=== PATIENT | female | born 1980 | race Hispanic/Latino ===

== ENCOUNTER 2020-02-16 05:43 | Observation (INO) | payer OTHER, SELFPAY ==
--- OUTSIDE RECORDS SUMMARY | 2020-02-16 05:45 | XMS REPORT | Continuity of Care Document ---
:1980 Author Organization [facility] t Address [address] [place] [address] Dr. Teague [address] [place] [id number] Care Team Providers Name Role Phone Unavailable Unavailable Unavailable Problems This patient has no known problems. Allergies, Adverse Reactions, Alerts This patient has no known allergies or adverse reactions. Medications This patient has no known medications. Procedures This patient has no known procedures. Results This patient has no known results.
[2020-02-16 06:11] LABS: Basophils % 1.1 % (0-1.3); Hematocrit 39.3 % (36.0-45.0); Lymphocytes % 33.4 % (15.3-44.8); MPV 10.1 fL (7.6-11.3); RBC Red Blood Cell Count 4.59 M/uL (3.86-4.86)
[2020-02-16 06:24] LABS: Protime INR 1.03
[2020-02-16 06:37] LABS: ALT/SGPT 18 U/L (12-78); AST/SGOT 15 U/L (15-37); Albumin 3.9 g/dL (3.4-5.0); Alkaline Phosphatase 98 U/L (45-117); BUN Blood Urea Nitrogen 10 mg/dL (7-18); Bicarbonate 28 mmol/L (21-32); Bilirubin Direct 0.2 mg/dL (0-0.2); Bilirubin Total 0.8 mg/dL (0.2-1.0); Glucose Level 220 mg/dL (74-106); Magnesium 1.8 mg/dL (1.8-2.4); NT PRO-BNP 19 pg/mL (<125); Protein, Total 8.3 g/dL (6.4-8.2); Sodium Level 136 mmol/L (136-145); Troponin (Emerg Dept Use Only) < 0.02 ng/mL (0.0-0.045)
[2020-02-16 07:28] LABS: Urine Blood 3+ (NEG); Urine Glucose TRACE (NEG); Urine Protein TRACE (NEG); Urine Specific Gravity 1.015 (1.005-1.030)
[2020-02-16 07:47] LABS: Barbiturates NEGATIVE (NEGATIVE); Benzodiazepines NEGATIVE (NEGATIVE); Cocaine NEGATIVE (NEGATIVE); METHAMPHETAM POSITIVE (NEGATIVE); Methadone NEGATIVE (NEGATIVE); Opiates NEGATIVE (NEGATIVE); Phencyclidine NEGATIVE (NEGATIVE); THC Cannibis NEGATIVE (NEGATIVE)
[2020-02-16 07:50] LABS: Urine Bacteria LOADED /HPF (<20); Urine Culture Reflex Order REFLEXED; Urine RBC <5 /HPF (NONE SEEN)
[2020-02-16] MEDS ORDERED: ASPIRIN 81 MG CHEWABLE TABLET ONE (07:52)
[2020-02-16] MEDS ORDERED: NA CHLORIDE 0.9% 1,000 ML ONE (07:52)
[2020-02-16] MEDS ORDERED: CEFTRIAXONE/SWI 1gm 1 GM/10 ML SYR ONE (07:52)
--- NOTE | 2020-02-16 07:59 | EDPHYS ---
Physician Documentation [facility] Name: Kaur Caruso Age: 39 yrs Sex: Female : 1980 Arrival Date: 02/16/2020 Time: 05:43 Bed 6 Private MD: ED Physician Rolando Lott HPI: 02/15 06:45 This 39 yrs old Female presents to ER via EMS with complaints of Chest Pain. cp 06:45 The patient or guardian reports chest pain that is located primarily in the anterior cp chest wall, left. Onset: yesterday. The pain does not radiate. Duration: The patient or guardian reports multiple episodes, that are intermittent. 06:45 Modifying factors: the symptoms are aggravated by emotionally stressful situations. cp Severity of pain: in the emergency department the pain has improved markedly. 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 - Social history:: Smoking status: Patient denies any tobacco usage or history of. Patient uses alcohol, occasionally. ROS: 06:50 Constitutional: Negative for body aches, chills, fever. cp 06:50 Eyes: Negative for injury, pain, redness, and discharge. cp 06:50 ENT: Negative for ear pain, sore throat, difficulty swallowing, difficulty handling secretions. 06:50 Neck: Negative for pain with movement, pain at rest, stiffness. 06:50 Cardiovascular: Positive for chest pain, Negative for edema, palpitations. 06:50 Respiratory: Negative for cough, shortness of breath, wheezing. 06:50 Abdomen/GI: Negative for abdominal pain, nausea, vomiting, and diarrhea. 06:50 Back: Negative for radiated pain. 06:50 Neuro: Negative for altered mental status, syncope, weakness. 06:50 All other systems are negative. Exam: 06:55 Constitutional: The patient appears in no acute distress, alert, awake, comfortable, cp non-diaphoretic, well developed, well nourished. 06:55 Head/Face: Normocephalic, atraumatic. cp 06:55 Eyes: Periorbital structures: appear normal, Conjunctiva: normal, no exudate, no injection, Sclera: no appreciated abnormality, Lids and lashes: appear normal, bilaterally. 06:55 ENT: External ear(s): are unremarkable, Nose: is normal, Mouth: Lips: moist, Oral mucosa: moist, Posterior pharynx: is normal, airway is patent, no erythema, no exudate. 06:55 Neck: ROM/movement: is normal, is supple, without pain, no range of motions limitations. 06:55 Chest/axilla: Inspection: normal, Palpation: is normal, no crepitus, no tenderness. 06:55 Cardiovascular: Rate: normal, Rhythm: regular, Heart sounds: murmur, not appreciated, Edema: is not appreciated, JVD: is not appreciated. 06:55 Respiratory: the patient does not display signs of respiratory distress, Respirations: normal, no use of accessory muscles, no retractions, labored breathing, is not present, Breath sounds: are clear throughout, no decreased breath sounds, no stridor, no wheezing. 06:55 Abdomen/GI: Inspection: abdomen appears normal, Palpation: abdomen is soft and non-tender, in all quadrants. 06:55 Back: pain, is absent, ROM is normal. 06:55 Skin: no rash present. 06:55 Neuro: Orientation: to person, place \T\ time. Mentation: is normal, Motor: moves all fours, strength is normal. 07:34 ECG was reviewed by the Attending Physician. cp Vital Signs: 05:45 BP 197 / 113; Pulse 112; Resp 16 S; Temp 98.2(O); Pulse Ox 100% on R/A; Weight 60.78 kg bb (R); Height 5 ft. 1 in. (154.94 cm) (R); Pain 0/10; 06:21 BP 181 / 110; Pulse 103; Resp 19; Pulse Ox 99% ; rr5 07:48 BP 149 / 102; Pulse 115; Resp 18; Pulse Ox 100% ; sv 08:45 BP 159 / 104; Pulse 99; Resp 19; Pulse Ox 100% ; sv 09:45 BP 153 / 98; Pulse 92 MON; Resp 17; Pulse Ox 100% ; sv 10:14 BP 153 / 98; Pulse 95; Resp 17; Pulse Ox 100% ; sv 11:25 BP 124 / 86; Pulse 94; Resp 16; Pulse Ox 100% ; sv 12:08 BP 125 / 88; Pulse 93; Resp 16; Pulse Ox 99% ; sv 05:45 Body Mass Index 25.32 (60.78 kg, 154.94 cm) bb 09:45 Sinus Rhythm sv MDM: 06:00 Differential diagnosis: abnormal EKG, acute myocardial infarction, cholecystitis, cp Cholelithiasis pleurisy, pneumonia, pneumothorax, pulmonary embolus. 06:44 Patient medically screened. cp 07:56 Data reviewed: vital signs, nurses notes, lab test result(s), EKG, radiologic studies, cp plain films. 07:57 Physician consultation: Brayan Moreira MD was called at 07:55, was contacted at 07:55, cp regarding admission, to the telemetry unit. patient's condition. 08:00 The patient was given aspirin in the Emergency Department. cp 08:00 Response to treatment: the patient's symptoms have markedly improved after treatment. cp 02/15 05:45 Order name: Basic Metabolic Panel; Complete Time: 06:50 bb 02/15 06:50 Interpretation: Normal except: K 3.0; GLUC 220; GFR 55. cp 02/15 05:45 Order name: CBC with Diff; Complete Time: 06:50 bb 02/15 05:45 Order name: LFT's; Complete Time: 06:50 bb 02/15 05:45 Order name: Magnesium; Complete Time: 06:50 02/15 05:45 Order name: NT PRO-BNP; Complete Time: 06:50 02/15 05:45 Order name: PT-INR; Complete Time: 06:50 bb 02/15 05:45 Order name: Troponin (emerg Dept Use Only); Complete Time: 06:50 bb 02/15 06:36 Order name: D-Dimer; Complete Time: 07:53 cp 02/15 06:51 Order name: UDS; Complete Time: 07:53 cp 02/15 07:53 Interpretation: Normal except: METHAMPHETAMINE POSITIVE. cp 02/15 07:11 Order name: Urine Microscopic Only; Complete Time: 07:53 dh3 02/15 07:53 Interpretation: Normal except: UWBC 5-10; UBACT LOADED. cp 02/15 07:12 Order name: Urine Dipstick--Ancillary (enter results); Complete Time: 07:53 eb 02/15 07:12 Order name: Urine --Ancillary (enter results); Complete Time: 07:53 eb 02/15 07:51 Order name: Urine Culture [facility] 02/15 08:20 Order name: Urinalysis [facility] 02/15 08:20 Order name: CBC with Automated Diff [facility] 02/15 08:20 Order name: CBC with Automated Diff [facility] 02/15 08:20 Order name: CKMB Creatine Kinase MB [facility] 02/15 08:20 Order name: CKMB Creatine Kinase MB [facility] 02/15 08:20 Order name: CKMB Creatine Kinase MB [facility] 02/15 08:20 Order name: CKMB Creatine Kinase MB [facility] 02/15 08:20 Order name: Comprehensive Metabolic Panel [facility] 02/15 08:20 Order name: Comprehensive Metabolic Panel [facility] 02/15 08:20 Order name: Creatine Phosphokinase [facility] 02/15 08:20 Order name: Creatine Phosphokinase [facility] 02/15 08:20 Order name: Creatine Phosphokinase [facility] 02/15 08:20 Order name: Creatine Phosphokinase [facility] 02/15 08:20 Order name: Lipid Profile [facility] 02/15 08:20 Order name: Lipid Profile [facility] 02/15 08:20 Order name: Magnesium [facility] 02/15 08:20 Order name: Magnesium [facility] 02/15 05:45 Order name: XRAY Chest (1 view); Complete Time: 11:24 02/15 11:24 Interpretation: Report review. 02/15 05:45 Order name: EKG; Complete Time: 05:45 02/15 05:45 Order name: Cardiac monitoring; Complete Time: 06:21 02/15 05:45 Order name: EKG - Nurse/Tech; Complete Time: 06:21 02/15 05:45 Order name: IV Saline Lock; Complete Time: 06:21 02/15 05:45 Order name: Labs collected and sent; Complete Time: 06:21 02/15 05:45 Order name: O2 Per Protocol; Complete Time: 06:21 02/15 05:45 Order name: O2 Sat Monitoring; Complete Time: 06:21 02/15 06:51 Order name: Urine Test (obtain specimen); Complete Time: 07:11 02/15 06:51 Order name: Urine Dipstick-Ancillary (obtain specimen); Complete Time: 07:11 cp 02/15 08:20 Order name: Consistent Carb (ADA) 1800 Fernando EDMS 02/15 08:20 Order name: Phosphorus EDMS 02/15 08:20 Order name: Phosphorus EDMS 02/15 08:20 Order name: Troponin I EDMS 02/15 08:20 Order name: Troponin I EDMS 02/15 08:20 Order name: Troponin I EDMS 02/15 08:20 Order name: Troponin I EDMS EC:34 Rate is 105 beats/min. Rhythm is regular. NC interval is normal. QRS interval is cp normal. QT interval is normal. T waves are Flattened in lead III. Interpreted by me. Reviewed by me. Administered Medications: 07:39 CANCELLED (Duplicate Order): Rocephin - (cefTRIAXone) 1 grams IVPB once over 30 mins; sv (mix in 50 mL NS) 07:50 Drug: Aspirin Chewable Tablet 324 mg Route: PO; sv 08:00 Follow up: Response: No adverse reaction sv 07:50 Drug: NS 0.9% 1000 ml Route: IV; Rate: 1 bolus; Site: left antecubital; sv 09:00 Follow up: Response: No adverse reaction; IV Status: Completed infusion; IV Intake: sv 1000ml 07:50 Drug: Rocephin 1 grams Route: IV; Rate: calculated rate; Site: left antecubital; sv 07:53 Follow up: Response: No adverse reaction; IV Status: Completed infusion; IV Intake: 10mlsv Disposition: 11:38 Co-signature as Attending Physician, Rolando Lott MD. ma2 Disposition: 02/16/20 07:59 Hospitalization ordered by Brayan Moreira for Observation. Preliminary diagnosis are Chest pain, unspecified, Urinary tract infection, site not specified, Hypertensive heart disease, Diabetes mellitus due to underlying condition with hyperglycemia. - Bed requested for Telemetry/MedSurg (observation). - Status is Observation. sv - Condition is Stable. - Problem is new. - Symptoms have improved. Signatures: Dispatcher [employer] EDMS Leodan, Mckenzie, RN RN sv Cleburne, Lyudmila, RN RN dw Neal, Bronwyn, RN RN bb Page, Oswaldo, PA PA cp Alzahri, Mohammad, MD MD ma2 Corrections: (The following items were deleted from the chart) 05:50 05:48 Home Meds: None; bb bb 07:39 07:33 Rocephin - (cefTRIAXone) 1 grams IVPB once over 30 mins; (mix in 50 mL NS) sv ordered. cp 11:19 07:59 Hospitalization Ordered by Brayan Moreira MD for Observation. Preliminary dw diagnosis is Chest pain, unspecified; Urinary tract infection, site not specified; Hypertensive heart disease; Diabetes mellitus due to underlying condition with hyperglycemia. Bed requested for Telemetry/MedSurg (observation). Status is Observation. Condition is Stable. Problem is new. Symptoms have improved. cp 12:09 11:19 02/16/2020 07:59 Hospitalization Ordered by Brayan Moreira MD for Observation. sv Preliminary diagnosis is Chest pain, unspecified; Urinary tract infection, site not specified; Hypertensive heart disease; Diabetes mellitus due to underlying condition with hyperglycemia. Bed requested for Telemetry/MedSurg (observation). Status is Observation. Condition is Stable. Problem is new. Symptoms have improved. dw
--- NOTE | 2020-02-16 07:59 | ER ---
Nurse's Notes [facility] Name: Kaur Caruso Age: 39 yrs Sex: Female : 1980 Arrival Date: 02/16/2020 Time: 05:43 Bed 6 Private MD: Diagnosis: Chest pain, unspecified;Urinary tract infection, site not specified;Hypertensive heart disease;Diabetes mellitus due to underlying condition with hyperglycemia Presentation: 02/15 05:45 Chief complaint: EMS states: they were toned out for report of pt with chest pain. Pt bb states chest pain started last night approx 1700 is not feeling any chest pain at this time pt had recent in the family and had an argument with her boyfriend pt has also not been taking her medication lately for her diabetes. Coronavirus screen: At this time, the client does not indicate any symptoms associated with coronavirus-19. Ebola Screen: No symptoms or risks identified at this time. Initial Sepsis Screen: Does the patient meet any 2 criteria? No. Patient's initial sepsis screen is negative. Does the patient have a suspected source of infection? No. Patient's initial sepsis screen is negative. Risk Assessment: Do you want to hurt yourself or someone else? Patient reports no desire to harm self or others. Onset of symptoms was February 15, 2020. 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 - Social history:: Smoking status: Patient denies any tobacco usage or history of. Patient uses alcohol, occasionally. Screenin:59 Abuse screen: Denies threats or abuse. Denies injuries from another. Nutritional rr5 screening: No deficits noted. Tuberculosis screening: No symptoms or risk factors identified. Fall Risk IV access (20 points). Total Pascal Fall Scale indicates No Risk (0-24 pts). Assessment: 05:59 General: Appears in no apparent distress. comfortable, Behavior is calm, cooperative, rr5 appropriate for age. Pain: Denies pain. Complains of pain in chest Pain does not radiate. Pain began gradually. Neuro: Level of Consciousness is awake, alert, obeys commands, Oriented to person, place, time, situation. Cardiovascular: Reports chest pain, Capillary refill < 3 seconds Patient's skin is warm and dry. Respiratory: Airway is patent Respiratory effort is even, unlabored, Respiratory pattern is regular, symmetrical. GI: No signs and/or symptoms were reported involving the gastrointestinal system. : No signs and/or symptoms were reported regarding the genitourinary system. EENT: No signs and/or symptoms were reported regarding the EENT system. Derm: Skin is intact, is healthy with good turgor, Skin temperature is warm. Musculoskeletal: Capillary refill < 3 seconds. 07:45 General: Appears in no apparent distress. comfortable, Behavior is cooperative, sv appropriate for age, drowsy. Pain: Denies pain. Neuro: Level of Consciousness is awake, alert, obeys commands, Oriented to person, place, time, situation, Moves all extremities. Full function. Cardiovascular: Denies chest pain. Respiratory: Respiratory effort is even, unlabored, Respiratory pattern is regular, symmetrical. Derm: Skin is pink, warm \T\ dry. 09:00 Reassessment: Patient appears in no apparent distress at this time. Patient and/or sv family updated on plan of care and expected duration. Pain level reassessed. Patient is alert, oriented x 3, equal unlabored respirations, skin warm/dry/pink. 10:15 Reassessment: Patient appears in no apparent distress at this time. Patient and/or hb family updated on plan of care and expected duration. Pain level reassessed. Patient is alert, oriented x 3, equal unlabored respirations, skin warm/dry/pink. Vital Signs: 05:45 BP 197 / 113; Pulse 112; Resp 16 S; Temp 98.2(O); Pulse Ox 100% on R/A; Weight 60.78 kg bb (R); Height 5 ft. 1 in. (154.94 cm) (R); Pain 0/10; 06:21 BP 181 / 110; Pulse 103; Resp 19; Pulse Ox 99% ; rr5 07:48 BP 149 / 102; Pulse 115; Resp 18; Pulse Ox 100% ; sv 08:45 BP 159 / 104; Pulse 99; Resp 19; Pulse Ox 100% ; sv 09:45 BP 153 / 98; Pulse 92 MON; Resp 17; Pulse Ox 100% ; sv 10:14 BP 153 / 98; Pulse 95; Resp 17; Pulse Ox 100% ; sv 11:25 BP 124 / 86; Pulse 94; Resp 16; Pulse Ox 100% ; sv 12:08 BP 125 / 88; Pulse 93; Resp 16; Pulse Ox 99% ; sv 05:45 Body Mass Index 25.32 (60.78 kg, 154.94 cm) bb 09:45 Sinus Rhythm sv ED Course: 05:43 Patient arrived in ED. cf2 05:47 Triage completed. bb 05:48 Arm band placed on Patient placed in an exam room, on a stretcher, on pulse oximetry. bb 05:58 No provider procedures requiring assistance completed. EKG done, by ED staff. Inserted rr5 saline lock: 20 gauge in left antecubital area, using aseptic technique. Blood collected. Patient maintains SpO2 saturation greater than 95% on room air. 06:00 Jeremy Pace RN is Primary Nurse. rr5 06:00 Patient has correct armband on for positive identification. Placed in gown. Bed in low rr5 position. Call light in reach. Side rails up X2. awake overnight monitor on. Pulse ox on. NIBP on. 06:00 Patient has correct armband on for positive identification. Placed in gown. Bed in low ea position. Call light in reach. Side rails up X2. 06:29 XRAY Chest (1 view) In Process Unspecified. EDMS 06:35 Oswaldo Marrero PA is PHCP. cp 06:36 Oswaldo Rodriguez MD is Attending Physician. cp 07:10 Rolando Lott MD is Attending Physician. cp 07:58 Brayan Moreira MD is Hospitalizing Provider. cp 08:58 Primary Nurse role handed off by Jeremy Pace RN sv 08:58 Mckenzie Alcocer RN is Primary Nurse. sv 12:08 Patient admitted, IV remains in place. intact. sv Administered Medications: 07:39 CANCELLED (Duplicate Order): Rocephin - (cefTRIAXone) 1 grams IVPB once over 30 mins; sv (mix in 50 mL NS) 07:50 Drug: Aspirin Chewable Tablet 324 mg Route: PO; sv 08:00 Follow up: Response: No adverse reaction sv 07:50 Drug: NS 0.9% 1000 ml Route: IV; Rate: 1 bolus; Site: left antecubital; sv 09:00 Follow up: Response: No adverse reaction; IV Status: Completed infusion; IV Intake: sv 1000ml 07:50 Drug: Rocephin 1 grams Route: IV; Rate: calculated rate; Site: left antecubital; sv 07:53 Follow up: Response: No adverse reaction; IV Status: Completed infusion; IV Intake: 10mlsv Intake: 07:53 IV: 10ml; Total: 10ml. sv 09:00 IV: 1000ml; Total: 1010ml. sv Outcome: 07:59 Decision to Hospitalize by Provider. cp 11:39 Admitted to Tele accompanied by tech, via wheelchair, room 202, with chart, Report sv called to Antonia SANTAMARIA 11:39 Condition: stable 11:39 Instructed on the need for admit. 12:09 Patient left the ED. sv Signatures: Dispatcher [employer] Mckenzie Renee RN HINA sv Bronwyn Neal RN RN Oswaldo Simmons, TRINY PA cp Kacey Broussard, RN RN Evelyne Boggs RN RN Jreemy Soriano, RN RN rr5 Dale Lynn cf2 Corrections: (The following items were deleted from the chart) 05:50 05:48 Home Meds: None; kavin vale 11:25 10:14 BP 153 / 98; Pulse 17bpm; Resp 95bpm; Pulse Ox 100%; hb sv
[2020-02-16] MEDS ORDERED: ACETAMINOPHEN 500 MG TAB PO PRN (08:16)
[2020-02-16] MEDS ORDERED: ONDANSETRON 4 MG/2 ML VIAL IV PRN (08:16)
[2020-02-16] MEDS ORDERED: ENOXAPARIN 40 MG/0.4 ML SQ SCH (09:00)
--- NOTE | 2020-02-16 09:45 | RAD REPORT ---
EXAM DESCRIPTION: RAD - Chest Single View - 02/16/2020 6:29 am CLINICAL HISTORY: CHEST PAIN COMPARISON: Portable chest January 2016 TECHNIQUE: AP portable chest image was obtained 02/16/2020 6:29 am . FINDINGS: No focal mass or consolidation. No mediastinal or hilar focal abnormality seen. Interstiti al pattern is mildly prominent. Patient may have trace amounts of airspace opacification. Overall fin dings are not substantially different than are actually slightly better than the prior study. Heart and vasculature are normal. No measurable pleural effusion and no pneumothorax. No acute bony abnormality seen. No acute aortic findings suspected. IMPRESSION: No acute cardiopulmonary process identifiable. No worrisome changes from prior study.
--- NOTE | 2020-02-16 10:20 | P.HP ---
Certification for Inpatient Patient admitted to: Observation With expected LOS: <2 Midnights Practitioner: I am a practitioner with admitting privileges, knowledge of patient current condition, hospital course, and medical plan of care. Services: Services provided to patient in accordance with Admission requirements found in Title 42 Section 412.3 of the Code of Federal Regulations Patient History Date of Service: 02/16/20 Reason for admission: Chest discomfort History of Present Illness: 39 yo female with no significant past medical history other than hypertension and diabetes came to ER with chest discomfort which started last night. Patient states that she used amphetamine last night and then follow up which she felt heart tracing also chest discomfort along with high blood pressure and was brought to ER. Denies any chest pain . no fever or chills No nausea vomiting or diarrhea Patient was assessed in the ER and was found to have elevated blood pressure and was admitted for observation to rule out ACS Allergies No Known Allergies Allergy (Verified 02/01/16 00:38) Home medications list reviewed: Yes Home Medications: Amox/Clavulanate [Augmentin 875-125 Tab] 1 each PO BID #10 tab 02/11/16 Metformin HCl [Glucophage*] 500 mg PO BIDWM #60 tab 02/11/16 Promethazine HCl 25 mg PO QID PRN #20 tablet 02/11/16 gemfibroziL [Lopid*] 600 mg PO BID #60 tab 02/11/16 traMADol HCL [Ultram*] 50 mg PO Q6H PRN #20 tab 02/11/16 - Past Medical/Surgical History Diabetic: Yes Past Medical History: Reviewed- Non-Contributory -: DM-NIDDM Past Surgical History: Reviewed- Non-Contributory -: L Foot SX I&D - Family History Family History: Reviewed- Non-Contributory - Social History Smoking Status: Never smoker Alcohol use: Yes CD- Drugs: No Caffeine use: Yes Review of Systems 10-point ROS is otherwise unremarkable Physical Examination - Vital Signs Temperature: 98.2 F Blood Pressure: 146/98 Pulse: 102 Respirations: 18 - Physical Exam General: Alert, In no apparent distress, Oriented x3 HEENT: Atraumatic, Normocephalic Neck: Supple, 2+ carotid pulse no bruit Respiratory: Clear to auscultation bilaterally, Normal air movement Cardiovascular: Regular rate/rhythm, Normal S1 S2 Capillary refill: <2 Seconds Gastrointestinal: Soft and benign, W/out hepatosplenomegaly Musculoskeletal: No clubbing, No swelling Integumentary: No rashes, No tenderness/swelling Neurological: Normal speech, Normal strength at 5/5 x4 extr Lymphatics: No axilla or inguinal lymphadenopathy - Studies Laboratory Data (last 24 hrs) 02/16/20 06:00: PT 12.2, INR 1.03 02/16/20 06:00: WBC 5.9, Hgb 13.5, Hct 39.3, Plt Count 174 02/16/20 06:00: Sodium 136, Potassium 3.0 L, BUN 10, Creatinine 1.09, Glucose 220 H, Magnesium 1.8, Total Bilirubin 0.8, AST 15, ALT 18, Alkaline Phosphatase 98 Assessment and Plan - Problems (Diagnosis) (1) Accelerated hypertension Current Visit: Yes Status: Acute (2) Chest pain Current Visit: Yes Status: Acute (3) Diabetes Current Visit: Yes Status: Acute (4) Hyperlipemia Current Visit: Yes Status: Acute - Plan Chest pain to rule out ACS Accelerated hypertension Diabetes Hyperlipidemia Substance abuse with amphetamine Plan Monitor under telemetry trend cardiac enzymes Antihypertensives titrated Hydralazine p.r.n. Insulin sliding scale will get an A1c and lipid panel Advised against substance abuse GI/DVT prophylaxis - Advance Directives Does patient have a Living Will: No Does patient have a Durable POA for Healthcare: No Time Spent Managing Pts Care (In Minutes): 46
[2020-02-16] MEDS ORDERED: AMLODIPINE 5 MG TAB PO SCH (12:00)
[2020-02-16] MEDS ORDERED: ASPIRIN EC 81 MG TAB PO SCH (12:00)
[2020-02-16] MEDS: INSULIN -REGULAR HUMAN 50 UNIT/0.5 ML ML SQ SCH ×3 (12:43→20:31)
[2020-02-16] MEDS: carvediloL 6.25 MG TAB PO SCH ×2 (12:43→20:30)
[2020-02-16 13:58] VITALS: O2SAT 98; BMI 25.3
[2020-02-16 14:41] LABS: CKMB Creatine Kinase MB < 1.0 ng/mL (0.3-3.6); Creatine Phosphokinase 100 U/L (26-192); Troponin I < 0.02 ng/mL (0.0-0.045)
[2020-02-16] MEDS ORDERED: POTASSIUM CL SA 10 MEQ TAB PO ONE (16:00)
[2020-02-16] MEDS ORDERED: MAGNESIUM SULFATE 1 gm IVPB 1 GM/100 ML BAG IV ONE (16:00)
[2020-02-16 17:35] VITALS: TEMP 97.8
[2020-02-16 20:31] VITALS: BP 106/64
[2020-02-16] MEDS ORDERED: ATORVASTATIN 40 MG TAB PO SCH (21:00)
== END 2020-02-16 20:35 | disposition left against medical advice (07) ==
LOC: ER 05:43 → ERHOLD 08:18 → 2ND 11:40
PROVIDERS: ADMIT Family Medicine; ATTEND Family Medicine
DX: R07.9 Chest pain, unspecified (principal); I10 Essential (primary) hypertension; E11.65 Type 2 diabetes mellitus with hyperglycemia; N39.0 Urinary tract infection, site not specified; E78.5 Hyperlipidemia, unspecified; F15.10 Other stimulant abuse, uncomplicated; Z20.828 Contact with and (suspected) exposure to other viral communicable diseases; Z79.84 Long term (current) use of oral hypoglycemic drugs; Z79.899 Other long term (current) drug therapy
CPT/HCPCS: 36415; 71045; 80048; 80076; 80307; 81003; 81015; 81025; 82550; 82553; 82947; 83735; 83880; 84484; 85025; 85379; 85610; 87077; 87086; 87088; 87186; 93005; 96361; 96374; 99285; G0378; J0696; J3475; J7030; U0002

== ENCOUNTER 2020-03-11 05:16 | Emergency (ER) | payer SELFPAY ==
--- OUTSIDE RECORDS SUMMARY | 2020-03-11 05:18 | XMS REPORT | Continuity of Care Document ---
:1980 Author Organization [facility] t Address [address] [place] [address] Dr. Te[address] [place] [id number] Care Team Providers Name Role Phone Unavailable Unavailable Unavailable Problems This patient has no known problems. Allergies, Adverse Reactions, Alerts This patient has no known allergies or adverse reactions. Medications This patient has no known medications. Procedures This patient has no known procedures. Results This patient has no known results.
[2020-03-11 05:35] LABS: Absolute Lymphocytes (CBC) 1.9 K/uL (0.7-4.9); Basophils % 1.1 % (0-1.3); Hematocrit 38.7 % (36.0-45.0); Lymphocytes % 35.9 % (15.3-44.8); MPV 10.2 fL (7.6-11.3); RBC Red Blood Cell Count 4.55 M/uL (3.86-4.86)
[2020-03-11 05:37] LABS: Protime INR 1.04
[2020-03-11] MEDS ORDERED: HYDRALAZINE HCL 20 MG/ML VIAL ONE (05:58)
[2020-03-11 05:59] LABS: ALT/SGPT 17 U/L (12-78); AST/SGOT 13 U/L (15-37); Albumin 4.3 g/dL (3.4-5.0); Alkaline Phosphatase 73 U/L (45-117); BUN Blood Urea Nitrogen 6 mg/dL (7-18); Bicarbonate 26 mmol/L (21-32); Bilirubin Direct 0.2 mg/dL (0-0.2); Bilirubin Total 0.7 mg/dL (0.2-1.0); Glucose Level 183 mg/dL (74-106); Magnesium 1.9 mg/dL (1.8-2.4); NT PRO-BNP 14 pg/mL (<125); Protein, Total 8.3 g/dL (6.4-8.2); Sodium Level 137 mmol/L (136-145); Troponin (Emerg Dept Use Only) < 0.02 ng/mL (0.0-0.045)
[2020-03-11 06:00] LABS: Potassium 2.8 mmol/L (3.5-5.1)
[2020-03-11 06:07] LABS: Barbiturates NEGATIVE (NEGATIVE); Benzodiazepines NEGATIVE (NEGATIVE); Cocaine NEGATIVE (NEGATIVE); METHAMPHETAM POSITIVE (NEGATIVE); Methadone NEGATIVE (NEGATIVE); Opiates NEGATIVE (NEGATIVE); Phencyclidine NEGATIVE (NEGATIVE); THC Cannibis NEGATIVE (NEGATIVE)
[2020-03-11 06:12] LABS: Urine Blood TRACE (NEG); Urine Glucose TRACE (NEG); Urine Protein NEGATIVE (NEG); Urine Specific Gravity 1.015 (1.005-1.030); Urine pH 7.5 (5.0-7.0)
[2020-03-11 06:43] LABS: Urine Bacteria 20-50 /HPF (<20); Urine Culture Reflex Order NOT NEEDED; Urine RBC <5 /HPF (NONE SEEN)
--- NOTE | 2020-03-11 06:54 | EDPHYS ---
Physician Documentation [facility] Name: Kaur Caruso Age: 39 yrs Sex: Female : 1980 Arrival Date: 03/11/2020 Time: 05:16 Bed 4 Private MD: ED Physician Mamadou Rosales HPI: 03/11 05:25 This 39 yrs old Female presents to ER via EMS with complaints of Hypertension. tw4 05:25 The patient has elevated blood pressure and discovered this at home. Onset: The tw4 symptoms/episode began/occurred today. Modifying factors: The symptoms are aggravated by. Associated signs and symptoms: The patient has no apparent associated signs or symptoms. The patient has not experienced similar symptoms in the past. 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 - Social history:: Smoking status: unknown Patient uses street drugs, Methamphetamine (Meth). ROS: 05:25 Constitutional: Negative for fever, chills, and weight loss, Eyes: Negative for injury, tw4 pain, redness, and discharge, Cardiovascular: Negative for chest pain, palpitations, and edema, Respiratory: Negative for shortness of breath, cough, wheezing, and pleuritic chest pain, Abdomen/GI: Negative for abdominal pain, nausea, vomiting, diarrhea, and constipation, MS/Extremity: Negative for injury and deformity, Skin: Negative for injury, rash, and discoloration. 05:25 Neuro: Positive for dizziness, Negative for altered mental status, gait disturbance, headache, hearing loss, numbness, seizure activity, speech changes. Exam: 05:25 Constitutional: This is a well developed, well nourished patient who is awake, alert, tw4 and in no acute distress. Head/Face: Normocephalic, atraumatic. Chest/axilla: Normal chest wall appearance and motion. Nontender with no deformity. No lesions are appreciated. Respiratory: Lungs have equal breath sounds bilaterally, clear to auscultation and percussion. No rales, rhonchi or wheezes noted. No increased work of breathing, no retractions or nasal flaring. Abdomen/GI: Soft, non-tender, with normal bowel sounds. No distension or tympany. No guarding or rebound. No evidence of tenderness throughout. 05:25 Cardiovascular: Rate: tachycardic, Rhythm: regular, Pulses: no pulse deficits are appreciated, Heart sounds: Vital Signs: 05:17 BP 206 / 121; Pulse 110; Resp 22 S; Temp 98.6(O); Pulse Ox 100% on R/A; Weight 60.78 kg bb (R); Height 5 ft. 2 in. (157.48 cm) (R); 06:34 BP 147 / 85; Pulse 102; Resp 14; Pulse Ox 100% on R/A; rv 07:14 BP 141 / 86; Pulse 93; Resp 15; Temp 98.5; Pulse Ox 100% on R/A; Pain 0/10; rv 05:17 Body Mass Index 24.51 (60.78 kg, 157.48 cm) bb MDM: 05:18 Patient medically screened. tw4 05:25 Data reviewed: vital signs, nurses notes. tw4 06:51 Differential diagnosis: hypertensive crisis, Malignant HTN, intracerebral hemorrhage. tw4 Data interpreted: Pulse oximetry: Interpretation: normal. Test interpretation: by ED physician or midlevel provider: ECG. Counseling: I had a detailed discussion with the patient and/or guardian regarding: the historical points, exam findings, and any diagnostic results supporting the discharge/admit diagnosis, lab results. Medication response: hydralizine. Special discussion: I discussed with the patient/guardian in detail that at this point there is no indication for admission to the hospital. It is understood, however, that if the symptoms persist or worsen the patient needs to return immediately for re-evaluation. 03/11 05:19 Order name: Basic Metabolic Panel; Complete Time: 06:50 4 03/11 06:50 Interpretation: Normal except: K 2.8; BUN 6; GLUC 183; GFR 84. tw03/11 05:19 Order name: CBC with Diff; Complete Time: 06:50 4 03/11 06:51 Interpretation: Within normal limits. tw4 03/11 05:19 Order name: LFT's; Complete Time: 06:50 4 03/11 06:50 Interpretation: Normal except: TP 8.3; GLOB 4.0; AST 13. 03/11 05:19 Order name: Magnesium; Complete Time: 06:50 03/11 06:51 Interpretation: Within normal limits: MG 1.9. 03/11 05:19 Order name: NT PRO-BNP; Complete Time: 06:50 03/11 06:51 Interpretation: Within normal limits: NT PRO-BNP 14. 03/11 05:19 Order name: PT-INR; Complete Time: 06:50 03/11 06:51 Interpretation: Within normal limits: PT 12.3. 03/11 05:19 Order name: Troponin (emerg Dept Use Only); Complete Time: 06:50 03/11 06:51 Interpretation: Within normal limits: TROPED < 0.02. 03/11 05:19 Order name: XRAY Chest (1 view) 03/11 05:19 Order name: Urine Drug Screen; Complete Time: 06:50 03/11 06:50 Interpretation: Normal except: METHAMPHETAMINE POSITIVE. 03/11 05:45 Order name: Urine Microscopic Only; Complete Time: 06:50 03/11 06:50 Interpretation: Normal except: UBACT 20-50. 03/11 05:45 Order name: Urine Culture 03/11 05:45 Order name: Urine Dipstick--Ancillary (enter results); Complete Time: 06:50 03/11 06:50 Interpretation: Normal except: UBLD TRACE; UPH 7.5. 03/11 05:19 Order name: EKG; Complete Time: 05:19 03/11 05:19 Order name: Cardiac monitoring; Complete Time: 05:21 03/11 05:19 Order name: EKG - Nurse/Tech; Complete Time: 05:34 03/11 05:19 Order name: IV Saline Lock; Complete Time: 05:34 03/11 05:19 Order name: Labs collected and sent; Complete Time: 05:34 03/11 05:19 Order name: O2 Per Protocol; Complete Time: 05:20 03/11 05:19 Order name: O2 Sat Monitoring; Complete Time: 05:20 03/11 05:19 Order name: Urine Dipstick-Ancillary (obtain specimen); Complete Time: 05:42 tw4 EC:54 Rate is 105 beats/min. Rhythm is regular. QRS Troutman is Normal. OR interval is normal. tw4 QRS interval is normal. QT interval is normal. No Q waves. T waves are Normal. No ST changes noted. Clinical impression: Sinus tachycardia. Interpreted by me. Reviewed by me. Administered Medications: 05:49 Drug: hydrALAZINE 10 mg Route: IV; Rate: calculated rate; Site: right antecubital; rv 06:35 Follow up: Response: Blood pressure is lowered; IV Status: Completed infusion rv 06:45 Drug: Potassium Effervescent Tablet 50 mEq Route: PO; rv 07:12 Follow up: Response: No adverse reaction rv Disposition: 03/11/20 06:53 Discharged to Home. Impression: Hypertensive crisis, Adverse effect of amphetamines, Hypokalemia. - Condition is Stable. - Discharge Instructions: Stimulant Use Disorder-Amphetamines, Hypertension, Hypokalemia. - Medication Reconciliation Form, Thank You Letter, Antibiotic Education, Prescription Opioid Use form. - Follow up: Private Physician; When: Upon discharge from the Emergency Department; Reason: Recheck today's complaints, Continuance of care, Re-evaluation by your physician. - Problem is new. - Symptoms have improved. Signatures: Dispatcher [employer] EDBronwyn Salguero RN RN bb Mamadou Rosales MD MD tw4 Rocco Vu RN RN rv Corrections: (The following items were deleted from the chart) 06:54 06:53 03/11/2020 06:53 Discharged to Home. Impression: Hypertensive crisis; Adverse tw4 effect of amphetamines. Condition is Stable. Forms are Medication Reconciliation Form, Thank You Letter, Antibiotic Education, Prescription Opioid Use. Follow up: Private Physician; When: Upon discharge from the Emergency Department; Reason: Recheck today's complaints, Continuance of care, Re-evaluation by your physician. Problem is new. Symptoms have improved. tw4 07:15 06:54 03/11/2020 06:53 Discharged to Home. Impression: Hypertensive crisis; Adverse rv effect of amphetamines; Hypokalemia. Condition is Stable. Discharge Instructions: Stimulant Use Disorder-Amphetamines, Hypertension, Hypokalemia. Forms are Medication Reconciliation Form, Thank You Letter, Antibiotic Education, Prescription Opioid Use. Follow up: Private Physician; When: Upon discharge from the Emergency Department; Reason: Recheck today's complaints, Continuance of care, Re-evaluation by your physician. Problem is new. Symptoms have improved. tw4
--- NOTE | 2020-03-11 06:54 | ER ---
Nurse's Notes [facility] Name: Kaur Caruso Age: 39 yrs Sex: Female : 1980 Arrival Date: 03/11/2020 Time: 05:16 Bed 4 Private MD: Diagnosis: Hypertensive crisis;Adverse effect of amphetamines;Hypokalemia Presentation: 03/11 05:17 Chief complaint: EMS states: they were toned out for report of pt with high blood bb pressure after taking meth. Coronavirus screen: At this time, the client does not indicate any symptoms associated with coronavirus-19. Ebola Screen: No symptoms or risks identified at this time. Initial Sepsis Screen: Does the patient meet any 2 criteria? No. Patient's initial sepsis screen is negative. Does the patient have a suspected source of infection? No. Patient's initial sepsis screen is negative. Risk Assessment: Do you want to hurt yourself or someone else? Patient reports no desire to harm self or others. Onset of symptoms was March 11, 2020. 05:17 Method Of Arrival: EMS: [facility] 05:17 Acuity: DESTINY 2 bb Triage Assessment: 05:19 General: Appears in no apparent distress. Behavior is cooperative. Pain: Denies pain. bb Neuro: Level of Consciousness is awake, alert, obeys commands, Oriented to person, place, time, situation. Cardiovascular: Capillary refill < 3 seconds Patient's skin is warm and dry. Respiratory: Airway is patent Respiratory effort is unlabored, Respiratory pattern is tachypnea. GI: No signs and/or symptoms were reported involving the gastrointestinal system. Derm: Skin is pink, warm \T\ dry. Musculoskeletal: Circulation, motion, and sensation intact. 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 - Social history:: Smoking status: unknown Patient uses street drugs, Methamphetamine (Meth). Screenin:43 Abuse screen: Denies threats or abuse. Denies injuries from another. Nutritional rv screening: No deficits noted. Tuberculosis screening: No symptoms or risk factors identified. Fall Risk None identified. Assessment: 07:13 Reassessment: Patient states feeling better. Patient states symptoms have improved. rv Vital Signs: 05:17 BP 206 / 121; Pulse 110; Resp 22 S; Temp 98.6(O); Pulse Ox 100% on R/A; Weight 60.78 kg bb (R); Height 5 ft. 2 in. (157.48 cm) (R); 06:34 BP 147 / 85; Pulse 102; Resp 14; Pulse Ox 100% on R/A; rv 07:14 BP 141 / 86; Pulse 93; Resp 15; Temp 98.5; Pulse Ox 100% on R/A; Pain 0/10; rv 05:17 Body Mass Index 24.51 (60.78 kg, 157.48 cm) bb ED Course: 05:16 Patient arrived in ED. cl3 05:18 Mamadou Rosales MD is Attending Physician. tw4 05:18 Triage completed. bb 05:19 Arm band placed on Patient placed in an exam room, on a stretcher, on court recording monitor, bb on pulse oximetry. 05:30 Inserted saline lock: 20 gauge in right antecubital area, using aseptic technique. rv Blood collected. 05:30 Initial lab(s) drawn, by me, sent to lab. rv 05:40 XRAY Chest (1 view) In Process Unspecified. EDMS 05:42 Rocco Vu, RN is Primary Nurse. rv 05:43 Patient has correct armband on for positive identification. campus monitor on. Pulse rv ox on. NIBP on. 06:01 Notified ED physician of a critical lab result(s). potassium of 2.8 Dr Rosales notified. bb 07:13 No provider procedures requiring assistance completed. IV discontinued, intact, rv bleeding controlled, No redness/swelling at site. Pressure dressing applied. Administered Medications: 05:49 Drug: hydrALAZINE 10 mg Route: IV; Rate: calculated rate; Site: right antecubital; rv 06:35 Follow up: Response: Blood pressure is lowered; IV Status: Completed infusion rv 06:45 Drug: Potassium Effervescent Tablet 50 mEq Route: PO; rv 07:12 Follow up: Response: No adverse reaction rv Outcome: 06:53 Discharge ordered by . tw4 07:13 Discharged to home ambulatory. rv 07:13 Condition: good 07:13 Discharge instructions given to patient, Instructed on discharge instructions, follow up and referral plans. Demonstrated understanding of instructions, follow-up care. 07:15 Patient left the ED. rv Addendum: 03/14/2020 09:01 Addendum: Culture Results: Positive urine culture. Phone call Attempt #1 # unavailable s v at this time. Signatures: Dispatcher [employer] Mckenzie Renee RN RN sv Ballard, Brenda, RN RN bb Wadley, Terrence, MD MD tw4 Rocco Vu RN RN rv Lewis, Charde cl3 Corrections: (The following items were deleted from the chart) 09:03 09:01 Addendum: Culture Results: Positive urine culture. Phone call Attempt #1 left voicemail to return our phone call
[2020-03-11] MEDS ORDERED: POTASSIUM 25 MEQ EFFERV TAB ONE (06:58)
--- NOTE | 2020-03-11 07:20 | RAD REPORT ---
EXAM DESCRIPTION: RAD - Chest Single View - 03/11/2020 5:39 am CLINICAL HISTORY: Hypertension COMPARISON: Portable February 15 TECHNIQUE: AP portable chest image was obtained 03/11/2020 5:39 am . FINDINGS: No focal mass or consolidation. Interstitial pattern is diminished in prominence from the prior study. Heart and vasculature are normal. No measurable pleural effusion and no pneumothorax. No acute bony abnormality seen. No acute aortic findings suspected. IMPRESSION: No acute cardiopulmonary process.
[2020-03-11 07:33] VITALS: O2SAT 100
[2020-03-11 07:51] VITALS: BP 141/86; TEMP 98.5
--- NOTE | 2020-03-11 12:16 | EKG ---
Test Date: 2020-03-11 Test Time: 05:26:12 Social Media Intern: MYRIAM MEASUREMENT RESULTS: Intervals: Rate: 105 NC: 148 QRSD: 82 QT: 342 QTc: 452 [place]: P: 57 NC: 148 QRS: 32 T: 55 INTERPRETIVE STATEMENTS: Sinus tachycardia Possible Left atrial enlargement Borderline ECG Compared to ECG 02/16/2020 05:58:36 Left ventricular hypertrophy no longer present Electronically Signed On 03-11-20 12:15:01 CDT by Marciano Szymanski
== END 2020-03-11 07:15 | disposition home or self-care (01) ==
LOC: ER 05:16
DX: I16.9 Hypertensive crisis, unspecified (principal); E87.6 Hypokalemia; T43.625A Adverse effect of amphetamines, initial encounter; I10 Essential (primary) hypertension
CPT/HCPCS: 36415; 71045; 80048; 80076; 80307; 81003; 81015; 83735; 83880; 84484; 85025; 85610; 87077; 87086; 87088; 87186; 93005; 96365; 99284; J0360

== ENCOUNTER 2020-10-10 10:49 | Emergency (ER) | payer SELFPAY ==
--- OUTSIDE RECORDS SUMMARY | 2020-10-10 10:51 | XMS REPORT | Continuity of Care Document ---
:1980 Author Organization [facility] t Address [address] [place] [address] Dr. Teague [address] [place] [id number] Care Team Providers Name Role Phone Unavailable Unavailable Unavailable Problems This patient has no known problems. Allergies, Adverse Reactions, Alerts This patient has no known allergies or adverse reactions. Medications This patient has no known medications. Procedures This patient has no known procedures. Results This patient has no known results.
--- NOTE | 2020-10-10 11:58 | ER ---
Nurse's Notes [facility] Name: Kaur Caruso Age: 40 yrs Sex: Female : 1980 Arrival Date: 10/10/2020 Time: 11:02 Bed Waiting Private MD: Diagnosis: Presentation: 10/10 11:05 Chief complaint: EMS states: Intermittent dizziness since this morning. Reports recent ss addition of Lisinopril 20mg 3 weeks ago and skipped breakfast today. BGL 242. Coronavirus screen: At this time, the client does not indicate any symptoms associated with coronavirus-19. Ebola Screen: No symptoms or risks identified at this time. Initial Sepsis Screen: Does the patient meet any 2 criteria? No. Patient's initial sepsis screen is negative. Does the patient have a suspected source of infection? No. Patient's initial sepsis screen is negative. Risk Assessment: Do you want to hurt yourself or someone else? Patient reports no desire to harm self or others. Onset of symptoms was October 10, 2020. 11:05 Method Of Arrival: EMS: [facility] ss 11:05 Acuity: DESTINY 3 ss Historical: - Allergies: 11:09 No Known Allergies; ss - Home Meds: 11:09 Levemir 100 unit/mL subcutaneous soln [Active]; Metformin Oral [Active]; lisinopril 20 ss mg Oral tab 1 tab once daily [Active]; depo shot [Active]; - PMHx: 11:09 Diabetes - NIDDM; Hypertension; ss - Immunization history:: Adult Immunizations up to date. - Social history:: Smoking status: Patient denies any tobacco usage or history of. Screenin:55 Abuse screen: Denies threats or abuse. Denies injuries from another. Nutritional ss screening: No deficits noted. Tuberculosis screening: Never had TB. Fall Risk None identified. Assessment: 11:55 Reassessment: Pt told ER registration staff that she was feeling better, and believed ss that it was anxiety and that she is going to call her to make a followup appointment. Vital Signs: 11:05 BP 160 / 86; Pulse 92; Resp 16; Temp 97.8; Pulse Ox 98% on R/A; Pain 0/10; ss ED Course: 11:02 Patient arrived in ED. ds1 11:07 Triage completed. ss Administered Medications: No medications were administered Outcome: 11:55 Eloped from waiting room, before seeing physician 11:58 Patient left the ED. ss Signatures: Noni Hernandez ds1 Preeti Lewis, RN RN ss
[2020-10-10 12:16] VITALS: BP 160/86; TEMP 97.8; O2SAT 98
== END 2020-10-10 11:58 | disposition left against medical advice (07) ==
LOC: ER 10:49
DX: R42 Dizziness and giddiness (principal); Z53.21 Procedure and treatment not carried out due to patient leaving prior to being seen by health care provider; E11.9 Type 2 diabetes mellitus without complications; I10 Essential (primary) hypertension; Z79.4 Long term (current) use of insulin
CPT/HCPCS: 99282

== ENCOUNTER 2020-10-12 20:10 | Emergency (ER) | payer SELFPAY ==
--- OUTSIDE RECORDS SUMMARY | 2020-10-12 20:12 | XMS REPORT | Continuity of Care Document ---
:1980 Author Organization [facility] t Address [address] [place] [address] Dr. Teague [address] [place] [id number] Care Team Providers Name Role Phone Unavailable Unavailable Unavailable Problems This patient has no known problems. Allergies, Adverse Reactions, Alerts This patient has no known allergies or adverse reactions. Medications This patient has no known medications. Procedures This patient has no known procedures. Results This patient has no known results.
[2020-10-13 00:46] LABS: Urine Blood Negative (Negative); Urine Glucose Negative (Negative); Urine Protein Negative (Negative); Urine Specific Gravity >=1.030 (1.005-1.030)
[2020-10-13 00:58] LABS: Absolute Lymphocytes (CBC) 2.9 K/uL (0.7-4.9); Basophils % 0.5 % (0-1.3); Hematocrit 37.8 % (36.0-45.0); Lymphocytes % 37.2 % (15.3-44.8); MPV 10.6 fL (7.6-11.3); RBC Red Blood Cell Count 4.57 M/uL (3.86-4.86)
[2020-10-13 01:10] LABS: ALT/SGPT 24 U/L (12-78); AST/SGOT 11 U/L (15-37); Albumin 3.9 g/dL (3.4-5.0); Alkaline Phosphatase 59 U/L (45-117); BUN Blood Urea Nitrogen 16 mg/dL (7-18); Bicarbonate 23 mmol/L (21-32); Bilirubin Direct 0.2 mg/dL (0-0.2); Bilirubin Total 0.6 mg/dL (0.2-1.0); Glucose Level 141 mg/dL (74-106); Magnesium 2.1 mg/dL (1.8-2.4); NT PRO-BNP 8 pg/mL (<125); Potassium 3.9 mmol/L (3.5-5.1); Protein, Total 7.7 g/dL (6.4-8.2); Sodium Level 139 mmol/L (136-145); Troponin (Emerg Dept Use Only) < 0.02 ng/mL (0.0-0.045)
[2020-10-13 01:19] LABS: Barbiturates NEGATIVE (NEGATIVE); Benzodiazepines NEGATIVE (NEGATIVE); Cocaine NEGATIVE (NEGATIVE); METHAMPHETAM NEGATIVE (NEGATIVE); Methadone NEGATIVE (NEGATIVE); Opiates NEGATIVE (NEGATIVE); Phencyclidine NEGATIVE (NEGATIVE); THC Cannibis NEGATIVE (NEGATIVE)
[2020-10-13 02:25] LABS: Urine Specific Gravity/Preg >1.030 (1.005-1.030)
--- NOTE | 2020-10-13 04:20 | EDPHYS ---
Physician Documentation [facility] Name: Kaur Caruso Age: 40 yrs Sex: Female : 1980 Arrival Date: 10/12/2020 Time: 20:11 Bed 5 Private MD: ED Physician Mike Gray HPI: 10/13 00:57 This 40 yrs old Female presents to ER via Ambulatory with complaints of Chest mh7 Pain. 00:57 The patient or guardian reports chest pain that is located primarily in the anterior 7 chest wall, bilaterally. Onset: 2 day(s) ago. The pain does not radiate. 00:58 Associated signs and symptoms: Pertinent positives: lightheadedness, Pertinent mh7 negatives: abdominal pain, cough, diaphoresis, headache, lower extremity pain, lower extremity swelling, nausea, near syncope, palpitations, recent travel, shortness of breath, syncope, vomiting. The chest pain is described as sharp. Duration: The patient or guardian reports multiple episodes, that are intermittent, that wax and wane. Modifying factors: The symptoms are alleviated by nothing. the symptoms are aggravated by nothing. 00:59 Severity of pain: At its worst the pain was moderate yesterday, in the emergency [facility] department the pain has improved moderately. 04:15 States intermittent bilateral sharp chest pain increased with touching chest. Took 7 Aspirin at home. Denies SOB, cough, fever, vomiting.. 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 - Social history:: Smoking status: unknown. ROS: 10/13 00:59 Constitutional: Negative for fever, chills, and weight loss, Eyes: Negative for injury, mh7 pain, redness, and discharge, ENT: Negative for injury, pain, and discharge, Neck: Negative for injury, pain, and swelling, Respiratory: Negative for shortness of breath, cough, wheezing, and pleuritic chest pain, Abdomen/GI: Negative for abdominal pain, nausea, vomiting, diarrhea, and constipation, Back: Negative for injury and pain, : Negative for injury, bleeding, discharge, and swelling, MS/Extremity: Negative for injury and deformity, Skin: Negative for injury, rash, and discoloration, Neuro: Negative for headache, weakness, numbness, tingling, and seizure, Psych: Negative for depression, anxiety, suicide ideation, homicidal ideation, and hallucinations, Allergy/Immunology: Negative for hives, rash, and allergies, Endocrine: Negative for neck swelling, polydipsia, polyuria, polyphagia, and marked weight changes, Hematologic/Lymphatic: Negative for swollen nodes, abnormal bleeding, and unusual bruising. Exam: 00:59 Constitutional: This is a well developed, well nourished patient who is awake, alert, mh7 and in no acute distress. Head/Face: Normocephalic, atraumatic. Eyes: Pupils equal round and reactive to light, extra-ocular motions intact. Lids and lashes normal. Conjunctiva and sclera are non-icteric and not injected. Cornea within normal limits. Periorbital areas with no swelling, redness, or edema. Neck: Trachea midline, no thyromegaly or masses palpated, and no cervical lymphadenopathy. Supple, full range of motion without nuchal rigidity, or vertebral point tenderness. No Meningismus. Chest/axilla: Normal chest wall appearance and motion. Nontender with no deformity. No lesions are appreciated. Cardiovascular: Regular rate and rhythm with a normal S1 and S2. No gallops, murmurs, or rubs. Normal PMI, no JVD. No pulse deficits. Respiratory: Lungs have equal breath sounds bilaterally, clear to auscultation and percussion. No rales, rhonchi or wheezes noted. No increased work of breathing, no retractions or nasal flaring. Abdomen/GI: Soft, non-tender, with normal bowel sounds. No distension or tympany. No guarding or rebound. No evidence of tenderness throughout. Back: No spinal tenderness. No costovertebral tenderness. Full range of motion. Skin: Warm, dry with normal turgor. Normal color with no rashes, no lesions, and no evidence of cellulitis. MS/ Extremity: Pulses equal, no cyanosis. Neurovascular intact. Full, normal range of motion. Neuro: Awake and alert, GCS 15, oriented to person, place, time, and situation. Cranial nerves II-XII grossly intact. Motor strength 5/5 in all extremities. Sensory grossly intact. Cerebellar exam normal. Normal gait. Psych: Awake, alert, with orientation to person, place and time. Behavior, mood, and affect are within normal limits. Vital Signs: 10/12 21:18 BP 173 / 97; Pulse 87; Resp 16 S; Temp 98.2(TE); Pulse Ox 99% on R/A; Weight 61.23 kg bb (R); Height 5 ft. 2 in. (157.48 cm) (R); Pain 6/10; 10/13 02:14 BP 105 / 80; Pulse 71; Resp 18; Pulse Ox 100% on R/A; mg2 03:36 BP 116 / 89; Pulse 91; Resp 16; Pulse Ox 98% on R/A; wh 04:26 BP 121 / 76; Pulse 89; Resp 17; Temp 98.1; Pulse Ox 100% on R/A; Pain 0/10; mg2 10/12 21:18 Body Mass Index 24.69 (61.23 kg, 157.48 cm) bb MDM: 04:17 Differential diagnosis: acute myocardial infarction, acute pericarditis, anxiety, mh7 coronary artery disease chest wall pain, congestive heart failure costochondritis, myocarditis, pericarditis, pneumonia, pneumothorax, pulmonary embolus. HEART Score: History: Slightly Suspicious (0), ECG: Normal (0), Age: < or = 45 years (0), Risk Factors: > or = 3 Risk factors for atherosclerotic disease (2), [Hypercholesterolemia] [Hypertension] [DM] Troponin: < or = 1 x Normal Limit (0), Total Score = 2. Data reviewed: vital signs, nurses notes, old medical records, lab test result(s), cardiac enzymes, CBC, electrolytes, urinalysis, urine drug screen, EKG, radiologic studies, plain films. Data interpreted: Pulse oximetry: on room air is 98 %. Interpretation: normal. Counseling: I had a detailed discussion with the patient and/or guardian regarding: the historical points, exam findings, and any diagnostic results supporting the discharge/admit diagnosis, lab results, radiology results, the need for outpatient follow up, to return to the emergency department if symptoms worsen or persist or if there are any questions or concerns that arise at home. Response to treatment: the patient's symptoms have resolved after treatment, the patient's blood pressure is in an acceptable range, mental status has returned to baseline, the patient no longer shows bradycardia, the patient is not short of breath, the patient is not tachycardic, the patient's pain is gone, the patient's temperature has normalized. 04:20 Patient medically screened. [facility] 04:49 Refusal of service: The patient/guardian displays adequate decision making capability [facility] and despite a detailed discussion of alternatives, benefits, risks, and consequences refuses: Admission to the hospital for further work-up and treatment. 10/13 00:31 Order name: Basic Metabolic Panel; Complete Time: 01:39 [facility] 10/13 00:31 Order name: CBC with Diff; Complete Time: 01:39 [facility] 10/13 00:31 Order name: LFT's; Complete Time: 01:39 [facility] 10/13 00:31 Order name: Magnesium; Complete Time: 01:39 [facility] 10/13 00:31 Order name: NT PRO-BNP; Complete Time: 01:39 [facility] 10/13 00:31 Order name: PT-INR; Complete Time: 03:51 [facility] 10/13 00:31 Order name: Troponin (emerg Dept Use Only); Complete Time: 01:39 [facility] 10/13 00:45 Order name: Urine Dipstick-Ancillary; Complete Time: 01:39 EDMS 10/13 00:47 Order name: UDS; Complete Time: 01:39 [facility] 10/13 00:58 Order name: Urine --Ancillary (enter results); Complete Time: 03:02 tt3 10/13 03:02 Order name: D-Dimer [facility] 10/13 03:26 Order name: Troponin (emerg Dept Use Only) [facility] 10/13 03:27 Order name: D-Dimer; Complete Time: 03:51 EDMS 10/13 00:31 Order name: XRAY Chest (1 view) [facility] 10/13 00:31 Order name: EKG; Complete Time: 00:31 mg2 10/13 00:31 Order name: Cardiac monitoring; Complete Time: 00:38 mg2 10/13 00:31 Order name: EKG - Nurse/Tech; Complete Time: 00:38 [facility] 10/13 00:31 Order name: IV Saline Lock; Complete Time: 00:38 mg2 10/13 00:31 Order name: Labs collected and sent; Complete Time: 00:38 mg2 10/13 00:31 Order name: O2 Per Protocol; Complete Time: 00:38 mg2 10/13 00:31 Order name: O2 Sat Monitoring; Complete Time: 00:38 mg2 10/13 00:47 Order name: Urine Test (obtain specimen); Complete Time: 00:48 7 10/13 03:27 Order name: Troponin (Emerg Dept Use Only); Complete Time: 04:10 EDMS Administered Medications: No medications were administered Disposition: 10/13/20 04:20 Discharged to Home. Impression: Chest pain, unspecified. - Condition is Stable. - Discharge Instructions: Nonspecific Chest Pain, [id number]. - Medication Reconciliation Form, Thank You Letter, Antibiotic Education, Prescription Opioid Use form. - Follow up: Private Physician; When: 1 - 2 days; Reason: Worsening of condition, Recheck today's complaints, Continuance of care, Re-evaluation by your physician. - Problem is new. - Symptoms have improved. Signatures: Dispatcher [employer] EDMD Bronwyn Neal RN RN bb Jed Donovan RN RN mg2 Mike Gray MD MD mh7 Corrections: (The following items were deleted from the chart) 03: 03:03 D-Dimer ordered. [facility] EDMD 04:27 04:20 10/13/2020 04:20 Discharged to Home. Impression: Chest pain, unspecified. mg2 Condition is Stable. Forms are Medication Reconciliation Form, Thank You Letter, Antibiotic Education, Prescription Opioid Use. Follow up: Private Physician; When: 1 - 2 days; Reason: Worsening of condition, Recheck today's complaints, Continuance of care, Re-evaluation by your physician. Problem is new. Symptoms have improved. mh7
--- NOTE | 2020-10-13 04:20 | ER ---
Nurse's Notes [facility] Name: Kaur Caruso Age: 40 yrs Sex: Female : 1980 Arrival Date: 10/12/2020 Time: 20:11 Bed 5 Private MD: Diagnosis: Chest pain, unspecified Presentation: 10/12 21:18 Chief complaint: Patient states: she started having chest pain and felt faint on Tuesday bb then today she felt "light-headed" today and is worried and wants to get checked out. Coronavirus screen: At this time, the client does not indicate any symptoms associated with coronavirus-19. Ebola Screen: No symptoms or risks identified at this time. Initial Sepsis Screen: Does the patient meet any 2 criteria? No. Patient's initial sepsis screen is negative. Does the patient have a suspected source of infection? No. Patient's initial sepsis screen is negative. Risk Assessment: Do you want to hurt yourself or someone else? Patient reports no desire to harm self or others. Onset of symptoms was October 11, 2020. 21:18 Method Of Arrival: Ambulatory bb 21:18 Acuity: DESTINY 3 bb Triage Assessment: 21:21 General: Appears in no apparent distress. Behavior is calm, cooperative. Pain: bb Complains of pain in chest Pain currently is 6 out of 10 on a pain scale. Neuro: Level of Consciousness is awake, alert, obeys commands, Oriented to person, place, time, situation. Cardiovascular: Heart tones present Capillary refill < 3 seconds Patient's skin is warm and dry. Respiratory: Respiratory effort is even, unlabored, Respiratory pattern is regular. Derm: Skin is pink, warm \\T\\ dry. Musculoskeletal: Circulation, motion, and sensation intact. 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 - Social history:: Smoking status: unknown. Screenin/26 00:39 Abuse screen: Denies threats or abuse. Denies injuries from another. Nutritional mg2 screening: No deficits noted. Tuberculosis screening: No symptoms or risk factors identified. Fall Risk IV access (20 points). Assessment: 00:38 General: Appears in no apparent distress. comfortable, Behavior is calm, cooperative. mg2 Pain: Complains of pain in chest Pain does not radiate. Pain currently is 3 out of 10 on a pain scale. Quality of pain is described as aching, Pain began gradually, Is intermittent. Neuro: Level of Consciousness is awake, alert, obeys commands, Oriented to person, place, time, situation. Cardiovascular: Capillary refill < 3 seconds Patient's skin is warm and dry. Respiratory: Airway is patent Respiratory effort is even, unlabored, Respiratory pattern is regular, symmetrical. GI: No signs and/or symptoms were reported involving the gastrointestinal system. : No signs and/or symptoms were reported regarding the genitourinary system. EENT: No signs and/or symptoms were reported regarding the EENT system. Derm: Skin is intact, is healthy with good turgor, Skin is pink, warm \\T\\ dry. normal. Musculoskeletal: Circulation, motion, and sensation intact. Capillary refill < 3 seconds. 02:15 Reassessment: Patient appears in no apparent distress at this time. Patient and/or mg2 family updated on plan of care and expected duration. Pain level reassessed. Patient is alert, oriented x 3, equal unlabored respirations, skin warm/dry/pink. 03:36 Reassessment: Patient appears in no apparent distress at this time. Patient and/or wh family updated on plan of care and expected duration. Pain level reassessed. Patient is alert, oriented x 3, equal unlabored respirations, skin warm/dry/pink. Vital Signs: 10/12 21:18 BP 173 / 97; Pulse 87; Resp 16 S; Temp 98.2(TE); Pulse Ox 99% on R/A; Weight 61.23 kg bb (R); Height 5 ft. 2 in. (157.48 cm) (R); Pain 11/27; 10/13 02:14 BP 105 / 80; Pulse 71; Resp 18; Pulse Ox 100% on R/A; mg2 03:36 BP 116 / 89; Pulse 91; Resp 16; Pulse Ox 98% on R/A; wh 04:26 BP 121 / 76; Pulse 89; Resp 17; Temp 98.1; Pulse Ox 100% on R/A; Pain 0/10; mg2 10/12 21:18 Body Mass Index 24.69 (61.23 kg, 157.48 cm) ED Course: 10/12 20:11 Patient arrived in ED. 3 21:20 Triage completed. 21:21 Arm band placed on Patient placed in waiting room, Patient notified of wait time. 10/13 00:22 Mike Gray MD is Attending Physician. [facility] 00:30 Jed Donovan, HINA is Primary Nurse. [facility] 00:39 No provider procedures requiring assistance completed. Inserted saline lock: 20 gauge mg2 in right antecubital area, using aseptic technique. Blood collected. Patient maintains SpO2 saturation greater than 95% on room air. 00:40 Patient has correct armband on for positive identification. potline monitor on. Pulse mg2 ox on. NIBP on. 01:12 XRAY Chest (1 view) In Process Unspecified. EDMS 04:26 IV discontinued, intact, bleeding controlled, No redness/swelling at site. Pressure mg2 dressing applied. Administered Medications: No medications were administered Outcome: 04:20 Discharge ordered by . [facility] 04:26 Discharged to home ambulatory. [facility] 04:26 Condition: good 04:26 Discharge instructions given to patient, Instructed on discharge instructions, follow up and referral plans. Demonstrated understanding of instructions, follow-up care. 04:27 Patient left the ED. mg2 Signatures: Dispatcher [employer] EDWV Bronwyn Neal RN RN Abraham Araiza RN RN Jed Donovan RN RN [facility] Casie Amaya [facility] Mike Gray MD MD [facility]
[2020-10-13 04:39] VITALS: BP 121/76; TEMP 98.1; O2SAT 100
--- NOTE | 2020-10-13 08:41 | RAD REPORT ---
EXAM DESCRIPTION: RAD - Chest Single View - 10/13/2020 1:12 am CLINICAL HISTORY: CHEST PAIN Chest pain. COMPARISON: Chest Single View dated 03/11/2020; Chest Single View dated 02/16/2020; Chest Single View dated 02/02/2016 FINDINGS: Portable technique limits examination quality. Interstitial lung markings are mildly prominent. No focal infiltrate is seen. The heart is upper limi t normal in size. No displaced fractures.
--- NOTE | 2020-10-13 10:47 | EKG ---
Test Date: 2020-10-12 Test Time: 21:28:36 Etl Tester: BRITTANY MEASUREMENT RESULTS: Intervals: Rate: 76 NJ: 144 QRSD: 82 QT: 360 QTc: 405 [place]: P: 71 NJ: 144 QRS: 68 T: 66 INTERPRETIVE STATEMENTS: Normal sinus rhythm Normal ECG Compared to ECG 03/11/2020 05:26:12 Sinus tachycardia no longer present Electronically Signed On 10-13-20 10:46:34 CDT by Marciano Szymanski
== END 2020-10-13 04:27 | disposition home or self-care (01) ==
LOC: ER 20:10
DX: R07.9 Chest pain, unspecified (principal); I10 Essential (primary) hypertension; E11.9 Type 2 diabetes mellitus without complications; E78.00 Pure hypercholesterolemia, unspecified; Z79.4 Long term (current) use of insulin
CPT/HCPCS: 36415; 71045; 80048; 80076; 80307; 81003; 81025; 83735; 83880; 84484; 85025; 85379; 85610; 93005; 99285

== ENCOUNTER 2020-10-14 22:36 | Emergency (ER) | payer SELFPAY ==
--- OUTSIDE RECORDS SUMMARY | 2020-10-14 22:38 | XMS REPORT | Continuity of Care Document ---
:1980 Author Organization [facility] t Address [address] [place] [address] Dr. Teague [address] [place] [id number] Care Team Providers Name Role Phone Unavailable Unavailable Unavailable Problems This patient has no known problems. Allergies, Adverse Reactions, Alerts This patient has no known allergies or adverse reactions. Medications This patient has no known medications. Procedures This patient has no known procedures. Results This patient has no known results.
[2020-10-14] MEDS ORDERED: DIAZEPAM 2 MG TABLET ONE (23:16)
[2020-10-14 23:34] LABS: Absolute Lymphocytes (CBC) 2.8 K/uL (0.7-4.9); Basophils % 0.6 % (0-1.3); Hematocrit 39.7 % (36.0-45.0); Lymphocytes % 37.3 % (15.3-44.8); MPV 11.5 fL (7.6-11.3); RBC Red Blood Cell Count 4.73 M/uL (3.86-4.86)
[2020-10-15 00:01] LABS: ALT/SGPT 26 U/L (12-78); AST/SGOT 13 U/L (15-37); Albumin 4.2 g/dL (3.4-5.0); Alkaline Phosphatase 60 U/L (45-117); BUN Blood Urea Nitrogen 17 mg/dL (7-18); Bicarbonate 20 mmol/L (21-32); Bilirubin Direct 0.1 mg/dL (0-0.2); Bilirubin Total 0.5 mg/dL (0.2-1.0); Glucose Level 153 mg/dL (74-106); Lipase 183 U/L (73-393); Magnesium 2.1 mg/dL (1.8-2.4); Potassium 3.7 mmol/L (3.5-5.1); Protein, Total 7.9 g/dL (6.4-8.2); Sodium Level 140 mmol/L (136-145); Troponin (Emerg Dept Use Only) < 0.02 ng/mL (0.0-0.045)
--- NOTE | 2020-10-15 00:42 | EDPHYS ---
Physician Documentation [facility] Name: Kaur Caruso Age: 40 yrs Sex: Female : 1980 Arrival Date: 10/14/2020 Time: 22:42 Bed 18 Private MD: ED Physician Joe Dickinson HPI: 10/15 00:36 This 40 yrs old Female presents to ER via EMS with complaints of Dizziness, rn chest pain. 00:36 The patient presents with feeling faint, generalized weakness, lightheadedness. Onset: rn The symptoms/episode began/occurred 4 day(s) ago. Modifying factors: The symptoms are alleviated by nothing, the symptoms are aggravated by nothing. Associated signs and symptoms: Pertinent positives: chest pain, Pertinent negatives: abdominal pain, blurred vision, diaphoresis, shortness of breath, syncope, vomiting. Severity of symptoms: At their worst the symptoms were moderate in the emergency department the symptoms have improved. The patient has experienced similar episodes in the past. The patient has not recently seen a physician. Reports over last few days having several episodes of intermittent palpitations, chest pain, feeling lightheaded, lasts for about 5 min, then goes away with time. No known cardiac problems. No recent drug use. No fever/cough/sob. No abd pain/vomiting. . DRAG DOWN: 10/14 23:41 LMP N/A - control method rr5 Historical: - Allergies: 22:55 No Known Allergies; rr5 - Home Meds: 22:55 atorvastatin Oral [Active]; Levemir 100 unit/mL subcutaneous soln [Active]; lisinopril rr5 20 mg Oral tab 1 tab once daily [Active]; - PMHx: 22:55 Diabetes - NIDDM; High Cholesterol; Hypertension; rr5 - PSHx: 22:55 foot surgery; rr5 - Immunization history:: Adult Immunizations up to date. - Social history:: Smoking status: unknown Patient uses street drugs, Methamphetamine (Meth) last intake a month ago. - Family history:: not pertinent. - Hospitalizations: : No recent hospitalization is reported. ROS: 10/15 00:36 Constitutional: Negative for fever, chills, and weight loss, Eyes: Negative for injury, rn pain, redness, and discharge, ENT: Negative for injury, pain, and discharge, Neck: Negative for injury, pain, and swelling, Cardiovascular: Negative for edema Respiratory: Negative for cough, wheezing, and pleuritic chest pain, Abdomen/GI: Negative for abdominal pain, nausea, vomiting, diarrhea, and constipation, Back: Negative for injury and pain, MS/Extremity: Negative for injury and deformity, Skin: Negative for injury, rash, and discoloration, Neuro: Negative for headache, weakness, numbness, tingling, and seizure. Exam: 00:35 ECG was reviewed by the Attending Physician. rn 00:36 Constitutional: This is a well developed, well nourished patient who is awake, alert, rn tearful and crying Head/Face: Normocephalic, atraumatic. Eyes: Pupils equal round and reactive to light, extra-ocular motions intact. Lids and lashes normal. Conjunctiva and sclera are non-icteric and not injected. Cornea within normal limits. Periorbital areas with no swelling, redness, or edema. ENT: Dry MM Cardiovascular: Tachycardic, regular Respiratory: Crying, equal clear breath sounds Abdomen/GI: soft, non-tender Skin: Warm, dry with normal turgor. Normal color with no rashes, no lesions, and no evidence of cellulitis. MS/ Extremity: Pulses equal, no cyanosis. Neurovascular intact. Full, normal range of motion. Equal circumference. Neuro: Awake and alert, GCS 15, oriented to person, place, time, and situation. Cranial nerves II-XII grossly intact. Motor strength 5/5 in all extremities. Sensory grossly intact. Vital Signs: 10/14 22:40 BP 214 / 130; Pulse 106; Resp 20; Temp 98.8; Pulse Ox 99% ; Weight 61.23 kg; Height 5 rr5 ft. 2 in. (157.48 cm); Pain 6/10; 23:41 BP 146 / 84; Pulse 85; Resp 16; Pulse Ox 100% ; rr5 10/15 00:27 BP 117 / 79; Pulse 86; Resp 16; Pulse Ox 98% ; rr5 00:54 BP 118 / 69; Pulse 80; Resp 17; Pulse Ox 99% ; rr5 10/14 22:40 Body Mass Index 24.69 (61.23 kg, 157.48 cm) rr5 MDM: 10/14 22:42 Patient medically screened. rn 10/15 00:36 Differential diagnosis: cardiac arrhythmia, generalized weakness, hyperventilation, rn hypovolemia, idiopathic dizziness, near-syncope, anxiety. Data reviewed: vital signs, nurses notes, lab test result(s), EKG, radiologic studies, plain films, and as a result, I will discharge patient. Counseling: I had a detailed discussion with the patient and/or guardian regarding: the historical points, exam findings, and any diagnostic results supporting the discharge/admit diagnosis, lab results, radiology results, the need for outpatient follow up, to return to the emergency department if symptoms worsen or persist or if there are any questions or concerns that arise at home. Response to treatment: the patient's symptoms have markedly improved after treatment, the patient's condition has returned to base line, the patient is now symptom free, and as a result, I will discharge patient. Special discussion: Based on the patient's history, exam, and Dx evaluation, there is no indication for emergent intervention or inpatient Tx. It is understood by the patient/guardian that if the Sx's persist or worsen they need to return immediately for re-evaluation. I discussed with the patient/guardian in detail that at this point there is no indication for admission to the hospital. It is understood, however, that if the symptoms persist or worsen the patient needs to return immediately for re-evaluation. ED course: Trop neg, normal ecg, neg ct head, vitals normal after 2mg valium, now asymptomatic, has appt with pcp tomorrow. Return precautions given and understood. . 10/14 22:43 Order name: Basic Metabolic Panel; Complete Time: 00:10/14 22:43 Order name: CBC with Diff; Complete Time: 00:10/14 22:43 Order name: Hepatic Function; Complete Time: 00:10/14 22:43 Order name: Lipase; Complete Time: 00:10/14 22:43 Order name: Magnesium; Complete Time: 00:10/14 22:43 Order name: Troponin (emerg Dept Use Only); Complete Time: 00:10/14 22:43 Order name: CT Head Brain wo Cont rn 10/14 22:43 Order name: EKG; Complete Time: 22:44 10/14 22:43 Order name: Cardiac monitoring; Complete Time: 22:52 rn 10/14 22:43 Order name: EKG - Nurse/Tech; Complete Time: 22:52 rn 10/14 22:43 Order name: IV Saline Lock; Complete Time: 23:40 rn 10/14 22:43 Order name: XRAY Chest (1 view) rn 10/14 22:43 Order name: Labs collected and sent; Complete Time: 23:40 rn 10/14 22:43 Order name: O2 Per Protocol; Complete Time: 22:52 rn 10/14 22:43 Order name: O2 Sat Monitoring; Complete Time: 22:52 rn EC:35 Rate is 80 beats/min. Rhythm is regular. QRS Labadie is Normal. MI interval is normal. QRS rn interval is normal. QT interval is normal. No Q waves. T waves are Normal. No ST changes noted. Clinical impression: Normal ECG. Interpreted by me. Reviewed by me. Administered Medications: 10/14 23:10 Drug: Valium (diazepam) 2 mg Route: PO; rr5 10/15 00:10 Follow up: Response: No adverse reaction; Marked relief of symptoms rr5 Disposition: 10/15/20 00:42 Discharged to Home. Impression: Chest pain, unspecified, Hyperventilation, Anxiety disorder, unspecified. - Condition is Stable. - Discharge Instructions: Nonspecific Chest Pain, Hypertension, Hyperventilation, Generalized Anxiety Disorder. - Medication Reconciliation Form, Thank You Letter, Antibiotic Education, Prescription Opioid Use form. - Follow up: Private Physician; When: Tomorrow; Reason: Recheck today's complaints, Re-evaluation by your physician. - Problem is an ongoing problem. - Symptoms have improved. Signatures: Dispatcher [employer] EDMI Joe Dickinson MD MD rn Roque, Raymond, RN RN rr5 Corrections: (The following items were deleted from the chart) 00:55 00:42 10/15/2020 00:42 Discharged to Home. Impression: Chest pain, unspecified; rr5 Hyperventilation; Anxiety disorder, unspecified. Condition is Stable. Forms are Medication Reconciliation Form, Thank You Letter, Antibiotic Education, Prescription Opioid Use. Follow up: Private Physician; When: Tomorrow; Reason: Recheck today's complaints, Re-evaluation by your physician. Problem is an ongoing problem. Symptoms have improved. rn
--- NOTE | 2020-10-15 00:42 | ER ---
Nurse's Notes [facility] Name: Kaur Caruso Age: 40 yrs Sex: Female : 1980 Arrival Date: 10/14/2020 Time: 22:42 Bed 18 Private MD: Diagnosis: Chest pain, unspecified;Hyperventilation;Anxiety disorder, unspecified Presentation: 10/14 22:40 Chief complaint: EMS states: complaining of dizziness , fainting, dyspnea and left rr5 sided chest pain. she came here last Tuesday and Tuesday for the symptoms like an anxiety attack. BS 143 mg/dl. 22:40 Coronavirus screen: Client denies travel out of the [place] in the last 14 days. At this rr5 time, the client does not indicate any symptoms associated with coronavirus-19. Ebola Screen: Patient negative for fever greater than or equal to 101.5 degrees Fahrenheit, and additional compatible Ebola Virus Disease symptoms Patient denies exposure to infectious person. Patient denies travel to an Ebola-affected area in the 21 days before illness onset. Initial Sepsis Screen: Does the patient meet any 2 criteria? No. Patient's initial sepsis screen is negative. Does the patient have a suspected source of infection? No. Patient's initial sepsis screen is negative. Risk Assessment: Do you want to hurt yourself or someone else? Patient reports no desire to harm self or others. Onset of symptoms was October 14, 2020. 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 - Social history:: Smoking status: unknown Patient uses street drugs, Methamphetamine (Meth) last intake a month ago. - Family history:: not pertinent. - Hospitalizations: : No recent hospitalization is reported. Screenin:56 Abuse screen: Denies threats or abuse. Denies injuries from another. Nutritional rr5 screening: On. Tuberculosis screening: No symptoms or risk factors identified. Fall Risk IV access (20 points). Mental Status- Oriented to own ability (0 pts). Total Pascal Fall Scale indicates No Risk (0-24 pts). Assessment: 22:40 General: Appears in no apparent distress. uncomfortable, Behavior is anxious, crying. rr5 22:40 Pain: Complains of pain in chest Pain currently is 6 out of 10 on a pain scale. Quality rr5 of pain is described as aching, Pain began gradually, Is intermittent. Neuro: Level of Consciousness is awake, alert, obeys commands, Oriented to person, place, time, situation, Reports dizziness, fainting. Cardiovascular: Reports chest pain, Capillary refill < 3 seconds Patient's skin is warm and dry. Respiratory: Reports shortness of breath Airway is patent Respiratory effort is even, unlabored, Respiratory pattern is regular, symmetrical. GI: Reports nausea. : No signs and/or symptoms were reported regarding the genitourinary system. EENT: No signs and/or symptoms were reported regarding the EENT system. Derm: Skin is intact, is healthy with good turgor, Skin temperature is warm. Musculoskeletal: Capillary refill < 3 seconds. 23:50 Reassessment: Patient appears in no apparent distress at this time. Patient is alert, rr5 oriented x 3, equal unlabored respirations, skin warm/dry/pink. Patient states symptoms have improved. 10/15 00:53 Reassessment: Patient appears in no apparent distress at this time. Patient is alert, rr5 oriented x 3, equal unlabored respirations, skin warm/dry/pink. discharge instruction given and explained without complaints made Patient states feeling better. Patient states symptoms have improved. Vital Signs: 10/14 22:40 BP 214 / 130; Pulse 106; Resp 20; Temp 98.8; Pulse Ox 99% ; Weight 61.23 kg; Height 5 rr5 ft. 2 in. (157.48 cm); Pain 6/10; 23:41 BP 146 / 84; Pulse 85; Resp 16; Pulse Ox 100% ; rr5 10/15 00:27 BP 117 / 79; Pulse 86; Resp 16; Pulse Ox 98% ; rr5 00:54 BP 118 / 69; Pulse 80; Resp 17; Pulse Ox 99% ; rr5 10/14 22:40 Body Mass Index 24.69 (61.23 kg, 157.48 cm) rr5 ED Course: 10/14 22:42 Patient arrived in ED. rn 22:42 Joe Dickinson MD is Attending Physician. rn 22:45 Patient has correct armband on for positive identification. Placed in gown. Bed in low rr5 position. Call light in reach. Side rails up X2. telemetry monitor on. Pulse ox on. NIBP on. 22:50 EKG done, by ED staff, reviewed by Joe Dickinson MD. rr5 22:51 Jeremy Pace RN is Primary Nurse. rr5 22:54 Triage completed. rr5 22:55 Inserted saline lock: 20 gauge in right antecubital area, using aseptic technique. jb5 Blood collected. 22:56 Arm band placed on right wrist. rr5 23:06 CT Head Brain wo Cont In Process Unspecified. EDMS 23:40 XRAY Chest (1 view) In Process Unspecified. EDMS 04 00:54 No provider procedures requiring assistance completed. IV discontinued, intact, rr5 bleeding controlled, No redness/swelling at site. Pressure dressing applied. Administered Medications: 10/14 23:10 Drug: Valium (diazepam) 2 mg Route: PO; rr5 10/15 00:10 Follow up: Response: No adverse reaction; Marked relief of symptoms rr5 Outcome: 00:42 Discharge ordered by . rn 00:54 Discharged to home ambulatory. rr5 00:54 Condition: stable 00:54 Discharge instructions given to patient, Instructed on discharge instructions, follow up and referral plans. Demonstrated understanding of instructions, follow-up care. 00:55 Patient left the ED. rr5 Signatures: Dispatcher [employer] EDMS Joe Dickinson MD MD rn Broussard, Jennifer jb5 Jeremy Pace, RN RN rr5
[2020-10-15 01:23] VITALS: TEMP 98.8
[2020-10-15 01:27] VITALS: BP 118/69; O2SAT 99
--- NOTE | 2020-10-15 05:09 | RAD REPORT ---
EXAM DESCRIPTION: Rey Single View10/14/2020 11:40 pm CLINICAL HISTORY: Chest pain COMPARISON: October 13, 2020 FINDINGS: The lungs appear clear of acute infiltrate. The heart is normal size IMPRESSION: No acute abnormalities displayed
--- NOTE | 2020-10-15 07:35 | EKG ---
Test Date: 2020-10-14 Test Time: 22:48:37 Wirer Maintenance: RR MEASUREMENT RESULTS: Intervals: Rate: 80 [place]: 144 QRSD: 82 QT: 364 QTc: 419 [place]: P: 61 [place]: 144 QRS: 53 T: 41 INTERPRETIVE STATEMENTS: Normal sinus rhythm Normal ECG Compared to ECG 10/12/2020 21:28:36 No significant changes Electronically Signed On 10-15-20 07:34:57 CDT by Marciano Szymanski
--- NOTE | 2020-10-15 12:36 | RAD REPORT ---
EXAM DESCRIPTION: CT - Head Brain Wo Cont - 10/15/2020 6:23 am CLINICAL HISTORY: DIZZINESS COMPARISON: None available TECHNIQUE: Axial CT of the head obtained from the skull apex to the skull base without contrast. Thi s exam was performed according to our departmental dose-optimization program, which includes automate d exposure control, adjustment of the mA and/or kV according to patient size and/or use of iterative reconstruction technique. FINDINGS: No acute intracranial hemorrhage identified. No mass, mass effect, shift of the midline, a bnormal extra-axial fluid collection or CT evidence of acute ischemic change identified. The ventricu lar system is unremarkable. No acute abnormalities of the supratentorial white matter, basal gangli a, cerebellum, or brainstem. The visualized paranasal sinuses and the mastoid air cells are relatively well aerated. No skull fr acture identified. Visualized orbits and globes are unremarkable. IMPRESSION: 1. No acute intracranial abnormality identified. Electronically signed by: Mateusz Cisneros 10/14/2020 11:21 PM CDT Due to temporary technical issues with the PACS/Fluency reporting system, reports are being signed by the in house radiologist without review as a courtesy to ensure prompt reporting. The interpreting r adiologist is fully responsible for the content of the report.
== END 2020-10-15 00:55 | disposition home or self-care (01) ==
LOC: ER 22:36
DX: R06.4 Hyperventilation (principal); F41.9 Anxiety disorder, unspecified; I10 Essential (primary) hypertension; E11.9 Type 2 diabetes mellitus without complications; E78.00 Pure hypercholesterolemia, unspecified; Z79.4 Long term (current) use of insulin
CPT/HCPCS: 36415; 70450; 71045; 80048; 80076; 83690; 83735; 84484; 85025; 93005; 99285

== ENCOUNTER 2020-11-03 01:08 | Emergency (ER) | payer SELFPAY ==
--- OUTSIDE RECORDS SUMMARY | 2020-11-03 01:10 | XMS REPORT | Continuity of Care Document ---
:1980 Author Organization [facility] t Address [address] [place] [address] Dr. Teague [address] [place] [id number] Care Team Providers Name Role Phone Unavailable Unavailable Unavailable Problems This patient has no known problems. Allergies, Adverse Reactions, Alerts This patient has no known allergies or adverse reactions. Medications This patient has no known medications. Procedures This patient has no known procedures. Results This patient has no known results.
[2020-11-03 01:46] LABS: Protime INR 1.08
[2020-11-03 01:47] LABS: Absolute Lymphocytes (CBC) 3.7 K/uL (0.7-4.9); Basophils % 0.5 % (0-1.3); Hematocrit 42.4 % (36.0-45.0); Lymphocytes % 40.8 % (15.3-44.8); MPV 11.4 fL (7.6-11.3); RBC Red Blood Cell Count 5.08 M/uL (3.86-4.86)
[2020-11-03 02:02] LABS: ALT/SGPT 29 U/L (12-78); AST/SGOT 15 U/L (15-37); Albumin 4.6 g/dL (3.4-5.0); Alkaline Phosphatase 76 U/L (45-117); BUN Blood Urea Nitrogen 16 mg/dL (7-18); Bicarbonate 22 mmol/L (21-32); Bilirubin Direct 0.2 mg/dL (0-0.2); Glucose Level 152 mg/dL (74-106); Magnesium 2.1 mg/dL (1.8-2.4); NT PRO-BNP 8 pg/mL (<125); Potassium 3.3 mmol/L (3.5-5.1); Protein, Total 8.9 g/dL (6.4-8.2); Sodium Level 138 mmol/L (136-145); Troponin (Emerg Dept Use Only) < 0.02 ng/mL (0.0-0.045)
[2020-11-03] MEDS ORDERED: LORAZEPAM 1 MG TABLET ONE (02:29)
[2020-11-03] MEDS ORDERED: POTASSIUM CL SA 10 MEQ TAB PO ONE (04:35)
--- NOTE | 2020-11-03 05:08 | ER ---
Nurse's Notes [facility] Name: Kaur Caruso Age: 40 yrs Sex: Female : 1980 Arrival Date: 11/03/2020 Time: 01:11 Bed 3 Private MD: Diagnosis: Chest pain Presentation: 11/03 01:15 Chief complaint: EMS states: Called for patient having chest tightness; Per EMS, lp1 patient appeared anxious on scene, HR at 155, hypertensive; Given ASA 324 PO, Nitro 0.4mg PO without relief; Hx of anxiety, currently on new medications for relief. Coronavirus screen: Client denies travel out of the [place] in the last 14 days. At this time, the client does not indicate any symptoms associated with coronavirus-19. Ebola Screen: No symptoms or risks identified at this time. Initial Sepsis Screen: Does the patient meet any 2 criteria? No. Patient's initial sepsis screen is negative. Does the patient have a suspected source of infection? No. Patient's initial sepsis screen is negative. Risk Assessment: Do you want to hurt yourself or someone else? Patient reports no desire to harm self or others. Onset of symptoms was November 03, 2020. Care prior to arrival: Medication(s) given: IV initiated. 20 GA, in the left antecubital area, Glucose check: 137. 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 - Social history:: Smoking status: Patient denies any tobacco usage or history of. Screenin:17 Abuse screen: Denies threats or abuse. Nutritional screening: No deficits noted. ea Tuberculosis screening: No symptoms or risk factors identified. Fall Risk IV access (20 points). Assessment: 01:18 General: Appears uncomfortable, Behavior is anxious. Pain: Denies pain. Neuro: Level of ea Consciousness is awake, alert, obeys commands, Oriented to person, place, time. Cardiovascular: Patient's skin is warm and dry. Respiratory: Airway is patent Respiratory effort is even, unlabored, Respiratory pattern is regular, symmetrical. Derm: Skin is pink, warm \T\ dry. 02:51 Reassessment: Patient and/or family updated on plan of care and expected duration. Pain ea level reassessed. Patient is alert, oriented x 3, equal unlabored respirations, skin warm/dry/pink. Patient states feeling better. 04:07 Reassessment: Patient and/or family updated on plan of care and expected duration. Pain ea level reassessed. Patient is alert, oriented x 3, equal unlabored respirations, skin warm/dry/pink. Patient states feeling better. 05:17 Reassessment: Patient and/or family updated on plan of care and expected duration. Pain ea level reassessed. Patient is alert, oriented x 3, equal unlabored respirations, skin warm/dry/pink. Discharge instruction given to patient verbalized the understanding of instruction. Pt left ED ambulatory tolerating well. Vital Signs: 01:15 BP 179 / 92; Pulse 106; Resp 20; Temp 98(O); Pulse Ox 100% on R/A; Weight 61.23 kg (R); lp1 Height 5 ft. 2 in. (157.48 cm); 02:04 BP 136 / 84; Pulse 78; Resp 21; Pulse Ox 96% ; ea 02:51 BP 136 / 84; Pulse 78; Resp 16; Pulse Ox 98% ; ea 04:07 BP 118 / 84; Pulse 88; Resp 16; Pulse Ox 100% on R/A; ea 05:15 BP 124 / 88; Pulse 89; Resp 18; Temp 98; Pulse Ox 98% ; ea 01:15 Body Mass Index 24.69 (61.23 kg, 157.48 cm) lp1 ED Course: 01:11 Patient arrived in ED. mw2 01:17 Evelyne Boggs RN is Primary Nurse. ea 01:17 Triage completed. lp1 01:17 Inserted saline lock: 20 gauge in right forearm, using aseptic technique. Blood ea collected. 01:17 Arm band placed on. lp1 01:18 Patient has correct armband on for positive identification. Placed in gown. Bed in low ea position. Call light in reach. Side rails up X2. self rising flour mixer on. Pulse ox on. NIBP on. 01:36 XRAY Chest (1 view) In Process Unspecified. EDMS 01:52 Alberto Adame MD is Attending Physician. pkl 05:06 Marciano Szymanski MD is Referral Physician. pkl 05:18 No provider procedures requiring assistance completed. IV discontinued, intact, ea bleeding controlled, No redness/swelling at site. Pressure dressing applied. Administered Medications: 02:06 CANCELLED (Inappropriate at this time): Metoprolol TARTRATE 50 mg PO once ea 02:11 Drug: Ativan (LORazepam) 1 mg Route: PO; ea 04:13 Follow up: Response: No adverse reaction ea 04:18 Drug: K-Dur (potassium chloride) 20 mEq Route: PO; ea Outcome: 05:07 Discharge ordered by . pkl 05:19 Discharged to home ambulatory. ea 05:19 Condition: stable 05:19 Discharge instructions given to patient, Instructed on discharge instructions, follow up and referral plans. Demonstrated understanding of instructions, follow-up care. 05:19 Patient left the ED. ea Signatures: Dispatcher [employer] EDMS Alberto Adame MD MD pkl Olga Villanueva, RN RN lp1 Evelyne Boggs RN RN ea Kae Jorgensen mw2 Corrections: (The following items were deleted from the chart) 01:17 01:15 Chief complaint: EMS states: Called for patient having chest tightness; Per EMS, lp1 patient appeared anxious on scene, HR at 155, hypertensive; Given ASA 324 PO, Nitro 0.4mg PO without relief lp1
--- NOTE | 2020-11-03 05:08 | EDPHYS ---
Physician Documentation [facility] Name: Kaur Caruso Age: 40 yrs Sex: Female : 1980 Arrival Date: 11/03/2020 Time: 01:11 Bed 3 Private MD: ED Physician Alberto Adame HPI: 11/03 05:01 This 40 yrs old Female presents to ER via EMS with complaints of Chest pkl Tightness. 05:01 The patient or guardian reports chest pain that is located primarily in the substernal pkl area. Onset: just prior to arrival. The pain does not radiate. Associated signs and symptoms: Pertinent positives: anxiety. The chest pain is described as tightness. The patient has experienced similar episodes in the past, a few times. 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 - Social history:: Smoking status: Patient denies any tobacco usage or history of. ROS: 05:01 Eyes: Negative for injury, pain, redness, and discharge, ENT: Negative for injury, pkl pain, and discharge, Neck: Negative for injury, pain, and swelling. 05:01 Cardiovascular: Positive for chest pain. 05:01 Respiratory: Negative for cough, shortness of breath. 05:01 Abdomen/GI: Negative for abdominal pain, nausea, vomiting, and diarrhea. 05:01 Back: Negative for acute changes. 05:01 : Negative for urinary symptoms. 05:01 MS/extremity: Negative for acute changes. 05:01 Skin: Negative for rash. 05:01 Neuro: Negative for altered mental status. Exam: 05:01 Head/Face: Normocephalic, atraumatic. Eyes: Pupils equal round and reactive to light, pkl extra-ocular motions intact. Lids and lashes normal. Conjunctiva and sclera are non-icteric and not injected. Cornea within normal limits. Periorbital areas with no swelling, redness, or edema. ENT: Nares patent. No nasal discharge, no septal abnormalities noted. Tympanic membranes are normal and external auditory canals are clear. Oropharynx with no redness, swelling, or masses, exudates, or evidence of obstruction, uvula midline. Mucous membranes moist. Neck: Trachea midline, no thyromegaly or masses palpated, and no cervical lymphadenopathy. Supple, full range of motion without nuchal rigidity, or vertebral point tenderness. No Meningismus. Chest/axilla: Normal chest wall appearance and motion. Nontender with no deformity. No lesions are appreciated. Cardiovascular: Regular rate and rhythm with a normal S1 and S2. No gallops, murmurs, or rubs. Normal PMI, no JVD. No pulse deficits. Respiratory: Lungs have equal breath sounds bilaterally, clear to auscultation and percussion. No rales, rhonchi or wheezes noted. No increased work of breathing, no retractions or nasal flaring. Abdomen/GI: Soft, non-tender, with normal bowel sounds. No distension or tympany. No guarding or rebound. No evidence of tenderness throughout. Back: No spinal tenderness. No costovertebral tenderness. Full range of motion. Skin: Warm, dry with normal turgor. Normal color with no rashes, no lesions, and no evidence of cellulitis. MS/ Extremity: Pulses equal, no cyanosis. Neurovascular intact. Full, normal range of motion. Neuro: Awake and alert, GCS 15, oriented to person, place, time, and situation. Cranial nerves II-XII grossly intact. Motor strength 5/5 in all extremities. Sensory grossly intact. Cerebellar exam normal. Normal gait. Vital Signs: 01:15 BP 179 / 92; Pulse 106; Resp 20; Temp 98(O); Pulse Ox 100% on R/A; Weight 61.23 kg (R); lp1 Height 5 ft. 2 in. (157.48 cm); 02:04 BP 136 / 84; Pulse 78; Resp 21; Pulse Ox 96% ; ea 02:51 BP 136 / 84; Pulse 78; Resp 16; Pulse Ox 98% ; ea 04:07 BP 118 / 84; Pulse 88; Resp 16; Pulse Ox 100% on R/A; ea 05:15 BP 124 / 88; Pulse 89; Resp 18; Temp 98; Pulse Ox 98% ; ea 01:15 Body Mass Index 24.69 (61.23 kg, 157.48 cm) lp1 MDM: 01:53 Patient medically screened. pkl 05:01 Data reviewed: vital signs, nurses notes. ED course: Patient feeling better. Advised to pk follow up with Opener in 2 to 3 days for further evaluations. Patient understood instructions. 11/03 01:17 Order name: Basic Metabolic Panel 11/03 01:17 Order name: CBC with Diff 11/03 01:17 Order name: LFT's 11/03 01:17 Order name: Magnesium 11/03 01:17 Order name: NT PRO-BNP; Complete Time: 04:06 11/03 01:17 Order name: PT-INR; Complete Time: 04:06 11/03 01:17 Order name: Troponin (emerg Dept Use Only); Complete Time: 04:06 11/03 01:18 Order name: Basic Metabolic Panel; Complete Time: 04:06 EDMS 11/03 01:18 Order name: CBC with Automated Diff; Complete Time: 04:06 EDMS 11/03 01:18 Order name: Liver (Hepatic) Function; Complete Time: 04:06 EDMS 11/03 01:18 Order name: Magnesium; Complete Time: 04:06 EDMS 11/03 02:12 Order name: D-Dimer; Complete Time: 04:06 EDMS 11/03 04:08 Order name: Troponin (emerg Dept Use Only); Complete Time: 05:01 11/03 01:17 Order name: XRAY Chest (1 view) 11/03 01:17 Order name: EKG; Complete Time: 01:18 11/03 01:17 Order name: Cardiac monitoring; Complete Time: :18 11/03 01:17 Order name: EKG - Nurse/Tech; Complete Time: :11/03 01:17 Order name: IV Saline Lock; Complete Time: 01:18 11/03 01:17 Order name: Labs collected and sent; Complete Time: :11/03 01:17 Order name: O2 Per Protocol; Complete Time: :11/03 01:17 Order name: O2 Sat Monitoring; Complete Time: 01:18 ea 11/03 04:08 Order name: EKG; Complete Time: 04:09 ea 11/03 04:08 Order name: EKG - Nurse/Tech; Complete Time: 04:08 ea Administered Medications: 02:06 CANCELLED (Inappropriate at this time): Metoprolol TARTRATE 50 mg PO once ea 02:11 Drug: Ativan (LORazepam) 1 mg Route: PO; ea 04:13 Follow up: Response: No adverse reaction ea 04:18 Drug: K-Dur (potassium chloride) 20 mEq Route: PO; ea Disposition: 11/03/20 05:07 Discharged to Home. Impression: Chest pain. - Condition is Stable. - Medication Reconciliation Form, Thank You Letter, Antibiotic Education, Prescription Opioid Use form. - Follow up: Marciano Szymanski MD; When: 2 - 3 days; Reason: Re-evaluation by your physician. - Problem is new. - Symptoms have improved. Signatures: Dispatcher [employer] [facility] Alberto Adame MD MD pkl Olga Villanueva RN RN lp1 Evelyne Boggs RN RN ea Corrections: (The following items were deleted from the chart) 02:06 02:01 Metoprolol TARTRATE 50 mg PO once ordered. pkl 02:12 02:01 D-DIMER+COAG.LAB.BRZ ordered. [facility] EDID 05:19 05:07 11/03/2020 05:07 Discharged to Home. Impression: Chest pain. Condition is Stable. ea Forms are Medication Reconciliation Form, Thank You Letter, Antibiotic Education, Prescription Opioid Use. Follow up: Marciano Szymanski; When: 2 - 3 days; Reason: Re-evaluation by your physician. Problem is new. Symptoms have improved. pkl
[2020-11-03 05:30] VITALS: TEMP 98
[2020-11-03 05:35] VITALS: BP 124/88; O2SAT 98
--- NOTE | 2020-11-03 07:29 | RAD REPORT ---
EXAM DESCRIPTION: Rey Single View11/03/2020 1:36 am CLINICAL HISTORY: Chest pain COMPARISON: September 2020 FINDINGS: The lungs appear clear of acute infiltrate. The heart is normal size IMPRESSION: No acute abnormalities displayed
== END 2020-11-03 05:19 | disposition home or self-care (01) ==
LOC: ER 01:08
DX: R07.89 Other chest pain (principal); E11.9 Type 2 diabetes mellitus without complications; I10 Essential (primary) hypertension; F41.9 Anxiety disorder, unspecified; Z79.84 Long term (current) use of oral hypoglycemic drugs; E78.00 Pure hypercholesterolemia, unspecified
CPT/HCPCS: 36415; 71045; 80048; 80076; 83735; 83880; 84484; 85025; 85379; 85610; 93005; 99284

== ENCOUNTER 2021-02-05 04:21 | Emergency (ER) | payer SELFPAY ==
--- OUTSIDE RECORDS SUMMARY | 2021-02-05 04:23 | XMS REPORT | Continuity of Care Document ---
:1980 Author Organization [facility] t Address [address] [place] [address] Care Team Providers Name Role Phone Doctor Unassigned, Name Attending Clinician Unavailable Problems This patient has no known problems. Allergies, Adverse Reactions, Alerts This patient has no known allergies or adverse reactions. Medications This patient has no known medications. Procedures This patient has no known procedures. Encounters Start End Encounter Admission Attending Care Care Encounter Source Date/Time Date/Time Type Type Clinicians Facility Department ID 2020-11-07 2020-11-07 Orders Doctor CIARRA [id number] 00:00:00 00:00:00 Only UnassignedHORACE [id number] [place] [facility] [id number] Results This patient has no known results.
[2021-02-05 05:22] LABS: Absolute Lymphocytes (CBC) 1.4 K/uL (0.7-4.9); Basophils % 1.3 % (0-1.3); Hematocrit 37.5 % (36.0-45.0); Lymphocytes % 30.6 % (15.3-44.8); RBC Red Blood Cell Count 4.62 M/uL (3.86-4.86)
[2021-02-05 05:22] LABS: Protime INR 0.97
[2021-02-05 06:10] LABS: ALT/SGPT 22 U/L (12-78); AST/SGOT 34 U/L (15-37); Albumin 3.7 g/dL (3.4-5.0); Alkaline Phosphatase 80 U/L (45-117); BUN Blood Urea Nitrogen 11 mg/dL (7-18); Bicarbonate 21 mmol/L (21-32); Bilirubin Direct < 0.1 mg/dL (0-0.2); Bilirubin Total 0.5 mg/dL (0.2-1.0); Glucose Level 322 mg/dL (74-106); Magnesium 1.8 mg/dL (1.8-2.4); NT PRO-BNP 9 pg/mL (<125); Potassium 4.1 mmol/L (3.5-5.1); Protein, Total 7.4 g/dL (6.4-8.2); Sodium Level 136 mmol/L (136-145); Troponin (Emerg Dept Use Only) < 0.02 ng/mL (0.0-0.045)
--- NOTE | 2021-02-05 06:20 | EDPHYS ---
Physician Documentation [facility] Name: Kaur Caruso Age: 40 yrs Sex: Female : 1980 Arrival Date: 02/05/2021 Time: 04:26 Bed 17 Private MD: ED Physician Shayna Wall HPI: 02/05 04:49 This 40 yrs old Female presents to ER via EMS with complaints of Chest Pain > sp3 28 y/o. 04:49 1-year-old female with a history of hypertension, diabetes, hyperlipidemia and recent sp3 chest pain visit to the emergency department presents again today with panic attacks with chest pain brought in by EMS. Patient states that earlier today she started getting a panic attack described as anxiety feeling along with hyper ventilation. Patient is on SSRI for her symptoms by her PCP and psychiatrist. Patient denies pain to her back to her jaw or to her left upper extremity. Patient denies any shortness of breath, prolonged immobilization, oral contraception. Symptoms are much improved now that she is not hyperventilating. On ROS patient denies fever, URI symptoms, known COVID-19 contacts, shortness of breath, back pain, abdominal pain, nausea, vomiting, diarrhea, neurological symptoms, syncope, confusion, or any other symptoms as a part of our visits time.. Historical: - Allergies: 04:37 No Known Allergies; em - PMHx: 04:37 Anxiety; Diabetes - NIDDM; High Cholesterol; Hypertension; em - Immunization history:: Client reports having NOT received the Covid vaccine. - Social history:: Smoking status: Patient denies any tobacco usage or history of. ROS: 04:50 Constitutional: Negative for fever, chills, and weight loss, Eyes: Negative for injury, sp3 pain, redness, and discharge, ENT: Negative for injury, pain, and discharge, Neck: Negative for injury, pain, and swelling, Respiratory: Negative for shortness of breath, cough, wheezing, and pleuritic chest pain, Abdomen/GI: Negative for abdominal pain, nausea, vomiting, diarrhea, and constipation, Back: Negative for injury and pain, Skin: Negative for injury, rash, and discoloration, Neuro: Negative for headache, weakness, numbness, tingling, and seizure, Psych: Negative for depression, anxiety, suicide ideation, homicidal ideation, and hallucinations, Allergy/Immunology: Negative for hives, rash, and allergies, Endocrine: Negative for neck swelling, polydipsia, polyuria, polyphagia, and marked weight changes. 04:50 All other systems are negative. Exam: 04:50 Constitutional: This is a well developed, well nourished patient who is awake, alert, sp3 and in no acute distress. Head/Face: Normocephalic, atraumatic. Eyes: Pupils equal round and reactive to light, extra-ocular motions intact. Lids and lashes normal. Conjunctiva and sclera are non-icteric and not injected. Cornea within normal limits. Periorbital areas with no swelling, redness, or edema. ENT: Nares patent. No nasal discharge, no septal abnormalities noted. External auditory canals are clear. Oropharynx with no redness, swelling, or masses, exudates, or evidence of obstruction, uvula midline. Mucous membranes moist. Neck: Trachea midline, no thyromegaly or masses palpated, and no cervical lymphadenopathy. Supple, full range of motion without nuchal rigidity, or vertebral point tenderness. No Meningismus. Chest/axilla: Normal chest wall appearance and motion. Nontender with no deformity. No lesions are appreciated. Cardiovascular: Regular rate and rhythm with a normal S1 and S2. No gallops, murmurs, or rubs. Normal PMI, no JVD. No pulse deficits. Respiratory: Lungs have equal breath sounds bilaterally, clear to auscultation and percussion. No rales, rhonchi or wheezes noted. No increased work of breathing, no retractions or nasal flaring. Abdomen/GI: Soft, non-tender, with normal bowel sounds. No distension or tympany. No guarding or rebound. No evidence of tenderness throughout. Back: No spinal tenderness. No costovertebral tenderness. Full range of motion. Skin: Warm, dry with normal turgor. Normal color with no rashes, no lesions, and no evidence of cellulitis. MS/ Extremity: Pulses equal, no cyanosis. Neurovascular intact. Full, normal range of motion. Neuro: Awake and alert, GCS 15, oriented to person, place, time, and situation. Cranial nerves II-XII grossly intact. Motor strength 5/5 in all extremities. Sensory grossly intact. Cerebellar exam normal. Normal gait. 05:04 ECG was reviewed by the Attending Physician. EKG demonstrates normal sinus rhythm at 90 sp3 bpm with normal QRS, normal axis, normal intervals, and normal ST/T segments. No evidence of acute ischemia or acute coronary syndrome noted. Vital Signs: 04:26 BP 175 / 97; Pulse 97; Resp 16; Pulse Ox 99% on R/A; Weight 63.5 kg; Height 5 ft. 2 in. em (157.48 cm); 05:40 BP 139 / 90; Pulse 80; Resp 17; Pulse Ox 100% on R/A; ch4 06:30 BP 131 / 83; Pulse 88; Resp 16; Pulse Ox 99% on R/A; em 04:26 Body Mass Index 25.61 (63.50 kg, 157.48 cm) em MDM: 04:28 Patient medically screened. sp3 04:51 Data reviewed: vital signs, nurses notes. ED course: 40-year-old with chest pain with sp3 prior work-ups. Today symptoms are most likely secondary to panic attacks and hyperventilation. I am not highly suspicious for acute coronary syndrome, pulmonary medicine, aortic dissection, vascular compromise, pneumonia, sepsis, shock, or any other acute critical process. If work-up negative will discharge patient home. It has been greater than 6 hours since initial onset of symptoms.. 06:19 Data reviewed: lab test result(s), EKG, radiologic studies. ED course: Chest x-ray, sp3 EKG, all labs reviewed. Patient chest pain is virtually gone. At this time I believe between clinical and laboratory data, acute coronary syndrome has been ruled out. We will discharge patient home at this time with follow-up to her psychiatrist for possible change in medications. Patient is okay with the plan and has no further questions.. 02/05 04:28 Order name: Basic Metabolic Panel; Complete Time: 06:18 sp3 02/05 04:28 Order name: CBC with Diff; Complete Time: 06:18 sp3 02/05 04:28 Order name: LFT's; Complete Time: 06:18 sp3 02/05 04:28 Order name: Magnesium; Complete Time: 06:18 sp3 02/05 04:28 Order name: NT PRO-BNP; Complete Time: 06:18 sp3 02/05 04:28 Order name: PT-INR; Complete Time: 06:18 sp3 02/05 04:28 Order name: Troponin (emerg Dept Use Only); Complete Time: 06:18 sp3 02/05 04:28 Order name: XRAY Chest (1 view) sp3 02/05 04:28 Order name: EKG; Complete Time: 04:29 sp3 02/05 04:28 Order name: Cardiac monitoring; Complete Time: 04: sp3 02/05 04:28 Order name: EKG - Nurse/Tech; Complete Time: 04:45 sp3 02/05 04:28 Order name: IV Saline Lock; Complete Time: 04: sp3 02/05 04:28 Order name: Labs collected and sent; Complete Time: 04:45 sp3 02/05 04:28 Order name: O2 Per Protocol; Complete Time: 04: sp3 02/05 04:28 Order name: O2 Sat Monitoring; Complete Time: 04:29 sp3 Administered Medications: 04:48 Drug: NS 0.9% 1000 ml Route: IV; Rate: 1 bolus; Site: right forearm; ch4 06:55 Follow up: IV Status: Completed infusion; IV Intake: 1000ml em Disposition Summary: 02/05/21 06:20 Discharge Ordered Location: Home sp3 Condition: Stable sp3 Diagnosis - Anxiety disorder, unspecified sp3 - Chest pain, unspecified sp3 Discharge Instructions: - Discharge Summary Sheet sp3 - Panic Attack sp3 - Nonspecific Chest Pain, Adult sp3 Forms: - Medication Reconciliation Form sp3 - Thank You Letter sp3 - Antibiotic Education sp3 - Prescription Opioid Use sp3 Signatures: Dispatcher [employer] Mathew Graham, RN RN Shayna Garcia sp3 Morena Ramirez, HINA RN ch4
--- NOTE | 2021-02-05 06:20 | ER ---
Nurse's Notes [facility] Name: Kaur Caruso Age: 40 yrs Sex: Female : 1980 Arrival Date: 02/05/2021 Time: 04:26 Bed 17 Private MD: Diagnosis: Anxiety disorder, unspecified;Chest pain, unspecified Presentation: 02/05 04:26 Chief complaint: EMS states: called out for chest pain that was there all day, hx of em anxiety, was given 324 ASA and 0.4 mg nitro x 2. Coronavirus screen: Client denies travel out of the [place] in the last 14 days. Ebola Screen: Patient negative for fever greater than or equal to 101.5 degrees Fahrenheit, and additional compatible Ebola Virus Disease symptoms Patient denies exposure to infectious person. Patient denies travel to an Ebola-affected area in the 21 days before illness onset. No symptoms or risks identified at this time. Initial Sepsis Screen: Does the patient meet any 2 criteria? HR > 90 bpm. No. Patient's initial sepsis screen is negative. Does the patient have a suspected source of infection? No. Patient's initial sepsis screen is negative. Risk Assessment: Do you want to hurt yourself or someone else? Patient reports no desire to harm self or others. Onset of symptoms was February 05, 2021. 04:26 Method Of Arrival: EMS: [facility] em 04:26 Acuity: DESTINY 3 em Historical: - Allergies: 04:37 No Known Allergies; em - PMHx: 04:37 Anxiety; Diabetes - NIDDM; High Cholesterol; Hypertension; em - Immunization history:: Client reports having NOT received the Covid vaccine. - Social history:: Smoking status: Patient denies any tobacco usage or history of. Screenin:37 Abuse screen: Denies threats or abuse. Nutritional screening: No deficits noted. em Tuberculosis screening: No symptoms or risk factors identified. Fall Risk None identified. Assessment: 05:12 General: Appears Behavior is cooperative, anxious, Smells of. Pain: Complains of pain ch4 in chest Pain at worst was 8 out of 10 on a pain scale. Pain began 1 day ago. Noted to be crying, Also complains of Current management is with anxiety med rx. Neuro: No deficits noted. Cardiovascular: No deficits noted. Respiratory: No deficits noted. GI: No deficits noted. GI: Patient currently denies diarrhea, vomiting. : No deficits noted. EENT: No deficits noted. Derm: No deficits noted. Musculoskeletal: No deficits noted. 06:56 Reassessment: Patient appears in no apparent distress at this time. Patient and/or em family updated on plan of care and expected duration. Pain level reassessed. Patient is alert, oriented x 3, equal unlabored respirations, skin warm/dry/pink. Patient states feeling better. Vital Signs: 04:26 BP 175 / 97; Pulse 97; Resp 16; Pulse Ox 99% on R/A; Weight 63.5 kg; Height 5 ft. 2 in. em (157.48 cm); 05:40 BP 139 / 90; Pulse 80; Resp 17; Pulse Ox 100% on R/A; ch4 06:30 BP 131 / 83; Pulse 88; Resp 16; Pulse Ox 99% on R/A; em 04:26 Body Mass Index 25.61 (63.50 kg, 157.48 cm) em ED Course: 04:26 Patient arrived in ED. em 04:28 Shayna Wall is Attending Physician. sp3 04:37 Triage completed. em 04:37 Arm band placed on. em 04:37 Patient has correct armband on for positive identification. Adult w/ patient. Cardiac em monitor on. Pulse ox on. NIBP on. 04:37 Patient maintains SpO2 saturation greater than 95% on room air. em 04:41 Mathew Roe, RN is Primary Nurse. em 05:12 Inserted saline lock: 20 gauge in right forearm, using aseptic technique. Blood ch4 collected. 05:35 XRAY Chest (1 view) In Process Unspecified. EDMS 06:05 Basic Metabolic Panel Sent. bs2 06:05 LFT's Sent. bs2 06:05 Magnesium Sent. bs2 06:05 NT PRO-BNP Sent. bs2 06:06 Troponin (emerg Dept Use Only) Sent. bs2 06:55 No provider procedures requiring assistance completed. IV discontinued, intact, em bleeding controlled, No redness/swelling at site. Pressure dressing applied. Administered Medications: 04:48 Drug: NS 0.9% 1000 ml Route: IV; Rate: 1 bolus; Site: right forearm; ch4 06:55 Follow up: IV Status: Completed infusion; IV Intake: 1000ml em Intake: 06:55 IV: 1000ml; Total: 1000ml. em Outcome: 06:20 Discharge ordered by MD. hebert 06:55 Discharged to home ambulatory. em 06:55 Condition: stable 06:55 Discharge instructions given to patient, Instructed on discharge instructions, follow up and referral plans. Demonstrated understanding of instructions, follow-up care. 06:56 Patient left the ED. em Signatures: Dispatcher [employer] Mathew Graham RN RN em Shayna Wall sp3 Larissa Calloway, RN RN bs2 Morena Ramirez, RN RN ch4
[2021-02-05 07:07] VITALS: BP 131/83; O2SAT 99
--- NOTE | 2021-02-05 07:25 | RAD REPORT ---
EXAM DESCRIPTION: Rey Single View02/05/2021 5:35 am CLINICAL HISTORY: Chest pain COMPARISON: October 2020 FINDINGS: The lungs appear clear of acute infiltrate. The heart is normal size IMPRESSION: No acute abnormalities displayed
--- NOTE | 2021-02-05 08:30 | EKG ---
Test Date: 2021-02-05 Test Time: 04:39:10 Product Development Intern: COSMO MEASUREMENT RESULTS: Intervals: Rate: 90 UT: 150 QRSD: 86 QT: 366 QTc: 447 [place]: P: 56 UT: 150 QRS: 42 T: 49 INTERPRETIVE STATEMENTS: Normal sinus rhythm Possible Left atrial enlargement Borderline ECG Compared to ECG 11/03/2020 04:13:53 No significant changes Electronically Signed On 02-05-21 08:29:18 CDT by Marciano Szymanski
== END 2021-02-05 06:56 | disposition home or self-care (01) ==
LOC: ER 04:21
DX: F41.9 Anxiety disorder, unspecified (principal); I10 Essential (primary) hypertension; E11.9 Type 2 diabetes mellitus without complications
CPT/HCPCS: 36415; 71045; 80048; 80076; 83735; 83880; 84484; 85025; 85610; 93005; 96360; 96361; 99285

== ENCOUNTER 2021-03-14 09:47 | Emergency (ER) | payer SELFPAY ==
--- NOTE | 2021-03-14 10:30 | RAD REPORT ---
EXAM DESCRIPTION: RAD - Chest Single View - 03/14/2021 10:26 am CLINICAL HISTORY: CHEST PAIN Chest pain. COMPARISON: Chest Single View dated 02/05/2021; Chest Single View dated 11/03/2020; Chest Single View dated 10/14/2020; Chest Single View dated 10/13/2020 FINDINGS: Portable technique limits examination quality. The lungs are grossly clear. The heart is normal in size. No displaced fractures. IMPRESSION: No acute intrathoracic process suspected.
[2021-03-14 10:33] LABS: Absolute Lymphocytes (CBC) 1.5 K/uL (0.7-4.9); Basophils % 0.8 % (0-1.3); Hematocrit 36.1 % (36.0-45.0); Lymphocytes % 31.8 % (15.3-44.8); MPV 9.4 fL (7.6-11.3); RBC Red Blood Cell Count 4.52 M/uL (3.86-4.86)
[2021-03-14 10:34] LABS: Protime INR 1.03
[2021-03-14 11:15] LABS: ALT/SGPT 22 U/L (12-78); Albumin 3.7 g/dL (3.4-5.0); Alkaline Phosphatase 80 U/L (45-117); BUN Blood Urea Nitrogen 8 mg/dL (7-18); Bicarbonate 21 mmol/L (21-32); Bilirubin Direct 0.1 mg/dL (0-0.2); Bilirubin Total 0.6 mg/dL (0.2-1.0); Glucose Level 316 mg/dL (74-106); Lipase 118 U/L (73-393); NT PRO-BNP 8 pg/mL (<125); Protein, Total 7.5 g/dL (6.4-8.2); Sodium Level 138 mmol/L (136-145); Troponin (Emerg Dept Use Only) < 0.02 ng/mL (0.0-0.045)
[2021-03-14 11:16] LABS: AST/SGOT 17 U/L (15-37); Magnesium 1.8 mg/dL (1.8-2.4); Potassium 4.1 mmol/L (3.5-5.1)
--- NOTE | 2021-03-14 11:20 | EDPHYS ---
Physician Documentation [facility] Name: Kaur Caruso Age: 40 yrs Sex: Female : 1980 Arrival Date: 03/14/2021 Time: 09:51 Bed 20 Private MD: ED Physician Rolando Lott HPI: 03/14 11:17 This 40 yrs old Female presents to ER via EMS with complaints of anxiet. ma2 11:17 Onset: The symptoms/episode began/occurred gradually, 1 hour(s) ago. Associated signs ma2 and symptoms: Pertinent positives; anxiety, Pertinent negatives: chest pain, depression, hallucinations, homicidal ideation, shortness of breath, tremor. Severity of symptoms: At their worst the symptoms were mild in the emergency department the symptoms are unchanged. The patient has experienced similar episodes in the past. Patient has been drinking heavily last night, alcohol, she is here with episode of anxiety/panic attack, she had left arm numbness, she states she does not have any chest pain, never had any heart issues no risk factor for ACS. Anxiety has resolved, I offered medication for anxiety however she declined medication ER or prescription as she does have hydroxyzine prescription. She takes it daily. Blood sugar is high in the ER. However she takes insulin and will take insulin at home.. Historical: - Home Meds: 09:55 Hydroxyzine Oral [Active]; lisinopril 20 mg Oral tab 1 tab once daily [Active]; tr6 paroxetine Oral [Active]; Levemir U-100 Insulin 100 unit/mL subcutaneous soln [Active]; - PMHx: 09:55 Anxiety; Diabetes - NIDDM; High Cholesterol; Hypertension; tr6 - Immunization history:: Adult Immunizations up to date, Client reports having NOT received the Covid vaccine. - Social history:: Smoking status: Patient denies any tobacco usage or history of. Patient uses alcohol, on a daily basis. - Family history:: not pertinent. ROS: 11:17 Constitutional: Negative for fever, chills, and weight loss. ma2 11:17 All other systems are negative. Exam: 11:17 Constitutional: This is a well developed, well nourished patient who is awake, alert, ma2 and in no acute distress. Head/Face: Normocephalic, atraumatic. Eyes: Pupils equal round and reactive to light, extra-ocular motions intact. Lids and lashes normal. Conjunctiva and sclera are non-icteric and not injected. Cornea within normal limits. Periorbital areas with no swelling, redness, or edema. ENT: Nares patent. No nasal discharge, no septal abnormalities noted. Tympanic membranes are normal and external auditory canals are clear. Oropharynx with no redness, swelling, or masses, exudates, or evidence of obstruction, uvula midline. Mucous membranes moist. Neck: Trachea midline, no thyromegaly or masses palpated, and no cervical lymphadenopathy. Supple, full range of motion without nuchal rigidity, or vertebral point tenderness. No Meningismus. Chest/axilla: Normal chest wall appearance and motion. Nontender with no deformity. No lesions are appreciated. Cardiovascular: Regular rate and rhythm with a normal S1 and S2. No gallops, murmurs, or rubs. Normal PMI, no JVD. No pulse deficits. Respiratory: Lungs have equal breath sounds bilaterally, clear to auscultation and percussion. No rales, rhonchi or wheezes noted. No increased work of breathing, no retractions or nasal flaring. Abdomen/GI: Soft, non-tender, with normal bowel sounds. No distension or tympany. No guarding or rebound. No evidence of tenderness throughout. Back: No spinal tenderness. No costovertebral tenderness. Full range of motion. Skin: Warm, dry with normal turgor. Normal color with no rashes, no lesions, and no evidence of cellulitis. MS/ Extremity: Pulses equal, no cyanosis. Neurovascular intact. Full, normal range of motion. Neuro: Awake and alert, GCS 15, oriented to person, place, time, and situation. Cranial nerves II-XII grossly intact. Motor strength 5/5 in all extremities. Sensory grossly intact. Cerebellar exam normal. Normal gait. Psych: Awake, alert, with orientation to person, place and time. Behavior, mood, and affect are within normal limits. has mild anxiety Vital Signs: 09:52 BP 124 / 66; Pulse 98; Resp 18; Temp 98.6(O); Pulse Ox 100% ; Weight 63.5 kg; Height 5 tr6 ft. 3 in. (160.02 cm); 09:52 Body Mass Index 24.80 (63.50 kg, 160.02 cm) tr6 MDM: 09:58 Patient medically screened. ma2 11:17 Differential diagnosis: drug withdrawal. acute psychotic break, depression, psychosis ma2 secondary to non-compliance. Data reviewed: vital signs, nurses notes. Counseling: I had a detailed discussion with the patient and/or guardian regarding: the historical points, exam findings, and any diagnostic results supporting the discharge/admit diagnosis, the presence of at least one elevated blood pressure reading (>120/80) during this emergency department visit, the need for outpatient follow up. Response to treatment:. 03/14 09:57 Order name: Basic Metabolic Panel; Complete Time: 11:03/14 09:57 Order name: CBC with Diff; Complete Time: :03/14 09:57 Order name: LFT's; Complete Time: 11:17 03/14 09:57 Order name: Magnesium; Complete Time: 11:03/14 09:57 Order name: NT PRO-BNP; Complete Time: 11:03/14 09:57 Order name: PT-INR; Complete Time: 11:03/14 09:57 Order name: Troponin (emerg Dept Use Only); Complete Time: 11:17 03/14 09:57 Order name: XRAY Chest (1 view); Complete Time: 10:31 03/14 09:57 Order name: EKG; Complete Time: 09:58 03/14 09:57 Order name: Cardiac monitoring; Complete Time: 10:02 03/14 09:57 Order name: EKG - Nurse/Tech; Complete Time: 10:02 03/14 09:57 Order name: IV Saline Lock; Complete Time: 10:02 03/14 09:58 Order name: Lipase; Complete Time: 11:17 03/14 09:57 Order name: Labs collected and sent; Complete Time: 10:07 03/14 09:57 Order name: O2 Per Protocol; Complete Time: 10:00 03/14 09:57 Order name: O2 Sat Monitoring; Complete Time: 10:00 ma2 Administered Medications: 10:00 Drug: NS 0.9% 1000 ml Route: IV; Rate: 1 bolus; Site: left antecubital; tr6 Disposition Summary: 03/14/21 11:19 Discharge Ordered Location: Home ma2 Condition: Stable ma2 Diagnosis - Anxiety disorder, unspecified ma2 Followup: ma2 - With: Private Physician - When: Tomorrow - Reason: Continuance of care Discharge Instructions: - Discharge Summary Sheet ma2 - Generalized Anxiety Disorder, Adult ma2 Forms: - Medication Reconciliation Form ma2 - Thank You Letter ma2 - Antibiotic Education ma2 - Prescription Opioid Use ma2 - Work release form eb Signatures: Dispatcher [employer] EDMS Rolando Lott MD MD ma2 Leyda Thompson RN RN tr6
--- NOTE | 2021-03-14 11:20 | ER ---
Nurse's Notes [facility] Name: Kaur Caruso Age: 40 yrs Sex: Female : 1980 Arrival Date: 03/14/2021 Time: 09:51 Bed 20 Private MD: Diagnosis: Anxiety disorder, unspecified Presentation: 03/14 09:52 Chief complaint: EMS states: \\T\\ 0850 this morning pt woke up and felt "tingling in her tr6 left arm and left side of her chest" Pt reports that she recently ran out of her medications at home, and she has been on a sober binge, but "had two tall boys last night". Coronavirus screen: At this time, unable to obtain information related to travel outside the [place] Ebola Screen: No symptoms or risks identified at this time. Initial Sepsis Screen: Does the patient meet any 2 criteria? No. Patient's initial sepsis screen is negative. Does the patient have a suspected source of infection? No. Patient's initial sepsis screen is negative. Risk Assessment: Do you want to hurt yourself or someone else? Patient reports no desire to harm self or others. Onset of symptoms was March 14, 2021 at 08:50. 09:52 Method Of Arrival: EMS: [facility] tr6 09:52 Acuity: DESTINY 3 tr6 Triage Assessment: 09:55 General: Appears in no apparent distress. Behavior is calm, cooperative, appropriate tr6 for age. Pain: Denies pain. EENT: No deficits noted. Neuro: No deficits noted. Level of Consciousness is awake, alert, obeys commands. Cardiovascular: No deficits noted. Respiratory: No deficits noted. GI: No deficits noted. GI: Reports nausea. : No deficits noted. Derm: No deficits noted. Musculoskeletal: No deficits noted. Historical: - Home Meds: 09:55 Hydroxyzine Oral [Active]; lisinopril 20 mg Oral tab 1 tab once daily [Active]; tr6 paroxetine Oral [Active]; Levemir U-100 Insulin 100 unit/mL subcutaneous soln [Active]; - PMHx: 09:55 Anxiety; Diabetes - NIDDM; High Cholesterol; Hypertension; tr6 - Immunization history:: Adult Immunizations up to date, Client reports having NOT received the Covid vaccine. - Social history:: Smoking status: Patient denies any tobacco usage or history of. Patient uses alcohol, on a daily basis. - Family history:: not pertinent. Screenin:59 Abuse screen: Denies threats or abuse. Denies injuries from another. Nutritional tr6 screening: No deficits noted. Tuberculosis screening: No symptoms or risk factors identified. Fall Risk None identified. Vital Signs: 09:52 BP 124 / 66; Pulse 98; Resp 18; Temp 98.6(O); Pulse Ox 100% ; Weight 63.5 kg; Height 5 tr6 ft. 3 in. (160.02 cm); 09:52 Body Mass Index 24.80 (63.50 kg, 160.02 cm) tr6 ED Course: 09:51 Patient arrived in ED. tr6 09:52 Leyda Thompson RN is Primary Nurse. tr6 09:55 Triage completed. tr6 09:58 Rolando Lott MD is Attending Physician. ma2 09:59 Resting quietly. Awaiting ED provider evaluation. tr6 09:59 Patient has correct armband on for positive identification. Bed in low position. Call tr6 light in reach. Side rails up X 1. Pulse ox on. NIBP on. Door closed. Noise minimized. Visitors limited. Lights dimmed. Warm blanket given. Diet: Patient is NPO. 09:59 No provider procedures requiring assistance completed. Maintain EMS IV. Dressing tr6 intact. Good blood return noted. Site clean \\T\\ dry. Gauge \\T\\ site: 18 L AC. Patient maintains SpO2 saturation greater than 95% on room air. 10:00 Patient placed in an exam room. tr6 10:26 XRAY Chest (1 view) In Process Unspecified. EDMS 11:36 IV discontinued, intact, bleeding controlled, No redness/swelling at site. Pressure tr6 dressing applied. Administered Medications: 10:00 Drug: NS 0.9% 1000 ml Route: IV; Rate: 1 bolus; Site: left antecubital; tr6 Outcome: 11:19 Discharge ordered by . ma2 11:34 Discharged to home with family, pts mother to pick her up tr6 11:34 Condition: good 11:34 Discharge instructions given to patient, Instructed on discharge instructions, follow up and referral plans. medication usage, safety practices, Demonstrated understanding of instructions, follow-up care. 11:53 Patient left the ED. tr6 Signatures: Dispatcher [employer] EDRolando Quiroz MD MD ma2 Leyda Thompson RN RN tr6
[2021-03-14 12:05] VITALS: BP 124/66; TEMP 98.6; O2SAT 100
== END 2021-03-14 11:53 | disposition home or self-care (01) ==
LOC: ER 09:47
DX: F41.9 Anxiety disorder, unspecified (principal); E11.9 Type 2 diabetes mellitus without complications; E78.5 Hyperlipidemia, unspecified; I10 Essential (primary) hypertension
CPT/HCPCS: 36415; 71045; 80048; 80076; 83690; 83735; 83880; 84484; 85025; 85610; 99284

== ENCOUNTER 2021-04-04 08:37 | Emergency (ER) | payer SELFPAY ==
[2021-04-04 09:12] LABS: Basophils % 0.6 % (0-1.3); Hematocrit 39.3 % (36.0-45.0); Lymphocytes % 18.1 % (15.3-44.8); MPV 9.2 fL (7.6-11.3); RBC Red Blood Cell Count 4.92 M/uL (3.86-4.86)
[2021-04-04 09:14] LABS: Protime INR 1.01
[2021-04-04 09:36] LABS: ALT/SGPT 35 U/L (12-78); AST/SGOT 26 U/L (15-37); Alkaline Phosphatase 78 U/L (45-117); BUN Blood Urea Nitrogen 5 mg/dL (7-18); Bicarbonate 24 mmol/L (21-32); Bilirubin Direct 0.1 mg/dL (0-0.2); Bilirubin Total 0.6 mg/dL (0.2-1.0); Glucose Level 288 mg/dL (74-106); Lipase 95 U/L (73-393); Magnesium 1.7 mg/dL (1.8-2.4); NT PRO-BNP 97 pg/mL (<125); Potassium 3.5 mmol/L (3.5-5.1); Protein, Total 8.5 g/dL (6.4-8.2); Sodium Level 135 mmol/L (136-145); Troponin (Emerg Dept Use Only) < 0.02 ng/mL (0.0-0.045)
--- NOTE | 2021-04-04 09:43 | RAD REPORT ---
EXAM DESCRIPTION: RAD - Chest Single View - 04/04/2021 9:09 am CLINICAL HISTORY: CHEST PAIN COMPARISON: March 14 TECHNIQUE: AP portable chest image was obtained 04/04/2021 9:09 am . FINDINGS: Lungs are clear. Heart and vasculature are normal. No measurable pleural effusion and no p neumothorax. No acute bony abnormality seen. No acute aortic findings suspected. IMPRESSION: No acute cardiopulmonary process. No significant change from comparison study.
[2021-04-04] MEDS ORDERED: THIAMINE 200 MG/2 ML INJ ONE (10:32)
[2021-04-04] MEDS ORDERED: NA CHLORIDE 0.9% 1,000 ML ONE (10:32)
--- NOTE | 2021-04-04 10:52 | ER ---
Nurse's Notes [facility] Name: Kaur Caruso Age: 40 yrs Sex: Female : 1980 Arrival Date: 04/04/2021 Time: 08:38 Bed 6 Private MD: Diagnosis: Chest pain, unspecified;Alcohol abuse, uncomplicated;Type 2 diabetes mellitus with hyperglycemia;Hypomagnesemia;Adverse effect of amphetamines Presentation: 04/04 08:44 Chief complaint: Patient states: she started having chest pain in her upper left chest ap3 today around 0800. Patient reports that the pain does not radiate. Coronavirus screen: At this time, the client does not indicate any symptoms associated with coronavirus-19. son tested positive 2 days ago. Ebola Screen: No symptoms or risks identified at this time. Initial Sepsis Screen: Does the patient meet any 2 criteria? No. Patient's initial sepsis screen is negative. Risk Assessment: Do you want to hurt yourself or someone else? Patient reports no desire to harm self or others. Onset of symptoms was April 04, 2021. 08:44 Method Of Arrival: EMS: [facility] ap3 08:44 Acuity: DESTINY 3 ap3 08:50 Initial Sepsis Screen: Does the patient have a suspected source of infection? No. ap3 Patient's initial sepsis screen is negative. Triage Assessment: 08:48 General: Appears in no apparent distress. Behavior is calm, cooperative. Pain: ap3 Complains of pain in chest Pain does not radiate. Pain currently is 6 out of 10 on a pain scale. Quality of pain is described as tightness Pain began suddenly, 0800. Neuro: Level of Consciousness is awake, alert, obeys commands, Oriented to person, place, time, situation, Moves all extremities. Gait is steady, Speech is normal. Cardiovascular: Reports chest pain, Denies diaphoresis, lightheadedness, shortness of breath, Capillary refill < 3 seconds Patient's skin is warm and dry. Rhythm is sinus tachycardia. Respiratory: Airway is patent Respiratory effort is even, unlabored. OPTICAL SCIENTIST: 08:50 LMP 03/28/2021 ap3 Historical: - Home Meds: 08:48 Hydroxyzine Oral [Active]; Levemir U-100 Insulin 100 unit/mL subcutaneous soln ap3 [Active]; lisinopril 20 mg Oral tab 1 tab once daily [Active]; paroxetine Oral [Active]; - PMHx: 08:48 Anxiety; Diabetes - NIDDM; High Cholesterol; Hypertension; ap3 - Immunization history:: Adult Immunizations up to date, Client reports having NOT received the Covid vaccine. - Social history:: Smoking status: Patient denies any tobacco usage or history of. - Family history:: not pertinent. Screenin:43 Abuse screen: Denies threats or abuse. Denies injuries from another. Nutritional jl7 screening: No deficits noted. Tuberculosis screening: No symptoms or risk factors identified. Fall Risk IV access (20 points). Total Pascal Fall Scale indicates No Risk (0-24 pts). Assessment: 10:56 Reassessment: Pt will be discharged once fluids are done infusing. jl7 Vital Signs: 08:44 BP 158 / 100; Pulse 114; Resp 19; Temp 98.7(TE); Pulse Ox 99% ; Weight 62.6 kg; Height ap3 5 ft. 2 in. (157.48 cm); 10:12 BP 159 / 94; Pulse 116; Resp 18; Pulse Ox 100% on R/A; ap3 08:44 Body Mass Index 25.24 (62.60 kg, 157.48 cm) ap3 ED Course: 08:38 Patient arrived in ED. eb 08:43 Patient has correct armband on for positive identification. Placed in gown. Bed in low jl7 position. Call light in reach. Side rails up X 1. monitoring coordinator on. Pulse ox on. NIBP on. 08:43 EKG done, by ED staff, reviewed by Oswaldo Rodriguez MD. jl7 08:44 Kellen Mancia, HINA is Primary Nurse. ap3 08:45 Oswaldo Rodriguez MD is Attending Physician. kaylee 08:48 Triage completed. ap3 08:50 Arm band placed on left wrist. EKG completed in triage. Results shown to . ap3 08:50 Inserted saline lock: 20 gauge in right antecubital area, using aseptic technique. ap3 Blood collected. 09:00 COVID swab sent to lab. ap3 09:09 XRAY Chest (1 view) In Process Unspecified. EDMS 10:51 Marciano Szymanski MD is Referral Physician. kaylee 12:56 No provider procedures requiring assistance completed. IV discontinued, intact, ap3 bleeding controlled, No redness/swelling at site. Pressure dressing applied. Administered Medications: 09:01 Drug: Aspirin Chewable Tablet 324 mg Route: PO; ap3 10:25 Follow up: Response: No adverse reaction ap3 09:01 Drug: NS 0.9% 1000 ml Route: IV; Rate: 125 ml/hr; Site: right antecubital; ap3 12:27 Follow up: IV Status: Completed infusion ap3 10:24 Drug: Thiamine 100 mg Route: IV; Rate: per protocol; Site: right antecubital; ap3 10:30 Follow up: Response: No adverse reaction; IV Status: Completed infusion jl7 10:25 Drug: NS 0.9% 1000 ml Route: IV; Rate: 1 bolus; Site: right antecubital; ap3 11:50 Follow up: IV Status: Completed infusion ap3 10:52 Drug: NS 0.9% 1000 ml Route: IV; Rate: 1 bolus; Site: right antecubital; ap3 12:57 Follow up: IV Status: Completed infusion; IV Intake: 1000ml ap3 10:53 Drug: Magnesium Sulfate 1 grams Route: IVPB; Infused Over: 1 hrs; Site: right ap3 antecubital; 12:27 Follow up: IV Status: Completed infusion ap3 Intake: 12:57 IV: 1000ml; Total: 1000ml. ap3 Outcome: 10:51 Discharge ordered by . kaylee 12:56 Discharged to home ambulatory. ap3 12:56 Condition: good 12:56 Discharge instructions given to patient, Instructed on discharge instructions, follow up and referral plans. benefits of quitting smoking, Demonstrated understanding of instructions, follow-up care. 13:05 Patient left the ED. ap3 Signatures: Dispatcher [employer] EDIN Oswaldo Rodriguez MD MD cha Leal, Jahala RN RN jl7 Kellen Mancia RN RN ap3 Rosa Isela Omalley
--- NOTE | 2021-04-04 10:52 | EDPHYS ---
Physician Documentation [facility] Name: Kaur Caruso Age: 40 yrs Sex: Female : 1980 Arrival Date: 04/04/2021 Time: 08:38 Bed 6 Private MD: ED Physician Oswaldo Rodriguez HPI: 04/04 09:33 This 40 yrs old Female presents to ER via EMS with complaints of CP AFTER kaylee COCAINE AND ETOH. 09:33 The patient has shortness of breath with light activity. Onset: The symptoms/episode kaylee began/occurred this morning. Duration: The symptoms are continuous, and are steadily getting worse. The patient's shortness of breath has no apparent modifying factors. The patient or guardian reports chest pain that is located primarily in the anterior chest wall, left. Onset: this morning. The pain does not radiate. Associated signs and symptoms: Pertinent positives: non-productive cough. Severity of symptoms: At their worst the symptoms were moderate in the emergency department the symptoms are unchanged. Associated signs and symptoms: Pertinent positives: shortness of breath. The chest pain is described as sharp. 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 - Social history:: Smoking status: Patient denies any tobacco usage or history of. - Family history:: not pertinent. ROS: 09:33 Constitutional: Negative for fever, chills, and weight loss, Eyes: Negative for injury, kaylee pain, redness, and discharge, ENT: Negative for injury, pain, and discharge, Neck: Negative for injury, pain, and swelling, Respiratory: Negative for shortness of breath, cough, wheezing, and pleuritic chest pain, Abdomen/GI: Negative for abdominal pain, nausea, vomiting, diarrhea, and constipation, Back: Negative for injury and pain, : Negative for injury, bleeding, discharge, and swelling, MS/Extremity: Negative for injury and deformity, Skin: Negative for injury, rash, and discoloration, Neuro: Negative for headache, weakness, numbness, tingling, and seizure, Psych: Negative for depression, anxiety, suicide ideation, homicidal ideation, and hallucinations, Allergy/Immunology: Negative for hives, rash, and allergies, Endocrine: Negative for neck swelling, polydipsia, polyuria, polyphagia, and marked weight changes, Hematologic/Lymphatic: Negative for swollen nodes, abnormal bleeding, and unusual bruising. 09:33 Cardiovascular: Positive for chest pain, palpitations. Exam: :33 Constitutional: This is a well developed, well nourished patient who is awake, alert, kaylee and in no acute distress. Head/Face: Normocephalic, atraumatic. Eyes: Pupils equal round and reactive to light, extra-ocular motions intact. Lids and lashes normal. Conjunctiva and sclera are non-icteric and not injected. Cornea within normal limits. Periorbital areas with no swelling, redness, or edema. ENT: Nares patent. No nasal discharge, no septal abnormalities noted. Tympanic membranes are normal and external auditory canals are clear. Oropharynx with no redness, swelling, or masses, exudates, or evidence of obstruction, uvula midline. Mucous membranes moist. Neck: Trachea midline, no thyromegaly or masses palpated, and no cervical lymphadenopathy. Supple, full range of motion without nuchal rigidity, or vertebral point tenderness. No Meningismus. Chest/axilla: Normal chest wall appearance and motion. Nontender with no deformity. No lesions are appreciated. Respiratory: Lungs have equal breath sounds bilaterally, clear to auscultation and percussion. No rales, rhonchi or wheezes noted. No increased work of breathing, no retractions or nasal flaring. Abdomen/GI: Soft, non-tender, with normal bowel sounds. No distension or tympany. No guarding or rebound. No evidence of tenderness throughout. Back: No spinal tenderness. No costovertebral tenderness. Full range of motion. Skin: Warm, dry with normal turgor. Normal color with no rashes, no lesions, and no evidence of cellulitis. MS/ Extremity: Pulses equal, no cyanosis. Neurovascular intact. Full, normal range of motion. Neuro: Awake and alert, GCS 15, oriented to person, place, time, and situation. Cranial nerves II-XII grossly intact. Motor strength 5/5 in all extremities. Sensory grossly intact. Cerebellar exam normal. Normal gait. Psych: Awake, alert, with orientation to person, place and time. Behavior, mood, and affect are within normal limits. 09:33 Cardiovascular: Rate: tachycardic, Rhythm: regular, Pulses: Pulses are 4+ in bilateral radial, brachial, femoral, popliteal, posterior tibial and and dorsalis pedis arteries.. Heart sounds: normal, Edema: is not appreciated, JVD: is not appreciated. 09:33 ECG was reviewed by the Attending Physician. 10:49 Musculoskeletal/extremity: DVT Exam: No signs of deep vein thrombosis. no pain, no kaylee swelling, no tenderness, negative Homans' sign noted on exam, no appreciated bluish discoloration, no erythema, no increased warmth. Vital Signs: 08:44 BP 158 / 100; Pulse 114; Resp 19; Temp 98.7(TE); Pulse Ox 99% ; Weight 62.6 kg; Height ap3 5 ft. 2 in. (157.48 cm); 10:12 BP 159 / 94; Pulse 116; Resp 18; Pulse Ox 100% on R/A; ap3 08:44 Body Mass Index 25.24 (62.60 kg, 157.48 cm) ap3 MDM: 08:45 Patient medically screened. kaylee 09:37 Differential diagnosis: Anemia Anxiety Reaction CHF exacerbation, abnormal EKG, acute kaylee myocardial infarction, anxiety, coronary artery disease congestive heart failure gastritis, peptic ulcer disease, pleurisy, pneumonia, pneumothorax, stable angina, unstable angina, Pneumothorax reactive airway disease. Antibiotic administration: Not indicated. Antibiotic administration: Not indicated, the patient does not have an appreciated infiltrate. HEART Score: History: Slightly Suspicious (0), ECG: Non specific repolarization disturbance / LBTB / PM (1), Age: < or = 45 years (0), Risk Factors: > or = 3 Risk factors for atherosclerotic disease (2), [Hypertension] [DM] [+ Family HX] Troponin: < or = 1 x Normal Limit (0). The patient was given aspirin in the Emergency Department. The patient's Wells Deep Vein Thrombosis Score was calculated as follows: Total Score: 0. This patient was found to be at low risk for a deep vein thrombosis by using the Well's assessment criteria Total Score: 0-2 Pts- Low Risk. The patient's pulmonary embolism risk score was calculated as follows: Total Score: 0-2 points. This patient was found to be at low risk for a pulmonary embolism by using the Well's assessment criteria Total Score: 0-2 points. This patient was found to be at low risk for a pulmonary embolism by using the Well's assessment criteria. DINESH Risk Score: TOTAL SCORE = 0. Immunization status:. Data reviewed: vital signs, nurses notes, lab test result(s), EKG, radiologic studies, plain films. Data interpreted: media monitor: rate is 114 beats/min, rhythm is regular, Pulse oximetry: on room air is 99 %. Test interpretation: by ED physician or midlevel provider: ECG, plain radiologic studies. Counseling: I had a detailed discussion with the patient and/or guardian regarding: the historical points, exam findings, and any diagnostic results supporting the discharge/admit diagnosis, lab results, radiology results. 04/04 08:50 Order name: Basic Metabolic Panel; Complete Time: 10:28 kaylee 04/04 08:50 Order name: CBC with Diff; Complete Time: 10:28 kaylee 04/04 08:50 Order name: LFT's; Complete Time: 10:28 [facility] 04/04 08:50 Order name: Magnesium; Complete Time: 10:28 kaylee 04/04 08:50 Order name: NT PRO-BNP; Complete Time: 10:28 kaylee 04/04 08:50 Order name: PT-INR; Complete Time: 10:28 [facility] 04/04 08:50 Order name: Troponin (emerg Dept Use Only); Complete Time: 10:28 kaylee 04/04 08:50 Order name: Lipase; Complete Time: 10:28 kaylee 04/04 08:50 Order name: UDS; Complete Time: 12:43 [facility] 04/04 08:50 Order name: COVID-19 (Coronavirus) Document "Date of Onset" if Symptomatic [facility] 04/04 09:31 Order name: ETOH Level; Complete Time: 10:38 [facility] 04/04 09:44 Order name: SARS-COV-2 RT PCR; Complete Time: 10:50 EDMS 04/04 11:45 Order name: Urine Dipstick-Ancillary; Complete Time: 12:43 EDMS 04/04 11:45 Order name: Urine --Ancillary (enter results); Complete Time: 12:43 eb 04/04 08:50 Order name: XRAY Chest (1 view); Complete Time: 10:28 [facility] 04/04 08:50 Order name: EKG; Complete Time: 08:51 [facility] 04/04 08:50 Order name: Cardiac monitoring; Complete Time: 08:51 [facility] 04/04 08:50 Order name: EKG - Nurse/Tech; Complete Time: 08:51 [facility] 04/04 08:50 Order name: IV Saline Lock; Complete Time: 08:51 [facility] 04/04 08:50 Order name: Labs collected and sent; Complete Time: 08:51 [facility] 04/04 08:50 Order name: O2 Per Protocol; Complete Time: 08:51 [facility] 04/04 08:50 Order name: O2 Sat Monitoring; Complete Time: 08:51 [facility] 04/04 08:50 Order name: Urine Dipstick-Ancillary (obtain specimen); Complete Time: 11:50 [facility] EC:33 Rate is 117 beats/min. Rhythm is regular. QRS [place] is Normal. [place] interval is normal. [facility] QRS interval is normal. QT interval is normal. No Q waves. T waves are Normal. No ST changes noted. Clinical impression: Sinus tachycardia. Interpreted by me. Reviewed by me. Administered Medications: 09:01 Drug: Aspirin Chewable Tablet 324 mg Route: PO; ap3 10:25 Follow up: Response: No adverse reaction ap3 09:01 Drug: NS 0.9% 1000 ml Route: IV; Rate: 125 ml/hr; Site: right antecubital; ap3 12:27 Follow up: IV Status: Completed infusion ap3 10:24 Drug: Thiamine 100 mg Route: IV; Rate: per protocol; Site: right antecubital; ap3 10:30 Follow up: Response: No adverse reaction; IV Status: Completed infusion [id number] 10:25 Drug: NS 0.9% 1000 ml Route: IV; Rate: 1 bolus; Site: right antecubital; ap3 11:50 Follow up: IV Status: Completed infusion ap3 10:52 Drug: NS 0.9% 1000 ml Route: IV; Rate: 1 bolus; Site: right antecubital; ap3 12:57 Follow up: IV Status: Completed infusion; IV Intake: 1000ml ap3 10:53 Drug: Magnesium Sulfate 1 grams Route: IVPB; Infused Over: 1 hrs; Site: right ap3 antecubital; 12:27 Follow up: IV Status: Completed infusion ap3 Disposition Summary: 04/04/21 10:51 Discharge Ordered Location: Home kaylee Problem: new kaylee Symptoms: have improved kaylee Condition: Stable kaylee Diagnosis - Chest pain, unspecified kaylee - Alcohol abuse, uncomplicated kaylee - Type 2 diabetes mellitus with hyperglycemia kaylee - Hypomagnesemia kaylee - Adverse effect of amphetamines kaylee Followup: kaylee - With: Private Physician - When: 2 - 3 days - Reason: Recheck today's complaints, Continuance of care, Re-evaluation by your physician Followup: kaylee - With: Marciano Szymanski MD - When: 2 - 3 days - Reason: Recheck today's complaints, Re-evaluation by your physician Discharge Instructions: - Discharge Summary Sheet kaylee - Finding Treatment for Addiction kaylee - Nonspecific Chest Pain, Adult kaylee - Type 2 Diabetes Mellitus, Diagnosis, Adult kaylee - Hyperglycemia kaylee - Amphetamines Use Disorder kaylee - Supporting Someone With an Addiction kaylee - Nonspecific Chest Pain, Adult, [id number] kaylee - Diabetes Mellitus and Nutrition, Adult kaylee - Hyperglycemia, [id number] kaylee - Aspirin and Your Heart kaylee - Hypomagnesemia kaylee - Methamphetamines Use Disorder kaylee Forms: - Medication Reconciliation Form kaylee - Thank You Letter kaylee - Antibiotic Education kaylee - Prescription Opioid Use kaylee Signatures: Dispatcher [employer] Oswaldo Fish MD MD cha Prokisch, Amanda, RN RN ap3 Berry Parr RN [id number] Corrections: (The following items were deleted from the chart) 12:43 10:51 Cocaine abuse kaylee kaylee
[2021-04-04] MEDS ORDERED: MAGNESIUM SULFATE 1 gm IVPB 1 GM/100 ML BAG IV ONE (11:13)
[2021-04-04 11:45] LABS: Urine Blood Negative (Negative); Urine Glucose 2+ (Negative); Urine Protein Negative (Negative); Urine pH 6.5 (5.0-7.0)
[2021-04-04 12:00] LABS: Barbiturates NEGATIVE (NEGATIVE); Benzodiazepines NEGATIVE (NEGATIVE); Cocaine NEGATIVE (NEGATIVE); METHAMPHETAM POSITIVE (NEGATIVE); Methadone NEGATIVE (NEGATIVE); Opiates NEGATIVE (NEGATIVE); Phencyclidine NEGATIVE (NEGATIVE); THC Cannibis NEGATIVE (NEGATIVE)
[2021-04-04 13:11] VITALS: TEMP 98.7
[2021-04-04 13:13] VITALS: BP 159/94; O2SAT 100
--- NOTE | 2021-04-06 09:02 | EKG ---
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
== END 2021-04-04 13:05 | disposition home or self-care (01) ==
LOC: ER 08:37
DX: F10.10 Alcohol abuse, uncomplicated (principal); T43.625A Adverse effect of amphetamines, initial encounter; E83.42 Hypomagnesemia; E11.65 Type 2 diabetes mellitus with hyperglycemia; I10 Essential (primary) hypertension; Z20.822 Contact with and (suspected) exposure to COVID-19
CPT/HCPCS: 36415; 71045; 80048; 80076; 80307; 80320; 81003; 81025; 83690; 83735; 83880; 84484; 85025; 85610; 93005; 96361; 96365; 96366; 96375; 99285; J3411; J3475; J7030; U0003

== ENCOUNTER 2021-06-27 19:21 | Emergency (ER) | payer SELFPAY ==
--- OUTSIDE RECORDS SUMMARY | 2021-06-27 19:24 | XMS REPORT | Continuity of Care Document ---
:1980 Author Organization [facility] t Address [address] [place] [address] Care Team Providers Name Role Phone Doctor Unassigned, Name Attending Clinician Unavailable Payers Payer Name Policy Type Policy Number Effective Date Expiration Date S ource Advance Directives Directive Decision Effective Termination Comments Source Date Date Healthcare Agents on N/A Univ ersity FileNameRelationshipHealthcare [facility] Agent Medical RelationshipCommunication[place] [id number] - Health Care Agent (Medical Power of Area Cleaner) Problems Condition Condition Condition Status Onset Resolution Last Treating Co mments Source Name Details Category Date Date Treatment Clinician Date Type 2 Type 2 Disease Active [facility] diabetes diabetes 11-24 ity of mellitus mellitus 00:00: [place] without without 00 Medical complicati complicati Br anch on, on, without without long-term long-term current current use of use of insulin insulin History of History of Disease Active U nivers abnormal abnormal 6 ity of cervical cervical 00:00: [place] Pap smear Pap smear 00 [facility] Diabetic Diabetic Disease Active Unive rs foot foot 5-02 [place] [address] [place] [address] Allergies, Adverse Reactions, Alerts This patient has no known allergies or adverse reactions. Social History Social Habit Start Date Stop Date Quantity Comments Source Tobacco use and 2018-11-24 2018-11-24 Never used Universit y of exposure 00:00:00 00:00:00 [facility] Alcohol intake 2018-11-24 2018-11-24 Current drinker of Un iversity of 00:00:00 00:00:00 alcohol (finding) [facility] edical Orla Alcohol Comment 2018-11-24 2018-11-24 occasional Universit y of 00:00:00 00:00:00 [facility] Sex Ass[birth year] At [birth year] [facility] 00:00:00 00:00:00 [facility] Smoking Status Start Date Stop Date Source Never smoker [facility] Medications Ordered Filled Start Stop Current Ordering Indication Dosage Frequency Signature Comments Components Source Medication Medication Date Date Medication? Clinician (SIG) Name Name No known No Univers medications ity of [facility] Immunizations Ordered Filled Immunization Date Status Comments Sour e Immunization Name Name Td 2015-10-20 Completed [facility] 00:00:00 [facility] Procedures Procedure Date / Time Performed Performing Clinician Sourc e REFERRAL- 2020-11-07 05:01:00 Doctor Unassigned, No [facility]iver [facility] REQUEST/RESPONSE Name [facility] Encounters Start End Encounter Admission Attending Care Care Encounter Source Date/Time Date/Time Type Type Clinicians Facility Department ID 2020-11-07 2020-11-07 Orders Doctor CIARRA [id number] 00:00:00 00:00:00 Only Unassigned, HORACE [id number] [place] [facility] [id number] 2020-11-07 2020-11-07 Orders Doctor CIARRA [id number] Univers 00:00:00 00:00:00 Only Unassigned, HORACE [id number] ity of [place] [facility] [id number] Yousuf as [id number] [place] [address] [place] Results This patient has no known results.
[2021-06-27] MEDS ORDERED: NA CHLORIDE 0.9% 1,000 ML ONE (19:55)
[2021-06-27] MEDS ORDERED: ONDANSETRON 4 MG/2 ML VIAL ONE (19:55)
[2021-06-27] MEDS ORDERED: FAMOTIDINE 20 MG/2 ML VIAL IV ONE (19:55)
[2021-06-27 20:09] LABS: Absolute Lymphocytes (CBC) 1.6 K/uL (0.7-4.9); Hematocrit 39.6 % (36.0-45.0); Lymphocytes % 24.9 % (15.3-44.8); MPV 8.9 fL (7.6-11.3); RBC Red Blood Cell Count 4.87 M/uL (3.86-4.86)
--- NOTE | 2021-06-27 20:12 | RAD REPORT ---
EXAM DESCRIPTION: RAD - Chest Single View - 06/27/2021 8:07 pm CLINICAL HISTORY: CHEST PAIN Chest pain. COMPARISON: Chest Single View dated 04/04/2021; Chest Single View dated 03/14/2021; Chest Single View dated 02/05/2021; Chest Single View dated 11/03/2020 FINDINGS: Portable technique limits examination quality. The lungs are grossly clear. The heart is normal in size. No displaced fractures. IMPRESSION: No acute intrathoracic process suspected.
[2021-06-27 20:34] LABS: BUN Blood Urea Nitrogen 10 mg/dL (7-18); Bicarbonate 25 mmol/L (21-32); Glucose Level 204 mg/dL (74-106); Potassium 3.9 mmol/L (3.5-5.1); Sodium Level 136 mmol/L (136-145)
[2021-06-27 21:16] LABS: ALT/SGPT 20 U/L (12-78); AST/SGOT 11 U/L (15-37); Albumin 3.7 g/dL (3.4-5.0); Alkaline Phosphatase 79 U/L (45-117); Bilirubin Direct 0.2 mg/dL (0-0.2); Bilirubin Total 0.6 mg/dL (0.2-1.0); Magnesium 1.9 mg/dL (1.8-2.4); NT PRO-BNP 22 pg/mL (<125); Protein, Total 8.2 g/dL (6.4-8.2); Troponin (Emerg Dept Use Only) < 0.02 ng/mL (0.0-0.045)
--- NOTE | 2021-06-27 21:54 | EDPHYS ---
Physician Documentation [facility] Name: Kaur Caruso Age: 40 yrs Sex: Female : 1980 Arrival Date: 06/27/2021 Time: 19:26 Bed 4 Private MD: ED Physician Kevin Edgar HPI: 06/27 19:42 This 40 yrs old Female presents to ER via EMS with complaints of Chest pain, kdr anxiety. 19:42 Patient states she was drinking last evening. She had about a sixpack of [place] iced kdr teas. Today this afternoon, she received word that her uncle had . Then about 4 PM she started to have left anterior chest wall pain. She denies shortness of breath, diaphoresis or vomiting. She was slightly nauseated but attributed that to the drinking she done the night before. Her chest discomfort is minor. She gets it periodically and is primarily associated with her anxiety attacks. She did take rinks antianxiety medicine around 4 PM. However she is still not feeling right at this time and so called EMS to bring her for evaluation. Onset: The symptoms/episode began/occurred suddenly, today. Severity of symptoms: At their worst the symptoms were mild moderate just prior to arrival, in the emergency department the symptoms are unchanged. The patient has experienced similar episodes in the past, multiple times, today's symptoms are similar, to previous Patient states she has had these intermittent chest discomfort sensations and again primarily associated with her anxiety exacerbations. She has not had a cardiac work-up. The patient has not recently seen a physician. 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 Flu vaccine is not up to date. - Social history:: Smoking status: Patient/guardian denies using tobacco, the patient reports quitting approximately 18 years ago. ROS: 19:42 Constitutional: Negative for fever, chills, and weight loss, Eyes: Negative for injury, kdr pain, redness, and discharge, ENT: Negative for injury, pain, and discharge, Neck: Negative for injury, pain, and swelling, Respiratory: Negative for shortness of breath, cough, wheezing, and pleuritic chest pain, Abdomen/GI: Negative for abdominal pain, nausea, vomiting, diarrhea, and constipation, Back: Negative for injury and pain, : Negative for injury, bleeding, discharge, and swelling, MS/Extremity: Negative for injury and deformity, Skin: Negative for injury, rash, and discoloration, Neuro: Negative for headache, weakness, numbness, tingling, and seizure activity. Psych: Negative for depression, anxiety, suicide ideation, homicidal ideation, and hallucinations, Allergy/Immunology: Negative for hives, rash, and allergies, Endocrine: Negative for neck swelling, polydipsia, polyuria, polyphagia, and marked weight changes, Hematologic/Lymphatic: Negative for swollen nodes, abnormal bleeding, and unusual bruising. 19:42 Cardiovascular: Positive for chest pain, of the anterior aspect of left upper chest. Exam: 19:35 ECG was reviewed by the Attending Physician. kdr 21:59 Constitutional: This is a well developed, well nourished patient who is awake, alert, kdr and in no acute distress. Head/Face: Normocephalic, atraumatic. Eyes: Pupils equal round and reactive to light, extra-ocular motions intact. Lids and lashes normal. Conjunctiva and sclera are non-icteric and not injected. Cornea within normal limits. Periorbital areas with no swelling, redness, or edema. Neck: Trachea midline, no thyromegaly or masses palpated, and no cervical lymphadenopathy. Supple, full range of motion without nuchal rigidity, or vertebral point tenderness. No Meningismus. Chest/axilla: Normal chest wall appearance and motion. Nontender with no deformity. No lesions are appreciated. Cardiovascular: Regular rate and rhythm with a normal S1 and S2. No gallops, murmurs, or rubs. Normal PMI, no JVD. No pulse deficits. Respiratory: Lungs have equal breath sounds bilaterally, clear to auscultation and percussion. No rales, rhonchi or wheezes noted. No increased work of breathing, no retractions or nasal flaring. Abdomen/GI: Soft, non-tender, with normal bowel sounds. No distension or tympany. No guarding or rebound. No evidence of tenderness throughout. Back: No spinal tenderness. No costovertebral tenderness. Full range of motion. Skin: Warm, dry with normal turgor. Normal color with no rashes, no lesions, and no evidence of cellulitis. MS/ Extremity: Pulses equal, no cyanosis. Neurovascular intact. Full, normal range of motion. Neuro: Awake and alert, GCS 15, oriented to person, place, time, and situation. Cranial nerves II-XII grossly intact. Motor strength 5/5 in all extremities. Sensory grossly intact. Cerebellar exam normal. Normal gait. Psych: Awake, alert, with orientation to person, place and time. Behavior, mood, and affect are within normal limits. Vital Signs: 19:30 BP 130 / 90; Pulse 111; Resp 15; Temp 97.9; Pulse Ox 100% on R/A; Weight 60.2 kg (M); sm5 Height 5 ft. 2 in. (157.48 cm); 20:30 BP 125 / 82; Pulse 106; Resp 15; Pulse Ox 100% ; sm5 21:30 BP 101 / 87; Pulse 96; Resp 16; Pulse Ox 100% ; 5 19:30 Body Mass Index 24.27 (60.20 kg, 157.48 cm) [facility] MDM: 21:53 Patient medically screened. kdr 21:59 Data reviewed: vital signs, nurses notes, lab test result(s), EKG, radiologic studies. kdr Counseling: I had a detailed discussion with the patient and/or guardian regarding: the historical points, exam findings, and any diagnostic results supporting the discharge/admit diagnosis, lab results, radiology results, the need for outpatient follow up. 06/27 19:41 Order name: Basic Metabolic Panel; Complete Time: 21:47 kdr 06/27 19:41 Order name: CBC with Diff; Complete Time: 20:17 kdr 06/27 19:41 Order name: LFT's; Complete Time: 21:47 kdr 06/27 19:41 Order name: Magnesium; Complete Time: 21:47 kdr 06/27 19:41 Order name: NT PRO-BNP; Complete Time: 21:47 kdr 06/27 19:41 Order name: Troponin (emerg Dept Use Only); Complete Time: 21:47 kdr 06/27 19:36 Order name: EKG - Nurse/Tech; Complete Time: 19:36 sm5 06/27 19:41 Order name: XRAY Chest (1 view); Complete Time: 20:17 kdr 06/27 19:41 Order name: EKG; Complete Time: 19:42 kdr 06/27 19:41 Order name: Cardiac monitoring; Complete Time: 20:01 kdr 06/27 19:41 Order name: IV Saline Lock; Complete Time: 20:01 kdr 06/27 19:41 Order name: Labs collected and sent; Complete Time: 20: [facility] 06/27 19:41 Order name: O2 Per Protocol; Complete Time: 20: kdr 06/27 19:41 Order name: O2 Sat Monitoring; Complete Time: 20:01 kdr EC:35 Rate is 95 beats/min. Rhythm is regular, Sinus Rhythm with No ectopy. QRS [place] is kdr Normal. [place] interval is normal. QRS interval is normal. Clinical impression: NSR w/ Non-specific ST/T Changes. Administered Medications: 20:00 Drug: NS 0.9% 1000 ml Route: IV; Rate: 1 bolus; Site: left antecubital; 5 22:13 Follow up: IV Status: Completed infusion; IV Intake: 1000ml 5 20:00 Drug: Pepcid (famotidine) 20 mg Route: IVP; Site: left antecubital; 5 22:13 Follow up: Response: No adverse reaction [facility] 20:00 Drug: Zofran (Ondansetron) 4 mg Route: IVP; Site: left antecubital; sm5 22:14 Follow up: Response: Nausea is decreased 5 Disposition Summary: 06/27/21 21:53 Discharge Ordered Location: Home kdr Problem: new kdr Symptoms: are resolved kdr Condition: Stable kdr Diagnosis - Chest pain, unspecified kdr - Anxiety disorder, unspecified kdr - Generalized anxiety disorder kdr Followup: kdr - With: Private Physician - When: 2 - 3 days - Reason: If symptoms return, Further diagnostic work-up, Recheck today's complaints, Continuance of care, Re-evaluation by your physician Discharge Instructions: - Discharge Summary Sheet kdr - Nonspecific Chest Pain, Adult, [id number] kdr - Generalized Anxiety Disorder, Adult kdr Forms: - Medication Reconciliation Form kdr - Thank You Letter kdr Signatures: Dispatcher [employer] Kevin Leon MD MD kdr Anuradha Tate RN RN sm5
--- NOTE | 2021-06-27 21:54 | ER ---
Nurse's Notes [facility] Name: Kaur Caruso Age: 40 yrs Sex: Female : 1980 Arrival Date: 06/27/2021 Time: 19:26 Bed 4 Private MD: Diagnosis: Chest pain, unspecified;Anxiety disorder, unspecified;Generalized anxiety disorder Presentation: 06/27 19:30 Chief complaint: EMS states: pt started having chest pressure, nausea, and feeling sm5 faint around 4pm after she received some bad news. hx of anxiety. Coronavirus screen: Vaccine status: Patient reports being unvaccinated. Ebola Screen: No symptoms or risks identified at this time. Initial Sepsis Screen: Does the patient meet any 2 criteria? HR > 90 bpm. Does the patient have a suspected source of infection? No. Patient's initial sepsis screen is negative. Risk Assessment: Do you want to hurt yourself or someone else? Patient reports no desire to harm self or others. Onset of symptoms was May 27, 2021. 19:30 Method Of Arrival: EMS [facility] 19:30 Acuity: DESTINY 3 5 Triage Assessment: 19:35 General: Appears in no apparent distress. Behavior is cooperative, appropriate for age. sm5 Pain: Complains of pain in chest Pain currently is 7 out of 10 on a pain scale. Neuro: No deficits noted. Level of Consciousness is awake, alert, Oriented to person, place, time, situation. Cardiovascular: Reports chest pain, Capillary refill < 3 seconds Patient's skin is warm and dry. Rhythm is sinus tachycardia. Respiratory: No deficits noted. Airway is patent Trachea midline Respiratory effort is even, unlabored, Respiratory pattern is regular. GI: Abdomen is flat, non-distended, Reports nausea. 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 Flu vaccine is not up to date. - Social history:: Smoking status: Patient/guardian denies using tobacco, the patient reports quitting approximately 18 years ago. Screenin:35 Abuse screen: Denies threats or abuse. Denies injuries from another. Nutritional 5 screening: No deficits noted. Tuberculosis screening: No symptoms or risk factors identified. Fall Risk None identified. Total Pascal Fall Scale indicates No Risk (0-24 pts). Assessment: 19:36 Reassessment: see triage assessment. sm5 20:30 Reassessment: Patient states feeling better. sm5 21:30 Reassessment: No changes from previously documented assessment. 5 Vital Signs: 19:30 BP 130 / 90; Pulse 111; Resp 15; Temp 97.9; Pulse Ox 100% on R/A; Weight 60.2 kg (M); sm5 Height 5 ft. 2 in. (157.48 cm); 20:30 BP 125 / 82; Pulse 106; Resp 15; Pulse Ox 100% ; sm5 21:30 BP 101 / 87; Pulse 96; Resp 16; Pulse Ox 100% ; sm5 19:30 Body Mass Index 24.27 (60.20 kg, 157.48 cm) 5 ED Course: 19:26 Patient arrived in ED. cs9 19:26 Kevin Edgar MD is Attending Physician. kdr 19:30 Anuradha Tate RN is Primary Nurse. 5 19:33 Triage completed. 5 19:36 Arm band placed on right wrist. sm5 19:36 Patient has correct armband on for positive identification. Bed in low position. Call [facility] light in reach. Side rails up X 1. 20:00 Inserted saline lock: 20 gauge in left antecubital area, using aseptic technique. Blood 5 collected. 20:02 Basic Metabolic Panel Sent. sm5 20:02 CBC with Diff Sent. sm5 20:02 LFT's Sent. sm5 20:02 Magnesium Sent. sm5 20:02 NT PRO-BNP Sent. sm5 20:02 Troponin (emerg Dept Use Only) Sent. sm5 20:07 XRAY Chest (1 view) In Process Unspecified. EDMS 22:12 No provider procedures requiring assistance completed. sm5 22:13 IV discontinued, intact, bleeding controlled, No redness/swelling at site. Pressure 5 dressing applied. Administered Medications: 20:00 Drug: NS 0.9% 1000 ml Route: IV; Rate: 1 bolus; Site: left antecubital; sm5 22:13 Follow up: IV Status: Completed infusion; IV Intake: 1000ml 5 20:00 Drug: Pepcid (famotidine) 20 mg Route: IVP; Site: left antecubital; sm5 22:13 Follow up: Response: No adverse reaction 5 20:00 Drug: Zofran (Ondansetron) 4 mg Route: IVP; Site: left antecubital; sm5 22:14 Follow up: Response: Nausea is decreased sm5 Intake: 22:13 IV: 1000ml; Total: 1000ml. [facility] Outcome: 21:53 Discharge ordered by . [facility] 22:13 Discharged to home ambulatory. 5 22:13 Condition: good 22:13 Discharge instructions given to patient, Instructed on discharge instructions, follow up and referral plans. Demonstrated understanding of instructions, follow-up care. 22:14 Patient left the ED. 5 Signatures: Dispatcher [employer] EDMS Kevin Edgar MD MD [facility] Adri Lazo [facility] Anuradha Tate RN RN 5
[2021-06-27 22:43] VITALS: TEMP 97.9; O2SAT 100
[2021-06-27 22:45] VITALS: BP 101/87
== END 2021-06-27 22:14 | disposition home or self-care (01) ==
LOC: ER 19:21
DX: R07.9 Chest pain, unspecified (principal); F41.1 Generalized anxiety disorder; I10 Essential (primary) hypertension; E11.9 Type 2 diabetes mellitus without complications
CPT/HCPCS: 36415; 71045; 80048; 80076; 83735; 83880; 84484; 85025; 93005; 96361; 96374; 96375; 99284; J2405; J7030

== ENCOUNTER 2022-01-16 00:18 | Emergency (ER) | payer SELFPAY ==
[2022-01-16 01:11] LABS: Urine Blood Trace-lysed (Negative); Urine Glucose 2+ (Negative); Urine Protein 2+ (Negative); Urine Specific Gravity >=1.030 (1.005-1.030)
[2022-01-16 01:11] LABS: Absolute Lymphocytes (CBC) 2.2 K/uL (0.7-4.9); Hematocrit 38.6 % (36.0-45.0); MPV 9.8 fL (7.6-11.3); RBC Red Blood Cell Count 4.83 M/uL (3.86-4.86)
[2022-01-16 01:41] LABS: Urine Bacteria 20-50 /HPF (<20); Urine RBC <5 /HPF (None Seen)
[2022-01-16 01:53] LABS: Troponin High Sensitivity 3.2 pg/mL (<58.9)
[2022-01-16 01:54] LABS: Potassium 3.7 mmol/L (3.5-5.1)
[2022-01-16] MEDS ORDERED: ONDANSETRON 4 MG/2 ML VIAL ONE (02:18)
[2022-01-16] MEDS ORDERED: MORPHINE 4 MG/ML SYR ONE (02:18)
[2022-01-16] MEDS ORDERED: NA CHLORIDE 0.9% 1,000 ML ONE ×2 (02:19→07:13)
[2022-01-16 03:13] LABS: Arterial Blood Carboxyhemoglob 1.7 % (0-1.5); Blood Gas Oxyhemoglobin 93.1 % (94-97); Blood O2 Saturation 97.4 % (92-98.5)
[2022-01-16] MEDS ORDERED: CEFTRIAXONE 1000 MG/VIAL ONE (07:13)
--- NOTE | 2022-01-16 07:15 | EDPHYS ---
Physician Documentation [facility] Name: Kaur aCruso Age: 41 yrs Sex: Female : 1980 Arrival Date: 01/16/2022 Time: 00:22 Bed 11 Private MD: ED Physician Mike Gray HPI: 01/16 01:50 This 41 yrs old Female presents to ER via Ambulatory with complaints of Chest mh7 Pain, High Blood Pressure, Anxiety. 01:50 The patient or guardian reports chest pain that is located primarily in the anterior mh7 chest wall, left. 01:50 Onset: last night, at 21:00. The pain does not radiate. Associated signs and symptoms: [facility] Pertinent positives: Pertinent negatives: abdominal pain, cough, diaphoresis, dizziness, headache, lower extremity pain, lower extremity swelling, lightheadedness, nausea, near syncope, palpitations, recent travel, shortness of breath, syncope, vomiting. The chest pain is described as sharp. Duration: The patient or guardian reports multiple episodes, that are intermittent, that wax and wane, with no pattern, the episodes last approximately 10 second(s). Modifying factors: The symptoms are alleviated by nothing. the symptoms are aggravated by movement, palpation of area. Severity of pain: At its worst the pain was moderate last night, in the emergency department the pain has improved moderately. 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 - Social history:: Smoking status: Patient denies any tobacco usage or history of. ROS: 01:50 Constitutional: Negative for fever, chills, and weight loss, Eyes: Negative for injury, mh7 pain, redness, and discharge, ENT: Negative for injury, pain, and discharge, Neck: Negative for injury, pain, and swelling, Respiratory: Negative for shortness of breath, cough, wheezing, and pleuritic chest pain, Abdomen/GI: Negative for abdominal pain, nausea, vomiting, diarrhea, and constipation, Back: Negative for injury and pain, : Negative for injury, bleeding, discharge, and swelling, MS/Extremity: Negative for injury and deformity, Skin: Negative for injury, rash, and discoloration, Neuro: Negative for headache, weakness, numbness, tingling, and seizure. 01:50 Allergy/Immunology: Negative for hives, rash, and allergies, Endocrine: Negative for neck swelling, polydipsia, polyuria, polyphagia, and marked weight changes, Hematologic/Lymphatic: Negative for swollen nodes, abnormal bleeding, and unusual bruising. 01:50 Psych: Positive for anxiety, Negative for depression, drug dependence, auditory hallucinations, visual hallucinations, homicidal ideation, insomnia, suicide gesture, suicidal ideation. Exam: 01:50 Head/Face: Normocephalic, atraumatic. Eyes: Pupils equal round and reactive to light, mh7 extra-ocular motions intact. Lids and lashes normal. Conjunctiva and sclera are non-icteric and not injected. Cornea within normal limits. Periorbital areas with no swelling, redness, or edema. Neck: Trachea midline, no thyromegaly or masses palpated, and no cervical lymphadenopathy. Supple, full range of motion without nuchal rigidity, or vertebral point tenderness. No Meningismus. 01:50 Cardiovascular: Regular rate and rhythm with a normal S1 and S2. No gallops, murmurs, or rubs. Normal PMI, no JVD. No pulse deficits. Respiratory: Lungs have equal breath sounds bilaterally, clear to auscultation and percussion. No rales, rhonchi or wheezes noted. No increased work of breathing, no retractions or nasal flaring. Abdomen/GI: Soft, non-tender, with normal bowel sounds. No distension or tympany. No guarding or rebound. No evidence of tenderness throughout. Back: No spinal tenderness. No costovertebral tenderness. Full range of motion. Skin: Warm, dry with normal turgor. Normal color with no rashes, no lesions, and no evidence of cellulitis. MS/ Extremity: Pulses equal, no cyanosis. Neurovascular intact. Full, normal range of motion. Neuro: Awake and alert, GCS 15, oriented to person, place, time, and situation. Cranial nerves II-XII grossly intact. Motor strength 5/5 in all extremities. Sensory grossly intact. Cerebellar exam normal. Normal gait. Psych: Awake, alert, with orientation to person, place and time. Behavior, mood, and affect are within normal limits. 01:50 Constitutional: The patient appears in no acute distress, alert, awake, anxious. 01:50 Chest/axilla: Inspection: normal, Palpation: tenderness, that is moderate, of the anterior aspect of left upper chest, that totally reproduces the patient's complaints, Axilla: are normal, Breasts: are normal, Lymph nodes: lymphadenopathy is not appreciated. Vital Signs: 00:28 BP 178 / 84; Pulse 100; Resp 18; Temp 98.4; Pulse Ox 100% ; Weight 63.05 kg; Height 5 tw5 ft. 1 in. (154.94 cm); Pain 7/10; 03:00 Pain 5/10; tw5 05:44 BP 142 / 92; Pulse 88; Resp 18; Pulse Ox 98% on R/A; Pain 5/10; tw5 00:28 Body Mass Index 26.26 (63.05 kg, 154.94 cm) tw5 MDM: 07:12 Differential diagnosis: acute myocardial infarction, acute pericarditis, anxiety, mh7 coronary artery disease chest wall pain, congestive heart failure costochondritis, esophagitis, gastritis, gastroesophageal reflux disease (GERD), pleurisy, pneumonia, pneumothorax, pulmonary embolus. HEART Score: History: Slightly Suspicious (0), ECG: Normal (0), Age: < or = 45 years (0), Risk Factors: 1 or 2 risk factors (1), [Hypertension] [DM] Troponin: < or = 1 x Normal Limit (0), Total Score = 1. Data reviewed: vital signs, nurses notes, lab test result(s), cardiac enzymes, CBC, electrolytes, urinalysis, EKG, radiologic studies, CT scan, plain films. Data interpreted: Pulse oximetry: on room air is 98 %. Interpretation: normal. Counseling: I had a detailed discussion with the patient and/or guardian regarding: the historical points, exam findings, and any diagnostic results supporting the discharge/admit diagnosis, the presence of at least one elevated blood pressure reading (>120/80) during this emergency department visit, lab results, radiology results, the need for outpatient follow up, to return to the emergency department if symptoms worsen or persist or if there are any questions or concerns that arise at home. Response to treatment: the patient's symptoms have resolved after treatment, the patient's blood pressure is in an acceptable range, mental status has returned to baseline, the patient no longer shows bradycardia, the patient is not short of breath, the patient is not tachycardic, the patient's pain is gone, the patient's temperature has normalized. 07:15 Patient medically screened. 01/16 00:27 Order name: Basic Metabolic Panel; Complete Time: 02:08 01/16 00:27 Order name: CBC with Diff; Complete Time: 02:08 01/16 00:27 Order name: Troponin HS; Complete Time: 02:08 01/16 01:12 Order name: Urine Dipstick-Ancillary; Complete Time: 02:08 EDMS 01/16 01:12 Order name: Urine Culture 01/16 01:12 Order name: Urine Microscopic Only; Complete Time: 02:08 [facility] 01/16 00:27 Order name: XRAY Chest (1 view) 01/16 02:47 Order name: Arterial Blood Gas; Complete Time: 03:15 01/16 02:47 Order name: Ketone, Serum; Complete Time: 03:15 01/16 03:16 Order name: D-Dimer; Complete Time: 04:03 01/16 03:17 Order name: CPK; Complete Time: 05:07 01/16 04:03 Order name: CT Chest For PE Angio 01/16 00:27 Order name: EKG; Complete Time: 00:29 01/16 00:27 Order name: Cardiac monitoring; Complete Time: 01:17 01/16 00:27 Order name: EKG - Nurse/Tech; Complete Time: 00:33 01/16 00:27 Order name: IV Saline Lock; Complete Time: 00:33 01/16 00:27 Order name: Labs collected and sent; Complete Time: 00:33 01/16 00:27 Order name: O2 Per Protocol; Complete Time: 00:33 01/16 00:27 Order name: O2 Sat Monitoring; Complete Time: 00:33 tw5 Administered Medications: 02:16 Drug: NS 0.9% 1000 ml Route: IV; Rate: 1000 ml; Site: right antecubital; tw5 03:59 Follow up: Response: No adverse reaction; IV Status: Completed infusion; IV Intake: tw5 1000ml 02:16 Drug: morphine 4 mg Route: IVP; Infused Over: 4 mins; Site: right antecubital; tw5 03:00 Follow up: Pain 5/10 Adult; Response: No adverse reaction; Pain is decreased; RASS: tw5 Alert and Calm (0) 02:16 Drug: Zofran (Ondansetron) 4 mg Route: IVP; Site: right antecubital; tw5 03:59 Follow up: Response: No adverse reaction tw5 07:22 Drug: NS 0.9% 1000 ml Route: IV; Rate: 1000 ml; Site: right antecubital; ll1 08:22 Follow up: Response: No adverse reaction; IV Status: Completed infusion; IV Intake: ll1 1000ml 07:22 Drug: Rocephin (cefTRIAXone) 1 grams Route: IV; Rate: per protocol; Site: right ll1 antecubital; 08:22 Follow up: Response: No adverse reaction; IV Status: Completed infusion; IV Intake: [id number] 07:22 Drug: Insulin Regular Human 5 units {Co-Signature: allie (Kacey Gonzales RN).} Route: ll1 Sub-Q; Site: right lower abdomen; 08:21 Follow up: Response: No adverse reaction ll1 Disposition Summary: 01/16/22 07:15 Discharge Ordered Location: Home [facility] Problem: an acute exacerbation mh7 Symptoms: have improved mh7 Condition: Stable mh7 Diagnosis - Chest pain, unspecified mh7 - Anxiety disorder, unspecified mh7 - Type 2 diabetes mellitus with hyperglycemia mh7 - UTI/ Urinary tract infection, site not specified 7 Followup: 7 - With: Private Physician - When: 1 - 2 days - Reason: Worsening of condition, Recheck today's complaints, Continuance of care, Re-evaluation by your physician Discharge Instructions: - Discharge Summary Sheet mh7 - Hyperglycemia mh7 - Urinary Tract Infection, Adult, [id number] mh7 - Nonspecific Chest Pain, Adult, [id number] mh7 - Generalized Anxiety Disorder, Adult mh7 Forms: - Medication Reconciliation Form [facility] - Thank You Letter mh7 - Antibiotic Education [facility] - Prescription Opioid Use [facility] Prescriptions: - Cephalexin 500 mg Oral Capsule - take 1 capsule by ORAL route every 12 hours for 7 days; 14 capsule; Refills: 0, mh7 Product Selection Permitted Signatures: Dispatcher [employer] Kemar Taylor RN RN 1 Mike Gray MD MD 7 Leyda Donald Kacey Gonzales RN Corrections: (The following items were deleted from the chart) 00:32 00:30 Home Meds: Trazodone Oral; 00:32 00:30 Home Meds: paroxetine Oral; :32 00:30 Home Meds: lisinopril 20 mg Oral tab 1 tab once daily; 00:32 00:30 Home Meds: Levemir U-100 Insulin 100 unit/mL subcutaneous soln;
--- NOTE | 2022-01-16 07:15 | ER ---
Nurse's Notes [facility] Name: Kaur Caruso Age: 41 yrs Sex: Female : 1980 Arrival Date: 01/16/2022 Time: 00:22 Bed 11 Private MD: Diagnosis: Chest pain, unspecified;Anxiety disorder, unspecified;Type 2 diabetes mellitus with hyperglycemia;UTI/ Urinary tract infection, site not specified Presentation: 01/16 00:28 Chief complaint: Patient states: "For the last two hours I have been feeling a pain on tw5 my chest area. A sharp stabbing pain. The EMS came and check me out and told me to come here to the ER.". Coronavirus screen: Vaccine status: Patient reports being unvaccinated. Ebola Screen: Patient negative for fever greater than or equal to 101.5 degrees Fahrenheit, and additional compatible Ebola Virus Disease symptoms Patient denies exposure to infectious person. Patient denies travel to an Ebola-affected area in the 21 days before illness onset. Initial Sepsis Screen: Does the patient meet any 2 criteria? HR > 90 bpm. Does the patient have a suspected source of infection? No. Patient's initial sepsis screen is negative. Risk Assessment: Do you want to hurt yourself or someone else? Patient reports no desire to harm self or others. Onset of symptoms was January 15, 2022 at 21:00. 00:28 Method Of Arrival: Ambulatory tw5 00:28 Acuity: DESTINY 2 tw5 Triage Assessment: 00:32 General: Appears uncomfortable, Behavior is calm, cooperative, appropriate for age. tw5 Pain: Complains of pain in anterior aspect of left upper chest and left breast Pain currently is 7 out of 10 on a pain scale. Cardiovascular: Capillary refill < 3 seconds. 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 - Social history:: Smoking status: Patient denies any tobacco usage or history of. Screenin:35 Abuse screen: Denies threats or abuse. Denies injuries from another. Nutritional tw5 screening: No deficits noted. Nutritional screening: No deficits noted. Tuberculosis screening: No symptoms or risk factors identified. Fall Risk None identified. Assessment: 00:35 General: Appears uncomfortable, Behavior is calm, cooperative, appropriate for age. tw5 Pain: Complains of pain in anterior aspect of left upper chest Pain does not radiate. Quality of pain is described as sharp, stabbing, Pain began 3 hours ago. Neuro: No deficits noted. Respiratory: No deficits noted. 02:16 Reassessment: Patient appears in no apparent distress at this time. No changes from tw5 previously documented assessment. Patient and/or family updated on plan of care and expected duration. Pain level reassessed. Patient is alert, oriented x 3, equal unlabored respirations, skin warm/dry/pink. 05:44 Reassessment: Patient states feeling better. Patient states symptoms have improved. tw5 Pain: Pain currently is 5 out of 10 on a pain scale. 07:44 Reassessment: Awaiting for IV fluids to finish infusing prior to discharge. Call light ss remains within reach. General: Appears in no apparent distress. comfortable, Behavior is calm, cooperative. Pain: Denies pain. Neuro: Level of Consciousness is awake, alert, obeys commands, Oriented to person, place, time, situation. Cardiovascular:. 08:21 Reassessment: No changes from previously documented assessment. Patient and/or family ll1 updated on plan of care and expected duration. Pain level reassessed. Patient is alert, oriented x 3, equal unlabored respirations, skin warm/dry/pink. Vital Signs: 00:28 BP 178 / 84; Pulse 100; Resp 18; Temp 98.4; Pulse Ox 100% ; Weight 63.05 kg; Height 5 tw5 ft. 1 in. (154.94 cm); Pain 7/10; 03:00 Pain 5/10; tw5 05:44 BP 142 / 92; Pulse 88; Resp 18; Pulse Ox 98% on R/A; Pain 5/10; tw5 00:28 Body Mass Index 26.26 (63.05 kg, 154.94 cm) tw5 ED Course: 00:22 Patient arrived in ED. ja2 00:30 Triage completed. tw5 00:32 Arm band placed on right wrist. EKG completed in triage. Results shown to MD. Labs tw5 ordered per protocol. Drawn by ED staff. 00:33 Basic Metabolic Panel Sent. tw5 00:33 CBC with Diff Sent. tw5 00:33 Troponin HS Sent. tw5 00:33 Initial lab(s) drawn, by me, sent to lab. Inserted saline lock: 20 gauge in right tw5 antecubital area, using aseptic technique. Blood collected. Started by [employer]. 00:35 Patient has correct armband on for positive identification. tw5 00:35 No provider procedures requiring assistance completed. Patient maintains SpO2 tw5 saturation greater than 95% on room air. 01:04 Mike Gray MD is Attending Physician. mh7 01:17 CBC with Diff Sent. mh5 01:17 Troponin HS Sent. mh5 01:17 Basic Metabolic Panel Sent. mh5 02:01 XRAY Chest (1 view) In Process Unspecified. EDMS 02:08 Leyda Donald is Primary Nurse. tw5 03:30 D-Dimer Sent. mh5 03:30 Urine Culture Sent. mh5 04:42 CT Chest For PE Angio In Process Unspecified. EDMS 05:44 Client placed on continuous cardiac and pulse oximetry monitoring. NIBP monitoring tw5 applied. 07:37 Primary Nurse role handed off by Leyda Donald 07:44 Preeti Lewis, RN is Primary Nurse. ss 08:21 IV discontinued, intact, bleeding controlled, No redness/swelling at site. Pressure ll1 dressing applied. Administered Medications: 02:16 Drug: NS 0.9% 1000 ml Route: IV; Rate: 1000 ml; Site: right antecubital; tw5 03:59 Follow up: Response: No adverse reaction; IV Status: Completed infusion; IV Intake: tw5 1000ml 02:16 Drug: morphine 4 mg Route: IVP; Infused Over: 4 mins; Site: right antecubital; tw5 03:00 Follow up: Pain 5/10 Adult; Response: No adverse reaction; Pain is decreased; RASS: tw5 Alert and Calm (0) 02:16 Drug: Zofran (Ondansetron) 4 mg Route: IVP; Site: right antecubital; tw5 03:59 Follow up: Response: No adverse reaction tw5 07:22 Drug: NS 0.9% 1000 ml Route: IV; Rate: 1000 ml; Site: right antecubital; ll1 08:22 Follow up: Response: No adverse reaction; IV Status: Completed infusion; IV Intake: ll1 1000ml 07:22 Drug: Rocephin (cefTRIAXone) 1 grams Route: IV; Rate: per protocol; Site: right ll1 antecubital; 08:22 Follow up: Response: No adverse reaction; IV Status: Completed infusion; IV Intake: [id number] 07:22 Drug: Insulin Regular Human 5 units {Co-Signature: kelley (Kacey Gonzales RN).} Route: ll1 Sub-Q; Site: right lower abdomen; 08:21 Follow up: Response: No adverse reaction ll1 Medication: 05:44 VIS not applicable for this client. Intake: 03:59 IV: 1000ml; Total: 1000ml. tw5 08:22 IV: 20ml; Total: 1020ml. ll1 08:22 IV: 1000ml; Total: 2020ml. 1 Outcome: 07:15 Discharge ordered by . [facility] 08:22 Discharged to home ambulatory. ll1 08:22 Condition: stable 08:22 Discharge instructions given to patient, Instructed on discharge instructions, follow up and referral plans. medication usage, Demonstrated understanding of instructions, follow-up care, medications, Prescriptions given X 1. 08:22 Patient left the ED. 1 Signatures: Dispatcher [employer] EDMS Preeti Lewis RN RN ss Martinez, Maria 5 Rosa Isela Omalley Lynsay, RN RN 1 Mike Gray MD MD 7 Meredith Mullen Tiffany tw Kacey kelley Corrections: (The following items were deleted from the chart) 00:32 00:30 Home Meds: Trazodone Oral; 00:32 00:30 Home Meds: paroxetine Oral; 00:32 00:30 Home Meds: lisinopril 20 mg Oral tab 1 tab once daily; 00:32 00:30 Home Meds: Levemir U-100 Insulin 100 unit/mL subcutaneous soln; tw5 tw5
[2022-01-16] MEDS ORDERED: INSULIN -REGULAR HUMAN 50 UNIT/0.5 ML ML ONE (07:25)
[2022-01-16 09:10] VITALS: TEMP 98.4
[2022-01-16 09:14] VITALS: BP 142/92; O2SAT 98
--- NOTE | 2022-01-16 21:05 | RAD REPORT ---
EXAM DESCRIPTION: CT - Chest For Pe Angio - 01/16/2022 6:47 am CLINICAL HISTORY: Chest pain COMPARISON: None Available. TECHNIQUE: CTA of the chest obtained following the uncomplicated intravenous administration of iodin ated contrast. 3-D/MIP reformatted images of the chest available for evaluation. This exam was perfor med according to our departmental dose-optimization program, which includes automated exposure contro l, adjustment of the mA and/or kV according to patient size and/or use of iterative reconstruction te [place]. FINDINGS: Chest: Pulmonary arteries: Contrast bolus is adequate.No filling defects identified in the pulmonary arterie s to suggest pulmonary embolus. Thyroid: No abnormalities of the visualized thyroid. Great Vessels: Great vessels have normal anatomic configuration. Thoracic Aorta: No abnormalities of the thoracic aorta identified. Heart: No cardiomegaly, significant pericardial effusion, or coronary artery atherosclerosis Lymph Nodes: No enlarged mediastinal lymph nodes identified. Esophagus: No abnormalities of the esophagus identified. Other: No additional findings. Lungs: Mild dependent atelectasis. No confluent airspace consolidation. Pleura: No pleural effusion or pneumothorax. Trachea/Airways: No abnormalities of the visualized trachea or airways. Bones: Mild endplate spondylosis and facet arthropathy. Upper Abdomen: Limited images of the upper abdomen demonstrate no definite abnormalities of visualize d portions of the liver, gallbladder, pancreas, spleen, adrenal glands, or kidneys. IMPRESSION: No pulmonary embolus. No acute pneumonic process. Electronically signed by: Mateusz Cisneros 01/16/2022 5:56 AM CDT Due to temporary technical issues with the PACS/Fluency reporting system, reports are being signed by the in house radiologists without review as a courtesy to insure prompt reporting. The interpreting radiologist is fully responsible for the content of the report.
--- NOTE | 2022-01-16 21:17 | RAD REPORT ---
EXAM DESCRIPTION: RAD - Chest Single View - 01/16/2022 1:59 am CLINICAL HISTORY: The patient is 41 years old and is Female; CHEST PAIN TECHNIQUE: Frontal view of the chest. COMPARISON: No relevant prior studies available. FINDINGS: Lungs: Mildly prominent interstitial markings. No consolidation. Pleural space: Unremarkable. No pneumothorax. Heart: Unremarkable. Mediastinum: Unremarkable. Bones/joints: Unremarkable. IMPRESSION: Mildly prominent interstitial markings. No consolidation. Electronically signed by: Ignacio Baldwin MD 01/16/2022 2:28 AM CDT Due to temporary technical issues with the PACS/Fluency reporting system, reports are being signed by the in house radiologists without review as a courtesy to insure prompt reporting. The interpreting radiologist is fully responsible for the content of the report.
--- NOTE | 2022-01-17 16:57 | EKG ---
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
== END 2022-01-16 08:22 | disposition home or self-care (01) ==
LOC: ER 00:18
DX: R07.89 Other chest pain (principal); F41.9 Anxiety disorder, unspecified; E11.65 Type 2 diabetes mellitus with hyperglycemia; N39.0 Urinary tract infection, site not specified; I10 Essential (primary) hypertension
CPT/HCPCS: 36415; 71045; 71275; 80048; 81003; 81015; 82010; 82550; 82805; 84484; 85025; 85379; 87086; 87088; 93005; 96361; 96365; 96372; 96375; 99284; J1815; J2405; J7030; Q9967

== ENCOUNTER 2022-05-22 02:49 | Emergency (ER) | payer SELFPAY ==
--- OUTSIDE RECORDS SUMMARY | 2022-05-22 02:53 | XMS REPORT | Continuity of Care Document ---
:1980 Author Organization [facility] t Address [address] [place] [address] Care Team Providers Name Role Phone Katie RECINOS, [facility] Primary Care Physician [phone] Doctor Unassigned, [place] Attending Clinician Unavailable Payers Payer Name Policy Type Policy Number Effective Date Expiration Date S ource Problems Condition Condition Condition Status Onset Resolution Last Treating Co mments Source Name Details Category Date Date Treatment Clinician Date Type 2 Type 2 Disease Active [facility] diabetes diabetes 607 ity of mellitus mellitus 00:00: [place] without without 00 Medical complicati complicati Br anch on, on, without without long-term long-term current current use of use of insulin insulin History of History of Disease Active U nivers abnormal abnormal 6- ity of cervical cervical 00:00: [place] Pap smear Pap smear 00 [facility] Diabetic Diabetic Disease Active Unive rs foot foot 5-02 ity of infection infection 00:00: [address] Allergies, Adverse Reactions, Alerts This patient has no known allergies or adverse reactions. Social History Social Habit Start Date Stop Date Quantity Comments Source Tobacco use and 2018-11-24 2018-11-24 Never used [facility] exposure 00:00:00 00:00:00 [facility] Alcohol intake 2018-11-24 2018-11-24 Current drinker of Un iversity of 00:00:00 00:00:00 alcohol (finding) [facility] Alcohol Comment 2018-11-24 2018-11-24 occasional [facility] of 00:00:00 00:00:00 [facility] Sex Assigned At [birth year] [facility] 00:00:00 00:00:00 [facility] Smoking Status Start Date Stop Date Source Never smoker [facility] Medications Ordered Filled Start Stop Current Ordering Indication Dosage Frequency Signature Comments Components Source Medication Medication Date Date Medication? Clinician (SIG) Name Name INJECT 1 ML 2021-0 No INTRAMUSCUL 6-23 CHRISTIAN ONCE 00:00: EVERY 3 00 MONTHS. 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 Physiology Professor 2021-0 No 1mg/mL a 150 mg/mL 6-23 intramuscul 00:00: ar syringe 00 Dose 2-0 No Unknown 3-31 00:00: 00 Dose 2022-0 No Unknown 3-31 00:00: 00 Dose 2022-0 No Unknown 3-31 00:00: 00 Dose 2022-0 No Unknown 3-31 00:00: 00 Dose 2022-0 No Unknown 3-31 00:00: 00 Dose 2022-0 No Unknown 3-31 00:00: 00 Dose 2022-0 No Unknown 3-31 00:00: 00 Dose 2022-0 No Unknown 3-31 00:00: 00 Dose 2022-0 No Unknown 3-31 00:00: 00 Dose 2022-0 No Unknown 3-31 00:00: 00 Dose 2022-0 No Unknown 3-31 00:00: 00 Dose 2022-0 No Unknown 3-31 00:00: 00 Dose 2022-0 No Unknown 3-31 00:00: 00 Dose 2022-0 No Unknown 3-31 00:00: 00 Dose 2022-0 No Unknown 3-31 00:00: 00 Dose 2022-0 No Unknown 3-31 00:00: 00 Dose 2022-0 No Unknown 3-31 00:00: 00 Dose 2022-0 No Unknown 3-31 00:00: 00 Dose 2022-0 No Unknown 3-31 00:00: 00 Dose 2022-0 No Unknown 3-31 00:00: 00 Dose 2022-0 No Unknown 3-31 00:00: 00 Dose 2022-0 No Unknown 3-31 00:00: 00 Dose 2022-0 No Unknown 3-31 00:00: 00 Dose 2022-0 No Unknown 3-31 00:00: 00 Dose 2022-0 No Unknown 3-31 00:00: 00 Dose 2022-0 No Unknown 3-31 00:00: 00 Dose 2022-0 No Unknown 3-31 00:00: 00 Dose 2022-0 No Unknown 3-31 00:00: 00 Dose 2022-0 No Unknown 3-31 00:00: 00 Dose 2022-0 No Unknown 3-31 00:00: 00 Dose 2022-0 No Unknown 3-31 00:00: 00 Dose 2022-0 No Unknown 3-31 00:00: 00 Dose 2022-0 No Unknown 3-31 00:00: 00 Dose 2022-0 No Unknown 3-31 00:00: 00 Dose 2022-0 No Unknown 3-31 00:00: 00 Dose 2022-0 No Unknown 3-31 00:00: 00 Dose 2022-0 No Unknown 3-31 00:00: 00 Dose 2022-0 No Unknown 3-31 00:00: 00 Dose 2022-0 No Unknown 3-31 00:00: 00 Dose 2022-0 No Unknown 3-31 00:00: 00 Dose 2022-0 No Unknown 3-31 00:00: 00 Dose 2022-0 No Unknown 3-31 00:00: 00 Dose 2022-0 No Unknown 3-31 00:00: 00 Dose 2022-0 No Unknown 3-31 00:00: 00 Dose 2022-0 No Unknown 3-31 00:00: 00 Dose 2022-0 No Unknown 3-31 00:00: 00 Dose 2022-0 No Unknown 3-31 00:00: 00 Dose 2022-0 No Unknown 3-31 00:00: 00 Dose 2022-0 No Unknown 3-31 00:00: 00 Dose 2022-0 No Unknown 3-31 00:00: 00 Dose 2022-0 No Unknown 3-31 00:00: 00 Dose 2022-0 No Unknown 3-31 00:00: 00 Dose 2022-0 No Unknown 3-31 00:00: 00 Dose 2022-0 No Unknown 3-31 00:00: 00 Dose 2022-0 No Unknown 3-31 00:00: 00 Dose 2022-0 No Unknown 3-31 00:00: 00 Dose 2022-0 No Unknown 3-31 00:00: 00 Dose 2022-0 No Unknown 3-31 00:00: 00 Dose 2022-0 No Unknown 3-31 00:00: 00 Dose 2022-0 No Unknown 3-31 00:00: 00 Dose 2022-0 No Unknown 3-31 00:00: 00 Dose 2022-0 No Unknown 3-31 00:00: 00 Dose 2022-0 No Unknown 3-31 00:00: 00 Dose 2022-0 No Unknown 3-31 00:00: 00 Dose 2022-0 No Unknown 3-31 00:00: 00 Dose 2022-0 No Unknown 3-31 00:00: 00 Dose 2022-0 No Unknown 3-31 00:00: 00 Dose 2022-0 No Unknown 3-31 00:00: 00 Dose 2022-0 No Unknown 3-31 00:00: 00 Dose 2022-0 No Unknown 3-31 00:00: 00 Dose 2022-0 No Unknown 3-31 00:00: 00 Dose 2022-0 No Unknown 3-31 00:00: 00 Dose 2022-0 No Unknown 3-31 00:00: 00 Dose 2022-0 No Unknown 3-31 00:00: 00 Dose 2022-0 No Unknown 3-31 00:00: 00 Dose 2022-0 No Unknown 3-31 00:00: 00 Dose 2022-0 No Unknown 3-31 00:00: 00 Dose 2022-0 No Unknown 3-31 00:00: 00 Paxil 20 mg 2021-1 No 1mg tablet 1-09 00:00: 00 Dose 1-1 No Unknown 1-09 00:00: 00 Dose 1-1 No Unknown 1-09 00:00: 00 Paxil 20 mg 1-1 No 1mg tablet 1-09 00:00: 00 Dose 1-1 No Unknown 1-09 00:00: 00 Dose 1-1 No Unknown 1-09 00:00: 00 Dose 1-1 No Unknown 0-13 00:00: 00 hydroxyzine 1-1 No 1mg HCl 50 mg 0-13 tablet 00:00: 00 trazodone 1-1 No 2mg 50 mg 0-13 tablet 00:00: 00 Dose 1-1 No Unknown 0-13 00:00: 00 hydroxyzine 1-1 No 1mg HCl 50 mg 0-13 tablet 00:00: 00 trazodone 2021-1 No 2mg 50 mg 0-13 tablet 00:00: 00 lisinopril 2021-1 No 1mg 20 mg 0-07 tablet 00:00: 00 atorvastati 2021-1 No 1mg n 40 mg 0-07 tablet 00:00: 00 lisinopril 2021-1 No 1mg 20 mg 0-07 tablet 00:00: 00 atorvastati 2021-1 No 1mg n 40 mg 0-07 tablet 00:00: 00 Dose 2021-0 No Unknown 8- 00:00: 00 Dose 2021-0 No Unknown 8- 00:00: 00 trazodone 2021-0 No 2mg 50 mg 8-26 tablet 00:00: 00 Dose 2021-0 No Unknown 8 00:00: 00 Dose 2021-0 No Unknown 8 00:00: 00 trazodone 2021-0 No 2mg 50 mg 8-26 tablet 00:00: 00 Dose 2021-0 No Unknown 8- 00:00: 00 Dose 2021-0 No Unknown 8- 00:00: 00 trazodone 2021-0 No 2mg 50 mg 8-02 tablet 00:00: 00 Dose 2021-0 No Unknown 8- 00:00: 00 Dose 2021-0 No Unknown 8- 00:00: 00 trazodone 2021-0 No 2mg 50 mg 8-02 tablet 00:00: 00 Paxil 20 mg 2021-0 No 1mg tablet 7-06 00:00: 00 hydroxyzine 2021-0 No 1mg HCl 25 mg 7-06 tablet 00:00: 00 Paxil 20 mg 2021-0 No 1mg tablet 7-06 00:00: 00 hydroxyzine 2021-0 No 1mg HCl 25 mg 7-06 tablet 00:00: 00 trazodone 2021-0 No 2mg 50 mg 7-06 tablet 00:00: 00 trazodone 2021-0 No 2mg 50 mg 7-06 tablet 00:00: 00 Dose 2021-0 No Unknown 6- 00:00: 00 Dose 2021-0 No Unknown 6- 00:00: 00 Paxil 20 mg 2021-0 No 1mg tablet 6-07 00:00: 00 hydroxyzine 2021-0 No 1mg HCl 25 mg 6-07 tablet 00:00: 00 trazodone 2021-0 No 2mg 50 mg 6-07 tablet 00:00: 00 Paxil 20 mg 1-0 No 1mg tablet 6-07 00:00: 00 hydroxyzine 2021-0 No 1mg HCl 25 mg 6-07 tablet 00:00: 00 trazodone 2021-0 No 2mg 50 mg 6-07 tablet 00:00: 00 Dose 2021-0 No Unknown 5-26 00:00: 00 Dose 2021-0 No Unknown 5-26 00:00: 00 Dose 2021-0 No Unknown 5-26 00:00: 00 Dose 2021-0 No Unknown 5-26 00:00: 00 Dose 2021-0 No Unknown 5-26 00:00: 00 Dose 2021-0 No Unknown 5-26 00:00: 00 Dose 2021-0 No Unknown 5-12 00:00: 00 hydroxyzine 1-0 No 1mg HCl 25 mg 5-12 tablet 00:00: 00 Dose 2021-0 No Unknown 5-12 00:00: 00 hydroxyzine 2021-0 No 1mg HCl 25 mg 5-12 tablet 00:00: 00 hydroxyzine 1-0 No 1mg HCl 25 mg 4-28 tablet 00:00: 00 hydroxyzine 2021-0 No 1mg HCl 25 mg 4-28 tablet 00:00: 00 lisinopril 1-0 No 1mg 20 mg 3-19 tablet 00:00: 00 atorvastati 1-0 No 1mg n 40 mg 3-19 tablet 00:00: 00 Levemir 2021-0 No 5(3 mL) FlexTouch 3-19 U-100 00:00: Insulin 100 00 unit/mL (3 mL) subcutaneou s pen lisinopril 1-0 No 1mg 20 mg 3-19 tablet 00:00: 00 atorvastati 2021-0 No 1mg n 40 mg 3-19 tablet 00:00: 00 Levemir 2021-0 No 5(3 mL) FlexTouch 3-19 U-100 00:00: Insulin 100 00 unit/mL (3 mL) subcutaneou s pen lisinopril 2019-1 No 1mg 20 mg 2-10 tablet 00:00: 00 lisinopril 2020-1 No 1mg 20 mg 2-10 tablet 00:00: 00 lisinopril 2020-0 No 1mg 20 mg 9-01 tablet 00:00: 00 lisinopril 2020-0 No 1mg 20 mg 9-01 tablet 00:00: 00 Levemir 2020-0 No 5(3 mL) FlexTouch 3-06 U-100 00:00: Insulin 100 00 unit/mL (3 mL) subcutaneou s pen atorvastati 2019-0 No 1mg n 40 mg 3-06 tablet 00:00: 00 Levemir 2020-0 No 5(3 mL) FlexTouch 3-06 U-100 00:00: Insulin 100 00 unit/mL (3 mL) subcutaneou s pen atorvastati 2019-0 No 1mg n 40 mg 3-06 tablet 00:00: 00 Levemir 2019-1 No 5(3 mL) FlexTouch 2-18 U-100 00:00: Insulin 100 00 unit/mL (3 mL) subcutaneou s pen atorvastati 2018-1 No 1mg n 40 mg 2-18 tablet 00:00: 00 Levemir 2019-1 No 5(3 mL) FlexTouch 2-18 U-100 00:00: Insulin 100 00 unit/mL (3 mL) subcutaneou s pen atorvastati 2018-1 No 1mg n 40 mg 2-18 tablet 00:00: 00 No known No [facility] medications [facility]y of [facility] Immunizations Ordered Filled Immunization Date Status Comments [facility] e Immunization Name Name Td 2015-10-20 Completed [facility] 00:00:00 [facility] Vital Signs Vital Name Observation Time Observation Value Comments Source BP Systolic 2022-03-10 16:36:00 136 mm[Hg] BP Diastolic 2022-03-10 16:36:00 81 mm[Hg] Weight Measured 2022-03-10 16:36:00 139.80 pounds Height Measured 2022-03-10 16:36:00 61.69 inches Body Temperature 2022-03-10 16:36:00 98.30 degrees Heart Rate 2022-03-10 16:36:00 91.00 /min Respiratory Rate 2022-03-10 16:36:00 18.00 /min BP Systolic 2022-03-08 09:55:00 151 mm[Hg] BP Diastolic 2022-03-08 09:55:00 87 mm[Hg] Weight Measured 2022-03-08 09:55:00 137.20 pounds Height Measured 2022-03-08 09:55:00 61.69 inches Body Temperature 2022-03-08 09:55:00 98.20 degrees Heart Rate 2022-03-08 09:55:00 94.00 /min Respiratory Rate 2022-03-08 09:55:00 18.00 /min BP Systolic 2021-12-24 13:23:00 BP Diastolic 2021-12-24 13:23:00 Weight Measured 2021-12-24 13:23:00 139.00 pounds Height Measured 2021-12-24 13:23:00 61.69 inches Body Temperature 2021-12-24 13:23:00 Heart Rate 2021-12-24 13:23:00 Respiratory Rate 2021-12-24 13:23:00 BP Systolic 2021-12-10 16:43:00 BP Diastolic 2021-12-10 16:43:00 Weight Measured 2021-12-10 16:43:00 139.00 pounds Height Measured 2021-12-10 16:43:00 61.69 inches Body Temperature 2021-12-10 16:43:00 Heart Rate 2021-12-10 16:43:00 Respiratory Rate 2021-12-10 16:43:00 BP Systolic 2021-12-10 15:05:00 136 mm[Hg] BP Diastolic 2021-12-10 15:05:00 81 mm[Hg] Weight Measured 2021-12-10 15:05:00 139.00 pounds Height Measured 2021-12-10 15:05:00 61.69 inches Body Temperature 2021-12-10 15:05:00 98.30 degrees Heart Rate 2021-12-10 15:05:00 86.00 /min Respiratory Rate 2021-12-10 15:05:00 18.00 /min BP Systolic 2021-09-17 16:29:00 160 mm[Hg] BP Diastolic 2021-09-17 16:29:00 96 mm[Hg] Weight Measured 2021-09-17 16:29:00 138.80 pounds Height Measured 2021-09-17 16:29:00 61.69 inches Body Temperature 2021-09-17 16:29:00 98.30 degrees Heart Rate 2021-09-17 16:29:00 66.00 /min Respiratory Rate 2021-09-17 16:29:00 BP Systolic 2021-06-25 17:33:00 118 mm[Hg] BP Diastolic 2021-06-25 17:33:00 70 mm[Hg] Weight Measured 2021-06-25 17:33:00 140.00 pounds Height Measured 2021-06-25 17:33:00 61.69 inches Body Temperature 2021-06-25 17:33:00 98.30 degrees Heart Rate 2021-06-25 17:33:00 95.00 /min Respiratory Rate 2021-06-25 17:33:00 21.00 /min BP Systolic 2021-06-09 15:35:00 133 mm[Hg] BP Diastolic 2021-06-09 15:35:00 87 mm[Hg] Weight Measured 2021-06-09 15:35:00 137.00 pounds Height Measured 2021-06-09 15:35:00 61.69 inches Body Temperature 2021-06-09 15:35:00 98.20 degrees Heart Rate 2021-06-09 15:35:00 74.00 /min Respiratory Rate 2021-06-09 15:35:00 18.00 /min BP Systolic 2021-05-26 16:29:00 124 mm[Hg] BP Diastolic 2021-05-26 16:29:00 80 mm[Hg] Weight Measured 2021-05-26 16:29:00 140.80 pounds Height Measured 2021-05-26 16:29:00 61.69 inches Body Temperature 2021-05-26 16:29:00 98.60 degrees Heart Rate 2021-05-26 16:29:00 89.00 /min Respiratory Rate 2021-05-26 16:29:00 BP Systolic 2021-03-26 17:18:00 117 mm[Hg] BP Diastolic 2021-03-26 17:18:00 76 mm[Hg] Weight Measured 2021-03-26 17:18:00 138.40 pounds Height Measured 2021-03-26 17:18:00 61.69 inches Body Temperature 2021-03-26 17:18:00 98.00 degrees Heart Rate 2021-03-26 17:18:00 93.00 /min Respiratory Rate 2021-03-26 17:18:00 17.00 /min BP Systolic 2020-12-08 13:45:00 170 mm[Hg] BP Diastolic 2020-12-08 13:45:00 98 mm[Hg] Weight Measured 2020-12-08 13:45:00 140.80 pounds Height Measured 2020-12-08 13:45:00 61.69 inches Body Temperature 2020-12-08 13:45:00 97.80 degrees Heart Rate 2020-12-08 13:45:00 101.00 /min Respiratory Rate 2020-12-08 13:45:00 17.00 /min Procedures Procedure Date / Time Performed Performing Clinician [facility] e REFERRAL- 2020-11-07 05:01:00 Doctor Unassigned, No [facility] REQUEST/RESPONSE Name Medical Branch Plan of Care Planned Activity Planned Date Details Comments Source Goal Plan of Care Note [code = 54913-8] Goal Plan of Care Note [code = 53783-6] Goal Plan of Care Note [code = 92151-9] Goal Plan of Care Note [code = 00985-5] Goal Plan of Care Note [code = 35164-6] Goal Plan of Care Note [code = 97183-4] Goal Plan of Care Note [code = 73059-4] Goal Plan of Care Note [code = 53415-8] Goal Plan of Care Note [code = 62202-3] Goal Plan of Care Note [code = 26042-3] Goal Plan of Care Note [code = 40430-7] Goal Plan of Care Note [code = 42996-1] Goal Plan of Care Note [code = 65424-0] Goal Plan of Care Note [code = 52565-5] Goal Plan of Care Note [code = 99665-5] Goal Plan of Care Note [code = 58848-3] Goal Plan of Care Note [code = 52745-2] Goal Plan of Care Note [code = 45527-8] Goal Plan of Care Note [code = 19225-1] Goal Plan of Care Note [code = 36624-8] Goal Plan of Care Note [code = 15942-0] Goal Plan of Care Note [code = 72113-3] Goal Plan of Care Note [code = 31620-3] Goal Plan of Care Note [code = 17233-5] Goal Plan of Care Note [code = 85247-8] Goal Plan of Care Note [code = 81388-8] Goal Plan of Care Note [code = 75156-1] Goal Plan of Care Note [code = 74639-7] Goal Plan of Care Note [code = 03364-1] Goal Plan of Care Note [code = 17540-0] Goal Plan of Care Note [code = 97010-1] Goal Plan of Care Note [code = 86265-4] Goal Plan of Care Note [code = 49274-3] Goal Plan of Care Note [code = 45825-1] Goal Plan of Care Note [code = 45015-1] Goal Plan of Care Note [code = 67211-9] Goal Plan of Care Note [code = 56661-4] Goal Plan of Care Note [code = 64865-0] Encounters Start End Encounter Admission Attending Care Care Encounter Source Date/Time Date/Time Type Type Clinicians Facility Department ID 2022-03-10 2022-03-10 Outpatient [id number] 00:00:00 00:00:00 Visit [id number] 2022-03-08 2022-03-08 Outpatient [id number] 00:00:00 00:00:00 Visit [id number]-[id number] -[id number] [id number] [id number] 2020-11-07 2020-11-07 Orders Doctor CIARRA [id number] 00:00:00 00:00:00 Only Unassigned, [place] 350.1.13.10 [place] [facility] [id number] 2020-11-07 2020-11-07 Orders Doctor CIARRA [id number] Univers 00:00:00 00:00:00 Only Unassigned, [facility] 350.1.13.10 [facility] [place] [facility] 4.2.7.2.686 Yousuf as [id number] [facility] 009 Branch Results Test Description Test Time Test Comments Results Result Comments Source ALBUMIN/CREATININE RATIO, URINE, RANDOM 2022-03-09 04:55:11 Test Item Value Reference Range Interpretation Comme nts CREATININE, URINE, CONC. (test 135.5 MG/DL NOT ESTAB code = 2072) ALBUMIN, URINE, RANDOM (test 3.2 MG/DL NOT ESTAB code = 70864) CALC ALBUMIN/CREAT, RND (test 24 MG/G <30 Note: Albumin/Creatinine ratio code = 68911) reference inte rval reflects ADA and NKF guideli nishant. UNLESS OTHERWISE INDIC ATED, ALL TESTING PERFORM ED ATCLINICAL PATHOLOGY [employer]. [address] [place] [address] LABORATORY DIRE CTOR: SIRISHA SERRATO M.D. CLIA NUMBER [id number] [place]. [id number] LIPID [id number] 03:42:46 Test Item Value Reference Range Interpretation Comments CHOLESTEROL (test 243 MG/DL <200 H code = 2210) TRIGLYCERIDES (test 788 MG/DL <150 H code = 2232) HDL CHOLESTEROL 22 MG/DL >39 L (test code = 2220) CALC LDL CHOL (test (NOTE) MG/DL <100 UNABLE T O CALCULATE A code = 2237) VALID LDL TALITA STEROL WHEN THE TRIGLYCERIDEVAL UE IS GREATER THAN 40 0 MG/DL.UNABLE TO CALCULATE A CARLY ID LDL CHOLESTEROL WHE N THE TRIGLYCERIDEVAL UE IS GREATER THAN 40 0 MG/DL. NOTE: CALCULATE D LDL IS BASED ON PANCHO -PARMAR METHOD WHICHINC LUDES ADJUSTABLE TRIGLYCERIDE:VL DL CHOLESTEROL RAT IO.THIS FACTOR VARIES B Y MEASURED TRIGLY CERIDE AND NON-HDLCHOL ESTEROL CONCENTRATIONS WITH INCREASED CALCU LATED LDL SEENIN HIGH ER TRIGLYCERIDE OR LOWER NON-HDL SPECIME NS. FOR MOREINFORMATION , SEE CLIENT ANNOUNCE MENT AT [email or web address] CalcLDL-[email or web address] RISK RATIO LDL/HDL (NOTE) RATIO <3.22 UNABLE T O CALCULATE (test code = 2238) COMPREHENSIVE METABOLIC [id number] 03:42:46 Test Item Value Reference Range Interpretation Comments GLUCOSE (test code = 315 MG/DL 70-99 H 2216) BUN (test code = 11 MG/DL -20 2207) CREATININE (test 0.61 MG/DL 0.60-1.30 code = 2214) eGFR (2020 CKD-EPI) 114 >60 (test code = 26353) ML/MIN/1.73 CALC BUN/CREAT (test 18 RATIO 6-28 code = 2235) SODIUM (test code = 139 MEQ/L 197-678 7320) POTASSIUM (test code 4.1 MEQ/L 3.5-5.4 = 2227) CHLORIDE (test code 105 MEQ/L 95-107 = 2214) CARBON DIOXIDE (test 21 MEQ/L 19-31 code = 2205) CALCIUM (test code = 9.4 MG/DL 8.5-10.5 2208) PROTEIN, TOTAL (test 7.5 G/DL 6.1-8.3 code = 2228) ALBUMIN (test code = 4.6 G/DL 3.5-5.2 2200) CALC GLOBULIN (test 2.9 G/DL 1.9-3.7 code = 2240) CALC A/G RATIO (test 1.6 RATIO 1.0-2.6 code = 2234) BILIRUBIN, TOTAL 0.4 MG/DL See_Comment [Automated message] (test code = 2207) The syste m which generated this result transmit cristiane reference range : <=1.2. The refe rence range was not u sed to interpret th is result as normal/abnormal . ALKALINE PHOSPHATASE 79 U/L 40-113 (test code = 2204) AST (test code = 10 U/L 9-40 2217) ALT (test code = 7 U/L 5-40 2218) HEMOGLOBIN [id number] 02:41:50 Test Item Value Reference Range Interpretation Comments HEMOGLOBIN A1c (test 9.2 % 4.2-5.6 H AMERIC AN DIABETES code = 17635) ASSOCIATION IDELINES FOR HGB A1C: PREDIABETES/INC REASED RISK . . . . . . . 5.7 -6.4% DIAGNOSIS OF DI ABETES . . . . . . . . . >=6 .5% WITH CONFIRMATION OR APPROPRIATE SYMPTOMS NOTE: ASSAY MAY BE AFFECTED BY HEMOGLOBINOPATH IES (SICKLE CELL ANEMIA, S- C DISEASE, OTHERS) OR YOVANNY FICIALLY LOWERED BY DECR EASED RED CELL SURVIVAL ( HEMOLYTIC ANEMIAS, BLOOD LOSS, ETC.). CONSIDER ALTERN ATE TESTING OR LABORATORY C ONSULTATION. COMPREHENSIVE METABOLIC [id number] 00:00:00 Test Item Value Reference Range Interpretation Comments GLUCOSE (test code = 2217) 315 MG/DL BUN (test code = 2208) 11 MG/DL CREATININE (test code = 2214) 0.61 MG/DL eGFR (2020 CKD-EPI) (test 114 ML/MIN/1.73 code = 31004) CALC BUN/CREAT (test code = 18 RATIO 2235) SODIUM (test code = 2231) 139 MEQ/L POTASSIUM (test code = 2228) 4.1 MEQ/L CHLORIDE (test code = 2215) 105 MEQ/L CARBON DIOXIDE (test code = 21 MEQ/L 2205) CALCIUM (test code = 2209) 9.4 MG/DL PROTEIN, TOTAL (test code = 7.5 G/DL 2228) ALBUMIN (test code = 2201) 4.6 G/DL CALC GLOBULIN (test code = 2.9 G/DL 2239) CALC A/G RATIO (test code = 1.6 RATIO 2233) BILIRUBIN, TOTAL (test code = 0.4 MG/DL 2206) ALKALINE PHOSPHATASE (test 79 U/L code = 2204) AST (test code = 2218) 10 U/L ALT (test code = 2219) 7 U/L ALBUMIN/CREATININE RATIO, RANDOM [id number] 00:00:00 Test Item Value Reference Range Interpretation Comments CREATININE, URINE, CONC. (test 135.5 MG/DL code = 2072) ALBUMIN, URINE, RANDOM (test code 3.2 MG/DL = 07675) CALC ALBUMIN/CREAT, RND (test 24 MG/G code = 80410) ALBUMIN/CREATININE RATIO, RANDOM [id number] 00:00:00 Test Item Value Reference Range Interpretation Comments CREATININE, URINE, CONC. (test 135.5 MG/DL code = 2072) ALBUMIN, URINE, RANDOM (test code 3.2 MG/DL = 14085) CALC ALBUMIN/CREAT, RND (test 24 MG/G code = 36212) HEMOGLOBIN [id number] 00:00:00 Test Item Value Reference Range Interpretation Comments HEMOGLOBIN A1c (test code = 53682) 9.2 % HEMOGLOBIN [id number] 00:00:00 Test Item Value Reference Range Interpretation Comments HEMOGLOBIN A1c (test code = 28791) 9.2 % HEMOGLOBIN [id number] 00:00:00 Test Item Value Reference Range Interpretation Comments HEMOGLOBIN A1c (test code = 21630) 9.2 % LIPID [id number] 00:00:00 Test Item Value Reference Range Interpretation Comments CHOLESTEROL (test code = 2210) 243 MG/DL TRIGLYCERIDES (test code = 2232) 788 MG/DL HDL CHOLESTEROL (test code = 22 MG/DL 2220) CALC LDL CHOL (test code = 2237) (NOTE) MG/DL RISK RATIO LDL/HDL (test code = (NOTE) RATIO 2238) LIPID [id number] 00:00:00 Test Item Value Reference Range Interpretation Comments CHOLESTEROL (test code = 2210) 243 MG/DL TRIGLYCERIDES (test code = 2232) 788 MG/DL HDL CHOLESTEROL (test code = 22 MG/DL 2220) CALC LDL CHOL (test code = 2237) (NOTE) MG/DL RISK RATIO LDL/HDL (test code = (NOTE) RATIO 2238) COMPREHENSIVE METABOLIC [id number] 00:00:00 Test Item Value Reference Range Interpretation Comments GLUCOSE (test code = 2217) 315 MG/DL BUN (test code = 2208) 11 MG/DL CREATININE (test code = 2214) 0.61 MG/DL eGFR (2020 CKD-EPI) (test 114 ML/MIN/1.73 code = 39376) CALC BUN/CREAT (test code = 18 RATIO 2235) SODIUM (test code = 2231) 139 MEQ/L POTASSIUM (test code = 2228) 4.1 MEQ/L CHLORIDE (test code = 2215) 105 MEQ/L CARBON DIOXIDE (test code = 21 MEQ/L 2205) CALCIUM (test code = 2209) 9.4 MG/DL PROTEIN, TOTAL (test code = 7.5 G/DL 2228) ALBUMIN (test code = 2201) 4.6 G/DL CALC GLOBULIN (test code = 2.9 G/DL 2240) CALC A/G RATIO (test code = 1.6 RATIO 2234) BILIRUBIN, TOTAL (test code = 0.4 MG/DL 2206) ALKALINE PHOSPHATASE (test 79 U/L code = 2204) AST (test code = 2218) 10 U/L ALT (test code = 2219) 7 U/L COMPREHENSIVE METABOLIC [id number] 00:00:00 Test Item Value Reference Range Interpretation Comments GLUCOSE (test code = 2217) 315 MG/DL BUN (test code = 2208) 11 MG/DL CREATININE (test code = 2214) 0.61 MG/DL eGFR (2020 CKD-EPI) (test 114 ML/MIN/1.73 code = 87971) CALC BUN/CREAT (test code = 18 RATIO 2235) SODIUM (test code = 2231) 139 MEQ/L POTASSIUM (test code = 2228) 4.1 MEQ/L CHLORIDE (test code = 2215) 105 MEQ/L CARBON DIOXIDE (test code = 21 MEQ/L 2205) CALCIUM (test code = 2209) 9.4 MG/DL PROTEIN, TOTAL (test code = 7.5 G/DL 2228) ALBUMIN (test code = 2201) 4.6 G/DL CALC GLOBULIN (test code = 2.9 G/DL 2240) CALC A/G RATIO (test code = 1.6 RATIO 2234) BILIRUBIN, TOTAL (test code = 0.4 MG/DL 2206) ALKALINE PHOSPHATASE (test 79 U/L code = 2204) AST (test code = 2218) 10 U/L ALT (test code = 2219) 7 U/L ALBUMIN/CREATININE RATIO, RANDOM [id number] 00:00:00 Test Item Value Reference Range Interpretation Comments CREATININE, URINE, CONC. (test 135.5 MG/DL code = 2072) ALBUMIN, URINE, RANDOM (test code 3.2 MG/DL = 01117) CALC ALBUMIN/CREAT, RND (test 24 MG/G code = 62744) ALBUMIN/CREATININE RATIO, RANDOM [id number] 00:00:00 Test Item Value Reference Range Interpretation Comments CREATININE, URINE, CONC. (test 135.5 MG/DL code = 2072) ALBUMIN, URINE, RANDOM (test code 3.2 MG/DL = 01569) CALC ALBUMIN/CREAT, RND (test 24 MG/G code = 72127) HEMOGLOBIN [id number] 00:00:00 Test Item Value Reference Range Interpretation Comments HEMOGLOBIN A1c (test code = 15469) 9.2 % HEMOGLOBIN [id number] 00:00:00 Test Item Value Reference Range Interpretation Comments HEMOGLOBIN A1c (test code = 45542) 9.2 % HEMOGLOBIN [id number] 00:00:00 Test Item Value Reference Range Interpretation Comments HEMOGLOBIN A1c (test code = 78729) 9.2 % LIPID [id number] 00:00:00 Test Item Value Reference Range Interpretation Comments CHOLESTEROL (test code = 2210) 243 MG/DL TRIGLYCERIDES (test code = 2232) 788 MG/DL HDL CHOLESTEROL (test code = 22 MG/DL 2220) CALC LDL CHOL (test code = 2237) (NOTE) MG/DL RISK RATIO LDL/HDL (test code = (NOTE) RATIO 2238) LIPID [id number] 00:00:00 Test Item Value Reference Range Interpretation Comments CHOLESTEROL (test code = 2210) 243 MG/DL TRIGLYCERIDES (test code = 2232) 788 MG/DL HDL CHOLESTEROL (test code = 22 MG/DL 2220) CALC LDL CHOL (test code = 2237) (NOTE) MG/DL RISK RATIO LDL/HDL (test code = (NOTE) RATIO 2238) COMPREHENSIVE METABOLIC [id number] 00:00:00 Test Item Value Reference Range Interpretation Comments GLUCOSE (test code = 2217) 315 MG/DL BUN (test code = 2208) 11 MG/DL CREATININE (test code = 2214) 0.61 MG/DL eGFR (2020 CKD-EPI) (test 114 ML/MIN/1.73 code = 64302) CALC BUN/CREAT (test code = 18 RATIO 2235) SODIUM (test code = 2231) 139 MEQ/L POTASSIUM (test code = 2228) 4.1 MEQ/L CHLORIDE (test code = 2215) 105 MEQ/L CARBON DIOXIDE (test code = 21 MEQ/L 2205) CALCIUM (test code = 2209) 9.4 MG/DL PROTEIN, TOTAL (test code = 7.5 G/DL 2228) ALBUMIN (test code = 2201) 4.6 G/DL CALC GLOBULIN (test code = 2.9 G/DL 2239) CALC A/G RATIO (test code = 1.6 RATIO 2234) BILIRUBIN, TOTAL (test code = 0.4 MG/DL 2206) ALKALINE PHOSPHATASE (test 79 U/L code = 2204) AST (test code = 2218) 10 U/L ALT (test code = 2219) 7 U/L VITAMIN [id number] 00:00:00 Test Item Value Reference Range Interpretation Comments VITAMIN B-12 (test code = 2840) 444 PG/ML VITAMIN [id number] 00:00:00 Test Item Value Reference Range Interpretation Comments VITAMIN B-12 (test code = 2840) 444 PG/ML VITAMIN [id number] 00:00:00 Test Item Value Reference Range Interpretation Comments VITAMIN B-12 (test code = 2840) 444 PG/ML [id number] 00:00:00 Test Item Value Reference Range Interpretation Comments TSH, THIRD GENERATION (test code 0.552 UIU/ML = 2821) [id number] 00:00:00 Test Item Value Reference Range Interpretation Comments TSH, THIRD GENERATION (test code 0.552 UIU/ML = 2821) [id number] 00:00:00 Test Item Value Reference Range Interpretation Comments TSH, THIRD GENERATION (test code 0.552 UIU/ML = 2821) VITAMIN D, 25 [id number] 00:00:00 Test Item Value Reference Range Interpretation Comments VITAMIN D, 25 OH (test code = 4958) 19 NG/ML VITAMIN D, 25 [id number] 00:00:00 Test Item Value Reference Range Interpretation Comments VITAMIN D, 25 OH (test code = 4958) 19 NG/ML VITAMIN [id number] 00:00:00 Test Item Value Reference Range Interpretation Comments VITAMIN B-12 (test code = 2840) 444 PG/ML VITAMIN [id number] 00:00:00 Test Item Value Reference Range Interpretation Comments VITAMIN B-12 (test code = 2840) 444 PG/ML VITAMIN [id number] 00:00:00 Test Item Value Reference Range Interpretation Comments VITAMIN B-12 (test code = 2840) 444 PG/ML [id number] 00:00:00 Test Item Value Reference Range Interpretation Comments TSH, THIRD GENERATION (test code 0.552 UIU/ML = 2821) [id number] 00:00:00 Test Item Value Reference Range Interpretation Comments TSH, THIRD GENERATION (test code 0.552 UIU/ML = 2821) [id number] 00:00:00 Test Item Value Reference Range Interpretation Comments TSH, THIRD GENERATION (test code 0.552 UIU/ML = 2821) VITAMIN D, 25 [id number] 00:00:00 Test Item Value Reference Range Interpretation Comments VITAMIN D, 25 OH (test code = 4958) 19 NG/ML VITAMIN D, 25 [id number] 00:00:00 Test Item Value Reference Range Interpretation Comments VITAMIN D, 25 OH (test code = 4958) 19 NG/ML HEMOGLOBIN [id number] 00:00:00 Test Item Value Reference Range Interpretation Comments HEMOGLOBIN A1c (test code = 95972) 6.7 % HEMOGLOBIN [id number] 00:00:00 Test Item Value Reference Range Interpretation Comments HEMOGLOBIN A1c (test code = 68107) 6.7 % HEMOGLOBIN [id number] 00:00:00 Test Item Value Reference Range Interpretation Comments HEMOGLOBIN A1c (test code = 21885) 6.7 % HEMOGLOBIN [id number] 00:00:00 Test Item Value Reference Range Interpretation Comments HEMOGLOBIN A1c (test code = 12479) 6.7 % HEMOGLOBIN [id number] 00:00:00 Test Item Value Reference Range Interpretation Comments HEMOGLOBIN A1c (test code = 61275) 6.7 % HEMOGLOBIN [id number] 00:00:00 Test Item Value Reference Range Interpretation Comments HEMOGLOBIN A1c (test code = 55228) 6.7 % MICROALBUMIN/CREATININE, RANDOM AND [id number] 00:00:00 Test Item Value Reference Range Interpretation Comments CREATININE, URINE, CONC. (test 22.0 MG/DL code = 2072) ALBUMIN, URINE, RANDOM (test code 0.2 MG/DL = 24532) CALC ALBUMIN/CREAT, RND (test code 9 MG/G = 88532) MICROALBUMIN/CREATININE, RANDOM AND [id number] 00:00:00 Test Item Value Reference Range Interpretation Comments CREATININE, URINE, CONC. (test 22.0 MG/DL code = 2072) ALBUMIN, URINE, RANDOM (test code 0.2 MG/DL = 99496) CALC ALBUMIN/CREAT, RND (test code 9 MG/G = 24876) COMPREHENSIVE METABOLIC [id number] 00:00:00 Test Item Value Reference Range Interpretation Comments GLUCOSE (test code = 2217) 158 MG/DL BUN (test code = 2208) 12 MG/DL CREATININE (test code = 2214) 0.63 MG/DL eGFR AMER. (test code 129 ML/MIN/1.73 = 77706) eGFR NON- AMER. (test 111 ML/MIN/1.73 code = 65563) CALC BUN/CREAT (test code = 19 RATIO 2235) SODIUM (test code = 2231) 140 MEQ/L POTASSIUM (test code = 2228) 4.3 MEQ/L CHLORIDE (test code = 2215) 103 MEQ/L CARBON DIOXIDE (test code = 28 MEQ/L 220) CALCIUM (test code = 2209) 9.6 MG/DL PROTEIN, TOTAL (test code = 7.2 G/DL 2228) ALBUMIN (test code = 2201) 4.4 G/DL CALC GLOBULIN (test code = 2.8 G/DL 0) CALC A/G RATIO (test code = 1.6 RATIO 4) BILIRUBIN, TOTAL (test code = 0.4 MG/DL 2206) ALKALINE PHOSPHATASE (test 69 U/L code = 2204) AST (test code = 2218) 28 U/L ALT (test code = 2219) 34 U/L COMPREHENSIVE METABOLIC [id number] 00:00:00 Test Item Value Reference Range Interpretation Comments GLUCOSE (test code = 2217) 158 MG/DL BUN (test code = 2208) 12 MG/DL CREATININE (test code = 2214) 0.63 MG/DL eGFR AMER. (test code 129 ML/MIN/1.73 = 22744) eGFR NON- AMER. (test 111 ML/MIN/1.73 code = 82795) CALC BUN/CREAT (test code = 19 RATIO 2235) SODIUM (test code = 2231) 140 MEQ/L POTASSIUM (test code = 2228) 4.3 MEQ/L CHLORIDE (test code = 2215) 103 MEQ/L CARBON DIOXIDE (test code = 28 MEQ/L 2206) CALCIUM (test code = 2209) 9.6 MG/DL PROTEIN, TOTAL (test code = 7.2 G/DL 2228) ALBUMIN (test code = 2201) 4.4 G/DL CALC GLOBULIN (test code = 2.8 G/DL 224) CALC A/G RATIO (test code = 1.6 RATIO 2234) BILIRUBIN, TOTAL (test code = 0.4 MG/DL 2206) ALKALINE PHOSPHATASE (test 69 U/L code = 2204) AST (test code = 2218) 28 U/L ALT (test code = 2219) 34 U/L LIPID [id number] 00:00:00 Test Item Value Reference Range Interpretation Comments CHOLESTEROL (test code = 2210) 173 MG/DL TRIGLYCERIDES (test code = 2232) 341 MG/DL HDL CHOLESTEROL (test code = 2220) 28 MG/DL CALC LDL CHOL (test code = 2237) 100 MG/DL RISK RATIO LDL/HDL (test code = 3.57 RATIO 2238) LIPID [id number] 00:00:00 Test Item Value Reference Range Interpretation Comments CHOLESTEROL (test code = 2210) 173 MG/DL TRIGLYCERIDES (test code = 2232) 341 MG/DL HDL CHOLESTEROL (test code = 2220) 28 MG/DL CALC LDL CHOL (test code = 2237) 100 MG/DL RISK RATIO LDL/HDL (test code = 3.57 RATIO 2238) MICROALBUMIN/CREATININE, RANDOM AND [id number] 00:00:00 Test Item Value Reference Range Interpretation Comments CREATININE, URINE, CONC. (test 22.0 MG/DL code = 2072) ALBUMIN, URINE, RANDOM (test code 0.2 MG/DL = 54126) CALC ALBUMIN/CREAT, RND (test code 9 MG/G = 79475) MICROALBUMIN/CREATININE, RANDOM AND [id number] 00:00:00 Test Item Value Reference Range Interpretation Comments CREATININE, URINE, CONC. (test 22.0 MG/DL code = 2072) ALBUMIN, URINE, RANDOM (test code 0.2 MG/DL = 11617) CALC ALBUMIN/CREAT, RND (test code 9 MG/G = 68683) COMPREHENSIVE METABOLIC [id number] 00:00:00 Test Item Value Reference Range Interpretation Comments GLUCOSE (test code = 2217) 158 MG/DL BUN (test code = 2208) 12 MG/DL CREATININE (test code = 2214) 0.63 MG/DL eGFR AMER. (test code 129 ML/MIN/1.73 = 19182) eGFR NON- AMER. (test 111 ML/MIN/1.73 code = 16087) CALC BUN/CREAT (test code = 19 RATIO 2235) SODIUM (test code = 2231) 140 MEQ/L POTASSIUM (test code = 2228) 4.3 MEQ/L CHLORIDE (test code = 2215) 103 MEQ/L CARBON DIOXIDE (test code = 28 MEQ/L 220) CALCIUM (test code = 2209) 9.6 MG/DL PROTEIN, TOTAL (test code = 7.2 G/DL 2228) ALBUMIN (test code = 2201) 4.4 G/DL CALC GLOBULIN (test code = 2.8 G/DL 2240) CALC A/G RATIO (test code = 1.6 RATIO 2234) BILIRUBIN, TOTAL (test code = 0.4 MG/DL 2206) ALKALINE PHOSPHATASE (test 69 U/L code = 2204) AST (test code = 2218) 28 U/L ALT (test code = 2219) 34 U/L COMPREHENSIVE METABOLIC [id number] 00:00:00 Test Item Value Reference Range Interpretation Comments GLUCOSE (test code = 2217) 158 MG/DL BUN (test code = 2208) 12 MG/DL CREATININE (test code = 2214) 0.63 MG/DL eGFR AMER. (test code 129 ML/MIN/1.73 = 73715) eGFR NON- AMER. (test 111 ML/MIN/1.73 code = 60528) CALC BUN/CREAT (test code = 19 RATIO 2235) SODIUM (test code = 2231) 140 MEQ/L POTASSIUM (test code = 2228) 4.3 MEQ/L CHLORIDE (test code = 2215) 103 MEQ/L CARBON DIOXIDE (test code = 28 MEQ/L 2206) CALCIUM (test code = 2209) 9.6 MG/DL PROTEIN, TOTAL (test code = 7.2 G/DL 2228) ALBUMIN (test code = 2201) 4.4 G/DL CALC GLOBULIN (test code = 2.8 G/DL 2240) CALC A/G RATIO (test code = 1.6 RATIO 2234) BILIRUBIN, TOTAL (test code = 0.4 MG/DL 2206) ALKALINE PHOSPHATASE (test 69 U/L code = 2204) AST (test code = 2218) 28 U/L ALT (test code = 2219) 34 U/L LIPID [id number] 00:00:00 Test Item Value Reference Range Interpretation Comments CHOLESTEROL (test code = 2210) 173 MG/DL TRIGLYCERIDES (test code = 2232) 341 MG/DL HDL CHOLESTEROL (test code = 2220) 28 MG/DL CALC LDL CHOL (test code = 2237) 100 MG/DL RISK RATIO LDL/HDL (test code = 3.57 RATIO 2238) LIPID [id number] 00:00:00 Test Item Value Reference Range Interpretation Comments CHOLESTEROL (test code = 2210) 173 MG/DL TRIGLYCERIDES (test code = 2232) 341 MG/DL HDL CHOLESTEROL (test code = 2220) 28 MG/DL CALC LDL CHOL (test code = 2237) 100 MG/DL RISK RATIO LDL/HDL (test code = 3.57 RATIO 2238) HEMOGLOBIN [id number] 00:00:00 Test Item Value Reference Range Interpretation Comments HEMOGLOBIN A1c (test code = 02289) 7.0 % HEMOGLOBIN [id number] 00:00:00 Test Item Value Reference Range Interpretation Comments HEMOGLOBIN A1c (test code = 40031) 7.0 % MICROALBUMIN/CREATININE, RANDOM AND [id number] 00:00:00 Test Item Value Reference Range Interpretation Comments CREATININE, URINE, CONC. (test 92.4 MG/DL code = 2072) ALBUMIN, URINE, RANDOM (test code 0.7 MG/DL = 13343) CALC ALBUMIN/CREAT, RND (test code 8 MG/G = 72060) MICROALBUMIN/CREATININE, RANDOM AND [id number] 00:00:00 Test Item Value Reference Range Interpretation Comments CREATININE, URINE, CONC. (test 92.4 MG/DL code = 2072) ALBUMIN, URINE, RANDOM (test code 0.7 MG/DL = 29697) CALC ALBUMIN/CREAT, RND (test code 8 MG/G = 95673) HIV 1/2 4TH GEN, RFLX CONF [ADDED]2019-03-22 00:00:00 Test Item Value Reference Range Interpretation Comments HIV 1/2 4TH GEN, RFLX CONF (test NON-REACTIVE code = 3514) HIV 1/2 4TH GEN, RFLX CONF [ADDED]2019-03-22 00:00:00 Test Item Value Reference Range Interpretation Comments HIV 1/2 4TH GEN, RFLX CONF (test NON-REACTIVE code = 3514) RPR [ADDED]2019-03-22 00:00:00 Test Item Value Reference Range Interpretation Comments RPR RESULT (test code = NON-REACTIVE 3501) RPR TITER (test code = 3500) NOT INDIC. TITER RPR [ADDED]2019-03-22 00:00:00 Test Item Value Reference Range Interpretation Comments RPR RESULT (test code = NON-REACTIVE 3501) RPR TITER (test code = 3500) NOT INDIC. TITER RPR [ADDED]2019-03-22 00:00:00 Test Item Value Reference Range Interpretation Comments RPR RESULT (test code = NON-REACTIVE 3501) RPR TITER (test code = 3500) NOT INDIC. TITER CT/NG, TMA, URINE [ADDED]2019-03-22 00:00:00 Test Item Value Reference Range Interpretation Comments GONORRHEA, TMA (test code = 84618) NEGATIVE CHLAMYDIA, TMA (test code = 03580) NEGATIVE CT/NG, TMA, URINE [ADDED]2019-03-22 00:00:00 Test Item Value Reference Range Interpretation Comments GONORRHEA, TMA (test code = 19591) NEGATIVE CHLAMYDIA, TMA (test code = 67193) NEGATIVE COMPREHENSIVE METABOLIC [id number] 00:00:00 Test Item Value Reference Range Interpretation Comments GLUCOSE (test code = 2217) 238 MG/DL BUN (test code = 2208) 15 MG/DL CREATININE (test code = 2214) 0.71 MG/DL eGFR AMER. (test code 123 ML/MIN/1.73 = 64433) eGFR NON- AMER. (test 107 ML/MIN/1.73 code = 85252) CALC BUN/CREAT (test code = 21 RATIO 2235) SODIUM (test code = 2231) 139 MEQ/L POTASSIUM (test code = 2228) 4.0 MEQ/L CHLORIDE (test code = 2215) 104 MEQ/L CARBON DIOXIDE (test code = 24 MEQ/L 2206) CALCIUM (test code = 2209) 9.5 MG/DL PROTEIN, TOTAL (test code = 7.3 G/DL 2229) ALBUMIN (test code = 2201) 4.3 G/DL CALC GLOBULIN (test code = 3.0 G/DL 2240) CALC A/G RATIO (test code = 1.4 RATIO 2234) BILIRUBIN, TOTAL (test code = 0.4 MG/DL 2207) ALKALINE PHOSPHATASE (test 76 U/L code = 2204) AST (test code = 2218) 10 U/L ALT (test code = 2219) 12 U/L COMPREHENSIVE METABOLIC [id number] 00:00:00 Test Item Value Reference Range Interpretation Comments GLUCOSE (test code = 2217) 238 MG/DL BUN (test code = 2208) 15 MG/DL CREATININE (test code = 2214) 0.71 MG/DL eGFR AMER. (test code 123 ML/MIN/1.73 = 78410) eGFR NON- AMER. (test 107 ML/MIN/1.73 code = 56473) CALC BUN/CREAT (test code = 21 RATIO 2235) SODIUM (test code = 2231) 139 MEQ/L POTASSIUM (test code = 2228) 4.0 MEQ/L CHLORIDE (test code = 2215) 104 MEQ/L CARBON DIOXIDE (test code = 24 MEQ/L 2206) CALCIUM (test code = 2209) 9.5 MG/DL PROTEIN, TOTAL (test code = 7.3 G/DL 2229) ALBUMIN (test code = 2201) 4.3 G/DL CALC GLOBULIN (test code = 3.0 G/DL 2240) CALC A/G RATIO (test code = 1.4 RATIO 2234) BILIRUBIN, TOTAL (test code = 0.4 MG/DL 2207) ALKALINE PHOSPHATASE (test 76 U/L code = 2204) AST (test code = 2218) 10 U/L ALT (test code = 2219) 12 U/L LIPID [id number] 00:00:00 Test Item Value Reference Range Interpretation Comments CHOLESTEROL (test code = 2210) 178 MG/DL TRIGLYCERIDES (test code = 2232) 939 MG/DL HDL CHOLESTEROL (test code = 21 MG/DL 2220) CALC LDL CHOL (test code = 2237) NOTE MG/DL RISK RATIO LDL/HDL (test code = (NOTE) RATIO 2238) LIPID [id number] 00:00:00 Test Item Value Reference Range Interpretation Comments CHOLESTEROL (test code = 2210) 178 MG/DL TRIGLYCERIDES (test code = 2232) 939 MG/DL HDL CHOLESTEROL (test code = 21 MG/DL 2220) CALC LDL CHOL (test code = 2237) NOTE MG/DL RISK RATIO LDL/HDL (test code = (NOTE) RATIO 2238) HEMOGLOBIN [id number] 00:00:00 Test Item Value Reference Range Interpretation Comments HEMOGLOBIN A1c (test code = 07860) 7.0 % HEMOGLOBIN [id number] 00:00:00 Test Item Value Reference Range Interpretation Comments HEMOGLOBIN A1c (test code = 26114) 7.0 % HEMOGLOBIN [id number] 00:00:00 Test Item Value Reference Range Interpretation Comments HEMOGLOBIN A1c (test code = 07545) 7.0 % MICROALBUMIN/CREATININE, RANDOM AND [id number] 00:00:00 Test Item Value Reference Range Interpretation Comments CREATININE, URINE, CONC. (test 92.4 MG/DL code = 2072) ALBUMIN, URINE, RANDOM (test code 0.7 MG/DL = 89178) CALC ALBUMIN/CREAT, RND (test code 8 MG/G = 63987) MICROALBUMIN/CREATININE, RANDOM AND [id number] 00:00:00 Test Item Value Reference Range Interpretation Comments CREATININE, URINE, CONC. (test 92.4 MG/DL code = 2072) ALBUMIN, URINE, RANDOM (test code 0.7 MG/DL = 11579) CALC ALBUMIN/CREAT, RND (test code 8 MG/G = 37798) HIV 1/2 4TH GEN, RFLX CONF [ADDED]2019-03-22 00:00:00 Test Item Value Reference Range Interpretation Comments HIV 1/2 4TH GEN, RFLX CONF (test NON-REACTIVE code = 3514) HIV 1/2 4TH GEN, RFLX CONF [ADDED]2019-03-22 00:00:00 Test Item Value Reference Range Interpretation Comments HIV 1/2 4TH GEN, RFLX CONF (test NON-REACTIVE code = 3514) RPR [ADDED]2019-03-22 00:00:00 Test Item Value Reference Range Interpretation Comments RPR RESULT (test code = NON-REACTIVE 3501) RPR TITER (test code = 3500) NOT INDIC. TITER RPR [ADDED]2019-03-22 00:00:00 Test Item Value Reference Range Interpretation Comments RPR RESULT (test code = NON-REACTIVE 3501) RPR TITER (test code = 3500) NOT INDIC. TITER RPR [ADDED]2019-03-22 00:00:00 Test Item Value Reference Range Interpretation Comments RPR RESULT (test code = NON-REACTIVE 3501) RPR TITER (test code = 3500) NOT INDIC. TITER CT/NG, TMA, URINE [ADDED]2019-03-22 00:00:00 Test Item Value Reference Range Interpretation Comments GONORRHEA, TMA (test code = 99452) NEGATIVE CHLAMYDIA, TMA (test code = 02693) NEGATIVE CT/NG, TMA, URINE [ADDED]2019-03-22 00:00:00 Test Item Value Reference Range Interpretation Comments GONORRHEA, TMA (test code = 91259) NEGATIVE CHLAMYDIA, TMA (test code = 24832) NEGATIVE COMPREHENSIVE METABOLIC [id number] 00:00:00 Test Item Value Reference Range Interpretation Comments GLUCOSE (test code = 2217) 238 MG/DL BUN (test code = 2208) 15 MG/DL CREATININE (test code = 2214) 0.71 MG/DL eGFR AMER. (test code 123 ML/MIN/1.73 = 34637) eGFR NON- AMER. (test 107 ML/MIN/1.73 code = 12579) CALC BUN/CREAT (test code = 21 RATIO 2235) SODIUM (test code = 2231) 139 MEQ/L POTASSIUM (test code = 2228) 4.0 MEQ/L CHLORIDE (test code = 2215) 104 MEQ/L CARBON DIOXIDE (test code = 24 MEQ/L 6) CALCIUM (test code = 2209) 9.5 MG/DL PROTEIN, TOTAL (test code = 7.3 G/DL 2228) ALBUMIN (test code = 2201) 4.3 G/DL CALC GLOBULIN (test code = 3.0 G/DL 2240) CALC A/G RATIO (test code = 1.4 RATIO 2234) BILIRUBIN, TOTAL (test code = 0.4 MG/DL 2206) ALKALINE PHOSPHATASE (test 76 U/L code = 2204) AST (test code = 2218) 10 U/L ALT (test code = 2219) 12 U/L COMPREHENSIVE METABOLIC [id number] 00:00:00 Test Item Value Reference Range Interpretation Comments GLUCOSE (test code = 2217) 238 MG/DL BUN (test code = 2208) 15 MG/DL CREATININE (test code = 2214) 0.71 MG/DL eGFR AMER. (test code 123 ML/MIN/1.73 = 95957) eGFR NON- AMER. (test 107 ML/MIN/1.73 code = 37646) CALC BUN/CREAT (test code = 21 RATIO 2235) SODIUM (test code = 2231) 139 MEQ/L POTASSIUM (test code = 2228) 4.0 MEQ/L CHLORIDE (test code = 2215) 104 MEQ/L CARBON DIOXIDE (test code = 24 MEQ/L 2205) CALCIUM (test code = 2209) 9.5 MG/DL PROTEIN, TOTAL (test code = 7.3 G/DL 2228) ALBUMIN (test code = 2201) 4.3 G/DL CALC GLOBULIN (test code = 3.0 G/DL 224) CALC A/G RATIO (test code = 1.4 RATIO 2234) BILIRUBIN, TOTAL (test code = 0.4 MG/DL 2206) ALKALINE PHOSPHATASE (test 76 U/L code = 2204) AST (test code = 2218) 10 U/L ALT (test code = 2219) 12 U/L LIPID [id number] 00:00:00 Test Item Value Reference Range Interpretation Comments CHOLESTEROL (test code = 2210) 178 MG/DL TRIGLYCERIDES (test code = 2232) 939 MG/DL HDL CHOLESTEROL (test code = 21 MG/DL 2220) CALC LDL CHOL (test code = 2237) NOTE MG/DL RISK RATIO LDL/HDL (test code = (NOTE) RATIO 2238) LIPID [id number] 00:00:00 Test Item Value Reference Range Interpretation Comments CHOLESTEROL (test code = 2210) 178 MG/DL TRIGLYCERIDES (test code = 2232) 939 MG/DL HDL CHOLESTEROL (test code = 21 MG/DL 2220) CALC LDL CHOL (test code = 2237) NOTE MG/DL RISK RATIO LDL/HDL (test code = (NOTE) RATIO 2238) HEMOGLOBIN [id number] 00:00:00 Test Item Value Reference Range Interpretation Comments HEMOGLOBIN A1c (test code = 13994) 7.0 %
[2022-05-22] MEDS ORDERED: ASPIRIN 81 MG CHEWABLE TABLET ONE (03:19)
[2022-05-22 03:31] LABS: Absolute Lymphocytes (CBC) 1.7 K/uL (0.7-4.9); Hematocrit 39.5 % (36.0-45.0); Lymphocytes % 37.2 % (15.3-44.8); MCV 83.7 fL (80-100); RBC Red Blood Cell Count 4.72 M/uL (3.86-4.86)
[2022-05-22 03:46] LABS: Magnesium 2.1 mg/dL (1.8-2.4); Potassium 3.6 mmol/L (3.5-5.1); Troponin High Sensitivity 3.9 pg/mL (<58.9)
--- NOTE | 2022-05-22 07:09 | ER ---
Nurse's Notes [facility] Name: Kaur Caruso Age: 41 yrs Sex: Female : 1980 Arrival Date: 05/22/2022 Time: 02:52 Bed 9 Private MD: Diagnosis: Chest pain, unspecified;Dental Pain;Essential (primary) hypertension Presentation: 05/22 02:59 Chief complaint: Patient states: "I couldn't sleep I was having chest pain for the past tw5 two hours. Mostly on left up side. My teeth have also been bothering me for the past couple of days. The pain is starting to make my right ear and eye hurts. I didn't' know if the chest pain was from my tooth ache. I do have severe anxiety and panic attacks.". Ebola Screen: Patient negative for fever greater than or equal to 101.5 degrees Fahrenheit, and additional compatible Ebola Virus Disease symptoms Patient denies exposure to infectious person. Patient denies travel to an Ebola-affected area in the 21 days before illness onset. Initial Sepsis Screen: Does the patient meet any 2 criteria? No. Patient's initial sepsis screen is negative. Does the patient have a suspected source of infection? No. Patient's initial sepsis screen is negative. Risk Assessment: Do you want to hurt yourself or someone else? Patient reports no desire to harm self or others. Onset of symptoms was May 22, 2022 at 01:00. 02:59 Method Of Arrival: Ambulatory tw5 02:59 Acuity: DESTINY 3 tw5 06:40 Coronavirus screen: Vaccine status: Patient reports being unvaccinated. tw5 Triage Assessment: 03:01 General: Appears in no apparent distress. Behavior is calm, cooperative, appropriate tw5 for age. Pain: Pain currently is 6 out of 10 on a pain scale. 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 - Social history:: Smoking status: Patient denies any tobacco usage or history of. Screenin:22 Abuse screen: Denies threats or abuse. Denies injuries from another. Nutritional tw5 screening: No deficits noted. Tuberculosis screening: No symptoms or risk factors identified. Fall Risk None identified. Assessment: 03:03 General: Appears in no apparent distress. Behavior is calm, cooperative, appropriate tw5 for age. Pain: Pain radiates to anterior aspect of left upper chest Pain began 2 hours ago. EENT: Poor dentition noted. Vital Signs: 02:59 Weight 62.6 kg; Height 5 ft. 2 in. (157.48 cm); tw5 02:59 BP 187 / 103; Pulse 98; Resp 18; Temp 97.8; Pulse Ox 100% ; Pain 6/10; tw5 06:39 BP 180 / 73; Pulse 100; Resp 18; Pulse Ox 100% on R/A; tw5 02:59 Body Mass Index 25.24 (62.60 kg, 157.48 cm) tw5 ED Course: 02:52 Patient arrived in ED. ja2 02:54 Jonatan Mims DO is Attending Physician. ms3 03:01 Triage completed. tw5 03:01 Arm band placed on. tw5 03:16 Leyda Donald is Primary Nurse. tw5 03:22 Patient has correct armband on for positive identification. adult family home program manager on. Pulse tw5 ox on. Door closed. Noise minimized. Moved to private room. Warm blanket given. Verbal reassurance given. 03:22 Patient maintains SpO2 saturation greater than 95% on room air. tw5 03:23 Initial lab(s) drawn, by mo, sent to lab. Inserted saline lock: 20 gauge in left wm antecubital area, using aseptic technique. Blood collected. 03:23 EKG done, by ED staff, reviewed by Jonatan Mims DO. wm 03:24 Basic Metabolic Panel Sent. wm 03:24 CBC with Diff Sent. wm 03:24 Magnesium Sent. wm 03:24 Troponin HS Sent. wm 06:24 Marciano Szymanski MD is Referral Physician. ms3 06:24 Gilbert Smith DDS is Referral Physician. ms3 06:39 No provider procedures requiring assistance completed. IV discontinued, intact, tw5 bleeding controlled, No redness/swelling at site. Pressure dressing applied. 07:08 XRAY Chest (1 view) In Process Unspecified. EDMS Administered Medications: 03:22 Drug: Aspirin Chewable Tablet 324 mg Route: PO; tw5 Medication: 03:22 VIS not applicable for this client. 5 Outcome: 06:25 Discharge ordered by . ms3 06:39 Discharged to home ambulatory. tw5 06:39 Condition: good 06:39 Discharge instructions given to patient, Instructed on discharge instructions, follow up and referral plans. Demonstrated understanding of instructions, follow-up care, medications, Prescriptions given X 1. 06:40 Patient left the ED. tw5 Signatures: Dispatcher [employer] EDMS Jonatan Mims DO DO ms3 Ruth Ann Navarro Jessica ja2 Wood, Tiffany tw5
--- NOTE | 2022-05-22 07:09 | EDPHYS ---
Physician Documentation [facility] Name: Kaur Caruso Age: 41 yrs Sex: Female : 1980 Arrival Date: 05/22/2022 Time: 02:52 Bed 9 Private MD: ED Physician Jonatan Mims HPI: 05/22 06:00 This 41 yrs old Female presents to ER via Ambulatory with complaints of Chest ms3 Pain, Toothache. 06:00 The patient or guardian reports chest pain that is located primarily in the substernal ms3 area. Onset: 3 hour(s) ago. The pain does not radiate. Associated signs and symptoms: Pertinent negatives:. The chest pain is described as a pressure. Duration: The patient or guardian reports a single episode. Modifying factors: The symptoms are alleviated by nothing. the symptoms are aggravated by nothing. Severity of pain: At its worst the pain was moderate in the emergency department the pain is unchanged. Patient states she has also had a toothache for 1 month. 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 - Social history:: Smoking status: Patient denies any tobacco usage or history of. ROS: 06:00 Constitutional: Negative for fever, and chills. Neck: Negative for injury, pain, and ms3 swelling. 06:00 Respiratory: Negative for shortness of breath, cough, wheezing, and pleuritic chest pain, Abdomen/GI: Negative for abdominal pain, nausea, vomiting, diarrhea, and constipation, MS/Extremity: Negative for injury and deformity, Skin: Negative for injury, rash, and discoloration, Neuro: Negative for headache, weakness, numbness, tingling. 06:00 Cardiovascular: Positive for chest pain. 06:00 All other systems are negative. Exam: 03:07 ECG was reviewed by the Attending Physician. ms3 06:00 Constitutional: This is a well developed, well nourished patient who is awake, alert, ms3 and in no acute distress. Head/Face: Normocephalic, atraumatic. Eyes: Pupils equal round and reactive to light, extra-ocular motions intact. Lids and lashes normal. Conjunctiva and sclera are non-icteric and not injected. Periorbital areas with no swelling, redness, or edema. Neck: Trachea midline, no cervical lymphadenopathy. Supple, full range of motion without nuchal rigidity, or vertebral point tenderness. No Meningismus. Chest/axilla: Normal chest wall appearance and motion. Nontender with no deformity. Cardiovascular: Regular rate and rhythm with a normal S1 and S2. No gallops, murmurs, or rubs. Normal PMI, no JVD. No pulse deficits. Respiratory: Lungs have equal breath sounds bilaterally, clear to auscultation and percussion. No rales, rhonchi or wheezes noted. No increased work of breathing, no retractions or nasal flaring. Abdomen/GI: Soft, non-tender, with normal bowel sounds. No distension or tympany. No guarding or rebound. No evidence of tenderness throughout. Back: No spinal tenderness. No costovertebral tenderness. Full range of motion. Skin: Warm, dry with normal turgor. Normal color with no rashes, no lesions, and no evidence of cellulitis. MS/ Extremity: Pulses equal, no cyanosis. Neurovascular intact. Full, normal range of motion. Vital Signs: 02:59 Weight 62.6 kg; Height 5 ft. 2 in. (157.48 cm); tw5 02:59 BP 187 / 103; Pulse 98; Resp 18; Temp 97.8; Pulse Ox 100% ; Pain 6/10; tw5 06:39 BP 180 / 73; Pulse 100; Resp 18; Pulse Ox 100% on R/A; tw5 02:59 Body Mass Index 25.24 (62.60 kg, 157.48 cm) tw5 MDM: 03:04 Patient medically screened. ms3 06:00 Differential diagnosis: abnormal EKG, acute myocardial infarction. HEART Score: ms3 History: Slightly Suspicious (0), ECG: Normal (0), Age: < or = 45 years (0), Risk Factors: > or = 3 Risk factors for atherosclerotic disease (2), Troponin: < or = 1 x Normal Limit (0), Total Score = 2. Data reviewed: vital signs, nurses notes, lab test result(s), EKG, radiologic studies, and as a result, I will discharge patient. Counseling: I had a detailed discussion with the patient and/or guardian regarding: the historical points, exam findings, and any diagnostic results supporting the discharge/admit diagnosis, lab results, radiology results, the need for outpatient follow up, to return to the emergency department if symptoms worsen or persist or if there are any questions or concerns that arise at home. 06:25 ED course: Discussed labs, EKG, chest x-ray with patient. Patient to follow-up with ms3 dentistry and cardiology in 2 to 3 days. Patient understands and agrees with plan. All questions were answered. Return precautions discussed include worsening symptoms, or any other concerns. On reevaluation patient is improved, no apparent distress, nontoxic, ambulatory in the emergency department.. 12 02:54 Order name: Basic Metabolic Panel ms3 05/22 02:54 Order name: CBC with Diff; Complete Time: 05:45 ms3 05/22 02:54 Order name: Magnesium ms3 05/22 02:54 Order name: Troponin HS ms3 05/22 02:54 Order name: XRAY Chest (1 view) ms3 05/22 02:54 Order name: EKG; Complete Time: 02:55 ms3 05/22 02:54 Order name: Cardiac monitoring; Complete Time: 03:22 ms3 05/22 02:54 Order name: EKG - Nurse/Tech; Complete Time: 03:13 ms3 05/22 02:54 Order name: IV Saline Lock; Complete Time: 03:24 ms3 05/22 02:54 Order name: Labs collected and sent; Complete Time: 03:24 ms3 05/22 02:54 Order name: O2 Per Protocol; Complete Time: 03:13 ms3 05/22 02:54 Order name: O2 Sat Monitoring; Complete Time: 03:13 ms3 EC:07 Rate is 88 beats/min. Rhythm is regular. QRS [place] is Normal. [place] interval is normal. QRS ms3 interval is normal. QT interval is normal. Clinical impression: Normal ECG. Interpreted by me. Reviewed by me. Administered Medications: 03:22 Drug: Aspirin Chewable Tablet 324 mg Route: PO; tw5 Disposition Summary: 05/22/22 06:25 Discharge Ordered Location: Home ms3 Condition: Stable ms3 Diagnosis - Chest pain, unspecified ms3 - Dental Pain ms3 - Essential (primary) hypertension ms3 Followup: ms3 - With: Marciano Szymanski MD - When: 2 - 3 days - Reason: Recheck today's complaints Followup: ms3 - With: Gilbert Smith DDS - When: 2 - 3 days - Reason: Recheck today's complaints Discharge Instructions: - Discharge Summary Sheet ms3 - Nonspecific Chest Pain, Adult ms3 - Hypertension, Adult ms3 Forms: - Medication Reconciliation Form ms3 - Thank You Letter ms3 - Antibiotic Education ms3 - Prescription Opioid Use ms3 Prescriptions: - Ibuprofen 600 mg Oral Tablet - take 1 tablet by ORAL route every 6 hours As needed take with food; 30 tablet; ms3 Refills: 0, Product Selection Permitted Signatures: Dispatcher [employer] Jonatan Puckett DO DO ms3 Leyda Donald tw5
[2022-05-22 07:31] VITALS: TEMP 97.8; O2SAT 100
[2022-05-22 07:32] VITALS: BP 180/73
--- NOTE | 2022-05-22 20:23 | RAD REPORT ---
EXAM DESCRIPTION: RAD - Chest Single View - 05/22/2022 4:06 am CLINICAL HISTORY: The patient is 41 years old and is Female; CHEST PAIN TECHNIQUE: Frontal view of the chest. COMPARISON: No relevant prior studies available. FINDINGS: Lungs: Unremarkable. No consolidation. Pleural space: Unremarkable. No pneumothorax. Heart: Unremarkable. Mediastinum: Unremarkable. Bones/joints: Unremarkable. IMPRESSION: No acute findings in the chest. Electronically signed by: Ignacio Baldwin MD 05/22/2022 4:19 AM RPG PROGRAMMER Due to temporary technical issues with the PACS/Fluency reporting system, reports are being signed by the in house radiologists without review as a courtesy to insure prompt reporting. The interpreting radiologist is fully responsible for the content of the report.
--- NOTE | 2022-05-24 13:52 | EKG ---
Test Date: 2022-05-22 Test Time: 03:07:41 Stove Fitter: ADAM MEASUREMENT RESULTS: Intervals: Rate: 88 OK: 142 QRSD: 82 QT: 370 QTc: 447 [place]: P: 64 OK: 142 QRS: 56 T: 51 INTERPRETIVE STATEMENTS: Normal sinus rhythm Normal ECG Compared to ECG 01/16/2022 00:39:27 No significant changes Electronically Signed On 05-24-22 13:50:08 WEAVER TIRE CORD by Richie London
== END 2022-05-22 06:40 | disposition home or self-care (01) ==
LOC: ER 02:49
DX: R07.9 Chest pain, unspecified (principal); K08.89 Other specified disorders of teeth and supporting structures; I10 Essential (primary) hypertension
CPT/HCPCS: 36415; 71045; 80048; 83735; 84484; 85025; 93005; 99285

== ENCOUNTER 2022-11-06 11:15 | Emergency (ER) | payer SELFPAY ==
--- OUTSIDE RECORDS SUMMARY | 2022-11-06 11:19 | XMS REPORT | Continuity of Care Document ---
:1980 Author Organization [facility] t Address [address] [place] [address] [place] [id number] Care Team Providers Name Role Phone Katie RECINOS, [facility] Primary Care Physician [phone] Doctor Unassigned, [facility] Attending Clinician Unavailable Payers Payer Name Policy Type Policy Number Effective Date Expiration Date S ource Problems Condition Condition Condition Status Onset Resolution Last Treating Co mments Source Name Details Category Date Date Treatment Clinician Date Type 2 Type 2 Disease Active [facility] diabetes diabetes 6-07 ity of mellitus mellitus 00:00: [place] without without 00 Medical complicati complicati Br anch on, on, without without long-term long-term current current use of use of insulin insulin History of History of Disease Active U nivers abnormal abnormal 6-07 ity of cervical cervical 00:00: [place] Pap smear Pap smear 00 [facility] Diabetic Diabetic Disease Active Unive rs foot foot 5-02 ity of infection infection 00:00: [address] Allergies, Adverse Reactions, Alerts This patient has no known allergies or adverse reactions. Social History Social Habit Start Date Stop Date Quantity Comments Source Tobacco use and 2018-11-24 2018-11-24 Never used [facility] y of exposure 00:00:00 00:00:00 [facility] Alcohol intake 2018-11-24 2018-11-24 Current drinker of Un iversity of 00:00:00 00:00:00 alcohol (finding) [facility] Alcohol Comment 2018-11-24 2018-11-24 occasional Universit y of 00:00:00 00:00:00 [facility] Sex Assigned At [birth year] [facility] 00:00:00 00:00:00 [facility] Smoking Status Start Date Stop Date Source Never smoker [facility] Medications Ordered Filled Start Stop Current Ordering Indication Dosage Frequency Signature Comments Components Source Medication Medication Date Date Medication? Clinician (SIG) Name Name INJECT 1 ML 2021-0 No INTRAMUSCUL 6-23 CHRISTIAN ONCE 00:00: EVERY 3 00 MONTHS. Depo-Service Representative 2021-0 No 1mg/mL a 150 mg/mL 6-23 [...] 8 00:00: 00 Dose 2021-0 No Unknown 8- [...] 40 mg 3-06 tablet 00:00: 00 Levemir 2018-1 No 5(3 mL) FlexTouch 2-18 U-100 00:00: Insulin 100 00 unit/mL (3 mL) subcutaneou s pen atorvastati 2018-1 No 1mg n 40 mg 2-18 tablet 00:00: 00 Levemir 2019-1 No 5(3 mL) FlexTouch 2-18 U-100 00:00: Insulin 100 00 unit/mL (3 mL) subcutaneou s pen atorvastati 2018-1 No 1mg n 40 mg 2-18 tablet 00:00: 00 No known No Univers medications ity of [facility] Immunizations Ordered Filled Immunization Date Status Comments [facility] e Immunization Name Name Td 2015-10-20 Completed University 00:00:00 [facility] Vital Signs Vital Name Observation Time Observation [...] Procedure Date / Time Performed Performing Clinician [facility] e REFERRAL- 2020-11-07 05:01:00 Doctor Unassigned, No Univer [facility] REQUEST/RESPONSE Name Medical Branch Plan of Care Planned Activity Planned Date Details Comments Source Goal Plan of Care Note [code = 70789-3] Goal Plan of Care Note [code = 14853-3] Goal Plan of Care Note [code = 76015-4] Goal Plan of Care Note [code = 33958-7] Goal Plan of Care Note [code = 82724-0] Goal Plan of Care Note [code = 76204-9] Goal Plan of Care Note [code = 41334-3] Goal Plan of Care Note [code = 83306-1] Goal Plan of Care Note [code = 32495-0] Goal Plan of Care Note [code = 51454-8] Goal Plan of Care Note [code = 36724-5] Goal Plan of Care Note [code = 13893-9] Goal Plan of Care Note [code = 52960-5] Goal Plan of Care Note [code = 76937-2] Goal Plan of Care Note [code = 38229-3] Goal Plan of Care Note [code = 93952-3] Goal Plan of Care Note [code = 75546-0] Goal Plan of Care Note [code = 01993-3] Goal Plan of Care Note [code = 97244-2] Goal Plan of Care Note [code = 40932-1] Goal Plan of Care Note [code = 85730-2] Goal Plan of Care Note [code = 69789-6] Goal Plan of Care Note [code = 76729-4] Goal Plan of Care Note [code = 68958-1] Goal Plan of Care Note [code = 07913-3] Goal Plan of Care Note [code = 75751-7] Goal Plan of Care Note [code = 73524-7] Goal Plan of Care Note [code = 74181-4] Goal Plan of Care Note [code = 12112-5] Goal Plan of Care Note [code = 89036-1] Goal Plan of Care Note [code = 34766-8] Goal Plan of Care Note [code = 90864-5] Goal Plan of Care Note [code = 74713-2] Goal Plan of Care Note [code = 19457-7] Goal Plan of Care Note [code = 39090-1] Goal Plan of Care Note [code = 20636-9] Goal Plan of Care Note [code = 59874-5] Goal Plan of Care Note [code = 57997-9] Encounters Start End Encounter Admission Attending Care Care Encounter Source Date/Time Date/Time Type Type Clinicians Facility Department ID 2022-09-10 2022-09-10 Outpatient [facility] [id number] Garry 16:03:05 16:03:05 0324 F Eloy 2022-08-30 2022-08-30 Outpatient [facility] [id number] Garry 14:47:20 14:47:20 0313 F Eloy 2022-05-31 2022-05-31 Outpatient [facility] [id number] Garry 15:30:31 15:30:31 1212 F Eloy 2022-03-10 2022-03-10 Outpatient [id number] 00:00:00 00:00:00 Visit 3a3d-806t m6z-871v-s -a4un-b03 [id number] [id number] 2022-03-08 2022-03-08 Outpatient [id number] 00:00:00 00:00:00 Visit 9j5r-840p w5m-816x-j -i05d-h7p 00d-e4f39d 09hwgy2g6 bff1c0 2020-11-07 2020-11-07 Orders Doctor CIARRA [id number] Univers 00:00:00 00:00:00 Only Unassigned, HORACE 350.1.13.[address] [facility] 4.2.7.2.686 Yousuf as [phone] [facility] marilee 009 Branch 2020-11-07 2020-11-07 Orders Doctor CIARRA [id number] [id number] 00:00:00 00:00:00 Only Unassigned, HORACE 350.1.13.10 [facility] 4.2.7.2.686 [id number] Results Test Description Test Time Test Comments Results Result Comments Source ALBUMIN/CREATININE RATIO, URINE, RANDOM 2022-03-09 04:55:11 Test Item Value Reference Range Interpretation Comme nts CREATININE, URINE, CONC. (test 135.5 MG/DL NOT ESTAB code = 2072) ALBUMIN, URINE, RANDOM (test 3.2 MG/DL NOT ESTAB code = 76453) CALC ALBUMIN/CREAT, RND (test 24 MG/G <30 Note: Albumin/Creatinine ratio code = 89714) reference inte rval reflects ADA and NKF guideli nishant. UNLESS OTHERWISE INDIC ATED, ALL TESTING PERFORM ED ATCLINICAL PATHOLOGY [email or web address], [facility]. [address] [place] [address] LABORATORY DIRE CTOR: SIRISHA SERRATO M.D. CLIA NUMBER [id number] [facility]. [id number] LIPID [id number] 03:42:46 Test Item Value Reference Range Interpretation [...] MOREINFORMATION , SEE CLIENT ANNOUNCE MENT AT [email or web address] CalcLDL-C RISK RATIO LDL/HDL (NOTE) RATIO <3.22 UNABLE T O CALCULATE (test code = 2238) COMPREHENSIVE METABOLIC [id number] 03:42:46 Test Item Value Reference Range Interpretation Comments GLUCOSE (test code = 315 MG/DL 70-99 H 2216) BUN (test code = 11 MG/DL 6-20 2207) CREATININE (test 0.61 MG/DL 0.60-1.30 code = 2214) eGFR (2020 CKD-EPI) 114 >60 (test code = 78539) ML/MIN/1.73 CALC BUN/CREAT (test 18 RATIO 6-28 code = 2235) SODIUM (test code = 139 MEQ/L 865-197 3145) POTASSIUM (test code 4.1 MEQ/L 3.5-5.4 = 2227) CHLORIDE (test code 105 MEQ/L 95-107 = 2214) CARBON DIOXIDE (test 21 MEQ/L 19-31 code = 2206) CALCIUM (test code = 9.4 MG/DL 8.5-10.5 2208) PROTEIN, TOTAL (test 7.5 G/DL 6.1-8.3 code = 2229) ALBUMIN (test code = 4.6 G/DL 3.5-5.2 [...] 2204) AST (test code = 10 U/L 40 2217) ALT (test code = 7 U/L -40 2218) HEMOGLOBIN [id number] 02:41:50 Test Item Value Reference Range Interpretation Comments HEMOGLOBIN A1c (test 9.2 % 4.2-5.6 H AMERIC AN DIABETES code = 43852) ASSOCIATION [employer] FOR HGB A1C: PREDIABETES/INC REASED [...] TESTING OR LABORATORY C ONSULTATION. COMPREHENSIVE METABOLIC [id number] 00:00:00 Test Item Value Reference Range Interpretation Comments GLUCOSE (test code = 2217) 315 MG/DL BUN (test code = 2208) 11 MG/DL CREATININE (test code = 2214) 0.61 MG/DL eGFR (2020 CKD-EPI) (test 114 ML/MIN/1.73 code = 05766) CALC BUN/CREAT (test code = 18 RATIO [...] CALC GLOBULIN (test code = 2.9 G/DL 0) CALC A/G RATIO (test code = 1.6 RATIO 2234) BILIRUBIN, TOTAL (test code = 0.4 MG/DL 2206) ALKALINE PHOSPHATASE (test 79 U/L code = 2204) AST (test code = 2218) 10 U/L ALT (test code = 2219) 7 U/L ALBUMIN/CREATININE RATIO, RANDOM [id number] 00:00:00 Test Item Value Reference Range Interpretation Comments CREATININE, URINE, CONC. (test 135.5 MG/DL code = 2071) ALBUMIN, URINE, RANDOM (test code 3.2 MG/DL = 64571) CALC ALBUMIN/CREAT, RND (test 24 MG/G code = 38328) ALBUMIN/CREATININE RATIO, RANDOM [id number] 00:00:00 Test Item Value Reference Range Interpretation Comments CREATININE, URINE, CONC. (test 135.5 MG/DL code = 2072) ALBUMIN, URINE, RANDOM (test code 3.2 MG/DL = 62193) CALC ALBUMIN/CREAT, RND (test 24 MG/G code = 75498) HEMOGLOBIN [id number] 00:00:00 Test Item Value Reference Range Interpretation Comments HEMOGLOBIN A1c (test code = 84768) 9.2 % HEMOGLOBIN [id number] 00:00:00 Test Item Value Reference Range Interpretation Comments HEMOGLOBIN A1c (test code = 02126) 9.2 % HEMOGLOBIN [id number] 00:00:00 Test Item Value Reference Range Interpretation Comments HEMOGLOBIN A1c (test code = 39023) 9.2 % LIPID [id number] 00:00:00 Test Item Value Reference Range Interpretation Comments CHOLESTEROL (test code = 2210) 243 MG/DL TRIGLYCERIDES (test code = 2232) 788 MG/DL HDL CHOLESTEROL (test code = 22 MG/DL 2220) CALC LDL CHOL (test code = 2237) (NOTE) MG/DL RISK RATIO LDL/HDL (test code = (NOTE) RATIO 2238) LIPID [id number] 00:00:00 Test Item Value Reference Range Interpretation Comments CHOLESTEROL (test code = 2210) 243 MG/DL TRIGLYCERIDES (test code = 2232) 788 MG/DL HDL CHOLESTEROL (test code = 22 MG/DL 2220) CALC LDL CHOL (test code = 2237) (NOTE) MG/DL RISK RATIO LDL/HDL (test code = (NOTE) RATIO 2238) COMPREHENSIVE METABOLIC [id number] 00:00:00 Test Item Value Reference Range Interpretation Comments GLUCOSE (test code = 2217) 315 MG/DL BUN (test code = 2208) 11 MG/DL CREATININE (test code = 2214) 0.61 MG/DL eGFR (2020 CKD-EPI) (test 114 ML/MIN/1.73 code = 54702) CALC BUN/CREAT (test code = 18 RATIO 2235) SODIUM (test code = 2231) 139 MEQ/L POTASSIUM (test code = 2228) 4.1 MEQ/L CHLORIDE (test code = 2215) 105 MEQ/L CARBON DIOXIDE (test code = 21 MEQ/L 2206) CALCIUM (test code = 2209) 9.4 MG/DL [...] code = 2219) 7 U/L COMPREHENSIVE METABOLIC [id number] 00:00:00 Test Item Value Reference Range Interpretation Comments GLUCOSE (test code = 2217) 315 MG/DL BUN (test code = 2208) 11 MG/DL CREATININE (test code = 2214) 0.61 MG/DL eGFR (2020 CKD-EPI) (test 114 ML/MIN/1.73 code = 36847) CALC BUN/CREAT (test code = 18 RATIO 2235) SODIUM (test code = 2231) 139 MEQ/L POTASSIUM (test code = 2228) 4.1 MEQ/L CHLORIDE (test code = 2215) 105 MEQ/L CARBON DIOXIDE (test code = 21 MEQ/L 2206) CALCIUM (test code = 2209) 9.4 MG/DL [...] = 2219) 7 U/L ALBUMIN/CREATININE RATIO, RANDOM [id number] 00:00:00 Test Item Value Reference Range Interpretation Comments CREATININE, URINE, CONC. (test 135.5 MG/DL code = 2072) ALBUMIN, URINE, RANDOM (test code 3.2 MG/DL = 69659) CALC ALBUMIN/CREAT, RND (test 24 MG/G code = 65178) ALBUMIN/CREATININE RATIO, RANDOM [id number] 00:00:00 Test Item Value Reference Range Interpretation Comments CREATININE, URINE, CONC. (test 135.5 MG/DL code = 2072) ALBUMIN, URINE, RANDOM (test code 3.2 MG/DL = 22944) CALC ALBUMIN/CREAT, RND (test 24 MG/G code = 57783) HEMOGLOBIN [id number] 00:00:00 Test Item Value Reference Range Interpretation Comments HEMOGLOBIN A1c (test code = 45993) 9.2 % HEMOGLOBIN [id number] 00:00:00 Test Item Value Reference Range Interpretation Comments HEMOGLOBIN A1c (test code = 15450) 9.2 % HEMOGLOBIN [id number] 00:00:00 Test Item Value Reference Range Interpretation Comments HEMOGLOBIN A1c (test code = 87262) 9.2 % LIPID [id number] 00:00:00 Test Item Value Reference Range Interpretation Comments CHOLESTEROL (test code = 2210) 243 MG/DL TRIGLYCERIDES (test code = 2232) 788 MG/DL HDL CHOLESTEROL (test code = 22 MG/DL 2220) CALC LDL CHOL (test code = 2237) (NOTE) MG/DL RISK RATIO LDL/HDL (test code = (NOTE) RATIO 2238) LIPID [id number] 00:00:00 Test Item Value Reference Range Interpretation Comments CHOLESTEROL (test code = 2210) 243 MG/DL TRIGLYCERIDES (test code = 2232) 788 MG/DL HDL CHOLESTEROL (test code = 22 MG/DL 2220) CALC LDL CHOL (test code = 2237) (NOTE) MG/DL RISK RATIO LDL/HDL (test code = (NOTE) RATIO 2238) COMPREHENSIVE METABOLIC [id number] 00:00:00 Test Item Value Reference Range Interpretation Comments GLUCOSE (test code = 2217) 315 MG/DL BUN (test code = 2208) 11 MG/DL CREATININE (test code = 2214) 0.61 MG/DL eGFR (2020 CKD-EPI) (test 114 ML/MIN/1.73 code = 47045) CALC BUN/CREAT (test code = 18 RATIO [...] ALKALINE PHOSPHATASE (test 79 U/L code = 220) AST (test code = 2218) 10 U/L ALT (test code = 2219) 7 U/L VITAMIN [id number] 00:00:00 Test Item Value Reference Range Interpretation Comments VITAMIN B-12 (test code = 2840) 444 PG/ML VITAMIN [id number] 00:00:00 Test Item Value Reference Range Interpretation Comments VITAMIN B-12 (test code = 2840) 444 PG/ML VITAMIN [id number] 00:00:00 Test Item Value Reference Range Interpretation Comments VITAMIN B-12 (test code = 2840) 444 PG/ML [id number] 00:00:00 Test Item Value Reference Range Interpretation Comments TSH, THIRD GENERATION (test code 0.552 UIU/ML = 2821) [id number] 00:00:00 Test Item Value Reference Range Interpretation Comments TSH, THIRD GENERATION (test code 0.552 UIU/ML = 2821) [id number] 00:00:00 Test Item Value Reference Range Interpretation Comments TSH, THIRD GENERATION (test code 0.552 UIU/ML = 2821) VITAMIN D, 25 [id number] 00:00:00 Test Item Value Reference Range Interpretation Comments VITAMIN D, 25 [place] (test code = 4958) 19 NG/ML VITAMIN D, 25 [id number] 00:00:00 Test Item Value Reference Range Interpretation Comments VITAMIN D, 25 [place] (test code = 4958) 19 NG/ML VITAMIN [id number] 00:00:00 Test Item Value Reference Range Interpretation Comments VITAMIN B-12 (test code = 2840) 444 PG/ML VITAMIN [id number] 00:00:00 Test Item Value Reference Range Interpretation Comments VITAMIN B-12 (test code = 2840) 444 PG/ML VITAMIN [id number] 00:00:00 Test Item Value Reference Range Interpretation Comments VITAMIN B-12 (test code = 2840) 444 PG/ML [id number] 00:00:00 Test Item Value Reference Range Interpretation Comments TSH, THIRD GENERATION (test code 0.552 UIU/ML = 2821) [id number] 00:00:00 Test Item Value Reference Range Interpretation Comments TSH, THIRD GENERATION (test code 0.552 UIU/ML = 2821) [id number] 00:00:00 Test Item Value Reference Range Interpretation Comments TSH, THIRD GENERATION (test code 0.552 UIU/ML = 2821) VITAMIN D, 25 [id number] 00:00:00 Test Item Value Reference Range Interpretation Comments VITAMIN D, 25 [place] (test code = 4958) 19 NG/ML VITAMIN D, 25 [id number] 00:00:00 Test Item Value Reference Range Interpretation Comments VITAMIN D, 25 [place] (test code = 4958) 19 NG/ML HEMOGLOBIN [id number] 00:00:00 Test Item Value Reference Range Interpretation Comments HEMOGLOBIN A1c (test code = 39284) 6.7 % HEMOGLOBIN [id number] 00:00:00 Test Item Value Reference Range Interpretation Comments HEMOGLOBIN A1c (test code = 21858) 6.7 % HEMOGLOBIN [id number] 00:00:00 Test Item Value Reference Range Interpretation Comments HEMOGLOBIN A1c (test code = 90560) 6.7 % HEMOGLOBIN [id number] 00:00:00 Test Item Value Reference Range Interpretation Comments HEMOGLOBIN A1c (test code = 94435) 6.7 % HEMOGLOBIN [id number] 00:00:00 Test Item Value Reference Range Interpretation Comments HEMOGLOBIN A1c (test code = 14891) 6.7 % HEMOGLOBIN [id number] 00:00:00 Test Item Value Reference Range Interpretation Comments HEMOGLOBIN A1c (test code = 90589) 6.7 % MICROALBUMIN/CREATININE, RANDOM AND [id number] 00:00:00 Test Item Value Reference Range Interpretation Comments CREATININE, URINE, CONC. (test 22.0 MG/DL code = 2072) ALBUMIN, URINE, RANDOM (test code 0.2 MG/DL = 68014) CALC ALBUMIN/CREAT, RND (test code 9 MG/G = 02541) MICROALBUMIN/CREATININE, RANDOM AND [id number] 00:00:00 Test Item Value Reference Range Interpretation Comments CREATININE, URINE, CONC. (test 22.0 MG/DL code = 2072) ALBUMIN, URINE, RANDOM (test code 0.2 MG/DL = 47265) CALC ALBUMIN/CREAT, RND (test code 9 MG/G = 68231) COMPREHENSIVE METABOLIC [id number] 00:00:00 Test Item Value Reference Range Interpretation Comments GLUCOSE (test code = 2217) 158 MG/DL BUN (test code = 2208) 12 MG/DL CREATININE (test code = 2214) 0.63 MG/DL eGFR AMER. (test code 129 ML/MIN/1.73 = 16848) eGFR NON- AMER. (test 111 ML/MIN/1.73 code = 44573) CALC BUN/CREAT (test code = 19 RATIO [...] code = 2219) 34 U/L COMPREHENSIVE METABOLIC [id number] 00:00:00 Test Item Value Reference Range Interpretation Comments GLUCOSE (test code = 2217) 158 MG/DL BUN (test code = 2208) 12 MG/DL CREATININE (test code = 2214) 0.63 MG/DL eGFR AMER. (test code 129 ML/MIN/1.73 = 34500) eGFR NON- AMER. (test 111 ML/MIN/1.73 code = 90554) CALC BUN/CREAT (test code = 19 RATIO 2235) SODIUM (test code = 2231) 140 MEQ/L POTASSIUM (test code = 2228) 4.3 MEQ/L CHLORIDE (test code = 2215) 103 MEQ/L CARBON DIOXIDE (test code = 28 MEQ/L 2205) CALCIUM (test code = 2209) 9.6 MG/DL PROTEIN, TOTAL (test code = 7.2 G/DL 2228) ALBUMIN (test code = 2201) 4.4 G/DL CALC GLOBULIN (test code = 2.8 G/DL 2239) CALC A/G RATIO (test code = 1.6 RATIO 2233) BILIRUBIN, TOTAL (test code = 0.4 MG/DL 2206) ALKALINE PHOSPHATASE (test 69 U/L code = 2204) AST (test code = 2218) 28 U/L ALT (test code = 2219) 34 U/L LIPID [id number] 00:00:00 Test Item Value Reference Range Interpretation Comments CHOLESTEROL (test code = 2210) 173 MG/DL TRIGLYCERIDES (test code = 2232) 341 MG/DL HDL CHOLESTEROL (test code = 2220) 28 MG/DL CALC LDL CHOL (test code = 2237) 100 MG/DL RISK RATIO LDL/HDL (test code = 3.57 RATIO 2238) LIPID [id number] 00:00:00 Test Item Value Reference Range Interpretation Comments CHOLESTEROL (test code = 2210) 173 MG/DL TRIGLYCERIDES (test code = 2232) 341 MG/DL HDL CHOLESTEROL (test code = 2220) 28 MG/DL CALC LDL CHOL (test code = 2237) 100 MG/DL RISK RATIO LDL/HDL (test code = 3.57 RATIO 2238) MICROALBUMIN/CREATININE, RANDOM AND [id number] 00:00:00 Test Item Value Reference Range Interpretation Comments CREATININE, URINE, CONC. (test 22.0 MG/DL code = 2072) ALBUMIN, URINE, RANDOM (test code 0.2 MG/DL = 86791) CALC ALBUMIN/CREAT, RND (test code 9 MG/G = 34848) MICROALBUMIN/CREATININE, RANDOM AND [id number] 00:00:00 Test Item Value Reference Range Interpretation Comments CREATININE, URINE, CONC. (test 22.0 MG/DL code = 2072) ALBUMIN, URINE, RANDOM (test code 0.2 MG/DL = 48325) CALC ALBUMIN/CREAT, RND (test code 9 MG/G = 88324) COMPREHENSIVE METABOLIC [id number] 00:00:00 Test Item Value Reference Range Interpretation Comments GLUCOSE (test code = 2217) 158 MG/DL BUN (test code = 2208) 12 MG/DL CREATININE (test code = 2214) 0.63 MG/DL eGFR AMER. (test code 129 ML/MIN/1.73 = 46195) eGFR NON- AMER. (test 111 ML/MIN/1.73 code = 22319) CALC BUN/CREAT (test code = 19 RATIO 2235) SODIUM (test code = 2231) 140 MEQ/L POTASSIUM (test code = 2228) 4.3 MEQ/L CHLORIDE (test code = 2215) 103 MEQ/L CARBON DIOXIDE (test code = 28 MEQ/L 2205) CALCIUM (test code = 2209) 9.6 MG/DL [...] code = 2219) 34 U/L COMPREHENSIVE METABOLIC [id number] 00:00:00 Test Item Value Reference Range Interpretation Comments GLUCOSE (test code = 2217) 158 MG/DL BUN (test code = 2208) 12 MG/DL CREATININE (test code = 2214) 0.63 MG/DL eGFR AMER. (test code 129 ML/MIN/1.73 = 73907) eGFR NON- AMER. (test 111 ML/MIN/1.73 code = 79701) CALC BUN/CREAT (test code = 19 RATIO 2235) SODIUM (test code = 2231) 140 MEQ/L POTASSIUM (test code = 2228) 4.3 MEQ/L CHLORIDE (test code = 2215) 103 MEQ/L CARBON DIOXIDE (test code = 28 MEQ/L 2205) CALCIUM (test code = 2209) 9.6 MG/DL PROTEIN, TOTAL (test code = 7.2 G/DL 2228) ALBUMIN (test code = 2201) 4.4 G/DL CALC GLOBULIN (test code = 2.8 G/DL 2239) CALC A/G RATIO (test code = 1.6 RATIO 2233) BILIRUBIN, TOTAL (test code = 0.4 MG/DL 2206) ALKALINE PHOSPHATASE (test 69 U/L code = 2204) AST (test code = 2218) 28 U/L ALT (test code = 2219) 34 U/L LIPID [id number] 00:00:00 Test Item Value Reference Range Interpretation Comments CHOLESTEROL (test code = 2210) 173 MG/DL TRIGLYCERIDES (test code = 2232) 341 MG/DL HDL CHOLESTEROL (test code = 2220) 28 MG/DL CALC LDL CHOL (test code = 2237) 100 MG/DL RISK RATIO LDL/HDL (test code = 3.57 RATIO 2238) LIPID [id number] 00:00:00 Test Item Value Reference Range Interpretation Comments CHOLESTEROL (test code = 2210) 173 MG/DL TRIGLYCERIDES (test code = 2232) 341 MG/DL HDL CHOLESTEROL (test code = 2220) 28 MG/DL CALC LDL CHOL (test code = 2237) 100 MG/DL RISK RATIO LDL/HDL (test code = 3.57 RATIO 2238) HEMOGLOBIN [id number] 00:00:00 Test Item Value Reference Range Interpretation Comments HEMOGLOBIN A1c (test code = 18400) 7.0 % HEMOGLOBIN [id number] 00:00:00 Test Item Value Reference Range Interpretation Comments HEMOGLOBIN A1c (test code = 65533) 7.0 % MICROALBUMIN/CREATININE, RANDOM AND [id number] 00:00:00 Test Item Value Reference Range Interpretation Comments CREATININE, URINE, CONC. (test 92.4 MG/DL code = 2072) ALBUMIN, URINE, RANDOM (test code 0.7 MG/DL = 97031) CALC ALBUMIN/CREAT, RND (test code 8 MG/G = 48561) MICROALBUMIN/CREATININE, RANDOM AND [id number] 00:00:00 Test Item Value Reference Range Interpretation Comments CREATININE, URINE, CONC. (test 92.4 MG/DL code = 2072) ALBUMIN, URINE, RANDOM (test code 0.7 MG/DL = 63580) CALC ALBUMIN/CREAT, RND (test code 8 MG/G = 08244) HIV 1/2 4TH GEN, RFLX CONF [ADDED]2019-03-22 [...] Interpretation Comments GONORRHEA, TMA (test code = 12609) NEGATIVE CHLAMYDIA, TMA (test code = 46324) NEGATIVE CT/NG, TMA, URINE [ADDED]2019-03-22 00:00:00 Test Item Value Reference Range Interpretation Comments GONORRHEA, TMA (test code = 25127) NEGATIVE CHLAMYDIA, TMA (test code = 92257) NEGATIVE COMPREHENSIVE METABOLIC [id number] 00:00:00 Test Item Value Reference Range Interpretation Comments GLUCOSE (test code = 2217) 238 MG/DL BUN (test code = 2208) 15 MG/DL CREATININE (test code = 2214) 0.71 MG/DL eGFR AMER. (test code 123 ML/MIN/1.73 = 81922) eGFR NON- AMER. (test 107 ML/MIN/1.73 code = 05465) CALC BUN/CREAT (test code = 21 RATIO [...] code = 2219) 12 U/L COMPREHENSIVE METABOLIC [id number] 00:00:00 Test Item Value Reference Range Interpretation Comments GLUCOSE (test code = 2217) 238 MG/DL BUN (test code = 2208) 15 MG/DL CREATININE (test code = 2214) 0.71 MG/DL eGFR AMER. (test code 123 ML/MIN/1.73 = 09859) eGFR NON- AMER. (test 107 ML/MIN/1.73 code = 44648) CALC BUN/CREAT (test code = 21 RATIO [...] (test code = 2219) 12 U/L LIPID [id number] 00:00:00 Test Item Value Reference Range Interpretation Comments CHOLESTEROL (test code = 2210) 178 MG/DL TRIGLYCERIDES (test code = 2232) 939 MG/DL HDL CHOLESTEROL (test code = 21 MG/DL 2220) CALC LDL CHOL (test code = 2237) NOTE MG/DL RISK RATIO LDL/HDL (test code = (NOTE) RATIO 2238) LIPID [id number] 00:00:00 Test Item Value Reference Range Interpretation Comments CHOLESTEROL (test code = 2210) 178 MG/DL TRIGLYCERIDES (test code = 2232) 939 MG/DL HDL CHOLESTEROL (test code = 21 MG/DL 2220) CALC LDL CHOL (test code = 2237) NOTE MG/DL RISK RATIO LDL/HDL (test code = (NOTE) RATIO 2238) HEMOGLOBIN [id number] 00:00:00 Test Item Value Reference Range Interpretation Comments HEMOGLOBIN A1c (test code = 65823) 7.0 % HEMOGLOBIN [id number] 00:00:00 Test Item Value Reference Range Interpretation Comments HEMOGLOBIN A1c (test code = 81727) 7.0 % HEMOGLOBIN [id number] 00:00:00 Test Item Value Reference Range Interpretation Comments HEMOGLOBIN A1c (test code = 98011) 7.0 % MICROALBUMIN/CREATININE, RANDOM AND [id number] 00:00:00 Test Item Value Reference Range Interpretation Comments CREATININE, URINE, CONC. (test 92.4 MG/DL code = 2072) ALBUMIN, URINE, RANDOM (test code 0.7 MG/DL = 84336) CALC ALBUMIN/CREAT, RND (test code 8 MG/G = 59353) MICROALBUMIN/CREATININE, RANDOM AND [id number] 00:00:00 Test Item Value Reference Range Interpretation Comments CREATININE, URINE, CONC. (test 92.4 MG/DL code = 2072) ALBUMIN, URINE, RANDOM (test code 0.7 MG/DL = 76889) CALC ALBUMIN/CREAT, RND (test code 8 MG/G = 28188) HIV 1/2 4TH GEN, RFLX CONF [ADDED]2019-03-22 [...] Interpretation Comments GONORRHEA, TMA (test code = 27849) NEGATIVE CHLAMYDIA, TMA (test code = 40702) NEGATIVE CT/NG, TMA, URINE [ADDED]2019-03-22 00:00:00 Test Item Value Reference Range Interpretation Comments GONORRHEA, TMA (test code = 80398) NEGATIVE CHLAMYDIA, TMA (test code = 57666) NEGATIVE COMPREHENSIVE METABOLIC [id number] 00:00:00 Test Item Value Reference Range Interpretation Comments GLUCOSE (test code = 2217) 238 MG/DL BUN (test code = 2208) 15 MG/DL CREATININE (test code = 2214) 0.71 MG/DL eGFR AMER. (test code 123 ML/MIN/1.73 = 52485) eGFR NON- AMER. (test 107 ML/MIN/1.73 code = 90503) CALC BUN/CREAT (test code = 21 RATIO 2235) SODIUM (test code = 2231) 139 MEQ/L POTASSIUM (test code = 2228) 4.0 MEQ/L CHLORIDE (test code = 2215) 104 MEQ/L CARBON DIOXIDE (test code = 24 MEQ/L 2206) CALCIUM (test code = 2209) 9.5 MG/DL PROTEIN, TOTAL (test code = 7.3 G/DL 222) ALBUMIN (test code = 2201) 4.3 G/DL CALC GLOBULIN (test code = 3.0 G/DL 2240) CALC A/G RATIO (test code = 1.4 RATIO 2234) BILIRUBIN, TOTAL (test code = 0.4 MG/DL 220) ALKALINE PHOSPHATASE (test 76 U/L code = 2204) AST (test code = 2218) 10 U/L ALT (test code = 2219) 12 U/L COMPREHENSIVE METABOLIC [id number] 00:00:00 Test Item Value Reference Range Interpretation Comments GLUCOSE (test code = 2217) 238 MG/DL BUN (test code = 2208) 15 MG/DL CREATININE (test code = 2214) 0.71 MG/DL eGFR AMER. (test code 123 ML/MIN/1.73 = 40344) eGFR NON- AMER. (test 107 ML/MIN/1.73 code = 46834) CALC BUN/CREAT (test code = 21 RATIO [...] (test code = 2219) 12 U/L LIPID [id number] 00:00:00 Test Item Value Reference Range Interpretation Comments CHOLESTEROL (test code = 2210) 178 MG/DL TRIGLYCERIDES (test code = 2232) 939 MG/DL HDL CHOLESTEROL (test code = 21 MG/DL 2220) CALC LDL CHOL (test code = 2237) NOTE MG/DL RISK RATIO LDL/HDL (test code = (NOTE) RATIO 2238) LIPID [id number] 00:00:00 Test Item Value Reference Range Interpretation Comments CHOLESTEROL (test code = 2210) 178 MG/DL TRIGLYCERIDES (test code = 2232) 939 MG/DL HDL CHOLESTEROL (test code = 21 MG/DL 2220) CALC LDL CHOL (test code = 2237) NOTE MG/DL RISK RATIO LDL/HDL (test code = (NOTE) RATIO 2238) HEMOGLOBIN [id number] 00:00:00 Test Item Value Reference Range Interpretation Comments HEMOGLOBIN A1c (test code = 12063) 7.0 %
[2022-11-06] MEDS ORDERED: MORPHINE 4 MG/ML SYR ONE (12:01)
[2022-11-06] MEDS ORDERED: ONDANSETRON 4 MG/2 ML VIAL ONE (12:01)
[2022-11-06 12:06] LABS: Absolute Lymphocytes (CBC) 1.7 K/uL (0.7-4.9)
[2022-11-06 12:20] LABS: Hematocrit 35.6 % (36.0-45.0); Lymphocytes % 36.4 % (15.3-44.8); MCV 80.8 fL (80-100); RBC Red Blood Cell Count 4.41 M/uL (3.86-4.86)
--- NOTE | 2022-11-06 12:28 | RAD REPORT ---
EXAM DESCRIPTION: Rey Single View11/06/2022 12:09 pm CLINICAL HISTORY: Chest pain COMPARISON: 2021 FINDINGS: The lungs appear clear of acute infiltrate. The heart is normal size IMPRESSION: No acute abnormalities displayed
[2022-11-06 12:30] LABS: Specific Gravity > 1.030 (1.005-1.030); Urine Bacteria None Seen /HPF (<20); Urine Bilirubin NEGATIVE (Negative); Urine Blood 1+ (Negative); Urine Clarity Clear (Clear); Urine Color Colorless (Yellow); Urine Glucose 4+ (Over) (Negative); Urine Protein NEGATIVE (Negative); Urine RBC <5 /HPF (None Seen); Urine Urobilinogen Normal (Normal); Urine pH 5.5 (5.0-7.0)
[2022-11-06 12:39] LABS: ALT/SGPT 47 U/L (13-56); Albumin 3.6 g/dL (3.4-5.0); Alkaline Phosphatase 91 U/L (45-117); BUN Blood Urea Nitrogen 14 mg/dL (7-18); Bicarbonate 23 mEq/L (21-32); Bilirubin Total 0.3 mg/dL (0.2-1.0); Glomerular Filtration Rate 93 ml/min (=/>90); Lipase 46 U/L (13-75); Protein, Total 7.8 g/dL (6.4-8.2)
[2022-11-06 12:40] LABS: AST/SGOT 34 U/L (15-37); Bilirubin Direct < 0.1 mg/dL (0-0.2); Bilirubin Indirect, Calculated ND mg/dL (0.2-0.8); Troponin High Sensitivity < 3.0 pg/mL (<58.9)
[2022-11-06 12:42] LABS: Glucose Level 418 mg/dL (74-106)
[2022-11-06 12:44] LABS: Sodium Level 134 mEq/L (136-145)
[2022-11-06] MEDS ORDERED: INSULIN -REGULAR HUMAN 50 UNIT/0.5 ML ML ONE (13:49)
--- NOTE | 2022-11-06 14:17 | ER ---
Nurse's Notes [facility] Name: Kaur Caruso Age: 42 yrs Sex: Female : 1980 Arrival Date: 11/06/2022 Time: 11:15 Bed 4 Private MD: Diagnosis: Hyperglycemia, unspecified;Low back pain;Chest pain, unspecified Presentation: 11/06 11:25 Chief complaint: Right upper and left low back pain x 2 weeks, intermittent right sided hb chest pain and nausea x 3 days. Coronavirus screen: At this time, the client does not indicate any symptoms associated with coronavirus-19. Ebola Screen: No symptoms or risks identified at this time. Initial Sepsis Screen: Does the patient meet any 2 criteria? No. Patient's initial sepsis screen is negative. Does the patient have a suspected source of infection? No. Patient's initial sepsis screen is negative. Risk Assessment: Do you want to hurt yourself or someone else? Patient reports no desire to harm self or others. Onset of symptoms was October 23, 2022. 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 - Social history:: Smoking status: Patient denies any tobacco usage or history of. Screenin:[address] [facility] ED Fall Risk Assessment (Adult) History of falling in the last 3 months, iw including since admission. Abuse screen: Denies threats or abuse. Denies injuries from another. Nutritional screening: No deficits noted. Tuberculosis screening: No symptoms or risk factors identified. Assessment: 11:56 General: Appears in no apparent distress. Behavior is calm, cooperative. Pain: iw Complains of pain in anterior aspect of left upper chest and left breast Pain currently is 9 out of 10 on a pain scale. Pain: Complains of pain in right low back. Neuro: Level of Consciousness is awake, alert, obeys commands, Oriented to person, place, time, situation. Cardiovascular: Reports chest pain, Patient's skin is warm and dry. Respiratory: Respiratory effort is even, unlabored, Respiratory pattern is regular, symmetrical. Derm: Skin is intact, is healthy with good turgor. Musculoskeletal: Range of motion: intact in all extremities. Vital Signs: 11:25 BP 182 / 91; Pulse 87; Resp 16; Temp 97.8(O); Pulse Ox 100% on R/A; Weight 61.23 kg; hb Height 5 ft. 2 in. ; Pain 8/10; 12:20 BP 161 / 110; Pulse 89; Resp 16; Pulse Ox 97% on R/A; iw 13:28 BP 144 / 84; Pulse 79; iw 11:25 Body Mass Index 24.69 (61.23 kg, 157.48 cm) hb 11:25 Pain Scale: Adult hb ED Course: 11:16 Patient arrived in ED. ts1 11:26 Triage completed. hb 11:27 Arm band placed on. hb 11:40 Ada Fallon, RN is Primary Nurse. iw 11:40 [facility]. jh7 11:40 Oswaldo Rodriguez MD is Attending Physician. jh7 11:56 Initial lab(s) drawn, by fl, sent to lab. Inserted saline lock: 20 gauge in right iw antecubital area, using aseptic technique. Blood collected. 12:11 XRAY Chest (1 view) In Process Unspecified. EDMS 12:20 Urinalysis W/Microscopic Sent. iw 14:26 No provider procedures requiring assistance completed. iw 15:03 Patient has correct armband on for positive identification. iw 15:03 IV discontinued, intact, bleeding controlled, No redness/swelling at site. Pressure iw dressing applied. Administered Medications: 12:20 Drug: Ondansetron IVP 4 mg Route: IVP; Site: right antecubital; iw 12:20 Drug: morphine IVP or IV 4 mg Route: IVP; Infused Over: 4 mins; Site: right antecubital;iw 12:43 CANCELLED (Physician Discretion): NS 0.9% IV 1000 ml IV at 1 bolus Per protocol; 1000 jh7 mL bolus 13:28 Not Given (Hemodynamic Parameters): hydrALAZINE IVP 10 mg IVP once iw 13:45 Drug: Insulin Regular Human IVP 10 units {Co-Signature: vg1 Janette Servin RN).} iw Route: IVP; Site: right antecubital; Medication: 11:56 VIS not applicable for this client. iw Point of Care Testing: Blood Glucose: 14:26 Blood Glucose: 256 mg/dL; iw Ranges: Outcome: 14:17 Discharge ordered by MD. fritz 15:04 Discharged to home ambulatory. iw 15:04 Condition: good 15:04 Discharge instructions given to patient, Instructed on discharge instructions, follow up and referral plans. medication usage, Demonstrated understanding of instructions, follow-up care, medications, Prescriptions given X 4. 15:04 Patient left the ED. iw Signatures: Dispatcher [employer] EDAda Harmon RN RN Kacey Broussard RN RN Geetha Hernandez, AUTO HAULER AUTO HAULER Pau Rosenbaum PAS PAS ts1 Janette Churchill RN vg1 Corrections: (The following items were deleted from the chart) 12:21 12:20 BP 161 / 10; Pulse 89bpm; Resp 16bpm; Pulse Ox 97% RA; iw iw
--- NOTE | 2022-11-06 14:17 | EDPHYS ---
Physician Documentation [facility] Name: Kaur Caruso Age: 42 yrs Sex: Female : 1980 Arrival Date: 11/06/2022 Time: 11:15 Bed 4 Private MD: PRABHA Physician Oswaldo Rodriguez HPI: 11/06 11:30 This 42 yrs old Female presents to ER via Wheelchair with complaints of Back jh7 Pain, Chest Pain. 11:30 The patient presents with pain that is acute, with no known mechanism of injury. The jh7 symptoms are located in the low back, right subscapular area, R anterior chest. Onset: The symptoms/episode began/occurred 1 week(s) ago, and became worse 2 day(s) ago. 42-year-old female presents with back and chest pain over the past week that is worsened within the past 2 days. Reports that the pain is located at the bottom of her right shoulder blade and left lumbar spine. Reports that the chest pain is on the right side of her chest and worsens with movement and taking a deep breath. Reports that she recently ran out of her lisinopril and does not have a PCP at this time.. 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 - Social history:: Smoking status: Patient denies any tobacco usage or history of. ROS: 11:30 Constitutional: Negative for fever, chills, and weight loss, Eyes: Negative for injury, jh7 pain, redness, and discharge, Neck: Negative for injury, pain, and swelling, Respiratory: Negative for shortness of breath, cough, wheezing, and pleuritic chest pain, MS/Extremity: Negative for injury and deformity, Skin: Negative for injury, rash, and discoloration, Neuro: Negative for headache, weakness, numbness, tingling, and seizure. 11:30 Cardiovascular: Positive for chest pain, Negative for orthopnea, palpitations. 11:30 Back: Positive for pain at rest, pain with movement. 11:30 All other systems are negative. Exam: 11:30 Constitutional: This is a well developed, well nourished patient who is awake, alert, jh7 and in no acute distress. Head/Face: Normocephalic, atraumatic. Eyes: Pupils equal round and reactive to light, extra-ocular motions intact. Lids and lashes normal. Conjunctiva and sclera are non-icteric and not injected. Cornea within normal limits. Periorbital areas with no swelling, redness, or edema. Neck: Trachea midline, no thyromegaly or masses palpated, and no cervical lymphadenopathy. Supple, full range of motion without nuchal rigidity, or vertebral point tenderness. No Meningismus. Cardiovascular: Regular rate and rhythm with a normal S1 and S2. No gallops, murmurs, or rubs. Normal PMI, no JVD. No pulse deficits. Respiratory: Lungs have equal breath sounds bilaterally, clear to auscultation and percussion. No rales, rhonchi or wheezes noted. No increased work of breathing, no retractions or nasal flaring. Abdomen/GI: Soft, non-tender, with normal bowel sounds. No distension or tympany. No guarding or rebound. No evidence of tenderness throughout. Skin: Warm, dry with normal turgor. Normal color with no rashes, no lesions, and no evidence of cellulitis. MS/ Extremity: Pulses equal, no cyanosis. Neurovascular intact. Full, normal range of motion. Neuro: Awake and alert, GCS 15, oriented to person, place, time, and situation. Motor strength 5/5 in all extremities. Sensory grossly intact. Normal gait. 11:30 Back: pain, that is moderate, of the right subscapular area and left low back. Vital Signs: 11:25 BP 182 / 91; Pulse 87; Resp 16; Temp 97.8(O); Pulse Ox 100% on R/A; Weight 61.23 kg; hb Height 5 ft. 2 in. ; Pain 8/10; 12:20 BP 161 / 110; Pulse 89; Resp 16; Pulse Ox 97% on R/A; iw 13:28 BP 144 / 84; Pulse 79; iw 11:25 Body Mass Index 24.69 (61.23 kg, 157.48 cm) hb 11:25 Pain Scale: Adult hb MDM: 11:40 Patient medically screened. [facility] 14:50 Differential diagnosis: arthritis, chronic back pain, Osteoarthritis sprain, Acute MO, jh7 costochondritis, pleurisy, lumbar strain, muscle spasm. Data reviewed: vital signs, nurses notes, lab test result(s), EKG, radiologic studies, plain films. I considered the following discharge prescriptions or medication management in the emergency department Medications were administered in the Emergency Department. See MAR. Independent interpretation of the following test(s) in the Emergency Department EKG: See my EKG interpretation above X-Ray: My interpretation is no acute findings. Care significantly affected by the following chronic conditions: Diabetes, Hypertension. Scoring Tools HEART Score: History: Risk Factors: 1 or 2 risk factors (1), Total Score = 2. Counseling: I had a detailed discussion with the patient and/or guardian regarding: the historical points, exam findings, and any diagnostic results supporting the discharge/admit diagnosis, the need for outpatient follow up, for definitive care, to return to the emergency department if symptoms worsen or persist or if there are any questions or concerns that arise at home. Response to treatment: the patient's symptoms have markedly improved after treatment. Special discussion: The patient states that she ran out of her blood pressure medicine and Levemir pen months ago. States that she had the 100 unit pen and was instructed to give 24 units daily. Refilled her medication but strongly advised PCP follow-up. If she develops any new concerning symptoms, or current symptoms return, she may return to the ER for further eval.. 11/06 11:45 Order name: Basic Metabolic Panel; Complete Time: 12:44 [facility] 11/06 11:45 Order name: CBC with Diff; Complete Time: 12:30 [facility] 11/06 11:45 Order name: LFT's; Complete Time: 12:44 [facility] 11/06 11:45 Order name: Troponin HS; Complete Time: 12:44 [facility] 11/06 11:45 Order name: Lipase; Complete Time: 12:44 [facility] 11/06 11:45 Order name: Urinalysis W/Microscopic; Complete Time: 12:43 [facility] 11/06 14:38 Order name: Glucose, Ancillary Testing; Complete Time: 14:47 EDMS 11/06 11:45 Order name: XRAY Chest (1 view); Complete Time: 12:30 [facility] 11/06 11:45 Order name: EKG; Complete Time: 11:46 [facility] 11/06 11:45 Order name: Cardiac monitoring; Complete Time: 12:12 [facility] 11/06 11:45 Order name: EKG - Nurse/Tech; Complete Time: 11:49 [facility] 11/06 11:45 Order name: IV Saline Lock; Complete Time: 11:56 [facility] 11/06 11:45 Order name: Labs collected and sent; Complete Time: 11:56 [facility] 11/06 11:45 Order name: O2 Per Protocol; Complete Time: 11:56 [facility] 11/06 11:45 Order name: O2 Sat Monitoring; Complete Time: 11:56 [facility] 11/06 13:47 Order name: Recheck Blood Sugar; Complete Time: 14:27 [facility] EC:30 Rate is 86 beats/min. Rhythm is regular. QRS [place] is Normal. NV interval is normal at [facility] 154 msec. QRS interval is normal at 86 msec. QT interval is normal at 364 msec. No Q waves. T waves are Normal. No ST changes noted. Clinical impression: Normal ECG. Administered Medications: 12:20 Drug: Ondansetron IVP 4 mg Route: IVP; Site: right antecubital; iw 12:20 Drug: morphine IVP or IV 4 mg Route: IVP; Infused Over: 4 mins; Site: right antecubital;iw 12:43 CANCELLED (Physician Discretion): NS 0.9% IV 1000 ml IV at 1 bolus Per protocol; 1000 jh7 mL bolus 13:28 Not Given (Hemodynamic Parameters): hydrALAZINE IVP 10 mg IVP once iw 13:45 Drug: Insulin Regular Human IVP 10 units {Co-Signature: vg1 (Janette Churchill RN).} iw Route: IVP; Site: right antecubital; Point of Care Testing: Blood Glucose: 14:26 Blood Glucose: 256 mg/dL; iw Ranges: Critical Glucose Levels:Adult <50 mg/dl or >400 mg/dl <40 mg/dl or >180 mg/dl Disposition Summary: 11/06/22 14:17 Discharge Ordered Location: Home [facility] Problem: new [facility] Symptoms: have improved jh7 Condition: Stable 7 Diagnosis - Hyperglycemia, unspecified jh7 - Low back pain jh7 - Chest pain, unspecified jh7 Followup: [facility] - With: Private Physician - When: 2 - 3 days - Reason: Recheck today's complaints Discharge Instructions: - Discharge Summary Sheet [facility] - Acute Back Pain, Adult [facility] - Nonspecific Chest Pain, Adult [facility] - Chest Wall Pain [facility] - Hyperglycemia [facility] - Musculoskeletal Pain [facility] - Blood Glucose Monitoring, Adult [facility] Forms: - Medication Reconciliation Form [facility] - Thank You Letter [facility] Prescriptions: - Levemir FlexPen 100 unit/mL (3 mL) Subcutaneous Insulin Pen - inject 24 unit by SUBCUTANEOUS route daily; 1 Each; Refills: 0, Product [facility] Selection Permitted - Naprosyn 500 mg Oral Tablet - take 1 tablet by ORAL route 2 times per day take with food; 30 tablet; Refills: [facility] 0, Product Selection Permitted - Zanaflex 4 mg Oral Tablet - take 1 tablet by ORAL route every 8 hours As needed; 20 tablet; Refills: 0, [facility] Product Selection Permitted - Lisinopril 20 mg Oral Tablet - take 1 tablet by ORAL route once daily; 20 tablet; Refills: 0, Product [facility] Selection Permitted Signatures: Dispatcher [employer] Ada Pedersen, RN RN Kacey Broussard RN RN Geetha Hernandez FNP CUSTOMER SOLUTIONS COORDINATOR [facility] Janette Churchill RN vg1 Corrections: (The following items were deleted from the chart) 12:43 12:43 NS 0.9% IV 1000 ml IV at 1 bolus Per protocol; 1000 mL bolus [place]. [place] [id number]
[2022-11-06 15:35] VITALS: TEMP 97.8
[2022-11-06 15:38] VITALS: O2SAT 97
[2022-11-06 15:40] VITALS: BP 144/84
--- NOTE | 2022-11-08 15:26 | EKG ---
Test Date: 2022-11-06 Test Time: 11:30:25 Control Panel Builder: NEPTALI MEASUREMENT RESULTS: Intervals: Rate: 86 SC: 154 QRSD: 86 QT: 364 QTc: 435 [place]: P: 65 SC: 154 QRS: 47 T: 59 INTERPRETIVE STATEMENTS: Normal sinus rhythm Normal ECG Compared to ECG 11/06/2022 11:27:55 Myocardial infarct finding no longer present Electronically Signed On 11-08-22 15:22:11 CDT by Marciano Szymanski
--- NOTE | 2022-11-08 15:26 | EKG ---
Test Date: 2022-11-06 Test Time: 11:27:55 Risk Adjustment Specialist: NEPTALI MEASUREMENT RESULTS: Intervals: Rate: 83 PA: 154 QRSD: 84 QT: 370 QTc: 434 [place]: P: 116 PA: 154 QRS: 143 T: 130 INTERPRETIVE STATEMENTS: Suspect arm lead reversal, interpretation assumes no reversal Normal sinus rhythm Lateral infarct, age undetermined Abnormal ECG Compared to ECG 05/22/2022 03:07:41 Myocardial infarct finding now present Electronically Signed On 11-08-22 15:22:12 CDT by Marciano Szymanski
== END 2022-11-06 15:04 | disposition home or self-care (01) ==
LOC: ER 11:15
DX: E11.65 Type 2 diabetes mellitus with hyperglycemia (principal); M54.50 Low back pain, unspecified; R07.9 Chest pain, unspecified
CPT/HCPCS: 36415; 71045; 80048; 80076; 81001; 82947; 83690; 84484; 85025; 93005; J1815; J2405

== ENCOUNTER 2022-11-10 08:08 | Emergency (ER) | payer SELFPAY ==
--- OUTSIDE RECORDS SUMMARY | 2022-11-10 08:12 | XMS REPORT | Continuity of Care Document ---
:1980 Author Organization [facility] t Address [address] [place] [address] [place] [id number] Care Team Providers Name Role Phone Katie RECINOS, [facility] Primary Care Physician [phone] Doctor Unassigned, [place] Attending Clinician Unavailable Payers Payer Name Policy Type Policy Number Effective Date Expiration Date S ource Problems Condition Condition Condition Status Onset Resolution Last Treating Co mments Source Name Details Category Date Date Treatment Clinician Date Type 2 Type 2 Disease Active [facility] diabetes diabetes 6-07 ity of mellitus mellitus 00:00: [place] without without 00 Medical complicati complicati Br anch on, on, without without long-term long-term current current use of use of insulin insulin History of History of Disease Active U nivers abnormal abnormal 6- ity of cervical cervical 00:00: [place] Pap smear Pap smear 00 [facility] Diabetic Diabetic Disease Active Unive rs foot foot 5-02 ity of infection infection 00:00: [address] Allergies, Adverse Reactions, Alerts This patient has no known allergies or adverse reactions. Social History Social Habit Start Date Stop Date Quantity Comments Source Tobacco use and 2018-11-24 2018-11-24 Never used Universit y of exposure 00:00:00 00:00:00 [facility] Alcohol intake 2018-11-24 2018-11-24 Current drinker of Un iversity of 00:00:00 00:00:00 alcohol (finding) [facility] Alcohol Comment 2018-11-24 2018-11-24 occasional [facility] of 00:00:00 00:00:00 [facility] Sex Assigned At [birth year] [facility] 00:00:00 00:00:00 [facility] Smoking Status Start Date Stop Date Source Never smoker [facility] Medications Ordered Filled Start Stop Current Ordering Indication Dosage Frequency Signature Comments Components Source Medication Medication Date Date Medication? Clinician (SIG) Name Name INJECT 1 ML 2021-0 No INTRAMUSCUL 6-23 CHRISTIAN ONCE 00:00: EVERY 3 00 MONTHS. Depo-Test Tech 2021-0 No 1mg/mL a 150 mg/mL 6-23 [...] No known No Univers medications ity of [facility] Immunizations Ordered Filled Immunization Date Status Comments [facility] e Immunization Name Name Td 2015-10-20 Completed University 00:00:00 [facility] Vital Signs Vital Name Observation Time Observation [...] Procedure Date / Time Performed Performing Clinician [facility] e REFERRAL- 2020-11-07 05:01:00 Doctor Unassigned, No Univer [facility] REQUEST/RESPONSE Name Medical Branch Plan of Care Planned Activity Planned Date Details Comments Source Goal Plan of Care Note [code = 81898-8] Goal Plan of Care Note [code = 09349-7] Goal Plan of Care Note [code = 76949-0] Goal Plan of Care Note [code = 50489-9] Goal Plan of Care Note [code = 35143-4] Goal Plan of Care Note [code = 22110-2] Goal Plan of Care Note [code = 34478-9] Goal Plan of Care Note [code = 04524-1] Goal Plan of Care Note [code = 45276-1] Goal Plan of Care Note [code = 60412-7] Goal Plan of Care Note [code = 56003-9] Goal Plan of Care Note [code = 80316-6] Goal Plan of Care Note [code = 16603-7] Goal Plan of Care Note [code = 06382-0] Goal Plan of Care Note [code = 75998-3] Goal Plan of Care Note [code = 23137-5] Goal Plan of Care Note [code = 25720-0] Goal Plan of Care Note [code = 90883-4] Goal Plan of Care Note [code = 07317-1] Goal Plan of Care Note [code = 14789-6] Goal Plan of Care Note [code = 72241-7] Goal Plan of Care Note [code = 49290-7] Goal Plan of Care Note [code = 06924-1] Goal Plan of Care Note [code = 70384-0] Goal Plan of Care Note [code = 58616-0] Goal Plan of Care Note [code = 15558-4] Goal Plan of Care Note [code = 52616-9] Goal Plan of Care Note [code = 01799-8] Goal Plan of Care Note [code = 33356-5] Goal Plan of Care Note [code = 34860-2] Goal Plan of Care Note [code = 21697-3] Goal Plan of Care Note [code = 31170-2] Goal Plan of Care Note [code = 15772-2] Goal Plan of Care Note [code = 99634-7] Goal Plan of Care Note [code = 53420-2] Goal Plan of Care Note [code = 26193-9] Goal Plan of Care Note [code = 89212-7] Goal Plan of Care Note [code = 03919-5] Encounters Start End Encounter Admission Attending Care Care Encounter Source Date/Time Date/Time Type Type Clinicians Facility Department ID 2022-09-10 2022-09-10 Outpatient [facility] [id number] Garry 16:03:05 16:03:05 0324 F Eloy 2022-08-30 2022-08-30 Outpatient [facility] [id number] Garry 14:47:20 14:47:20 0313 F Eloy 2022-05-31 2022-05-31 Outpatient [facility] [id number] Garry 15:30:31 15:30:31 1212 F Eloy 2022-03-10 2022-03-10 Outpatient [id number] 00:00:00 00:00:00 Visit 8o4f-926t a0e-534f-m -t6zu-b57 [id number] 2022-03-08 2022-03-08 Outpatient [id number] 00:00:00 00:00:00 Visit 5o7z-319w y1e-023l-w -i79u-e5g 00d-e4f39d 65szya3t8 bff1c0 2020-11-07 2020-11-07 Orders Doctor CIARRA [id number] Univers 00:00:00 00:00:00 Only Unassigned, HORACE 350.1.13.10 ity of [place] [facility] 4.2.7.2.686 Yousuf as [id number] [facility] marilee 009 Branch 2020-11-07 2020-11-07 Orders Doctor CIARRA [id number] 00:00:00 00:00:00 Only Unassigned, HORACE 350.1.13.10 [place] [facility] 4.2.7.2.686 [id number] 009 Results Test Description Test Time Test Comments Results Result Comments Source ALBUMIN/CREATININE RATIO, URINE, RANDOM 2022-03-09 04:55:11 Test Item Value Reference Range Interpretation Comme nts CREATININE, URINE, CONC. (test 135.5 MG/DL NOT ESTAB code = 2072) ALBUMIN, URINE, RANDOM (test 3.2 MG/DL NOT ESTAB code = 81390) CALC ALBUMIN/CREAT, RND (test 24 MG/G <30 Note: Albumin/Creatinine ratio code = 82245) reference inte rval reflects ADA and NKF guideli nishant. UNLESS OTHERWISE INDIC ATED, ALL TESTING PERFORM ED ATCLINICAL PATHOLOGY [facility], [facility]. [address] [place] [address] LABORATORY DIRE CTOR: SIRISHA SERRATO M.D. CLIA NUMBER [id number] [facility]. [id number] LIPID [id number] 03:42:46 Test Item Value Reference Range Interpretation [...] MOREINFORMATION , SEE CLIENT ANNOUNCE MENT AT [email or web address] CalcLDL-C RISK RATIO LDL/HDL (NOTE) RATIO <3.22 UNABLE T O CALCULATE (test code = 2238) COMPREHENSIVE METABOLIC [id number] 03:42:46 Test Item Value Reference Range Interpretation Comments GLUCOSE (test code = 315 MG/DL 70-99 H 2216) BUN (test code = 11 MG/DL 6-20 2207) CREATININE (test 0.61 MG/DL 0.60-1.30 code = 2214) eGFR (2020 CKD-EPI) 114 >60 (test code = 86516) ML/MIN/1.73 CALC BUN/CREAT (test 18 RATIO 6-28 code = 2235) SODIUM (test code = 139 MEQ/L 059-381 5139) POTASSIUM (test code 4.1 MEQ/L 3.5-5.4 = [...] code = 7 U/L -40 2218) HEMOGLOBIN [id number] 02:41:50 Test Item Value Reference Range Interpretation Comments HEMOGLOBIN A1c (test 9.2 % 4.2-5.6 H AMERIC AN DIABETES code = 94986) ASSOCIATION IDELIN[employer] FOR HGB A1C: PREDIABETES/INC REASED [...] TESTING OR LABORATORY C ONSULTATION. COMPREHENSIVE METABOLIC [id number] 00:00:00 Test Item Value Reference Range Interpretation Comments GLUCOSE (test code = 2217) 315 MG/DL BUN (test code = 2208) 11 MG/DL CREATININE (test code = 2214) 0.61 MG/DL eGFR (2020 CKD-EPI) (test 114 ML/MIN/1.73 code = 86934) CALC BUN/CREAT (test code = 18 RATIO [...] = 2219) 7 U/L ALBUMIN/CREATININE RATIO, RANDOM [id number] 00:00:00 Test Item Value Reference Range Interpretation Comments CREATININE, URINE, CONC. (test 135.5 MG/DL code = 2071) ALBUMIN, URINE, RANDOM (test code 3.2 MG/DL = 94559) CALC ALBUMIN/CREAT, RND (test 24 MG/G code = 40608) ALBUMIN/CREATININE RATIO, RANDOM [id number] 00:00:00 Test Item Value Reference Range Interpretation Comments CREATININE, URINE, CONC. (test 135.5 MG/DL code = 2072) ALBUMIN, URINE, RANDOM (test code 3.2 MG/DL = 89416) CALC ALBUMIN/CREAT, RND (test 24 MG/G code = 17012) HEMOGLOBIN [id number] 00:00:00 Test Item Value Reference Range Interpretation Comments HEMOGLOBIN A1c (test code = 13713) 9.2 % HEMOGLOBIN [id number] 00:00:00 Test Item Value Reference Range Interpretation Comments HEMOGLOBIN A1c (test code = 57586) 9.2 % HEMOGLOBIN [id number] 00:00:00 Test Item Value Reference Range Interpretation Comments HEMOGLOBIN A1c (test code = 91355) 9.2 % LIPID [id number] 00:00:00 Test Item Value Reference Range Interpretation Comments CHOLESTEROL (test code = 2210) 243 MG/DL TRIGLYCERIDES (test code = 2232) 788 MG/DL HDL CHOLESTEROL (test code = 22 MG/DL 2220) CALC LDL CHOL (test code = 2237) (NOTE) MG/DL RISK RATIO LDL/HDL (test code = (NOTE) RATIO 2238) LIPID [id number] 00:00:00 Test Item Value Reference Range Interpretation Comments CHOLESTEROL (test code = 2210) 243 MG/DL TRIGLYCERIDES (test code = 2232) 788 MG/DL HDL CHOLESTEROL (test code = 22 MG/DL 2220) CALC LDL CHOL (test code = 2237) (NOTE) MG/DL RISK RATIO LDL/HDL (test code = (NOTE) RATIO 2238) COMPREHENSIVE METABOLIC [id number] 00:00:00 Test Item Value Reference Range Interpretation Comments GLUCOSE (test code = 2217) 315 MG/DL BUN (test code = 2208) 11 MG/DL CREATININE (test code = 2214) 0.61 MG/DL eGFR (2020 CKD-EPI) (test 114 ML/MIN/1.73 code = 26579) CALC BUN/CREAT (test code = 18 RATIO [...] code = 2219) 7 U/L COMPREHENSIVE METABOLIC [id number] 00:00:00 Test Item Value Reference Range Interpretation Comments GLUCOSE (test code = 2217) 315 MG/DL BUN (test code = 2208) 11 MG/DL CREATININE (test code = 2214) 0.61 MG/DL eGFR (2020 CKD-EPI) (test 114 ML/MIN/1.73 code = 71668) CALC BUN/CREAT (test code = 18 RATIO [...] = 2219) 7 U/L ALBUMIN/CREATININE RATIO, RANDOM [id number] 00:00:00 Test Item Value Reference Range Interpretation Comments CREATININE, URINE, CONC. (test 135.5 MG/DL code = 2072) ALBUMIN, URINE, RANDOM (test code 3.2 MG/DL = 57372) CALC ALBUMIN/CREAT, RND (test 24 MG/G code = 49521) ALBUMIN/CREATININE RATIO, RANDOM [id number] 00:00:00 Test Item Value Reference Range Interpretation Comments CREATININE, URINE, CONC. (test 135.5 MG/DL code = 2072) ALBUMIN, URINE, RANDOM (test code 3.2 MG/DL = 40657) CALC ALBUMIN/CREAT, RND (test 24 MG/G code = 31877) HEMOGLOBIN [id number] 00:00:00 Test Item Value Reference Range Interpretation Comments HEMOGLOBIN A1c (test code = 84199) 9.2 % HEMOGLOBIN [id number] 00:00:00 Test Item Value Reference Range Interpretation Comments HEMOGLOBIN A1c (test code = 10639) 9.2 % HEMOGLOBIN [id number] 00:00:00 Test Item Value Reference Range Interpretation Comments HEMOGLOBIN A1c (test code = 94637) 9.2 % LIPID [id number] 00:00:00 Test Item Value Reference Range Interpretation Comments CHOLESTEROL (test code = 2210) 243 MG/DL TRIGLYCERIDES (test code = 2232) 788 MG/DL HDL CHOLESTEROL (test code = 22 MG/DL 2220) CALC LDL CHOL (test code = 2237) (NOTE) MG/DL RISK RATIO LDL/HDL (test code = (NOTE) RATIO 2238) LIPID [id number] 00:00:00 Test Item Value Reference Range Interpretation Comments CHOLESTEROL (test code = 2210) 243 MG/DL TRIGLYCERIDES (test code = 2232) 788 MG/DL HDL CHOLESTEROL (test code = 22 MG/DL 2220) CALC LDL CHOL (test code = 2237) (NOTE) MG/DL RISK RATIO LDL/HDL (test code = (NOTE) RATIO 2238) COMPREHENSIVE METABOLIC [id number] 00:00:00 Test Item Value Reference Range Interpretation Comments GLUCOSE (test code = 2217) 315 MG/DL BUN (test code = 2208) 11 MG/DL CREATININE (test code = 2214) 0.61 MG/DL eGFR (2020 CKD-EPI) (test 114 ML/MIN/1.73 code = 60381) CALC BUN/CREAT (test code = 18 RATIO [...] (test code = 2219) 7 U/L VITAMIN [id number] 00:00:00 Test Item Value Reference Range Interpretation Comments VITAMIN B-12 (test code = 2840) 444 PG/ML VITAMIN [id number] 00:00:00 Test Item Value Reference Range Interpretation Comments VITAMIN B-12 (test code = 2840) 444 PG/ML VITAMIN [id number] 00:00:00 Test Item Value Reference Range Interpretation Comments VITAMIN B-12 (test code = 2840) 444 PG/ML [id number] 00:00:00 Test Item Value Reference Range Interpretation Comments TSH, THIRD GENERATION (test code 0.552 UIU/ML = 2821) [id number] 00:00:00 Test Item Value Reference Range Interpretation Comments TSH, THIRD GENERATION (test code 0.552 UIU/ML = 2821) [id number] 00:00:00 Test Item Value Reference Range Interpretation Comments TSH, THIRD GENERATION (test code 0.552 UIU/ML = 2821) VITAMIN D, 25 [id number] 00:00:00 Test Item Value Reference Range Interpretation Comments VITAMIN D, 25 OH (test code = 4958) 19 NG/ML VITAMIN D, 25 [id number] 00:00:00 Test Item Value Reference Range Interpretation Comments VITAMIN D, 25 OH (test code = 4958) 19 NG/ML VITAMIN [id number] 00:00:00 Test Item Value Reference Range Interpretation Comments VITAMIN B-12 (test code = 2840) 444 PG/ML VITAMIN [id number] 00:00:00 Test Item Value Reference Range Interpretation Comments VITAMIN B-12 (test code = 2840) 444 PG/ML VITAMIN [id number] 00:00:00 Test Item Value Reference Range Interpretation Comments VITAMIN B-12 (test code = 2840) 444 PG/ML [id number] 00:00:00 Test Item Value Reference Range Interpretation Comments TSH, THIRD GENERATION (test code 0.552 UIU/ML = 2821) [id number] 00:00:00 Test Item Value Reference Range Interpretation Comments TSH, THIRD GENERATION (test code 0.552 UIU/ML = 2821) [id number] 00:00:00 Test Item Value Reference Range Interpretation Comments TSH, THIRD GENERATION (test code 0.552 UIU/ML = 2821) VITAMIN D, 25 [id number] 00:00:00 Test Item Value Reference Range Interpretation Comments VITAMIN D, 25 OH (test code = 4958) 19 NG/ML VITAMIN D, 25 [id number] 00:00:00 Test Item Value Reference Range Interpretation Comments VITAMIN D, 25 OH (test code = 4958) 19 NG/ML HEMOGLOBIN [id number] 00:00:00 Test Item Value Reference Range Interpretation Comments HEMOGLOBIN A1c (test code = 17198) 6.7 % HEMOGLOBIN [id number] 00:00:00 Test Item Value Reference Range Interpretation Comments HEMOGLOBIN A1c (test code = 25405) 6.7 % HEMOGLOBIN [id number] 00:00:00 Test Item Value Reference Range Interpretation Comments HEMOGLOBIN A1c (test code = 41089) 6.7 % HEMOGLOBIN [id number] 00:00:00 Test Item Value Reference Range Interpretation Comments HEMOGLOBIN A1c (test code = 97340) 6.7 % HEMOGLOBIN [id number] 00:00:00 Test Item Value Reference Range Interpretation Comments HEMOGLOBIN A1c (test code = 67863) 6.7 % HEMOGLOBIN [id number] 00:00:00 Test Item Value Reference Range Interpretation Comments HEMOGLOBIN A1c (test code = 57252) 6.7 % MICROALBUMIN/CREATININE, RANDOM AND [id number] 00:00:00 Test Item Value Reference Range Interpretation Comments CREATININE, URINE, CONC. (test 22.0 MG/DL code = 2072) ALBUMIN, URINE, RANDOM (test code 0.2 MG/DL = 38895) CALC ALBUMIN/CREAT, RND (test code 9 MG/G = 28260) MICROALBUMIN/CREATININE, RANDOM AND [id number] 00:00:00 Test Item Value Reference Range Interpretation Comments CREATININE, URINE, CONC. (test 22.0 MG/DL code = 2072) ALBUMIN, URINE, RANDOM (test code 0.2 MG/DL = 01605) CALC ALBUMIN/CREAT, RND (test code 9 MG/G = 05628) COMPREHENSIVE METABOLIC [id number] 00:00:00 Test Item Value Reference Range Interpretation Comments GLUCOSE (test code = 2217) 158 MG/DL BUN (test code = 2208) 12 MG/DL CREATININE (test code = 2214) 0.63 MG/DL eGFR AMER. (test code 129 ML/MIN/1.73 = 77395) eGFR NON- AMER. (test 111 ML/MIN/1.73 code = 08072) CALC BUN/CREAT (test code = 19 RATIO [...] code = 2219) 34 U/L COMPREHENSIVE METABOLIC [id number] 00:00:00 Test Item Value Reference Range Interpretation Comments GLUCOSE (test code = 2217) 158 MG/DL BUN (test code = 2208) 12 MG/DL CREATININE (test code = 2214) 0.63 MG/DL eGFR AMER. (test code 129 ML/MIN/1.73 = 72057) eGFR NON- AMER. (test 111 ML/MIN/1.73 code = 88550) CALC BUN/CREAT (test code = 19 RATIO [...] (test code = 2219) 34 U/L LIPID [id number] 00:00:00 Test Item Value Reference Range Interpretation Comments CHOLESTEROL (test code = 2210) 173 MG/DL TRIGLYCERIDES (test code = 2232) 341 MG/DL HDL CHOLESTEROL (test code = 2220) 28 MG/DL CALC LDL CHOL (test code = 2237) 100 MG/DL RISK RATIO LDL/HDL (test code = 3.57 RATIO 2238) LIPID [id number] 00:00:00 Test Item Value Reference Range Interpretation Comments CHOLESTEROL (test code = 2210) 173 MG/DL TRIGLYCERIDES (test code = 2232) 341 MG/DL HDL CHOLESTEROL (test code = 2220) 28 MG/DL CALC LDL CHOL (test code = 2237) 100 MG/DL RISK RATIO LDL/HDL (test code = 3.57 RATIO 2238) MICROALBUMIN/CREATININE, RANDOM AND [id number] 00:00:00 Test Item Value Reference Range Interpretation Comments CREATININE, URINE, CONC. (test 22.0 MG/DL code = 2072) ALBUMIN, URINE, RANDOM (test code 0.2 MG/DL = 49944) CALC ALBUMIN/CREAT, RND (test code 9 MG/G = 47880) MICROALBUMIN/CREATININE, RANDOM AND [id number] 00:00:00 Test Item Value Reference Range Interpretation Comments CREATININE, URINE, CONC. (test 22.0 MG/DL code = 2072) ALBUMIN, URINE, RANDOM (test code 0.2 MG/DL = 13249) CALC ALBUMIN/CREAT, RND (test code 9 MG/G = 06569) COMPREHENSIVE METABOLIC [id number] 00:00:00 Test Item Value Reference Range Interpretation Comments GLUCOSE (test code = 2217) 158 MG/DL BUN (test code = 2208) 12 MG/DL CREATININE (test code = 2214) 0.63 MG/DL eGFR AMER. (test code 129 ML/MIN/1.73 = 32935) eGFR NON- AMER. (test 111 ML/MIN/1.73 code = 18280) CALC BUN/CREAT (test code = 19 RATIO [...] code = 2219) 34 U/L COMPREHENSIVE METABOLIC [id number] 00:00:00 Test Item Value Reference Range Interpretation Comments GLUCOSE (test code = 2217) 158 MG/DL BUN (test code = 2208) 12 MG/DL CREATININE (test code = 2214) 0.63 MG/DL eGFR AMER. (test code 129 ML/MIN/1.73 = 30715) eGFR NON- AMER. (test 111 ML/MIN/1.73 code = 05022) CALC BUN/CREAT (test code = 19 RATIO [...] (test code = 2219) 34 U/L LIPID [id number] 00:00:00 Test Item Value Reference Range Interpretation Comments CHOLESTEROL (test code = 2210) 173 MG/DL TRIGLYCERIDES (test code = 2232) 341 MG/DL HDL CHOLESTEROL (test code = 2220) 28 MG/DL CALC LDL CHOL (test code = 2237) 100 MG/DL RISK RATIO LDL/HDL (test code = 3.57 RATIO 2238) LIPID [id number] 00:00:00 Test Item Value Reference Range Interpretation Comments CHOLESTEROL (test code = 2210) 173 MG/DL TRIGLYCERIDES (test code = 2232) 341 MG/DL HDL CHOLESTEROL (test code = 2220) 28 MG/DL CALC LDL CHOL (test code = 2237) 100 MG/DL RISK RATIO LDL/HDL (test code = 3.57 RATIO 2238) HEMOGLOBIN [id number] 00:00:00 Test Item Value Reference Range Interpretation Comments HEMOGLOBIN A1c (test code = 39074) 7.0 % HEMOGLOBIN [id number] 00:00:00 Test Item Value Reference Range Interpretation Comments HEMOGLOBIN A1c (test code = 65643) 7.0 % MICROALBUMIN/CREATININE, RANDOM AND [id number] 00:00:00 Test Item Value Reference Range Interpretation Comments CREATININE, URINE, CONC. (test 92.4 MG/DL code = 2072) ALBUMIN, URINE, RANDOM (test code 0.7 MG/DL = 23535) CALC ALBUMIN/CREAT, RND (test code 8 MG/G = 16064) MICROALBUMIN/CREATININE, RANDOM AND [id number] 00:00:00 Test Item Value Reference Range Interpretation Comments CREATININE, URINE, CONC. (test 92.4 MG/DL code = 2072) ALBUMIN, URINE, RANDOM (test code 0.7 MG/DL = 12292) CALC ALBUMIN/CREAT, RND (test code 8 MG/G = 11583) HIV 1/2 4TH GEN, RFLX CONF [ADDED]2019-03-22 [...] Interpretation Comments GONORRHEA, TMA (test code = 22629) NEGATIVE CHLAMYDIA, TMA (test code = 92458) NEGATIVE CT/NG, TMA, URINE [ADDED]2019-03-22 00:00:00 Test Item Value Reference Range Interpretation Comments GONORRHEA, TMA (test code = 38031) NEGATIVE CHLAMYDIA, TMA (test code = 27050) NEGATIVE COMPREHENSIVE METABOLIC [id number] 00:00:00 Test Item Value Reference Range Interpretation Comments GLUCOSE (test code = 2217) 238 MG/DL BUN (test code = 2208) 15 MG/DL CREATININE (test code = 2214) 0.71 MG/DL eGFR AMER. (test code 123 ML/MIN/1.73 = 59167) eGFR NON- AMER. (test 107 ML/MIN/1.73 code = 92867) CALC BUN/CREAT (test code = 21 RATIO [...] code = 2219) 12 U/L COMPREHENSIVE METABOLIC [id number] 00:00:00 Test Item Value Reference Range Interpretation Comments GLUCOSE (test code = 2217) 238 MG/DL BUN (test code = 2208) 15 MG/DL CREATININE (test code = 2214) 0.71 MG/DL eGFR AMER. (test code 123 ML/MIN/1.73 = 49365) eGFR NON- AMER. (test 107 ML/MIN/1.73 code = 01369) CALC BUN/CREAT (test code = 21 RATIO [...] (test code = 2219) 12 U/L LIPID [id number] 00:00:00 Test Item Value Reference Range Interpretation Comments CHOLESTEROL (test code = 2210) 178 MG/DL TRIGLYCERIDES (test code = 2232) 939 MG/DL HDL CHOLESTEROL (test code = 21 MG/DL 2220) CALC LDL CHOL (test code = 2237) NOTE MG/DL RISK RATIO LDL/HDL (test code = (NOTE) RATIO 2238) LIPID [id number] 00:00:00 Test Item Value Reference Range Interpretation Comments CHOLESTEROL (test code = 2210) 178 MG/DL TRIGLYCERIDES (test code = 2232) 939 MG/DL HDL CHOLESTEROL (test code = 21 MG/DL 2220) CALC LDL CHOL (test code = 2237) NOTE MG/DL RISK RATIO LDL/HDL (test code = (NOTE) RATIO 2238) HEMOGLOBIN [id number] 00:00:00 Test Item Value Reference Range Interpretation Comments HEMOGLOBIN A1c (test code = 61493) 7.0 % HEMOGLOBIN [id number] 00:00:00 Test Item Value Reference Range Interpretation Comments HEMOGLOBIN A1c (test code = 71609) 7.0 % HEMOGLOBIN [id number] 00:00:00 Test Item Value Reference Range Interpretation Comments HEMOGLOBIN A1c (test code = 79588) 7.0 % MICROALBUMIN/CREATININE, RANDOM AND [id number] 00:00:00 Test Item Value Reference Range Interpretation Comments CREATININE, URINE, CONC. (test 92.4 MG/DL code = 2072) ALBUMIN, URINE, RANDOM (test code 0.7 MG/DL = 68270) CALC ALBUMIN/CREAT, RND (test code 8 MG/G = 00562) MICROALBUMIN/CREATININE, RANDOM AND [id number] 00:00:00 Test Item Value Reference Range Interpretation Comments CREATININE, URINE, CONC. (test 92.4 MG/DL code = 2072) ALBUMIN, URINE, RANDOM (test code 0.7 MG/DL = 67117) CALC ALBUMIN/CREAT, RND (test code 8 MG/G = 88661) HIV 1/2 4TH GEN, RFLX CONF [ADDED]2019-03-22 [...] Interpretation Comments GONORRHEA, TMA (test code = 74345) NEGATIVE CHLAMYDIA, TMA (test code = 78460) NEGATIVE CT/NG, TMA, URINE [ADDED]2019-03-22 00:00:00 Test Item Value Reference Range Interpretation Comments GONORRHEA, TMA (test code = 11210) NEGATIVE CHLAMYDIA, TMA (test code = 76965) NEGATIVE COMPREHENSIVE METABOLIC [id number] 00:00:00 Test Item Value Reference Range Interpretation Comments GLUCOSE (test code = 2217) 238 MG/DL BUN (test code = 2208) 15 MG/DL CREATININE (test code = 2214) 0.71 MG/DL eGFR AMER. (test code 123 ML/MIN/1.73 = 53686) eGFR NON- AMER. (test 107 ML/MIN/1.73 code = 19296) CALC BUN/CREAT (test code = 21 RATIO [...] code = 2219) 12 U/L COMPREHENSIVE METABOLIC [id number] 00:00:00 Test Item Value Reference Range Interpretation Comments GLUCOSE (test code = 2217) 238 MG/DL BUN (test code = 2208) 15 MG/DL CREATININE (test code = 2214) 0.71 MG/DL eGFR AMER. (test code 123 ML/MIN/1.73 = 24545) eGFR NON- AMER. (test 107 ML/MIN/1.73 code = 82730) CALC BUN/CREAT (test code = 21 RATIO [...] (test code = 2219) 12 U/L LIPID [id number] 00:00:00 Test Item Value Reference Range Interpretation Comments CHOLESTEROL (test code = 2210) 178 MG/DL TRIGLYCERIDES (test code = 2232) 939 MG/DL HDL CHOLESTEROL (test code = 21 MG/DL 2220) CALC LDL CHOL (test code = 2237) NOTE MG/DL RISK RATIO LDL/HDL (test code = (NOTE) RATIO 2238) LIPID [id number] 00:00:00 Test Item Value Reference Range Interpretation Comments CHOLESTEROL (test code = 2210) 178 MG/DL TRIGLYCERIDES (test code = 2232) 939 MG/DL HDL CHOLESTEROL (test code = 21 MG/DL 2220) CALC LDL CHOL (test code = 2237) NOTE MG/DL RISK RATIO LDL/HDL (test code = (NOTE) RATIO 2238) HEMOGLOBIN [id number] 00:00:00 Test Item Value Reference Range Interpretation Comments HEMOGLOBIN A1c (test code = 16729) 7.0 %
[2022-11-10] MEDS ORDERED: ONDANSETRON 4 MG/2 ML VIAL ONE ×2 (08:46→10:51)
[2022-11-10] MEDS ORDERED: NA CHLORIDE 0.9% 1,000 ML ONE (08:46)
[2022-11-10] MEDS ORDERED: FAMOTIDINE 20 MG/2 ML VIAL IV ONE (08:46)
--- NOTE | 2022-11-10 09:15 | RAD REPORT ---
EXAM DESCRIPTION: RADChest Single View11/10/2022 8:53 am CLINICAL HISTORY: CHEST PAIN COMPARISON: Chest Single View dated 11/06/2022; Chest Single View dated 05/22/2022; Chest Single View dated 01/16/2022; Chest Single View dated 06/27/2021 TECHNIQUE: Portable AP view of the chest. FINDINGS: The lungs are clear. No pneumothorax or effusion. The cardiomediastinal contours are unre markable. IMPRESSION: No acute cardiopulmonary process.
[2022-11-10 09:32] LABS: Absolute Lymphocytes (CBC) 0.7 K/uL (0.7-4.9); Lymphocytes % 10.2 % (15.3-44.8); MCV 80.1 fL (80-100); MPV 10.1 fL (7.6-11.3)
[2022-11-10 09:36] LABS: Specific Gravity > 1.030 (1.005-1.030); Urine Bacteria <20 /HPF (<20); Urine Bilirubin NEGATIVE (Negative); Urine Blood Negative (Negative); Urine Clarity Clear (Clear); Urine Color Light-Yellow (Yellow); Urine Glucose 4+ (Over) (Negative); Urine Mucus Slight /HPF (None Seen); Urine Protein 2+ (Negative); Urine Urobilinogen Normal (Normal); Urine pH 5.5 (5.0-7.0)
[2022-11-10 10:13] LABS: Albumin 3.8 g/dL (3.4-5.0); Bilirubin Total 0.4 mg/dL (0.2-1.0); Protein, Total 7.5 g/dL (6.4-8.2)
[2022-11-10 10:14] LABS: Potassium 4.2 mEq/L (3.5-5.1)
[2022-11-10 10:24] LABS: Hematocrit 37.3 % (36.0-45.0)
[2022-11-10] MEDS ORDERED: NA CHLORIDE 0.9% 100 ML ONE (11:30)
[2022-11-10] MEDS ORDERED: CEFTRIAXONE 1000 MG/VIAL ONE (11:30)
--- NOTE | 2022-11-10 11:42 | RAD REPORT ---
EXAM DESCRIPTION: CT - Angio Aorta For Dissection - 11/10/2022 11:07 am CLINICAL HISTORY: shoulder blade pain, cp, and abdominal pain COMPARISON: Chest For Pe Angio dated 01/16/2022; Abdomen Pelvis W Contrast dated 02/05/2016 TECHNIQUE: Dynamically enhanced 3 mm thick images of the chest, abdomen, and upper pelvis were obtai nelli during administration of approximately 100mL Isovue 370 IV contrast. Sagittal and coronal reconst ructions as well as maximal intensity projection reconstruction were generated and reviewed per an rtic angiography protocol. All CT scans are performed using dose optimization technique as appropriate and may include automated exposure control or mA/KV adjustment according to patient size. FINDINGS: Aorta is normal in diameter with no dissection or other acute aortic findings. Reconstruct ion images show no significant findings. Pulmonary arteries are normal as well. No mass or infiltrate in the lung parenchyma. No pleural thickening, pleural effusion or pneumothorax . No abnormal mediastinal or hilar mass or lymphadenopathy seen. No chest wall mass or abnormal axillar y lymphadenopathy. Celiac, SMA and renal arteries show no suspicious findings. Blayne splenic varicosities extending along the anterior mesentery. The portal vein and its main tribu taries appear to be patent. Bilobed large cystic lesion along the undersurface of the tail of the pancreas, extending anteriorly and posteriorly, measuring up to 7.7 x 4.8 centimeter in greatest axial dimensions, and 5.6 centimete r in greatest craniocaudal extent, with early coarse calcifications along the posterior wall pelvis p osteroinferior component. This is grossly stable compared to the prior CT angiogram of the chest. IMPRESSION: No acute abnormalities on CT angiogram of the aorta. Bilobed cystic lesion partially encircling the tail of the pancreas, as described above, most suggest bailey of a pancreatic pseudocyst. The appearance is not significantly changed compared to the prior CT angiogram of the chest of 01/16/2022. .
--- NOTE | 2022-11-10 11:55 | ER ---
Nurse's Notes [facility] Name: Kaur Caruso Age: 42 yrs Sex: Female : 1980 Arrival Date: 11/10/2022 Time: 08:08 Bed 7 Private MD: Diagnosis: UTI/ Urinary tract infection, site not specified;Pseudocyst of pancreas Presentation: 11/10 08:29 Chief complaint: Patient states: abd pain since last night and this morning was worse iw in the top area, had diarrhea and vomited just [employer]ANQU[employer]ORDINATOR. Coronavirus screen: At this time, the client does not indicate any symptoms associated with coronavirus-19. Ebola Screen: Patient negative for fever greater than or equal to 101.5 degrees Fahrenheit, and additional compatible Ebola Virus Disease symptoms Patient denies exposure to infectious person. Patient denies travel to an Ebola-affected area in the 21 days before illness onset. No symptoms or risks identified at this time. Initial Sepsis Screen: Does the patient meet any 2 criteria? No. Patient's initial sepsis screen is negative. Does the patient have a suspected source of infection? No. Patient's initial sepsis screen is negative. Risk Assessment: Do you want to hurt yourself or someone else? Patient reports no desire to harm self or others. Onset of symptoms was November 09, 2022. 08:29 Method Of Arrival: Ambulatory iw 08:29 Acuity: DESTINY 3 iw Triage Assessment: 08:30 General: Appears in no apparent distress. Behavior is calm, cooperative, appropriate bp for age. Pain: Complains of pain in abdomen. EENT: No deficits noted. Neuro: No deficits noted. Cardiovascular: No deficits noted. Respiratory: No deficits noted. GI: Reports upper abdominal pain. : No signs and/or symptoms were reported regarding the genitourinary system. Derm: No deficits noted. Musculoskeletal: No deficits noted. Historical: - Allergies: 08:31 No Known Allergies; iw - Home Meds: 08:30 Lisinopril Oral [Active]; Risperdal Oral [Active]; Hydroxyzine Oral [Active]; iw - PMHx: 08:30 Anxiety; depressive disorder; Diabetes - NIDDM; High Cholesterol; Hypertension; iw - PSHx: 08:30 Diabetic Foot Surgery; iw - Immunization history:: Adult Immunizations up to date. - Social history:: Smoking status: . Screenin:30 [facility] ED Fall Risk Assessment (Adult) History of falling in the last 3 months, bp including since admission No falls in past 3 months (0 pts). Abuse screen: Denies threats or abuse. Denies injuries from another. Nutritional screening: No deficits noted. Tuberculosis screening: No symptoms or risk factors identified. Assessment: 08:30 General: SEE TRIAGE NOTE. bp 09:30 Reassessment: Patient appears in no apparent distress at this time. No changes from kc6 previously documented assessment. Patient and/or family updated on plan of care and expected duration. Pain level reassessed. Patient is alert, oriented x 3, equal unlabored respirations, skin warm/dry/pink. 10:30 Reassessment: Patient appears in no apparent distress at this time. No changes from kc6 previously documented assessment. Patient and/or family updated on plan of care and expected duration. Pain level reassessed. Patient is alert, oriented x 3, equal unlabored respirations, skin warm/dry/pink. Vital Signs: 08:29 BP 123 / 80; Pulse 100; Resp 16; Temp 98.4; Pulse Ox 99% on R/A; Weight 61.23 kg; iw Height 5 ft. 2 in. ; Pain 8/10; 09:05 BP 124 / 82; Pulse 85; Resp 18; Pulse Ox 100% on R/A; kc6 11:04 BP 131 / 74; Pulse 87; Resp 19 S; Pulse Ox 100% on R/A; kc6 08:29 Body Mass Index 24.69 (61.23 kg, 157.48 cm) iw 08:29 Pain Scale: Adult iw ED Course: 08:11 Patient arrived in ED. mr 08:12 Shane Mosquera MD is Attending Physician. bs3 08:30 Triage completed. iw 08:30 Patient has correct armband on for positive identification. Bed in low position. Call bp light in reach. Side rails up X2. 08:31 Arm band placed on. iw 08:33 Ahmet Alba, HINA is Primary Nurse. bp 08:44 Inserted saline lock: 20 gauge in right forearm, using aseptic technique. Blood kc6 collected. 08:55 XRAY Chest (1 view) In Process Unspecified. EDMS 11:09 CT Aorta for Dissection In Process Unspecified. EDMS 12:07 No provider procedures requiring assistance completed. IV discontinued, intact, kc6 bleeding controlled, No redness/swelling at site. Pressure dressing applied. Administered Medications: 08:45 Drug: NS 0.9% IV 1000 ml Route: IV; Rate: 1 bolus; Site: right forearm; bp 12:07 Follow up: Response: No adverse reaction; IV Status: Completed infusion; IV Intake: kc6 1000ml 08:45 Drug: Famotidine IVP 20 mg Route: IVP; Site: right forearm; bp 12:08 Follow up: Response: No adverse reaction kc6 08:45 Drug: Ondansetron IVP 4 mg Route: IVP; Site: right forearm; bp 12:07 Follow up: Response: No adverse reaction kc6 10:43 CANCELLED (Duplicate Order): Ondansetron IVP 4 mg IVP once; over 2 minutes kc6 10:47 Drug: Ondansetron IVP 4 mg Route: IVP; Site: right antecubital; kc6 12:08 Follow up: Response: No adverse reaction kc6 11:00 Drug: Rocephin IV 1 grams Route: IV; Rate: bolus; Site: right forearm; bp 12:08 Follow up: Response: No adverse reaction; IV Status: Completed infusion kc6 Medication: 08:30 VIS not applicable for this client. bp Intake: 12:07 IV: 1000ml; Total: 1000ml. kc6 Outcome: 11:55 Discharge ordered by . bs3 12:07 Discharged to home ambulatory, with family. kc6 12:07 Condition: stable 12:07 Discharge instructions given to patient, Instructed on discharge instructions, follow up and referral plans. medication usage, Demonstrated understanding of instructions, follow-up care, medications, Prescriptions given X 2. 12:08 Patient left the ED. kc6 Signatures: Dispatcher [employer] PRABHALA Lyric Murdock Ada Ortiz RN RN iw Peltier, Brian, RN RN bp Campbell, Kaitlyn, RN RN kc6 Stein, Brandon, MD MD bs3
--- NOTE | 2022-11-10 11:55 | EDPHYS ---
Physician Documentation [facility] Name: Kaur Caruso Age: 42 yrs Sex: Female : 1980 Arrival Date: 11/10/2022 Time: 08:08 Bed 7 Private MD: ED Physician Shane Mosquera HPI: 11/10 08:32 This 42 yrs old Female presents to ER via Ambulatory with complaints of bs3 Abdominal Pain, Vomiting. 08:32 42-year-old female history of anxiety depression noncompliance with her diabetes seen bs3 several days ago for chest and back pain presents with nausea vomiting and diarrhea which started today she has not taken anything for it she notes 1 episode of diarrhea and one episode of vomiting she has associated crampy abdominal pain denies fevers chills she notes unchanged chest pain no associated shortness of breath. 08:33 Denies recent travel immobilization history of PE or DVT recent surgery or exogenous bs3 estrogen use. Historical: - Allergies: 08:31 No Known Allergies; iw - Home Meds: 08:30 Lisinopril Oral [Active]; Risperdal Oral [Active]; Hydroxyzine Oral [Active]; iw - PMHx: 08:30 Anxiety; depressive disorder; Diabetes - NIDDM; High Cholesterol; Hypertension; iw - PSHx: 08:30 Diabetic Foot Surgery; iw - Immunization history:: Adult Immunizations up to date. - Social history:: Smoking status: . ROS: 08:34 Constitutional: Negative for fever, chills bs3 08:34 All other systems are negative. Exam: 08:34 Constitutional: This is a well developed, well nourished patient who is awake, alert, bs3 and in no acute distress. Head/Face: Normocephalic, atraumatic. Eyes: Pupils equal round and reactive to light, extra-ocular motions intact. Lids and lashes normal. ENT: mmm, no posterior phyarngeal erythema Neck: Trachea midline, no thyromegaly, no neck stiffness Chest/axilla: Normal chest wall appearance and motion. Nontender with no deformity. No lesions are appreciated. Cardiovascular: Regular rate and rhythm with a normal S1 and S2. symmetric pulses in upper extremities Respiratory: Lungs have equal breath sounds bilaterally, clear to auscultation, no respiratory distress Abdomen/GI: Soft, non-tender, no rebound or guarding Skin: Warm, dry with normal turgor. Normal color with no rashes, no lesions, and no evidence of cellulitis. MS/ Extremity: Pulses equal, no cyanosis. Neurovascular intact. Full, normal range of motion. Neuro: Awake and alert, GCS 15, oriented to person, place, time, and situation. Cranial nerves II-XII grossly intact. Motor strength 5/5 in all extremities. Sensory grossly intact. Psych: Awake, alert, with orientation to person, place and time. Behavior, mood, and affect are within normal limits. 08:56 Normal sinus rhythm at [address] elevations or depressions QTc 461 as interpreted by bs3 myself Vital Signs: 08:29 BP 123 / 80; Pulse 100; Resp 16; Temp 98.4; Pulse Ox 99% on R/A; Weight 61.23 kg; iw Height 5 ft. 2 in. ; Pain 8/10; 09:05 BP 124 / 82; Pulse 85; Resp 18; Pulse Ox 100% on R/A; kc6 11:04 BP 131 / 74; Pulse 87; Resp 19 S; Pulse Ox 100% on R/A; kc6 08:29 Body Mass Index 24.69 (61.23 kg, 157.48 cm) iw 08:29 Pain Scale: Adult iw MDM: 08:11 Patient medically screened. bs3 08:34 Differential diagnosis: Nonspecific abd pain, gastritis, cholecystitis, pancreatitis, bs3 appendicitis, viral gastroenteritis, gastroenteritis, acs, though less likely. Data reviewed: vital signs, nurses notes. 10:50 ED course: pt now stating she has pain in shoulder blade, chest and abdomen, given bs3 these locations, will r/o dissection, although equal pulses, normal bp. . 11:49 ED course: Work-up notable for UTI and possible pseudocyst which is unchanged from bs3 prior exam advised outpatient follow-up with GI. ED course: will tx with antibiotics for urinary tract infection, no dka. . 11:54 ED course: Discussed CT report with patient she was not aware of a possible pseudocyst bs3 advised GI follow-up. 11/10 08:24 Order name: CBC with Diff bs3 11/10 08:24 Order name: CMP; Complete Time: 10:43 bs3 11/10 08:24 Order name: Lipase; Complete Time: 10:43 bs3 11/10 08:24 Order name: Urinalysis w/ reflexes; Complete Time: 09:41 bs3 11/10 08:24 Order name: Test, Serum; Complete Time: 10:11 bs3 11/10 08:32 Order name: Troponin High Sensitivity; Complete Time: 10:43 bs3 11/10 08:35 Order name: D-Dimer; Complete Time: 10:43 bs3 11/10 08:56 Order name: Glucose, Ancillary Testing; Complete Time: 09:13 EDMS 11/10 09:40 Order name: Urine Culture EDMS 11/10 08:35 Order name: XRAY Chest (1 view); Complete Time: 09:41 bs3 11/10 10:50 Order name: CT Aorta for Dissection; Complete Time: 11:48 bs3 11/10 08:16 Order name: Glucose Level; Complete Time: 08:44 bs3 11/10 08:24 Order name: IV Saline Lock; Complete Time: 08:44 bs3 11/10 08:24 Order name: Labs collected and sent; Complete Time: 08:44 bs3 11/10 08:32 Order name: EKG - Nurse/Tech; Complete Time: 08:56 bs3 Administered Medications: 08:45 Drug: NS 0.9% IV 1000 ml Route: IV; Rate: 1 bolus; Site: right forearm; bp 12:07 Follow up: Response: No adverse reaction; IV Status: Completed infusion; IV Intake: kc6 1000ml 08:45 Drug: Famotidine IVP 20 mg Route: IVP; Site: right forearm; bp 12:08 Follow up: Response: No adverse reaction kc6 08:45 Drug: Ondansetron IVP 4 mg Route: IVP; Site: right forearm; bp 12:07 Follow up: Response: No adverse reaction kc6 10:43 CANCELLED (Duplicate Order): Ondansetron IVP 4 mg IVP once; over 2 minutes kc6 10:47 Drug: Ondansetron IVP 4 mg Route: IVP; Site: right antecubital; kc6 12:08 Follow up: Response: No adverse reaction kc6 11:00 Drug: Rocephin IV 1 grams Route: IV; Rate: bolus; Site: right forearm; bp 12:08 Follow up: Response: No adverse reaction; IV Status: Completed infusion kc6 Disposition Summary: 11/10/22 11:55 Discharge Ordered Location: Home bs3 Problem: new bs3 Symptoms: have improved bs3 Condition: Stable bs3 Diagnosis - UTI/ Urinary tract infection, site not specified bs3 - Pseudocyst of pancreas bs3 Followup: bs3 - With: Private Physician - When: 48 Hours - Reason: Re-evaluation by your physician Discharge Instructions: - Discharge Summary Sheet bs3 - Urinary Tract Infection, Adult bs3 Forms: - Medication Reconciliation Form bs3 - Thank You Letter bs3 - Antibiotic Education bs3 Prescriptions: - Cephalexin 500 mg Oral Capsule - take 1 capsule by ORAL route every 12 hours for 10 days; 20 capsule; Refills: bs3 0, Product Selection Permitted - ondansetron 8 mg Oral tablet,disintegrating - take 1 tablet by ORAL route every 8 hours; 12 tablet; Refills: 0, Product bs3 Selection Permitted Signatures: Dispatcher [employer] Ada Pedersen RN RN iw Peltier, Brian, RN RN Buffy Corona RN RN kc6 Shane Mosquera MD MD bs3 Corrections: (The following items were deleted from the chart) 10:43 10:42 Ondansetron IVP 4 mg IVP once; over 2 minutes ordered. kc6 kc6 11:05 10:43 Chest For PE Angio+CT.RAD.BRZ ordered. EDMS EDMS 11:06 10:43 Abdomen Pelvis W Con+CT.RAD.BRZ ordered. EDMS EDMS
[2022-11-10 12:24] LABS: Platelet Estimate ADEQ
[2022-11-10 12:25] LABS: Blood Morphology Comment NOT SEEN (NOT SEEN); Platelets, Giant FEW PRESENT
[2022-11-10 12:33] VITALS: TEMP 98.4
[2022-11-10 12:39] VITALS: O2SAT 100
[2022-11-10 12:40] VITALS: BP 131/74
--- NOTE | 2022-11-11 12:34 | EKG ---
Test Date: 2022-11-10 Test Time: 08:53:09 Hotel House[employer]: WINDY MEASUREMENT RESULTS: Intervals: Rate: 85 MS: 142 QRSD: 88 QT: 388 QTc: 461 [place]: P: 54 MS: 142 QRS: 53 T: 60 INTERPRETIVE STATEMENTS: Normal sinus rhythm Normal ECG Compared to ECG 11/06/2022 11:30:25 No significant changes Electronically Signed On 11-11-22 12:31:57 CDT by Marciano Szymanski
== END 2022-11-10 12:08 | disposition home or self-care (01) ==
LOC: ER 08:08
DX: N39.0 Urinary tract infection, site not specified (principal); K86.3 Pseudocyst of pancreas
CPT/HCPCS: 36415; 71045; 71275; 74175; 80053; 81001; 82947; 83690; 84484; 84703; 85025; 85379; 87086; 87088; 93005; J0696; J2405; J7030; Q9967

== ENCOUNTER 2022-11-17 09:45 | Emergency (ER) | payer SELFPAY ==
--- OUTSIDE RECORDS SUMMARY | 2022-11-17 09:49 | XMS REPORT | Continuity of Care Document ---
:1980 Author Organization [facility] t Address [address] [place] [address] [place] [id number] Care Team Providers Name Role Phone Katie RECINOS, [facility] Primary Care Physician [phone] Doctor Unassigned, [place] Attending Clinician Unavailable Payers Payer Name Policy Type Policy Number Effective Date Expiration Date S ource Problems Condition Condition Condition Status Onset Resolution Last Treating Co mments Source Name Details Category Date Date Treatment Clinician Date Type 2 Type 2 Disease Active [facility] diabetes diabetes 6-07 ity of mellitus mellitus 00:00: [place] without without 00 Medical complicati complicati Br anch on, on, without without long-term long-term current current use of use of insulin insulin History of History of Disease Active U nivers abnormal abnormal 6- ity of cervical cervical 00:00: [place] Pap smear Pap smear 00 [facility] Diabetic Diabetic Disease Active Unive rs foot foot 5-02 ity of infection infection 00:00: [address] Allergies, Adverse Reactions, Alerts This patient has no known allergies or adverse reactions. Social History Social Habit Start Date Stop Date Quantity Comments Source Tobacco use and 2018-11-24 2018-11-24 Never used [facility] of exposure 00:00:00 00:00:00 [facility] Alcohol intake 2018-11-24 2018-11-24 Current drinker of Un iversity of 00:00:00 00:00:00 alcohol (finding) [facility] Alcohol Comment 2018-11-24 2018-11-24 occasional Universit [facility] of 00:00:00 00:00:00 [facility] Sex Assigned At [birth year] [facility] 00:00:00 00:00:00 [facility] Smoking Status Start Date Stop Date Source Never smoker [facility] Medications Ordered Filled Start Stop Current Ordering Indication Dosage Frequency Signature Comments Components Source Medication Medication Date Date Medication? Clinician (SIG) Name Name INJECT 1 ML 2021-0 No INTRAMUSCUL 6-23 CHRISTIAN ONCE 00:00: EVERY 3 00 MONTHS. Depo-Naphthalene Still Operator 2021-0 No 1mg/mL a 150 mg/mL 6-23 [...] No known No Univers medications ity of [facility] Immunizations Ordered Filled Immunization Date Status Comments [facility] e Immunization Name Name Td 2015-10-20 Completed University 00:00:00 [facility] Vital Signs Vital Name Observation Time Observation [...] Procedure Date / Time Performed Performing Clinician [facility] e REFERRAL- 2020-11-07 05:01:00 Doctor Unassigned, No Univer [facility] REQUEST/RESPONSE Name Medical Branch Plan of Care Planned Activity Planned Date Details Comments Source Goal Plan of Care Note [code = 84254-7] Goal Plan of Care Note [code = 47346-3] Goal Plan of Care Note [code = 62945-4] Goal Plan of Care Note [code = 97682-0] Goal Plan of Care Note [code = 91383-8] Goal Plan of Care Note [code = 63062-0] Goal Plan of Care Note [code = 25594-2] Goal Plan of Care Note [code = 70819-7] Goal Plan of Care Note [code = 36931-2] Goal Plan of Care Note [code = 89962-3] Goal Plan of Care Note [code = 85050-0] Goal Plan of Care Note [code = 47486-3] Goal Plan of Care Note [code = 24784-9] Goal Plan of Care Note [code = 34617-5] Goal Plan of Care Note [code = 83269-9] Goal Plan of Care Note [code = 63050-3] Goal Plan of Care Note [code = 48500-5] Goal Plan of Care Note [code = 24967-4] Goal Plan of Care Note [code = 81859-2] Goal Plan of Care Note [code = 71694-8] Goal Plan of Care Note [code = 36100-6] Goal Plan of Care Note [code = 58442-4] Goal Plan of Care Note [code = 56412-6] Goal Plan of Care Note [code = 62672-9] Goal Plan of Care Note [code = 67678-1] Goal Plan of Care Note [code = 01995-9] Goal Plan of Care Note [code = 56091-2] Goal Plan of Care Note [code = 12907-3] Goal Plan of Care Note [code = 39873-5] Goal Plan of Care Note [code = 85759-7] Goal Plan of Care Note [code = 49770-5] Goal Plan of Care Note [code = 63040-7] Goal Plan of Care Note [code = 57618-5] Goal Plan of Care Note [code = 11468-4] Goal Plan of Care Note [code = 92019-4] Goal Plan of Care Note [code = 73944-3] Goal Plan of Care Note [code = 50632-3] Goal Plan of Care Note [code = 56210-1] Encounters Start End Encounter Admission Attending Care Care Encounter Source Date/Time Date/Time Type Type Clinicians Facility Department ID 2022-09-10 2022-09-10 Outpatient [facility] [id number] Garry 16:03:05 16:03:05 0324 F Eloy 2022-08-30 2022-08-30 Outpatient [facility] [id number] Garry 14:47:20 14:47:20 0313 F Eloy 2022-05-31 2022-05-31 Outpatient [facility] [id number] Garry 15:30:31 15:30:31 1212 F Eloy 2022-03-10 2022-03-10 Outpatient [id number] 00:00:00 00:00:00 Visit 6m9i-042q t8q-934n-b -h3jo-w26 5ce-b46f30 [id number] 14h730 2022-03-08 2022-03-08 Outpatient [id number] 00:00:00 00:00:00 Visit 8f8a-296o e6d-746h-t -i18a-d2l 00d-e4f39d 40ylom4b6 bff1c0 2020-11-07 2020-11-07 Orders Doctor CIARRA [id number] 00:00:00 00:00:00 Only Unassigned, HORACE 350.1.13.10 [facility] 4.2.7.2.686 [id number] 2020-11-07 2020-11-07 Orders Doctor CIARRA [id number] Univers 00:00:00 00:00:00 Only Unassigned, HORACE 350.1.13.10 ity of [place] [facility] 4.2.7.2.686 Yousuf as [id number] [facility] 009 Branch Results Test Description Test Time Test Comments Results Result Comments Source ALBUMIN/CREATININE RATIO, URINE, RANDOM 2022-03-09 04:55:11 Test Item Value Reference Range Interpretation Comme nts CREATININE, URINE, CONC. (test 135.5 MG/DL NOT ESTAB code = 2072) ALBUMIN, URINE, RANDOM (test 3.2 MG/DL NOT ESTAB code = 97394) CALC ALBUMIN/CREAT, RND (test 24 MG/G <30 Note: Albumin/Creatinine ratio code = 53339) reference inte rval reflects ADA and NKF guideli nishant. UNLESS OTHERWISE INDIC ATED, ALL TESTING PERFORM ED ATCLINICAL PATHOLOGY [facility], [facility]. [address] [place] [address] LABORATORY DIRE CTOR: SIRISHA SERRATO M.D. CLIA NUMBER [id number] [facility] [place] [id number] LIPID [id number] 03:42:46 Test Item Value Reference Range Interpretation [...] MOREINFORMATION , SEE CLIENT ANNOUNCE MENT AT [email or web address] CalcLDL-C RISK RATIO LDL/HDL (NOTE) RATIO <3.22 UNABLE T O CALCULATE (test code = 2238) COMPREHENSIVE METABOLIC [id number] 03:42:46 Test Item Value Reference Range Interpretation Comments GLUCOSE (test code = 315 MG/DL 70-99 H 2216) BUN (test code = 11 MG/DL 6-20 2207) CREATININE (test 0.61 MG/DL 0.60-1.30 code = 2214) eGFR (2020 CKD-EPI) 114 >60 (test code = 31003) ML/MIN/1.73 CALC BUN/CREAT (test 18 RATIO 6-28 code = 2235) SODIUM (test code = 139 MEQ/L 404-813 1721) POTASSIUM (test code 4.1 MEQ/L 3.5-5.4 = [...] code = 7 U/L -40 2218) HEMOGLOBIN [id number] 02:41:50 Test Item Value Reference Range Interpretation Comments HEMOGLOBIN A1c (test 9.2 % 4.2-5.6 H AMERIC AN DIABETES code = 18728) ASSOCIATION IDELINES FOR HGB A1C: PREDIABETES/INC REASED [...] TESTING OR LABORATORY C ONSULTATION. COMPREHENSIVE METABOLIC [id number] 00:00:00 Test Item Value Reference Range Interpretation Comments GLUCOSE (test code = 2217) 315 MG/DL BUN (test code = 2208) 11 MG/DL CREATININE (test code = 2214) 0.61 MG/DL eGFR (2020 CKD-EPI) (test 114 ML/MIN/1.73 code = 06744) CALC BUN/CREAT (test code = 18 RATIO [...] = 2219) 7 U/L ALBUMIN/CREATININE RATIO, RANDOM [id number] 00:00:00 Test Item Value Reference Range Interpretation Comments CREATININE, URINE, CONC. (test 135.5 MG/DL code = 2071) ALBUMIN, URINE, RANDOM (test code 3.2 MG/DL = 61829) CALC ALBUMIN/CREAT, RND (test 24 MG/G code = 24571) ALBUMIN/CREATININE RATIO, RANDOM [id number] 00:00:00 Test Item Value Reference Range Interpretation Comments CREATININE, URINE, CONC. (test 135.5 MG/DL code = 2072) ALBUMIN, URINE, RANDOM (test code 3.2 MG/DL = 28104) CALC ALBUMIN/CREAT, RND (test 24 MG/G code = 54196) HEMOGLOBIN [id number] 00:00:00 Test Item Value Reference Range Interpretation Comments HEMOGLOBIN A1c (test code = 49820) 9.2 % HEMOGLOBIN [id number] 00:00:00 Test Item Value Reference Range Interpretation Comments HEMOGLOBIN A1c (test code = 13153) 9.2 % HEMOGLOBIN [id number] 00:00:00 Test Item Value Reference Range Interpretation Comments HEMOGLOBIN A1c (test code = 16373) 9.2 % LIPID [id number] 00:00:00 Test Item Value Reference Range Interpretation Comments CHOLESTEROL (test code = 2210) 243 MG/DL TRIGLYCERIDES (test code = 2232) 788 MG/DL HDL CHOLESTEROL (test code = 22 MG/DL 2220) CALC LDL CHOL (test code = 2237) (NOTE) MG/DL RISK RATIO LDL/HDL (test code = (NOTE) RATIO 2238) LIPID [id number] 00:00:00 Test Item Value Reference Range Interpretation Comments CHOLESTEROL (test code = 2210) 243 MG/DL TRIGLYCERIDES (test code = 2232) 788 MG/DL HDL CHOLESTEROL (test code = 22 MG/DL 2220) CALC LDL CHOL (test code = 2237) (NOTE) MG/DL RISK RATIO LDL/HDL (test code = (NOTE) RATIO 2238) COMPREHENSIVE METABOLIC [id number] 00:00:00 Test Item Value Reference Range Interpretation Comments GLUCOSE (test code = 2217) 315 MG/DL BUN (test code = 2208) 11 MG/DL CREATININE (test code = 2214) 0.61 MG/DL eGFR (2020 CKD-EPI) (test 114 ML/MIN/1.73 code = 84902) CALC BUN/CREAT (test code = 18 RATIO [...] code = 2219) 7 U/L COMPREHENSIVE METABOLIC [id number] 00:00:00 Test Item Value Reference Range Interpretation Comments GLUCOSE (test code = 2217) 315 MG/DL BUN (test code = 2208) 11 MG/DL CREATININE (test code = 2214) 0.61 MG/DL eGFR (2020 CKD-EPI) (test 114 ML/MIN/1.73 code = 46547) CALC BUN/CREAT (test code = 18 RATIO [...] = 2219) 7 U/L ALBUMIN/CREATININE RATIO, RANDOM [id number] 00:00:00 Test Item Value Reference Range Interpretation Comments CREATININE, URINE, CONC. (test 135.5 MG/DL code = 2072) ALBUMIN, URINE, RANDOM (test code 3.2 MG/DL = 02813) CALC ALBUMIN/CREAT, RND (test 24 MG/G code = 69326) ALBUMIN/CREATININE RATIO, RANDOM [id number] 00:00:00 Test Item Value Reference Range Interpretation Comments CREATININE, URINE, CONC. (test 135.5 MG/DL code = 2072) ALBUMIN, URINE, RANDOM (test code 3.2 MG/DL = 32468) CALC ALBUMIN/CREAT, RND (test 24 MG/G code = 11070) HEMOGLOBIN [id number] 00:00:00 Test Item Value Reference Range Interpretation Comments HEMOGLOBIN A1c (test code = 53023) 9.2 % HEMOGLOBIN [id number] 00:00:00 Test Item Value Reference Range Interpretation Comments HEMOGLOBIN A1c (test code = 14779) 9.2 % HEMOGLOBIN [id number] 00:00:00 Test Item Value Reference Range Interpretation Comments HEMOGLOBIN A1c (test code = 20032) 9.2 % LIPID [id number] 00:00:00 Test Item Value Reference Range Interpretation Comments CHOLESTEROL (test code = 2210) 243 MG/DL TRIGLYCERIDES (test code = 2232) 788 MG/DL HDL CHOLESTEROL (test code = 22 MG/DL 2220) CALC LDL CHOL (test code = 2237) (NOTE) MG/DL RISK RATIO LDL/HDL (test code = (NOTE) RATIO 2238) LIPID [id number] 00:00:00 Test Item Value Reference Range Interpretation Comments CHOLESTEROL (test code = 2210) 243 MG/DL TRIGLYCERIDES (test code = 2232) 788 MG/DL HDL CHOLESTEROL (test code = 22 MG/DL 2220) CALC LDL CHOL (test code = 2237) (NOTE) MG/DL RISK RATIO LDL/HDL (test code = (NOTE) RATIO 2238) COMPREHENSIVE METABOLIC [id number] 00:00:00 Test Item Value Reference Range Interpretation Comments GLUCOSE (test code = 2217) 315 MG/DL BUN (test code = 2208) 11 MG/DL CREATININE (test code = 2214) 0.61 MG/DL eGFR (2020 CKD-EPI) (test 114 ML/MIN/1.73 code = 96035) CALC BUN/CREAT (test code = 18 RATIO [...] (test code = 2219) 7 U/L VITAMIN [id number] 00:00:00 Test Item Value Reference Range Interpretation Comments VITAMIN B-12 (test code = 2840) 444 PG/ML VITAMIN [id number] 00:00:00 Test Item Value Reference Range Interpretation Comments VITAMIN B-12 (test code = 2840) 444 PG/ML VITAMIN [id number] 00:00:00 Test Item Value Reference Range Interpretation Comments VITAMIN B-12 (test code = 2840) 444 PG/ML [id number] 00:00:00 Test Item Value Reference Range Interpretation Comments TSH, THIRD GENERATION (test code 0.552 UIU/ML = 2821) [id number] 00:00:00 Test Item Value Reference Range Interpretation Comments TSH, THIRD GENERATION (test code 0.552 UIU/ML = 2821) [id number] 00:00:00 Test Item Value Reference Range Interpretation Comments TSH, THIRD GENERATION (test code 0.552 UIU/ML = 2821) VITAMIN D, 25 [id number] 00:00:00 Test Item Value Reference Range Interpretation Comments VITAMIN D, 25 [place] (test code = 4958) 19 NG/ML VITAMIN D, 25 [id number] 00:00:00 Test Item Value Reference Range Interpretation Comments VITAMIN D, 25 [place] (test code = 4958) 19 NG/ML VITAMIN [id number] 00:00:00 Test Item Value Reference Range Interpretation Comments VITAMIN B-12 (test code = 2840) 444 PG/ML VITAMIN [id number] 00:00:00 Test Item Value Reference Range Interpretation Comments VITAMIN B-12 (test code = 2840) 444 PG/ML VITAMIN [id number] 00:00:00 Test Item Value Reference Range Interpretation Comments VITAMIN B-12 (test code = 2840) 444 PG/ML [id number] 00:00:00 Test Item Value Reference Range Interpretation Comments TSH, THIRD GENERATION (test code 0.552 UIU/ML = 2821) [id number] 00:00:00 Test Item Value Reference Range Interpretation Comments TSH, THIRD GENERATION (test code 0.552 UIU/ML = 2821) [id number] 00:00:00 Test Item Value Reference Range Interpretation Comments TSH, THIRD GENERATION (test code 0.552 UIU/ML = 2821) VITAMIN D, 25 [id number] 00:00:00 Test Item Value Reference Range Interpretation Comments VITAMIN D, 25 [place] (test code = 4958) 19 NG/ML VITAMIN D, 25 [id number] 00:00:00 Test Item Value Reference Range Interpretation Comments VITAMIN D, 25 [place] (test code = 4958) 19 NG/ML HEMOGLOBIN [id number] 00:00:00 Test Item Value Reference Range Interpretation Comments HEMOGLOBIN A1c (test code = 31537) 6.7 % HEMOGLOBIN [id number] 00:00:00 Test Item Value Reference Range Interpretation Comments HEMOGLOBIN A1c (test code = 58398) 6.7 % HEMOGLOBIN [id number] 00:00:00 Test Item Value Reference Range Interpretation Comments HEMOGLOBIN A1c (test code = 05203) 6.7 % HEMOGLOBIN [id number] 00:00:00 Test Item Value Reference Range Interpretation Comments HEMOGLOBIN A1c (test code = 90317) 6.7 % HEMOGLOBIN [id number] 00:00:00 Test Item Value Reference Range Interpretation Comments HEMOGLOBIN A1c (test code = 11958) 6.7 % HEMOGLOBIN [id number] 00:00:00 Test Item Value Reference Range Interpretation Comments HEMOGLOBIN A1c (test code = 68600) 6.7 % MICROALBUMIN/CREATININE, RANDOM AND [id number] 00:00:00 Test Item Value Reference Range Interpretation Comments CREATININE, URINE, CONC. (test 22.0 MG/DL code = 2072) ALBUMIN, URINE, RANDOM (test code 0.2 MG/DL = 03432) CALC ALBUMIN/CREAT, RND (test code 9 MG/G = 66636) MICROALBUMIN/CREATININE, RANDOM AND [id number] 00:00:00 Test Item Value Reference Range Interpretation Comments CREATININE, URINE, CONC. (test 22.0 MG/DL code = 2072) ALBUMIN, URINE, RANDOM (test code 0.2 MG/DL = 81904) CALC ALBUMIN/CREAT, RND (test code 9 MG/G = 00516) COMPREHENSIVE METABOLIC [id number] 00:00:00 Test Item Value Reference Range Interpretation Comments GLUCOSE (test code = 2217) 158 MG/DL BUN (test code = 2208) 12 MG/DL CREATININE (test code = 2214) 0.63 MG/DL eGFR AMER. (test code 129 ML/MIN/1.73 = 11797) eGFR NON- AMER. (test 111 ML/MIN/1.73 code = 81283) CALC BUN/CREAT (test code = 19 RATIO [...] code = 2219) 34 U/L COMPREHENSIVE METABOLIC [id number] 00:00:00 Test Item Value Reference Range Interpretation Comments GLUCOSE (test code = 2217) 158 MG/DL BUN (test code = 2208) 12 MG/DL CREATININE (test code = 2214) 0.63 MG/DL eGFR AMER. (test code 129 ML/MIN/1.73 = 50816) eGFR NON- AMER. (test 111 ML/MIN/1.73 code = 51950) CALC BUN/CREAT (test code = 19 RATIO [...] (test code = 2219) 34 U/L LIPID [id number] 00:00:00 Test Item Value Reference Range Interpretation Comments CHOLESTEROL (test code = 2210) 173 MG/DL TRIGLYCERIDES (test code = 2232) 341 MG/DL HDL CHOLESTEROL (test code = 2220) 28 MG/DL CALC LDL CHOL (test code = 2237) 100 MG/DL RISK RATIO LDL/HDL (test code = 3.57 RATIO 2238) LIPID [id number] 00:00:00 Test Item Value Reference Range Interpretation Comments CHOLESTEROL (test code = 2210) 173 MG/DL TRIGLYCERIDES (test code = 2232) 341 MG/DL HDL CHOLESTEROL (test code = 2220) 28 MG/DL CALC LDL CHOL (test code = 2237) 100 MG/DL RISK RATIO LDL/HDL (test code = 3.57 RATIO 2238) MICROALBUMIN/CREATININE, RANDOM AND [id number] 00:00:00 Test Item Value Reference Range Interpretation Comments CREATININE, URINE, CONC. (test 22.0 MG/DL code = 2072) ALBUMIN, URINE, RANDOM (test code 0.2 MG/DL = 61467) CALC ALBUMIN/CREAT, RND (test code 9 MG/G = 40982) MICROALBUMIN/CREATININE, RANDOM AND [id number] 00:00:00 Test Item Value Reference Range Interpretation Comments CREATININE, URINE, CONC. (test 22.0 MG/DL code = 2072) ALBUMIN, URINE, RANDOM (test code 0.2 MG/DL = 00069) CALC ALBUMIN/CREAT, RND (test code 9 MG/G = 81605) COMPREHENSIVE METABOLIC [id number] 00:00:00 Test Item Value Reference Range Interpretation Comments GLUCOSE (test code = 2217) 158 MG/DL BUN (test code = 2208) 12 MG/DL CREATININE (test code = 2214) 0.63 MG/DL eGFR AMER. (test code 129 ML/MIN/1.73 = 96463) eGFR NON- AMER. (test 111 ML/MIN/1.73 code = 99662) CALC BUN/CREAT (test code = 19 RATIO [...] code = 2219) 34 U/L COMPREHENSIVE METABOLIC [id number] 00:00:00 Test Item Value Reference Range Interpretation Comments GLUCOSE (test code = 2217) 158 MG/DL BUN (test code = 2208) 12 MG/DL CREATININE (test code = 2214) 0.63 MG/DL eGFR AMER. (test code 129 ML/MIN/1.73 = 30727) eGFR NON- AMER. (test 111 ML/MIN/1.73 code = 54433) CALC BUN/CREAT (test code = 19 RATIO [...] (test code = 2219) 34 U/L LIPID [id number] 00:00:00 Test Item Value Reference Range Interpretation Comments CHOLESTEROL (test code = 2210) 173 MG/DL TRIGLYCERIDES (test code = 2232) 341 MG/DL HDL CHOLESTEROL (test code = 2220) 28 MG/DL CALC LDL CHOL (test code = 2237) 100 MG/DL RISK RATIO LDL/HDL (test code = 3.57 RATIO 2238) LIPID [id number] 00:00:00 Test Item Value Reference Range Interpretation Comments CHOLESTEROL (test code = 2210) 173 MG/DL TRIGLYCERIDES (test code = 2232) 341 MG/DL HDL CHOLESTEROL (test code = 2220) 28 MG/DL CALC LDL CHOL (test code = 2237) 100 MG/DL RISK RATIO LDL/HDL (test code = 3.57 RATIO 2238) HEMOGLOBIN [id number] 00:00:00 Test Item Value Reference Range Interpretation Comments HEMOGLOBIN A1c (test code = 70445) 7.0 % HEMOGLOBIN [id number] 00:00:00 Test Item Value Reference Range Interpretation Comments HEMOGLOBIN A1c (test code = 90365) 7.0 % MICROALBUMIN/CREATININE, RANDOM AND [id number] 00:00:00 Test Item Value Reference Range Interpretation Comments CREATININE, URINE, CONC. (test 92.4 MG/DL code = 2072) ALBUMIN, URINE, RANDOM (test code 0.7 MG/DL = 42984) CALC ALBUMIN/CREAT, RND (test code 8 MG/G = 74880) MICROALBUMIN/CREATININE, RANDOM AND [id number] 00:00:00 Test Item Value Reference Range Interpretation Comments CREATININE, URINE, CONC. (test 92.4 MG/DL code = 2072) ALBUMIN, URINE, RANDOM (test code 0.7 MG/DL = 24386) CALC ALBUMIN/CREAT, RND (test code 8 MG/G = 06191) HIV 1/2 4TH GEN, RFLX CONF [ADDED]2019-03-22 [...] Interpretation Comments GONORRHEA, TMA (test code = 47414) NEGATIVE CHLAMYDIA, TMA (test code = 54431) NEGATIVE CT/NG, TMA, URINE [ADDED]2019-03-22 00:00:00 Test Item Value Reference Range Interpretation Comments GONORRHEA, TMA (test code = 25761) NEGATIVE CHLAMYDIA, TMA (test code = 38396) NEGATIVE COMPREHENSIVE METABOLIC [id number] 00:00:00 Test Item Value Reference Range Interpretation Comments GLUCOSE (test code = 2217) 238 MG/DL BUN (test code = 2208) 15 MG/DL CREATININE (test code = 2214) 0.71 MG/DL eGFR AMER. (test code 123 ML/MIN/1.73 = 49108) eGFR NON- AMER. (test 107 ML/MIN/1.73 code = 88373) CALC BUN/CREAT (test code = 21 RATIO [...] code = 2219) 12 U/L COMPREHENSIVE METABOLIC [id number] 00:00:00 Test Item Value Reference Range Interpretation Comments GLUCOSE (test code = 2217) 238 MG/DL BUN (test code = 2208) 15 MG/DL CREATININE (test code = 2214) 0.71 MG/DL eGFR AMER. (test code 123 ML/MIN/1.73 = 69901) eGFR NON- AMER. (test 107 ML/MIN/1.73 code = 11995) CALC BUN/CREAT (test code = 21 RATIO [...] (test code = 2219) 12 U/L LIPID [id number] 00:00:00 Test Item Value Reference Range Interpretation Comments CHOLESTEROL (test code = 2210) 178 MG/DL TRIGLYCERIDES (test code = 2232) 939 MG/DL HDL CHOLESTEROL (test code = 21 MG/DL 2220) CALC LDL CHOL (test code = 2237) NOTE MG/DL RISK RATIO LDL/HDL (test code = (NOTE) RATIO 2238) LIPID [id number] 00:00:00 Test Item Value Reference Range Interpretation Comments CHOLESTEROL (test code = 2210) 178 MG/DL TRIGLYCERIDES (test code = 2232) 939 MG/DL HDL CHOLESTEROL (test code = 21 MG/DL 2220) CALC LDL CHOL (test code = 2237) NOTE MG/DL RISK RATIO LDL/HDL (test code = (NOTE) RATIO 2238) HEMOGLOBIN [id number] 00:00:00 Test Item Value Reference Range Interpretation Comments HEMOGLOBIN A1c (test code = 63163) 7.0 % HEMOGLOBIN [id number] 00:00:00 Test Item Value Reference Range Interpretation Comments HEMOGLOBIN A1c (test code = 20820) 7.0 % HEMOGLOBIN [id number] 00:00:00 Test Item Value Reference Range Interpretation Comments HEMOGLOBIN A1c (test code = 20502) 7.0 % MICROALBUMIN/CREATININE, RANDOM AND [id number] 00:00:00 Test Item Value Reference Range Interpretation Comments CREATININE, URINE, CONC. (test 92.4 MG/DL code = 2072) ALBUMIN, URINE, RANDOM (test code 0.7 MG/DL = 29679) CALC ALBUMIN/CREAT, RND (test code 8 MG/G = 24652) MICROALBUMIN/CREATININE, RANDOM AND [id number] 00:00:00 Test Item Value Reference Range Interpretation Comments CREATININE, URINE, CONC. (test 92.4 MG/DL code = 2072) ALBUMIN, URINE, RANDOM (test code 0.7 MG/DL = 86466) CALC ALBUMIN/CREAT, RND (test code 8 MG/G = 80631) HIV 1/2 4TH GEN, RFLX CONF [ADDED]2019-03-22 [...] Interpretation Comments GONORRHEA, TMA (test code = 69016) NEGATIVE CHLAMYDIA, TMA (test code = 40721) NEGATIVE CT/NG, TMA, URINE [ADDED]2019-03-22 00:00:00 Test Item Value Reference Range Interpretation Comments GONORRHEA, TMA (test code = 23250) NEGATIVE CHLAMYDIA, TMA (test code = 28590) NEGATIVE COMPREHENSIVE METABOLIC [id number] 00:00:00 Test Item Value Reference Range Interpretation Comments GLUCOSE (test code = 2217) 238 MG/DL BUN (test code = 2208) 15 MG/DL CREATININE (test code = 2214) 0.71 MG/DL eGFR AMER. (test code 123 ML/MIN/1.73 = 39842) eGFR NON- AMER. (test 107 ML/MIN/1.73 code = 31156) CALC BUN/CREAT (test code = 21 RATIO [...] code = 2219) 12 U/L COMPREHENSIVE METABOLIC [id number] 00:00:00 Test Item Value Reference Range Interpretation Comments GLUCOSE (test code = 2217) 238 MG/DL BUN (test code = 2208) 15 MG/DL CREATININE (test code = 2214) 0.71 MG/DL eGFR AMER. (test code 123 ML/MIN/1.73 = 27607) eGFR NON- AMER. (test 107 ML/MIN/1.73 code = 10234) CALC BUN/CREAT (test code = 21 RATIO [...] (test code = 2219) 12 U/L LIPID [id number] 00:00:00 Test Item Value Reference Range Interpretation Comments CHOLESTEROL (test code = 2210) 178 MG/DL TRIGLYCERIDES (test code = 2232) 939 MG/DL HDL CHOLESTEROL (test code = 21 MG/DL 2220) CALC LDL CHOL (test code = 2237) NOTE MG/DL RISK RATIO LDL/HDL (test code = (NOTE) RATIO 2238) LIPID [id number] 00:00:00 Test Item Value Reference Range Interpretation Comments CHOLESTEROL (test code = 2210) 178 MG/DL TRIGLYCERIDES (test code = 2232) 939 MG/DL HDL CHOLESTEROL (test code = 21 MG/DL 2220) CALC LDL CHOL (test code = 2237) NOTE MG/DL RISK RATIO LDL/HDL (test code = (NOTE) RATIO 2238) HEMOGLOBIN [id number] 00:00:00 Test Item Value Reference Range Interpretation Comments HEMOGLOBIN A1c (test code = 87241) 7.0 %
[2022-11-17 10:46] LABS: Specific Gravity > 1.030 (1.005-1.030); Urine Bacteria None Seen /HPF (<20); Urine Bilirubin NEGATIVE (Negative); Urine Blood Negative (Negative); Urine Clarity Clear (Clear); Urine Color Yellow (Yellow); Urine Glucose 4+ (Over) (Negative); Urine Mucus 1+ /HPF (None Seen); Urine Protein 1+ (Negative); Urine Urobilinogen 1+ (Normal)
--- NOTE | 2022-11-17 11:00 | RAD REPORT ---
EXAM DESCRIPTION: Rey Single View11/17/2022 10:26 am CLINICAL HISTORY: Chest pain COMPARISON: November 10, 2022 FINDINGS: The lungs appear clear of acute infiltrate. The heart is normal size IMPRESSION: No acute abnormalities displayed
[2022-11-17 14:08] LABS: Absolute Lymphocytes (CBC) 2.3 K/uL (0.7-4.9); Hematocrit 34.6 % (36.0-45.0); Lymphocytes % 40.1 % (15.3-44.8); MCV 79.9 fL (80-100); MPV 9.8 fL (7.6-11.3); RBC Red Blood Cell Count 4.33 M/uL (3.86-4.86)
[2022-11-17 14:40] LABS: ALT/SGPT 29 U/L (13-56); Albumin 3.5 g/dL (3.4-5.0); Alkaline Phosphatase 82 U/L (45-117); BUN Blood Urea Nitrogen 14 mg/dL (7-18); Bicarbonate 24 mEq/L (21-32); Bilirubin Total 0.4 mg/dL (0.2-1.0); Glomerular Filtration Rate 110 ml/min (=/>90); Glucose Level 262 mg/dL (74-106); Lipase 37 U/L (13-75); Protein, Total 7.5 g/dL (6.4-8.2); Sodium Level 132 mEq/L (136-145)
[2022-11-17 14:41] LABS: AST/SGOT 27 U/L (15-37); Potassium 3.8 mEq/L (3.5-5.1); Troponin High Sensitivity < 3.0 pg/mL (<58.9)
--- NOTE | 2022-11-17 14:50 | ER ---
Nurse's Notes [facility] Name: Kaur Caruso Age: 42 yrs Sex: Female : 1980 Arrival Date: 11/17/2022 Time: 09:45 Bed 16 Private MD: Diagnosis: Upper abdominal pain, unspecified Presentation: 11/17 10:09 Chief complaint: Patient states: pt states was seen here about a week ago and diagnosis iw with pancreatis cyst. currently in the process of getting Medicaid but dose not have insurance at this time. c/o pain getting worse pain in chest and back. Coronavirus screen: Vaccine status: Patient reports being unvaccinated. Client denies travel out of the [place] in the last 14 days. 10:09 Method Of Arrival: EMS: [facility] iw 10:14 Acuity: DESTINY 3 iw 15:42 Ebola Screen: No symptoms or risks identified at this time. Initial Sepsis Screen: Does ko1 the patient meet any 2 criteria? No. Patient's initial sepsis screen is negative. Does the patient have a suspected source of infection? No. Patient's initial sepsis screen is negative. Risk Assessment: Do you want to hurt yourself or someone else? Patient reports no desire to harm self or others. Onset of symptoms. Triage Assessment: 15:42 General: Appears distressed, uncomfortable. ko1 Historical: - Allergies: 15:47 No Known Allergies; ko1 - PMHx: 10:14 Hypertension; High Cholesterol; Diabetes - NIDDM; iw 10:21 Anxiety; depressive disorder; iw - PSHx: 10:21 Diabetic Foot Surgery; iw - Immunization history:: Adult Immunizations up to date. - Social history:: Smoking status: Patient denies any tobacco usage or history of. Screenin:25 [facility] ED Fall Risk Assessment (Adult) History of falling in the last 3 months, ko1 including since admission No falls in past 3 months (0 pts) Confusion or Disorientation No (0 pts) Intoxicated or Sedated No (0 pts) Impaired Gait No (0 pts) Mobility Assist Device Used No (0 pt) Altered Elimination No (0 pt) Score/Fall Risk Level 0 - 2 = Low Risk Oriented to surroundings, Maintained a safe environment, Educated pt \T\ family on fall prevention, incl call for assistance when getting out of bed, Assessed \T\ reinforced patient's understanding of fall precautions, Provided non-skid footwear, Hourly rounding (assess needs \T\ fall precautionary measures) done, Used ambulatory aids as needed (educated on \T\ assisted with), Used gait belt as appropriate. Abuse screen: Denies threats or abuse. Denies injuries from another. Nutritional screening: No deficits noted. Tuberculosis screening: No symptoms or risk factors identified. Assessment: 12:00 General: Appears distressed, uncomfortable, Behavior is calm, cooperative, appropriate ko1 for age. Pain: Complains of pain in left lower quadrant and left upper quadrant. Neuro: No deficits noted. Cardiovascular: No deficits noted. Respiratory: No deficits noted. GI: Bowel sounds present X 4 quads. Abd is soft X 4 quads. : No deficits noted. EENT: No deficits noted. Derm: No deficits noted. Musculoskeletal: No deficits noted. Vital Signs: 10:09 BP 154 / 91; Pulse 92; Temp 98; Pulse Ox 100% ; iw 14:25 BP 131 / 74; Pulse 88; Resp 18; Pulse Ox 99% ; ko1 15:21 BP 123 / 65; Pulse 85; Resp 16; Pulse Ox 100% ; ko1 ED Course: 09:55 Patient arrived in ED. mr 09:57 Prec[facility]C [facility] kb 09:57 Shane Mosquera MD is Attending Physician. kb 10:14 Triage completed. iw 10:28 Chest Single View XRAY In Process Unspecified. EDMS 10:31 CBC with Diff Sent. bc6 10:31 CMP Sent. bc6 10:31 Lipase Sent. bc6 10:31 Urinalysis w/ reflexes Sent. bc6 10:31 Inserted saline lock: 20 gauge in right antecubital area, using aseptic technique. bc6 12:01 Felicita Greenfield, HINA is Primary Nurse. ko1 14:25 No provider procedures requiring assistance completed. ko1 14:25 Patient has correct armband on for positive identification. Bed in low position. Call ko1 light in reach. Side rails up X 1. Pulse ox on. NIBP on. 15:41 IV discontinued, intact, bleeding controlled, No redness/swelling at site. Pressure ko1 dressing applied. 15:48 Arm band placed on right wrist. Patient notified of wait time. ko1 Administered Medications: 14:50 Drug: NS 0.9% IV 1000 ml Route: IV; Rate: 1000 ml; Site: left antecubital; ko1 15:41 Follow up: Response: No adverse reaction; IV Status: Completed infusion; IV Intake: ko1 1000ml 14:50 Drug: Ketorolac IVP 15 mg Route: IVP; Site: left antecubital; ko1 15:41 Follow up: Response: No adverse reaction; Pain is decreased ko1 15:07 Drug: Ondansetron IVP 4 mg Route: IVP; Site: right antecubital; ko1 15:41 Follow up: Response: Nausea is decreased ko1 15:07 Drug: Famotidine IVP 20 mg Route: IVP; Site: right antecubital; ko1 15:41 Follow up: Response: No adverse reaction ko1 Medication: 14:25 VIS not applicable for this client. ko1 Intake: 15:41 IV: 1000ml; Total: 1000ml. ko1 Outcome: 14:50 Discharge ordered by . evaristo 15:41 Discharged to home ambulatory. ko1 15:41 Condition: stable 15:41 Discharge instructions given to patient, Instructed on discharge instructions, follow up and referral plans. medication usage, Demonstrated understanding of instructions, follow-up care, medications, Prescriptions given X 2. 15:52 Patient left the ED. ko1 Signatures: Dispatcher [employer] EDPrecious Eduardo, UNMANNED EQUIPMENT OPERATOR-C UNMANNED EQUIPMENT OPERATOR-Lyric Bass Irene, RN Felicita Vega RN RN koCharleen Lin bc6
--- NOTE | 2022-11-17 14:50 | EDPHYS ---
Physician Documentation [facility] Name: Kaur Caruso Age: 42 yrs Sex: Female : 1980 Arrival Date: 11/17/2022 Time: 09:45 Bed 16 Private MD: ED Physician Shane Mosquera HPI: 11/17 15:11 This 42 yrs old Female presents to ER via EMS with complaints of Abdominal kb Pain. 15:11 The patient presents with abdominal pain in the left upper quadrant, in the left lower kb quadrant. Onset: The symptoms/episode began/occurred last week. The symptoms do not radiate. Associated signs and symptoms: Pertinent positives: nausea and vomiting. The symptoms are described as constant. Modifying factors: The symptoms are alleviated by nothing, the symptoms are aggravated by nothing. Severity of pain: At its worst the pain was moderate in the emergency department the pain is unchanged. The patient has experienced similar episodes in the past. The patient has not recently seen a physician. 15:12 Pt reports abd pain and nausea that shes had multiple times in the past. Has been seen kb for this 3 times in the last few weeks. States the pain has never gone away. Historical: - Allergies: 15:47 No Known Allergies; ko1 - PMHx: 10:14 Hypertension; High Cholesterol; Diabetes - NIDDM; iw 10:21 Anxiety; depressive disorder; iw - PSHx: 10:21 Diabetic Foot Surgery; iw - Immunization history:: Adult Immunizations up to date. - Social history:: Smoking status: Patient denies any tobacco usage or history of. ROS: 15:08 Constitutional: Negative for fever, chills, and weight loss. kb 15:08 Abdomen/GI: Positive for abdominal pain, nausea, Negative for vomiting, diarrhea, constipation. 15:08 All other systems are negative. Exam: 15:08 Constitutional: This is a well developed, well nourished patient who is awake, alert, kb and in no acute distress. Head/Face: Normocephalic, atraumatic. ENT: Moist Mucous membranes Cardiovascular: Regular rate and rhythm with a normal S1 and S2. No gallops, murmurs, or rubs. No pulse deficits. Respiratory: Respirations even and unlabored. No increased work of breathing. Talking in full sentences Skin: Warm, dry with normal turgor. Normal color. MS/ Extremity: Pulses equal, no cyanosis. Neurovascular intact. Full, normal range of motion. Neuro: Awake and alert, GCS 15, oriented to person, place, time, and situation. Moves all extremities. Normal gait. 15:09 Abdomen/GI: Inspection: abdomen appears normal, Bowel sounds: normal, Palpation: soft, kb in all quadrants, mild abdominal tenderness, in the left upper quadrant and left lower quadrant. 15:55 ECG was reviewed by the Attending Physician. kb Vital Signs: 10:09 BP 154 / 91; Pulse 92; Temp 98; Pulse Ox 100% ; iw 14:25 BP 131 / 74; Pulse 88; Resp 18; Pulse Ox 99% ; ko1 15:21 BP 123 / 65; Pulse 85; Resp 16; Pulse Ox 100% ; ko1 MDM: 09:57 Patient medically screened. kb 14:22 ED course: Awaiting labs. kb 15:09 Data reviewed: vital signs, nurses notes. kb 15:10 Differential diagnosis: diverticulitis, non-specific abd pain, pancreatitis, chronic kb abdominal pain. Historians other than the Patient: EMS: [facility]. Counseling: I had a detailed discussion with the patient and/or guardian regarding: the historical points, exam findings, and any diagnostic results supporting the discharge/admit diagnosis, lab results, the need for outpatient follow up, a family practitioner, a pad machine feeder, to return to the emergency department if symptoms worsen or persist or if there are any questions or concerns that arise at home. 15:11 ED course: Pt had CT scan on 11/10 without acute findings. kb 11/17 10:05 Order name: CBC with Diff; Complete Time: 14:21 kb 11/17 10:05 Order name: CMP; Complete Time: 14:45 kb 11/17 10:05 Order name: Lipase; Complete Time: 14:45 kb 11/17 10:05 Order name: Urinalysis w/ reflexes; Complete Time: 10:50 kb 11/17 10:05 Order name: Troponin High Sensitivity; Complete Time: 14:45 kb 11/17 10:50 Order name: Urine Culture EDRI 11/17 10:05 Order name: Chest Single View XRAY; Complete Time: 11:01 kb 11/17 10:05 Order name: EKG; Complete Time: 10:06 kb 11/17 10:05 Order name: IV Saline Lock; Complete Time: 10:31 kb 11/17 10:05 Order name: Labs collected and sent; Complete Time: : kb 11/17 10:05 Order name: EKG - Nurse/Tech; Complete Time: 14:02 kb EC:55 Rate is 80 beats/min. Rhythm is regular. QRS [place] is Normal. [place] interval is normal at kb 144 msec. QRS interval is normal at 80 msec. QT interval is normal at 447 msec. Administered Medications: 14:50 Drug: NS 0.9% IV 1000 ml Route: IV; Rate: 1000 ml; Site: left antecubital; ko1 15:41 Follow up: Response: No adverse reaction; IV Status: Completed infusion; IV Intake: ko1 1000ml 14:50 Drug: Ketorolac IVP 15 mg Route: IVP; Site: left antecubital; ko1 15:41 Follow up: Response: No adverse reaction; Pain is decreased ko1 15:07 Drug: Ondansetron IVP 4 mg Route: IVP; Site: right antecubital; ko1 15:41 Follow up: Response: Nausea is decreased ko1 15:07 Drug: Famotidine IVP 20 mg Route: IVP; Site: right antecubital; ko1 15:41 Follow up: Response: No adverse reaction ko1 Disposition Summary: 11/17/22 14:50 Discharge Ordered Location: Home kb Condition: Stable kb Diagnosis - Upper abdominal pain, unspecified kb Followup: kb - With: Emergency Department - When: As needed - Reason: Worsening of condition Followup: kb - With: Private Physician - When: 2 - 3 days - Reason: Recheck today's complaints, Continuance of care, Re-evaluation by your physician Discharge Instructions: - Discharge Summary Sheet kb - Abdominal Pain, Adult, [id number] kb Forms: - Medication Reconciliation Form kb - Thank You Letter kb - Antibiotic Education kb - Prescription Opioid Use kb Prescriptions: - Zofran 4 mg Oral Tablet - take 1 tablet by ORAL route every 6 hours As needed; 20 tablet; Refills: 0, kb Product Selection Permitted - dicyclomine 20 mg Oral Tablet - take 1 tablet by ORAL route 4 times per day As needed; 20 tablet; Refills: 0, kb Product Selection Permitted Signatures: Dispatcher [employer] EDPrecious Eduardo FNP-C CABLE TELEVISION INSTALLER-Ckb Ada Fallon, RN RN iw Felicita Greenfield RN RN ko1 Corrections: (The following items were deleted from the chart) 15:10 15:08 Constitutional: This is a well developed, well nourished patient who is awake, kb alert, and in no acute distress. Head/Face: Normocephalic, atraumatic. ENT: Moist Mucous membranes Cardiovascular: Regular rate and rhythm with a normal S1 and S2. No gallops, murmurs, or rubs. No pulse deficits. Respiratory: Respirations even and unlabored. No increased work of breathing. Talking in full sentences Abdomen/GI: Soft, non-tender. No distention Skin: Warm, dry with normal turgor. Normal color. MS/ Extremity: Pulses equal, no cyanosis. Neurovascular intact. Full, normal range of motion. Neuro: Awake and alert, GCS 15, oriented to person, place, time, and situation. Moves all extremities. Normal gait. kb
[2022-11-17] MEDS ORDERED: KETOROLAC 30 MG/ML INJ ONE (14:57)
[2022-11-17] MEDS ORDERED: NA CHLORIDE 0.9% 1,000 ML ONE (14:57)
[2022-11-17] MEDS ORDERED: ONDANSETRON 4 MG/2 ML VIAL ONE (15:16)
[2022-11-17] MEDS ORDERED: FAMOTIDINE 20 MG/2 ML VIAL IV ONE (15:16)
[2022-11-17 16:16] VITALS: TEMP 98
[2022-11-17 16:18] VITALS: BP 123/65; O2SAT 100
--- NOTE | 2022-11-18 12:09 | EKG ---
Test Date: 2022-11-17 Test Time: 13:51:58 Cell Tester: WOODY MEASUREMENT RESULTS: Intervals: Rate: 80 NV: 144 QRSD: 80 QT: 388 QTc: 447 [place]: P: 44 NV: 144 QRS: 45 T: 44 INTERPRETIVE STATEMENTS: Normal sinus rhythm Normal ECG Compared to ECG 11/10/2022 08:53:09 No significant changes Electronically Signed On 11-18-22 12:06:07 CDT by Marciano Szymanski
== END 2022-11-17 15:52 | disposition home or self-care (01) ==
LOC: ER 09:45
DX: R10.12 Left upper quadrant pain (principal)
CPT/HCPCS: 36415; 71045; 80053; 81001; 83690; 84484; 85025; 87086; 87088; 93005; 99284; J2405; J7030

== ENCOUNTER 2023-02-02 12:47 | Emergency (ER) | payer SELFPAY ==
--- OUTSIDE RECORDS SUMMARY | 2023-02-02 12:52 | XMS REPORT | Continuity of Care Document ---
:1980 Author Organization [facility] t Address [address] [place] [id number] Care Team Providers Name Role Phone PCP, PATIENT DOES NOT HAVE A Primary Care Physician UnavailMINNIE Trejo Attending Clinician Unavailable Minnie Ledezma MD Attending Clinician Doctor Unassigned, [place] Attending Clinician Unavailable MINNIE LEDEZMA Admitting Clinician Unavailable Payers Payer Name Policy Type Policy Number Effective Date Expiration Date S ource Problems Condition Condition Condition Status Onset Resolution Last Treating Co mments Source Name Details Category Date Date Treatment Clinician Date Type 2 Type 2 Disease Active Univers diabetes diabetes 07 ity of mellitus mellitus 00:00: [place] without without 00 Medical complicati complicati Br anch on, on, without without long-term long-term current current use of use of insulin insulin History of History of Disease Active U nivers abnormal abnormal 11-24 ity of cervical cervical 00:00: [place] Pap smear Pap smear 00 [facility] Diabetic Diabetic Disease Active Unive rs foot foot 5-02 ity of infection infection 00:00: [address] Branch Allergies, Adverse Reactions, Alerts Allergy Allergy Status Severity Reaction(s) Onset Inactive Treating Comm ents Source Name Type Date Date Clinician NO KNOWN Drug Active Univers ALLERGIE Class ity of S [facility] Social History Social Habit Start Date Stop Date Quantity Comments Source Alcohol intake 2022-11-19 2022-11-19 Current drinker of Un iversity of 00:00:00 00:00:00 alcohol (finding) [facility] Tobacco use and 2018-11-24 2018-11-24 Never used Universit y of exposure 00:00:00 00:00:00 [facility] Alcohol Comment 2018-11-24 2018-11-24 occasional Universit y of 00:00:00 00:00:00 [facility] Sex Assigned At [birth year] Universit y of 00:00:00 00:00:00 [facility] Smoking Status Start Date Stop Date Source Never smoked tobacco [facility] Medications Ordered Filled Start Stop Current Ordering Indication Dosage Frequency Signature Comments Components Source Medication Medication Date Date Medication? Clinician (SIG) Name Name iopamidol 2022- No [id number] 70mL 70 mL, U nivers (ISOVUE 11-19 Intravenou ity o f 370-500 mL) 16:30: 16:30 s, ONCE, 1 [place] injection 00 :00 dose, On Medica l 70 mL 11/19/22 Branch at 1130, Routine morpHINE (4 2022- No 4mg 4 mg, Slow Univers mg/mL) 11-19 IV Push, ity of injection 4 15:15: 15:39 ONCE, 1 [place] mg 00 :[place] dose, On Medical Tue11/19/22 Branch at 1015, STAT FENTanyl PF 2022- No 50ug 50 mcg, Un jatinder (SUBLIMAZE 11-19 Slow IV ity o f (PF)) 15:15: 14:28 Push, [place] injection 00 :00 ONCE, 1 Medical 50 mcg dose, On Branch Tue11/19/22 at 1015, Routine ondansetron 2022- No 4mg 4 mg, Slow Univers (ZOFRAN 11-19 IV Push, ity of (PF)) 13:00: 12:57 ONCE, 1 [place] injection 4 00 :00 dose, On Medi marilee mg Tue11/19/22 Branch at 0800, MARIA LUZ insulin 2022- No .1U/kg 6.12 Units U nivers regular 11-19 (0.1 ity of human 13:00: 16:09 Units/kg [place] (HUMULIN R) 00 :00 ?61.2 kg), Me dical injection Slow IV Branch 6.12 Units Push, ONCE, 1 dose, On Tue11/19/22 at 0800, STAT
In dication for insulin: Hyperglyce rico NaCl 0.9% 2022- No 30mL/kg at 999 Un jatinder (NS) bolus 11-19 06-02 mL/hr, ity of infusion 13:00: 16:00 1,836 mL [place] 1,836 mL 00 :00 (30 mL/kg Medica l ?61.2 kg), Branch IV Infusion, ONCE, 1 dose, On Tue11/19/22 at 0800, STAT maalox:diph 2022- No 15mL 15 mL, Uni vers enhydrAMINE 11-19 Oral, ity of :lidocaine 13:00: 12:59 ONCE, 1 [place] 2 % viscous 00 :00 dose, On Medi marilee 1:1:1 Tue11/19/22 Branch (FIRST-MOUT at 0800, [facility]) Routine oral suspension 15 mL ondansetron Yes [id number] 4mg Take 1 Univers 4 mg -02 tablet by ity of disintegrat 00:00: mouth [place] ing tablet 00 every 8 Medica l (eight) Branch hours as needed for Nausea and Vomiting (N/V) for up to 10 doses. traMADoL Yes [id number] 50mg Take 1 Univers (ULTRAM) 50 -02 tablet by ity of mg tablet 00:00: mouth [place] 00 every 8 Medical (eight) Branch hours as needed for Pain (scale 4-6) for up to 15 doses. Indication s: acute pain lisinopriL 2022- Yes [id number] 20mg Take 1 Univers 20 mg 11-19-03 tablet by ity of tablet 00:00: 04:59 mouth in [place] 00 :00 the Medical morning Branch for 30 days. insulin 2022- Yes [id number] 20U inject 20 Univers detemir 11-19-03 Units ity of U-100 00:00: 04:59 under the [place] (LEVEMIR 00 :00 skin at Medical U-100 bedtime Branch INSULIN) for 30 100 unit/mL days. injection simvastatin 2022- Yes [id number] 20mg Take 1 Univers 20 mg 11-19 tablet by ity of tablet 00:00: 04:59 mouth at [place] 00 :00 bedtime Medical for 30 Branch days. famotidine 2022- Yes [id number] 20mg Take 1 Univers (PEPCID) 20 11-1918 tablet by it y of mg tablet 00:00: 04:59 mouth in [place] 00 :00 the Medical morning Branch and 1 tablet in the evening. Do all this for 30 doses. cephALEXin 2022- Yes [id number] 500mg Take 1 Univers (KEFLEX) 11-19 capsule by ity of 500 mg 00:00: 04:59 mouth 4 [place] capsule 00 :00 (four) Medical times Branch daily for 10 days. INJECT 1 ML No INTRAMUSCUL 12-10 CHRISTIAN ONCE 00:00: EVERY 3 00 MONTHS. Depo-Accounts Payable Analyst No 1mg/mL a 150 mg/mL 12-10 intramuscul 00:00: ar syringe 00 Dose 2021-0 No Unknown 3-31 00:00: 00 Dose 2021-0 No Unknown 3-31 00:00: 00 Dose 2021-0 No Unknown 3-31 00:00: 00 Dose 2021-0 No Unknown 3-31 00:00: 00 Dose 2021-0 No Unknown 3-31 00:00: 00 Dose 2021-0 No Unknown 3-31 00:00: 00 Dose 2021-0 No Unknown 3-31 00:00: 00 Dose 2021-0 No Unknown 3-31 00:00: 00 Dose 2-0 No Unknown 3-31 00:00: 00 Dose 2-0 No Unknown 3-31 00:00: 00 Dose 2-0 No Unknown 3-31 00:00: 00 Dose 2-0 No Unknown 3-31 00:00: 00 Dose 2-0 No Unknown 3-31 00:00: 00 Dose 2-0 No Unknown 3-31 00:00: 00 Dose 2-0 No Unknown 3-31 00:00: 00 Dose 2-0 No Unknown 3-31 00:00: 00 Dose 2-0 No Unknown 3-31 00:00: 00 Dose 2021-0 No Unknown 3-31 00:00: 00 Dose 2022-0 [...] Unknown 3-31 00:00: 00 Paxil 20 mg 1-1 No 1mg tablet 1- 00:00: 00 Dose 2020-1 No Unknown 1- 00:00: 00 Dose 2020-1 No Unknown 1- 00:00: 00 Paxil 20 mg 1-1 No 1mg tablet 1- 00:00: 00 Dose 2020-1 No Unknown 1- 00:00: 00 Dose 2020-1 No Unknown 1-09 00:00: 00 Dose 2021-1 No Unknown 0-13 00:00: 00 hydroxyzine 2021-1 No 1mg HCl 50 mg 0-13 tablet 00:00: 00 trazodone 2021-1 No 2mg 50 mg 0-13 tablet 00:00: 00 Dose 2021-1 No Unknown 0-13 00:00: 00 hydroxyzine 1-1 No 1mg HCl 50 mg 0-13 tablet 00:00: 00 trazodone 1-1 No 2mg 50 mg 0-13 tablet 00:00: 00 lisinopril 2021-1 No 1mg 20 mg 0-07 tablet 00:00: 00 atorvastati 1-1 No 1mg n 40 mg 0-07 tablet 00:00: 00 lisinopril 2021-1 No 1mg 20 mg 0-07 tablet 00:00: 00 atorvastati 2021-1 No 1mg n 40 mg 0-07 tablet 00:00: 00 Dose 2021-0 No Unknown 8-26 00:00: 00 Dose 2021-0 No Unknown 8- 00:00: 00 trazodone 2021-0 No 2mg 50 mg 8-26 tablet 00:00: 00 Dose 2021-0 No Unknown 8-26 00:00: 00 Dose 2021-0 No Unknown 8- 00:00: 00 trazodone 2021-0 No 2mg 50 mg 8-26 tablet 00:00: 00 Dose 2021-0 No Unknown 8- 00:00: 00 Dose 2021-0 No Unknown 8- 00:00: 00 trazodone 2021-0 No 2mg 50 mg 8-02 tablet 00:00: 00 Dose 2021-0 No Unknown 8-02 00:00: 00 Dose 2021-0 No Unknown 8-02 00:00: 00 trazodone 2021-0 No 2mg 50 mg 8-02 tablet 00:00: 00 Paxil 20 mg 2021-0 No 1mg tablet 7 00:00: 00 hydroxyzine 2021-0 No 1mg HCl 25 mg 7-06 tablet 00:00: 00 Paxil 20 mg 2021-0 No 1mg tablet 7 00:00: 00 hydroxyzine 2021-0 No 1mg HCl 25 mg 7-06 tablet 00:00: 00 trazodone 2021-0 No 2mg 50 mg 7-06 tablet 00:00: 00 trazodone 2021-0 No 2mg 50 mg 7-06 tablet 00:00: 00 Dose 2021-0 No Unknown 6-21 00:00: 00 Dose 2021-0 No Unknown 6-21 00:00: 00 Paxil 20 mg 2021-0 No 1mg tablet 6- 00:00: 00 hydroxyzine 2021-0 No 1mg HCl 25 mg 6-07 tablet 00:00: 00 trazodone 2021-0 No 2mg 50 mg 6-07 tablet 00:00: 00 Paxil 20 mg 2021-0 No 1mg tablet 6- 00:00: 00 hydroxyzine 2021-0 No 1mg HCl [...] 25 mg 5-12 tablet 00:00: 00 hydroxyzine 2021-0 No 1mg HCl 25 mg 4-28 tablet 00:00: 00 hydroxyzine 2021-0 No 1mg HCl 25 mg 4-28 tablet 00:00: 00 lisinopril 2021-0 No 1mg 20 mg 3-19 tablet 00:00: 00 atorvastati 2021-0 No 1mg n 40 mg 3-19 tablet 00:00: 00 Levemir 2021-0 No 5(3 mL) FlexTouch 3-19 U-100 00:00: Insulin 100 00 unit/mL (3 mL) subcutaneou s pen lisinopril 2020-0 No 1mg 20 mg 3-19 tablet 00:00: 00 atorvastati 2020-0 No 1mg n 40 mg 3-19 tablet 00:00: 00 Levemir 2020-0 No 5(3 mL) FlexTouch 3-19 U-100 00:00: Insulin 100 00 unit/mL (3 mL) subcutaneou s pen lisinopril 2019-1 No 1mg 20 mg 2-10 tablet 00:00: 00 lisinopril 2020-1 No 1mg 20 mg 2-10 tablet 00:00: 00 lisinopril 2020-0 No 1mg 20 mg 9-01 tablet 00:00: 00 lisinopril 2020-0 No 1mg 20 mg 9-01 tablet 00:00: 00 Levemir 2019-0 No 5(3 mL) FlexTouch 3-06 U-100 00:00: Insulin 100 00 unit/mL (3 mL) subcutaneou s pen atorvastati 2019-0 No 1mg n 40 mg 3-06 tablet 00:00: 00 Levemir 2019-0 No 5(3 mL) FlexTouch 3-06 U-100 00:00: Insulin 100 00 unit/mL (3 mL) subcutaneou s pen atorvastati 2019-0 No 1mg n 40 mg 3-06 tablet 00:00: 00 Levemir 2018-1 No 5(3 mL) FlexTouch 2-18 U-100 00:00: Insulin 100 00 unit/mL (3 mL) subcutaneou s pen atorvastati 2018-1 No 1mg n 40 mg 2-18 tablet 00:00: 00 Levemir 2018-1 No 5(3 mL) FlexTouch 2-18 U-100 00:00: Insulin 100 00 unit/mL (3 mL) subcutaneou s pen atorvastati 2018-1 No 1mg n 40 mg 2-18 tablet 00:00: 00 No known No Univers medications ity [facility] Immunizations Ordered Filled Immunization Date Status Comments Sour e Immunization Name Name Td 2015-10-20 Completed [facility] 00:00:00 [facility] TD, NOS 2015-10-20 Completed [facility] 00:00:00 [facility] Vital Signs Vital Name Observation Time Observation Value Comments Source Systolic blood 2022-11-19 18:00:00 115 mm[Hg] Univer sity of pressure [facility] Diastolic blood 2022-11-19 18:00:00 82 mm[Hg] Unive rsity of [facility] Heart rate 2022-11-19 18:00:00 82 /min [facility] Body temperature 2022-11-19 18:00:00 36.89 [facility] rate 2022-11-19 18:00:00 16 /min Univ [facility] Oxygen saturation in 2022-11-19 18:00:00 95 /min [facility] blood by [facility] Pulse oximetry [place] Body height 2022-11-19 12:14:00 157.5 cm [facility] Body weight 2022-11-19 12:14:00 61.236 kg [facility] BMI 2022-11-19 12:14:00 24.69 kg/m2 [facility] BP Systolic 2022-03-10 16:36:00 136 mm[Hg] BP [...] Procedure Date / Time Performed Performing Clinician [facility] e EKG-12 LEAD 2022-11-19 18:12:08 Minnie Ledezma [facility] URINALYSIS 2022-11-19 16:58:00 Minnie Ledezma [facility] CT ABDOMEN PELVIS W 2022-11-19 15:41:15 Minnie Ledezma [facility] CONTRAST [facility] POCT GLUCOSE 2022-11-19 15:39:00 Minnie Ledezma [facility] (AUTOMATED) [facility] POCT GLUCOSE 2022-11-19 14:31:00 Minnie Ledezma [facility] (AUTOMATED) [facility] XR ABDOMEN ACUTE 2022-11-19 13:45:23 Minnie Ledemza [facility] SERIES [facility] US GALL BLADDER 2022-11-19 13:10:56 Minnie Ledezma [facility] POCT GLUCOSE 2022-11-19 12:33:00 Doctor Unassigned, No [facility] (AUTOMATED) Name Medical Branch LIPASE 2022-11-19 12:28:00 Minnie Ledezma [facility] TEST, SERUM 2022-11-19 12:28:00 Minnie Ledezma [facility] TROPONIN I 2022-11-19 12:28:00 Minnie Ledezma [facility] COMP. METABOLIC PANEL 2022-11-19 12:28:00 Minnie Ledezma [facility] ([id number]) [facility] CBC WITH DIFF 2022-11-19 12:28:00 Minnie Ledezma [facility] CONSENT/REFUSAL FOR 2022-11-19 12:07:05 Doctor Unassigned, No [facility] DIAGNOSIS AND Name Medical [place] TREATMENT REFERRAL- 2020-11-07 05:01:00 Doctor Unassigned, No [facility] REQUEST/RESPONSE Name Medical Branch Plan of Care Planned Activity Planned Date Details Comments Source Goal Plan of Care Note [code = 18889-4] Goal Plan of Care Note [code = 27477-3] Goal Plan of Care Note [code = 15884-8] Goal Plan of Care Note [code = 45413-4] Goal Plan of Care Note [code = 66605-9] Goal Plan of Care Note [code = 94772-8] Goal Plan of Care Note [code = 07600-2] Goal Plan of Care Note [code = 56036-6] Goal Plan of Care Note [code = 05575-7] Goal Plan of Care Note [code = 59913-7] Goal Plan of Care Note [code = 29872-7] Goal Plan of Care Note [code = 08371-2] Goal Plan of Care Note [code = 49537-1] Goal Plan of Care Note [code = 41060-6] Goal Plan of Care Note [code = 59276-1] Goal Plan of Care Note [code = 88184-8] Goal Plan of Care Note [code = 57354-9] Goal Plan of Care Note [code = 16287-7] Goal Plan of Care Note [code = 94804-7] Goal Plan of Care Note [code = 07051-6] Goal Plan of Care Note [code = 16353-0] Goal Plan of Care Note [code = 45422-9] Goal Plan of Care Note [code = 27156-9] Goal Plan of Care Note [code = 75701-5] Goal Plan of Care Note [code = 59110-1] Goal Plan of Care Note [code = 69031-7] Goal Plan of Care Note [code = 02443-5] Goal Plan of Care Note [code = 55637-1] Goal Plan of Care Note [code = 04524-5] Goal Plan of Care Note [code = 15856-6] Goal Plan of Care Note [code = 13566-2] Goal Plan of Care Note [code = 74155-6] Goal Plan of Care Note [code = 73975-0] Goal Plan of Care Note [code = 84304-7] Goal Plan of Care Note [code = 42698-7] Goal Plan of Care Note [code = 65898-8] Goal Plan of Care Note [code = 86296-4] Goal Plan of Care Note [code = 71672-3] Encounters Start End Encounter Admission Attending Care Care Encounter Source Date/Time Date/Time Type Type Clinicians Facility Department ID 2023-01-04 2023-01-04 Outpatient [facility] [id number] Garry 15:53:07 15:53:07 0718 [facility] 2023-01-03 2023-01-03 Outpatient [facility] [id number] Garry 16:08:35 16:08:35 0717 [facility] 2022-11-29 2022-11-29 Outpatient [facility] [id number] Garry 14:24:54 14:24:54 0612 [facility] 2022-11-19 2022-11-[address] [id number] Univers 07:15:00 13:21:00 MINNIE blum [facility] 2022-11-19 2022-11-[address] [facility] [id number] Univers 07:15:00 13:21:00 Minnie KEMP 350.1.13.10 i ty of [place] 4.2.7.2.686 [facility] [id number] [address] 2022-09-10 2022-09-10 Outpatient [facility] [id number] Garry 16:03:05 16:03:05 [id number] [facility] 2022-08-30 2022-08-30 Outpatient [facility] [id number] Garry 14:47:20 14:47:20 0313 [facility] 2022-05-31 2022-05-31 Outpatient [facility] [id number] Garry 15:30:31 15:30:31 1212 [facility] 2022-03-10 2022-03-10 Outpatient [id number] 00:00:00 00:00:00 Visit 3a3e-990z i3w-637r-t -c1yp-n11 [id number] 2022-03-08 2022-03-08 Outpatient [id number] 00:00:00 00:00:00 Visit 3d4h-652x k6n-429k-k -f93i-b9z 00d-e4f39d 88grlg9b9 bff1c0 2020-11-07 2020-11-07 Orders Doctor CIARRA [id number] 00:00:00 00:00:00 Only Unassigned, HORACE 350.1.13.10 [facility] 4.2.7.2.686 [id number] 2020-11-07 2020-11-07 Orders Doctor CIARRA [id number] Univers 00:00:00 00:00:00 Only Unassigned, HORACE 350.1.13.10 ity of [facility] 4.2.7.2.686 [place] as [id number] [address] Results Test Description Test Time Test Comments Results Result Comments Source POCT GLUCOSE (AUTOMATED) 2022-11-19 15:40:56 Test Item Value Reference Range Interpretation Comme nts POCT GLU (test code = 2805290905) 258 mg/dL 70-110 H Lab Interpretation (test code = 34775-1) [facility]normal [id number] 14:42:07 Test Item Value Reference Range Interpretation Comments TROPONIN I (test code = <=0.034 1895538660) JOSEFINA (test code = JOSEFINA) Reference (Normal) Range (defined by the 99th percentile reference limit): <= 0.034 ng/mL Note: Cardiac troponin begins to rise 3-4 hours after the onset of ischemia. Repeat in 4-6 hours if the sample was drawn within 3-4 hours of the onset of the symptom and found normal. Diagnosis of myocardial injury is made with acute changes in cTn concentrations with at least one serial sample above the 99th percentile upper reference limit (URL), taken together with the patient's clinical presentation. Biotin has been reported to cause a negative bias, interpret results relative to patient's use of biotin. Lab Interpretation Normal (test code = 97537-0) [facility]2022-[facility]-19 14:33:33 Test Item Value Reference Range Interpretation Comments POCT GLU (test code = 3677690879) 264 mg/dL 70-110 H Lab Interpretation (test code = Abnormal 75153-2) [facility], [id number] 13:15:04 Test Item Value Reference Range Interpretation Comments PREG SERUM (test code Negative = 5460552133) JOSEFINA (test code = JOSEFINA) Less than 10 IU/L. ?If low titer or ectopic is suspected, resubmit specimen in 48-72 hours. [facility] Metabolic Panel ([id number])2022-11-19 13:06:14 Test Item Value Reference Range Interpretation Comments NA (test code = 133 mmol/L 135-145 L 2726571232) K (test code = 3.8 mmol/L 3.5-5.0 7064848762) CL (test code = 101 mmol/L 98-108 4958128680) CO2 TOTAL (test code = 22 mmol/L 23-31 L 0259568208) AGAP (test code = 10 2-16 0409902991) BUN (test code = 10 mg/dL 7-23 4636370130) GLUCOSE (test code = 303 mg/dL 70-110 H 8548712668) CREATININE (test code = 0.43 mg/dL 0.50-1.04 L 4919613029) TOTAL BILI (test code = 0.8 mg/dL 0.1-1.8 2786520045) CALCIUM (test code = 8.4 mg/dL 8.6-10.6 L 5990359499) T PROTEIN (test code = 7.4 g/dL 6.3-8.2 3229314272) ALBUMIN (test code = 4.0 g/dL 3.5-5.0 6124207184) ALK PHOS (test code = 91 U/L 34-122 2346992763) ALTv (test code = 24 U/L 5-35 1742-6) AST(SGOT) (test code = 24 U/L 13-40 0706278204) eGFR (test code = 159.5 mL/min/1.73m2 1022149760) JOSEFINA (test code = JOSEFINA) Association of Glomerular Filtration Rate (GFR) and Staging of Kidney Disease* + --+ --+ ------+| GFR (mL/min/1.73 m2) ?| With Kidney Damage ?| ?Without Kidney Damage+ --------+ --------+ +| ?>90 ?| ?Stage one ?| ? Normal ?+ ---+ ---+ -------+| ?60-89 ?| ?Stage two ?| ? Decreased GFR ? + --+ --+ ------+| ?30-59 ?| ?Stage three ?| ? Stage three ? + --+ --+ ------+| ?15-29 ?| ?Stage four ? | ? Stage four ?+ ---+ ---+ -------+| ?<15 (or dialysis) ? ?| ?Stage five ? | ? Stage five ?+ ---+ ---+ -------+ *Each stage assumes the associated GFR level has been in effect for at least three months. ?Stages 1 to 5, with or without kidney disease, indicate chronic kidney disease. Notes: Determination of stages one and two (with eGFR >59mL/min/1.73 m2) requires estimation of kidney damage for at least three months as defined by structural or functional abnormalities of the kidney, manifested by either:Pathological abnormalities or Markers of kidney damage (including abnormalities in the composition of the blood or urine or abnormalities in imaging tests). Lab Interpretation Abnormal (test code = 39219-7) [facility] [id number] 13:05:54 Test Item Value Reference Range Interpretation Comments LIPASE (test code = 1404303002) 94 U/L 0-220 Lab Interpretation (test code = Normal 52417-0) [facility]CB with [id number] 13:04:52 Test Item Value Reference Range Interpretation Comments WBC (test code = 6.22 See_Comment [Automated 6379-2) message] The sy stem which generated this result transmitted reference range : 4.30 - 11.10 10*3/?L. The reference range was not used to interpret this result as normal/abnormal . RBC (test code = 4.45 See_Comment [Automated 151-4) message] The sy stem which generated this result transmitted reference range : 3.93 - 5.25 10*6/?L. The reference range was not used to interpret this result as normal/abnormal . HGB (test code = 12.9 g/dL 11.6-15.0 718-7) HCT (test code = 34.8 % 35.7-45.2 L 4544-3) MCV (test code = 78.2 fL 80.6-95.5 L 787-2) MCH (test code = 29.0 pg 25.9-32.8 785-6) MCHC (test code = 37.1 g/dL 31.6-35.1 H 786-4) RDW-SD (test code = 37.6 fL 39.0-49.9 L 21774-0) RDW-CV (test code = 13.3 % 12.0-15.5 788-0) PLT (test code = 181 See_Comment [Automated 777-3) message] The sy stem which generated this result transmitted reference range : 166 - 358 10*3/ ?L. The reference r tia was not used to interpret this result as normal/abnormal . MPV (test code = 12.0 fL 9.5-12.9 46632-1) NRBC/100 WBC (test 0.0 See_Comment [Automat ed code = 8543348301) message] The system which generated this result transmitted reference range : 0.0 - 10.0 /100 WBCs. The refer ence range was not u sed to interpret th is result as normal/abnormal . NRBC x10^3 (test code See_Comment [Auto mated = 5474932719) message] The s ystem which generated this result transmitted reference range : 10*3/?L. The reference range was not used to interpret this result as normal/abnormal . GRAN MAT (NEUT) % 62.1 % (test code = 770-8) IMM GRAN % (test code 0.80 % = 6716933734) LYMPH % (test code = 29.6 % 736-9) MONO % (test code = 4.7 % 5905-5) EOS % (test code = 2.3 % 713-8) BASO % (test code = 0.5 % 706-2) GRAN MAT x10^3(ANC) 3.87 10*3/uL 1.88-7.09 (test code = 3590894526) IMM GRAN x10^3 (test 0.05 10*3/uL 0.00-0.06 code = 5483267339) LYMPH x10^3 (test code 1.84 10*3/uL 1.32-3.29 = 731-0) MONO x10^3 (test code 0.29 10*3/uL 0.33-0.92 L = 742-7) EOS x10^3 (test code = 0.14 10*3/uL 0.03-0.39 711-2) BASO x10^3 (test code 0.03 10*3/uL 0.01-0.07 = 704-7) Lab Interpretation Abnormal (test code = 44414-4) [facility]2022-11-19 12:35:03 Test Item Value Reference Range Interpretation Comments POCT GLU (test code = 2660615054) 305 mg/dL 70-110 H Lab Interpretation (test code = Abnormal 13059-6) [facility]AT[facility]INE RATIO, URINE, RANDOM 2022-03-09 04:55:11 Test Item Value Reference Range Interpretation Comments CREATININE, URINE, 135.5 MG/DL NOT ESTAB CONC. (test code = 2072) ALBUMIN, URINE, 3.2 MG/DL NOT ESTAB RANDOM (test code = 38310) CALC 24 MG/G <30 Note: ALBUMIN/CREAT, RND Albumin/C reatinine ratio (test code = reference inter skinny 59029) reflects ADA an d NKF guidelines. UNL ESS OTHERWISE INDIC ATED, ALL TESTING PERFORM ED [facility], [address] [address] LABORATORY DIRE CTOR: SIRISHA THOMPSON M.D. CLIA NUMBER [id number] [place] [id number] COMPREHENSIVE METABOLIC [id number] 03:42:46 Test Item Value Reference Range Interpretation Comments GLUCOSE (test code = 315 MG/DL 70-99 H 2216) BUN (test code = 11 MG/DL 12-07) CREATININE (test 0.61 MG/DL 0.60-1.30 code = 2214) eGFR (2020 CKD-EPI) 114 >60 (test code = 48711) ML/MIN/1.73 CALC BUN/CREAT (test 18 RATIO - code = 2235) SODIUM (test code = 139 MEQ/L 231-461 5031) POTASSIUM (test code 4.1 MEQ/L 3.5-5.4 = 2227) CHLORIDE (test code 105 MEQ/L 95-107 = 2215) CARBON DIOXIDE (test 21 MEQ/L 19-31 code = 2206) CALCIUM (test code = 9.4 MG/DL 8.5-10.5 2208) PROTEIN, TOTAL (test 7.5 G/DL 6.1-8.3 code = 2229) ALBUMIN (test code = 4.6 G/DL 3.5-5.2 2200) CALC GLOBULIN (test 2.9 G/DL 1.9-3.7 code = 2240) CALC A/G RATIO (test 1.6 RATIO 1.0-2.6 code = 2234) BILIRUBIN, TOTAL 0.4 MG/DL See_Comment [Automated message] (test code = 220) The syste m which generated this result transmit cristiane reference range : <=1.2. The refe rence range was not u sed to interpret th is result as normal/abnormal . ALKALINE PHOSPHATASE 79 U/L 40-113 (test code = 220) AST (test code = 10 U/L 9-40 2217) ALT (test code = 7 U/L 5-40 2218) LIPID [id number] 03:42:46 Test Item Value Reference Range Interpretation [...] THAN 40 0 MG/DL.UNABLE TO CALCULATE A SKINNY ID LDL CHOLESTEROL WHE N THE TRIGLYCERIDEVAL [...] MOREINFORMATION , SEE CLIENT ANNOUNCE MENT AT [email or web address] CalcLDL-C RISK RATIO LDL/HDL (NOTE) RATIO <3.22 UNABLE TO CALCULATE (test code = 2237) HEMOGLOBIN [id number] 02:41:50 Test Item Value Reference Range Interpretation Comments HEMOGLOBIN A1c (test 9.2 % 4.2-5.6 H AMERIC AN DIABETES code = 95288) ASSOCIATION IDE[employer] FOR HGB A1C: PREDIABETES/INC REASED [...] TESTING OR LABORATORY C ONSULTATION. COMPREHENSIVE METABOLIC [id number] 00:00:00 Test Item Value Reference Range Interpretation Comments GLUCOSE (test code = 2217) 315 MG/DL BUN (test code = 2208) 11 MG/DL CREATININE (test code = 2214) 0.61 MG/DL eGFR (2020 CKD-EPI) (test 114 ML/MIN/1.73 code = 63617) CALC BUN/CREAT (test code = 18 RATIO [...] CALC GLOBULIN (test code = 2.9 G/DL 224) CALC A/G RATIO (test code = 1.6 RATIO 2234) BILIRUBIN, TOTAL (test code = 0.4 MG/DL 2206) ALKALINE PHOSPHATASE (test 79 U/L code = 2204) AST (test code = 2218) 10 U/L ALT (test code = 2219) 7 U/L ALBUMIN/CREATININE RATIO, RANDOM [id number] 00:00:00 Test Item Value Reference Range Interpretation Comments CREATININE, URINE, CONC. (test 135.5 MG/DL code = 2072) ALBUMIN, URINE, RANDOM (test code 3.2 MG/DL = 85369) CALC ALBUMIN/CREAT, RND (test 24 MG/G code = 05975) ALBUMIN/CREATININE RATIO, RANDOM [id number] 00:00:00 Test Item Value Reference Range Interpretation Comments CREATININE, URINE, CONC. (test 135.5 MG/DL code = 2072) ALBUMIN, URINE, RANDOM (test code 3.2 MG/DL = 00158) CALC ALBUMIN/CREAT, RND (test 24 MG/G code = 25730) HEMOGLOBIN [id number] 00:00:00 Test Item Value Reference Range Interpretation Comments HEMOGLOBIN A1c (test code = 66540) 9.2 % HEMOGLOBIN [id number] 00:00:00 Test Item Value Reference Range Interpretation Comments HEMOGLOBIN A1c (test code = 47735) 9.2 % HEMOGLOBIN [id number] 00:00:00 Test Item Value Reference Range Interpretation Comments HEMOGLOBIN A1c (test code = 00226) 9.2 % LIPID [id number] 00:00:00 Test Item Value Reference Range Interpretation Comments CHOLESTEROL (test code = 2210) 243 MG/DL TRIGLYCERIDES (test code = 2232) 788 MG/DL HDL CHOLESTEROL (test code = 22 MG/DL 2220) CALC LDL CHOL (test code = 2237) (NOTE) MG/DL RISK RATIO LDL/HDL (test code = (NOTE) RATIO 2238) LIPID [id number] 00:00:00 Test Item Value Reference Range Interpretation Comments CHOLESTEROL (test code = 2210) 243 MG/DL TRIGLYCERIDES (test code = 2232) 788 MG/DL HDL CHOLESTEROL (test code = 22 MG/DL 2220) CALC LDL CHOL (test code = 2237) (NOTE) MG/DL RISK RATIO LDL/HDL (test code = (NOTE) RATIO 2238) COMPREHENSIVE METABOLIC [id number] 00:00:00 Test Item Value Reference Range Interpretation Comments GLUCOSE (test code = 2217) 315 MG/DL BUN (test code = 2208) 11 MG/DL CREATININE (test code = 2214) 0.61 MG/DL eGFR (2020 CKD-EPI) (test 114 ML/MIN/1.73 code = 29195) CALC BUN/CREAT (test code = 18 RATIO [...] code = 2219) 7 U/L COMPREHENSIVE METABOLIC [id number] 00:00:00 Test Item Value Reference Range Interpretation Comments GLUCOSE (test code = 2217) 315 MG/DL BUN (test code = 2208) 11 MG/DL CREATININE (test code = 2214) 0.61 MG/DL eGFR (2020 CKD-EPI) (test 114 ML/MIN/1.73 code = 91722) CALC BUN/CREAT (test code = 18 RATIO [...] = 2219) 7 U/L ALBUMIN/CREATININE RATIO, RANDOM [id number] 00:00:00 Test Item Value Reference Range Interpretation Comments CREATININE, URINE, CONC. (test 135.5 MG/DL code = 2072) ALBUMIN, URINE, RANDOM (test code 3.2 MG/DL = 89767) CALC ALBUMIN/CREAT, RND (test 24 MG/G code = 66435) ALBUMIN/CREATININE RATIO, RANDOM [id number] 00:00:00 Test Item Value Reference Range Interpretation Comments CREATININE, URINE, CONC. (test 135.5 MG/DL code = 2072) ALBUMIN, URINE, RANDOM (test code 3.2 MG/DL = 11869) CALC ALBUMIN/CREAT, RND (test 24 MG/G code = 99711) HEMOGLOBIN [id number] 00:00:00 Test Item Value Reference Range Interpretation Comments HEMOGLOBIN A1c (test code = 93586) 9.2 % HEMOGLOBIN [id number] 00:00:00 Test Item Value Reference Range Interpretation Comments HEMOGLOBIN A1c (test code = 34560) 9.2 % HEMOGLOBIN [id number] 00:00:00 Test Item Value Reference Range Interpretation Comments HEMOGLOBIN A1c (test code = 34683) 9.2 % LIPID [id number] 00:00:00 Test Item Value Reference Range Interpretation Comments CHOLESTEROL (test code = 2210) 243 MG/DL TRIGLYCERIDES (test code = 2232) 788 MG/DL HDL CHOLESTEROL (test code = 22 MG/DL 2220) CALC LDL CHOL (test code = 2237) (NOTE) MG/DL RISK RATIO LDL/HDL (test code = (NOTE) RATIO 2238) LIPID [id number] 00:00:00 Test Item Value Reference Range Interpretation Comments CHOLESTEROL (test code = 2210) 243 MG/DL TRIGLYCERIDES (test code = 2232) 788 MG/DL HDL CHOLESTEROL (test code = 22 MG/DL 2220) CALC LDL CHOL (test code = 2237) (NOTE) MG/DL RISK RATIO LDL/HDL (test code = (NOTE) RATIO 2238) COMPREHENSIVE METABOLIC [id number] 00:00:00 Test Item Value Reference Range Interpretation Comments GLUCOSE (test code = 2217) 315 MG/DL BUN (test code = 2208) 11 MG/DL CREATININE (test code = 2214) 0.61 MG/DL eGFR (2020 CKD-EPI) (test 114 ML/MIN/1.73 code = 29428) CALC BUN/CREAT (test code = 18 RATIO [...] (test code = 2219) 7 U/L VITAMIN [id number] 00:00:00 Test Item Value Reference Range Interpretation Comments VITAMIN B-12 (test code = 2840) 444 PG/ML VITAMIN [id number] 00:00:00 Test Item Value Reference Range Interpretation Comments VITAMIN B-12 (test code = 2840) 444 PG/ML VITAMIN [id number] 00:00:00 Test Item Value Reference Range Interpretation Comments VITAMIN B-12 (test code = 2840) 444 PG/ML [id number] 00:00:00 Test Item Value Reference Range Interpretation Comments TSH, THIRD GENERATION (test code 0.552 UIU/ML = 2821) [id number] 00:00:00 Test Item Value Reference Range Interpretation Comments TSH, THIRD GENERATION (test code 0.552 UIU/ML = 2821) [id number] 00:00:00 Test Item Value Reference Range Interpretation Comments TSH, THIRD GENERATION (test code 0.552 UIU/ML = 2821) VITAMIN D, 25 [id number] 00:00:00 Test Item Value Reference Range Interpretation Comments VITAMIN D, 25 OH (test code = 4958) 19 NG/ML VITAMIN D, 25 [id number] 00:00:00 Test Item Value Reference Range Interpretation Comments VITAMIN D, 25 OH (test code = 4958) 19 NG/ML VITAMIN [id number] 00:00:00 Test Item Value Reference Range Interpretation Comments VITAMIN B-12 (test code = 2840) 444 PG/ML VITAMIN [id number] 00:00:00 Test Item Value Reference Range Interpretation Comments VITAMIN B-12 (test code = 2840) 444 PG/ML VITAMIN [id number] 00:00:00 Test Item Value Reference Range Interpretation Comments VITAMIN B-12 (test code = 2840) 444 PG/ML [id number] 00:00:00 Test Item Value Reference Range Interpretation Comments TSH, THIRD GENERATION (test code 0.552 UIU/ML = 2821) [id number] 00:00:00 Test Item Value Reference Range Interpretation Comments TSH, THIRD GENERATION (test code 0.552 UIU/ML = 2821) [id number] 00:00:00 Test Item Value Reference Range Interpretation Comments TSH, THIRD GENERATION (test code 0.552 UIU/ML = 2821) VITAMIN D, 25 [id number] 00:00:00 Test Item Value Reference Range Interpretation Comments VITAMIN D, 25 OH (test code = 4958) 19 NG/ML VITAMIN D, 25 [id number] 00:00:00 Test Item Value Reference Range Interpretation Comments VITAMIN D, 25 OH (test code = 4958) 19 NG/ML HEMOGLOBIN [id number] 00:00:00 Test Item Value Reference Range Interpretation Comments HEMOGLOBIN A1c (test code = 30044) 6.7 % HEMOGLOBIN [id number] 00:00:00 Test Item Value Reference Range Interpretation Comments HEMOGLOBIN A1c (test code = 62244) 6.7 % HEMOGLOBIN [id number] 00:00:00 Test Item Value Reference Range Interpretation Comments HEMOGLOBIN A1c (test code = 02369) 6.7 % HEMOGLOBIN [id number] 00:00:00 Test Item Value Reference Range Interpretation Comments HEMOGLOBIN A1c (test code = 31658) 6.7 % HEMOGLOBIN [id number] 00:00:00 Test Item Value Reference Range Interpretation Comments HEMOGLOBIN A1c (test code = 89288) 6.7 % HEMOGLOBIN [id number] 00:00:00 Test Item Value Reference Range Interpretation Comments HEMOGLOBIN A1c (test code = 23488) 6.7 % MICROALBUMIN/CREATININE, RANDOM AND [id number] 00:00:00 Test Item Value Reference Range Interpretation Comments CREATININE, URINE, CONC. (test 22.0 MG/DL code = 2072) ALBUMIN, URINE, RANDOM (test code 0.2 MG/DL = 07092) CALC ALBUMIN/CREAT, RND (test code 9 MG/G = 83553) MICROALBUMIN/CREATININE, RANDOM AND [id number] 00:00:00 Test Item Value Reference Range Interpretation Comments CREATININE, URINE, CONC. (test 22.0 MG/DL code = 2072) ALBUMIN, URINE, RANDOM (test code 0.2 MG/DL = 50193) CALC ALBUMIN/CREAT, RND (test code 9 MG/G = 41995) COMPREHENSIVE METABOLIC [id number] 00:00:00 Test Item Value Reference Range Interpretation Comments GLUCOSE (test code = 2217) 158 MG/DL BUN (test code = 2208) 12 MG/DL CREATININE (test code = 2214) 0.63 MG/DL eGFR AMER. (test code 129 ML/MIN/1.73 = 51463) eGFR NON- AMER. (test 111 ML/MIN/1.73 code = 13769) CALC BUN/CREAT (test code = 19 RATIO [...] code = 2219) 34 U/L COMPREHENSIVE METABOLIC [id number] 00:00:00 Test Item Value Reference Range Interpretation Comments GLUCOSE (test code = 2217) 158 MG/DL BUN (test code = 2208) 12 MG/DL CREATININE (test code = 2214) 0.63 MG/DL eGFR AMER. (test code 129 ML/MIN/1.73 = 44893) eGFR NON- AMER. (test 111 ML/MIN/1.73 code = 67569) CALC BUN/CREAT (test code = 19 RATIO [...] A/G RATIO (test code = 1.6 RATIO 223) BILIRUBIN, TOTAL (test code = 0.4 MG/DL 2206) ALKALINE PHOSPHATASE (test 69 U/L code = 2204) AST (test code = 2218) 28 U/L ALT (test code = 2219) 34 U/L LIPID [id number] 00:00:00 Test Item Value Reference Range Interpretation Comments CHOLESTEROL (test code = 2210) 173 MG/DL TRIGLYCERIDES (test code = 2232) 341 MG/DL HDL CHOLESTEROL (test code = 2220) 28 MG/DL CALC LDL CHOL (test code = 2237) 100 MG/DL RISK RATIO LDL/HDL (test code = 3.57 RATIO 2238) LIPID [id number] 00:00:00 Test Item Value Reference Range Interpretation Comments CHOLESTEROL (test code = 2210) 173 MG/DL TRIGLYCERIDES (test code = 2232) 341 MG/DL HDL CHOLESTEROL (test code = 2220) 28 MG/DL CALC LDL CHOL (test code = 2237) 100 MG/DL RISK RATIO LDL/HDL (test code = 3.57 RATIO 2238) MICROALBUMIN/CREATININE, RANDOM AND [id number] 00:00:00 Test Item Value Reference Range Interpretation Comments CREATININE, URINE, CONC. (test 22.0 MG/DL code = 2072) ALBUMIN, URINE, RANDOM (test code 0.2 MG/DL = 37559) CALC ALBUMIN/CREAT, RND (test code 9 MG/G = 67592) MICROALBUMIN/CREATININE, RANDOM AND [id number] 00:00:00 Test Item Value Reference Range Interpretation Comments CREATININE, URINE, CONC. (test 22.0 MG/DL code = 2072) ALBUMIN, URINE, RANDOM (test code 0.2 MG/DL = 51303) CALC ALBUMIN/CREAT, RND (test code 9 MG/G = 31581) COMPREHENSIVE METABOLIC [id number] 00:00:00 Test Item Value Reference Range Interpretation Comments GLUCOSE (test code = 2217) 158 MG/DL BUN (test code = 2208) 12 MG/DL CREATININE (test code = 2214) 0.63 MG/DL eGFR AMER. (test code 129 ML/MIN/1.73 = 39556) eGFR NON- AMER. (test 111 ML/MIN/1.73 code = 11593) CALC BUN/CREAT (test code = 19 RATIO [...] code = 2219) 34 U/L COMPREHENSIVE METABOLIC [id number] 00:00:00 Test Item Value Reference Range Interpretation Comments GLUCOSE (test code = 2217) 158 MG/DL BUN (test code = 2208) 12 MG/DL CREATININE (test code = 2214) 0.63 MG/DL eGFR AMER. (test code 129 ML/MIN/1.73 = 11897) eGFR NON- AMER. (test 111 ML/MIN/1.73 code = 77792) CALC BUN/CREAT (test code = 19 RATIO [...] (test code = 2219) 34 U/L LIPID [id number] 00:00:00 Test Item Value Reference Range Interpretation Comments CHOLESTEROL (test code = 2210) 173 MG/DL TRIGLYCERIDES (test code = 2232) 341 MG/DL HDL CHOLESTEROL (test code = 2220) 28 MG/DL CALC LDL CHOL (test code = 2237) 100 MG/DL RISK RATIO LDL/HDL (test code = 3.57 RATIO 2238) LIPID [id number] 00:00:00 Test Item Value Reference Range Interpretation Comments CHOLESTEROL (test code = 2210) 173 MG/DL TRIGLYCERIDES (test code = 2232) 341 MG/DL HDL CHOLESTEROL (test code = 2220) 28 MG/DL CALC LDL CHOL (test code = 2237) 100 MG/DL RISK RATIO LDL/HDL (test code = 3.57 RATIO 2238) HEMOGLOBIN [id number] 00:00:00 Test Item Value Reference Range Interpretation Comments HEMOGLOBIN A1c (test code = 99913) 7.0 % HEMOGLOBIN [id number] 00:00:00 Test Item Value Reference Range Interpretation Comments HEMOGLOBIN A1c (test code = 06949) 7.0 % MICROALBUMIN/CREATININE, RANDOM AND [id number] 00:00:00 Test Item Value Reference Range Interpretation Comments CREATININE, URINE, CONC. (test 92.4 MG/DL code = 2072) ALBUMIN, URINE, RANDOM (test code 0.7 MG/DL = 48361) CALC ALBUMIN/CREAT, RND (test code 8 MG/G = 34743) MICROALBUMIN/CREATININE, RANDOM AND [id number] 00:00:00 Test Item Value Reference Range Interpretation Comments CREATININE, URINE, CONC. (test 92.4 MG/DL code = 2072) ALBUMIN, URINE, RANDOM (test code 0.7 MG/DL = 44018) CALC ALBUMIN/CREAT, RND (test code 8 MG/G = 17768) HIV 1/2 4TH GEN, RFLX CONF [ADDED]2019-03-22 [...] Interpretation Comments GONORRHEA, TMA (test code = 63734) NEGATIVE CHLAMYDIA, TMA (test code = 73842) NEGATIVE CT/NG, TMA, URINE [ADDED]2019-03-22 00:00:00 Test Item Value Reference Range Interpretation Comments GONORRHEA, TMA (test code = 52379) NEGATIVE CHLAMYDIA, TMA (test code = 79686) NEGATIVE COMPREHENSIVE METABOLIC [id number] 00:00:00 Test Item Value Reference Range Interpretation Comments GLUCOSE (test code = 2217) 238 MG/DL BUN (test code = 2208) 15 MG/DL CREATININE (test code = 2214) 0.71 MG/DL eGFR AMER. (test code 123 ML/MIN/1.73 = 40065) eGFR NON- AMER. (test 107 ML/MIN/1.73 code = 00084) CALC BUN/CREAT (test code = 21 RATIO 2235) SODIUM (test code = 2231) 139 MEQ/L POTASSIUM (test code = 2228) 4.0 MEQ/L CHLORIDE (test code = 2215) 104 MEQ/L CARBON DIOXIDE (test code = 24 MEQ/L 220) CALCIUM (test code = 2209) 9.5 MG/DL [...] code = 2219) 12 U/L COMPREHENSIVE METABOLIC [id number] 00:00:00 Test Item Value Reference Range Interpretation Comments GLUCOSE (test code = 2217) 238 MG/DL BUN (test code = 2208) 15 MG/DL CREATININE (test code = 2214) 0.71 MG/DL eGFR AMER. (test code 123 ML/MIN/1.73 = 58789) eGFR NON- AMER. (test 107 ML/MIN/1.73 code = 76636) CALC BUN/CREAT (test code = 21 RATIO [...] (test code = 2219) 12 U/L LIPID [id number] 00:00:00 Test Item Value Reference Range Interpretation Comments CHOLESTEROL (test code = 2210) 178 MG/DL TRIGLYCERIDES (test code = 2232) 939 MG/DL HDL CHOLESTEROL (test code = 21 MG/DL 2220) CALC LDL CHOL (test code = 2237) NOTE MG/DL RISK RATIO LDL/HDL (test code = (NOTE) RATIO 2238) LIPID [id number] 00:00:00 Test Item Value Reference Range Interpretation Comments CHOLESTEROL (test code = 2210) 178 MG/DL TRIGLYCERIDES (test code = 2232) 939 MG/DL HDL CHOLESTEROL (test code = 21 MG/DL 2220) CALC LDL CHOL (test code = 2237) NOTE MG/DL RISK RATIO LDL/HDL (test code = (NOTE) RATIO 2238) HEMOGLOBIN [id number] 00:00:00 Test Item Value Reference Range Interpretation Comments HEMOGLOBIN A1c (test code = 59800) 7.0 % HEMOGLOBIN [id number] 00:00:00 Test Item Value Reference Range Interpretation Comments HEMOGLOBIN A1c (test code = 89722) 7.0 % HEMOGLOBIN [id number] 00:00:00 Test Item Value Reference Range Interpretation Comments HEMOGLOBIN A1c (test code = 15945) 7.0 % MICROALBUMIN/CREATININE, RANDOM AND [id number] 00:00:00 Test Item Value Reference Range Interpretation Comments CREATININE, URINE, CONC. (test 92.4 MG/DL code = 2072) ALBUMIN, URINE, RANDOM (test code 0.7 MG/DL = 73146) CALC ALBUMIN/CREAT, RND (test code 8 MG/G = 47905) MICROALBUMIN/CREATININE, RANDOM AND [id number] 00:00:00 Test Item Value Reference Range Interpretation Comments CREATININE, URINE, CONC. (test 92.4 MG/DL code = 2072) ALBUMIN, URINE, RANDOM (test code 0.7 MG/DL = 85408) CALC ALBUMIN/CREAT, RND (test code 8 MG/G = 49005) HIV 1/2 4TH GEN, RFLX CONF [ADDED]2019-03-22 [...] Interpretation Comments GONORRHEA, TMA (test code = 28655) NEGATIVE CHLAMYDIA, TMA (test code = 69422) NEGATIVE CT/NG, TMA, URINE [ADDED]2019-03-22 00:00:00 Test Item Value Reference Range Interpretation Comments GONORRHEA, TMA (test code = 52993) NEGATIVE CHLAMYDIA, TMA (test code = 04559) NEGATIVE COMPREHENSIVE METABOLIC [id number] 00:00:00 Test Item Value Reference Range Interpretation Comments GLUCOSE (test code = 2217) 238 MG/DL BUN (test code = 2208) 15 MG/DL CREATININE (test code = 2214) 0.71 MG/DL eGFR AMER. (test code 123 ML/MIN/1.73 = 20723) eGFR NON- AMER. (test 107 ML/MIN/1.73 code = 97179) CALC BUN/CREAT (test code = 21 RATIO [...] code = 2219) 12 U/L COMPREHENSIVE METABOLIC [id number] 00:00:00 Test Item Value Reference Range Interpretation Comments GLUCOSE (test code = 2217) 238 MG/DL BUN (test code = 2208) 15 MG/DL CREATININE (test code = 2214) 0.71 MG/DL eGFR AMER. (test code 123 ML/MIN/1.73 = 88083) eGFR NON- AMER. (test 107 ML/MIN/1.73 code = 33073) CALC BUN/CREAT (test code = 21 RATIO [...] (test code = 2219) 12 U/L LIPID [id number] 00:00:00 Test Item Value Reference Range Interpretation Comments CHOLESTEROL (test code = 2210) 178 MG/DL TRIGLYCERIDES (test code = 2232) 939 MG/DL HDL CHOLESTEROL (test code = 21 MG/DL 2220) CALC LDL CHOL (test code = 2237) NOTE MG/DL RISK RATIO LDL/HDL (test code = (NOTE) RATIO 2238) LIPID [id number] 00:00:00 Test Item Value Reference Range Interpretation Comments CHOLESTEROL (test code = 2210) 178 MG/DL TRIGLYCERIDES (test code = 2232) 939 MG/DL HDL CHOLESTEROL (test code = 21 MG/DL 2220) CALC LDL CHOL (test code = 2237) NOTE MG/DL RISK RATIO LDL/HDL (test code = (NOTE) RATIO 2238) HEMOGLOBIN [id number] 00:00:00 Test Item Value Reference Range Interpretation Comments HEMOGLOBIN A1c (test code = 97683) 7.0 %"
[2023-02-02] MEDS ORDERED: CYCLOBENZAPRINE 10 MG TAB ONE (14:53)
[2023-02-02 15:05] LABS: Absolute Lymphocytes (CBC) 2.1 K/uL (0.7-4.9); Hematocrit 40.9 % (36.0-45.0); Lymphocytes % 36.3 % (15.3-44.8); MCV 80.5 fL (80-100); MPV 9.3 fL (7.6-11.3); Platelets 212 thou/uL (152-406); RBC Red Blood Cell Count 5.08 M/uL (3.86-4.86)
[2023-02-02 15:06] LABS: Protime INR 0.98
[2023-02-02 15:46] LABS: ALT/SGPT 19 U/L (13-56); Alkaline Phosphatase 72 U/L (45-117); BUN Blood Urea Nitrogen 15 mg/dL (7-18); Bicarbonate 22 mEq/L (21-32); Bilirubin Total 0.5 mg/dL (0.2-1.0); Glomerular Filtration Rate 93 ml/min (=/>90); Glucose Level 279 mg/dL (74-106); NT PRO-BNP 14 pg/mL (<125); Protein, Total 8.2 g/dL (6.4-8.2); Sodium Level 135 mEq/L (136-145)
[2023-02-02 15:47] LABS: AST/SGOT 25 U/L (15-37); Bilirubin Direct < 0.1 mg/dL (0-0.2); Bilirubin Indirect, Calculated ND mg/dL (0.2-0.8); Magnesium 1.8 mg/dL (1.6-2.4); Potassium 4.3 mEq/L (3.5-5.1); Troponin High Sensitivity < 3.0 pg/mL (<58.9)
[2023-02-02] MEDS ORDERED: ONDANSETRON 4 MG/2 ML VIAL ONE (17:50)
[2023-02-02 18:18] LABS: Specific Gravity 1.026 (1.005-1.030)
--- NOTE | 2023-02-02 19:29 | RAD REPORT ---
EXAM DESCRIPTION: CT - Angio Aorta For Dissection - 02/02/2023 6:58 pm CLINICAL HISTORY: Chest pain radiating to the back. No COMPARISON: <Comparisons> TECHNIQUE: CT angiography of the aorta was performed with MIPs. All CT scans are performed using dose optimization technique as appropriate and may include automated exposure control or mA/KV adjustment according to patient size. FINDINGS: A left aortic arch is present with normal branching pattern of the great vessels.No acute aortic finding is seen such as aneurysm, penetrating ulcer or dissection. The celiac axis, SMA, MAGO and renal arteries are patent. No evidence of pulmonary embolism. The lungs are clear. The liver demonstrates no focal mass or biliary dilatation.The spleen, adrenal glands and kidneys are within normal limits for arterial phase imaging.Cystic lesion involving the tail of the pancreas jess ears unchanged, likely pseudocyst. No bowel obstruction, free fluid or abscess.No pathologic enlarged lymphadenopathy identified. No fracture or worrisome bone lesion seen. IMPRESSION: No acute aortic finding is demonstrated.
--- NOTE | 2023-02-02 19:59 | ER ---
Nurse's Notes [facility] Name: Kaur Caruso Age: 42 yrs Sex: Female : 1980 Arrival Date: 02/02/2023 Time: 12:47 Bed 18 Private MD: Diagnosis: Chest pain, unspecified;Low back pain Presentation: 02/02 12:59 Chief complaint: Patient states: Chest pain to the center of her chest onset last cm10 night. Pt states that she is also having pain to her back and is having cramps to her legs. Coronavirus screen: Client denies travel out of the [place] in the last 14 days. Ebola Screen: Patient denies travel to an Ebola-affected area in the 21 days before illness onset. No symptoms or risks identified at this time. Initial Sepsis Screen: Does the patient meet any 2 criteria? No. Patient's initial sepsis screen is negative. Does the patient have a suspected source of infection? No. Patient's initial sepsis screen is negative. Risk Assessment: Do you want to hurt yourself or someone else? Patient reports no desire to harm self or others. Onset of symptoms was February 02, 2023. 12:59 Method Of Arrival: Ambulatory cm10 12:59 Acuity: DESTINY 2 cm10 Historical: - Allergies: 13:02 No Known Allergies; cm10 - PMHx: 13:02 Anxiety; depressive disorder; Diabetes - NIDDM; High Cholesterol; Hypertension; cm10 - PSHx: 13:02 Diabetic Foot Surgery; cm10 - Immunization history:: Adult Immunizations unknown. - Social history:: Smoking status: unknown. - Family history:: not pertinent. Screenin:09 [facility] ED Fall Risk Assessment (Adult) History of falling in the last 3 months, kc6 including since admission No falls in past 3 months (0 pts) Confusion or Disorientation No (0 pts) Intoxicated or Sedated No (0 pts) Impaired Gait No (0 pts) Mobility Assist Device Used No (0 pt) Altered Elimination No (0 pt) Score/Fall Risk Level 0 - 2 = Low Risk. Abuse screen: Denies threats or abuse. Denies injuries from another. Nutritional screening: No deficits noted. Tuberculosis screening: No symptoms or risk factors identified. Assessment: 15:09 General: Appears in no apparent distress. comfortable, Behavior is calm, cooperative, kc6 appropriate for age. Pain: Complains of pain in back, chest, right leg and left leg Pain does not radiate. Pain currently is 8 out of 10 on a pain scale. Neuro: Level of Consciousness is awake, alert, obeys commands, Oriented to person, place, time, situation, Appropriate for age. Cardiovascular: Reports chest pain, Heart tones S1 S2 present Capillary refill < 3 seconds Rhythm is sinus rhythm. Respiratory: Airway is patent Trachea midline Respiratory effort is even, unlabored, Respiratory pattern is regular, symmetrical. GI: Reports nausea, Patient currently denies diarrhea, vomiting. : No signs and/or symptoms were reported regarding the genitourinary system. EENT: No signs and/or symptoms were reported regarding the EENT system. Derm: No signs and/or symptoms reported regarding the dermatologic system. Skin is intact, is healthy with good turgor, Skin is pink, warm \T\ dry. Musculoskeletal: No signs and/or symptoms reported regarding the musculoskeletal system. Circulation, motion, and sensation intact. Capillary refill < 3 seconds, Range of motion: intact in all extremities. 16:09 Reassessment: Patient appears in no apparent distress at this time. No changes from kc6 previously documented assessment. Patient and/or family updated on plan of care and expected duration. Pain level reassessed. Patient is alert, oriented x 3, equal unlabored respirations, skin warm/dry/pink. 17:19 Reassessment: Patient appears in no apparent distress at this time. No changes from kc6 previously documented assessment. Patient and/or family updated on plan of care and expected duration. Pain level reassessed. Patient is alert, oriented x 3, equal unlabored respirations, skin warm/dry/pink. 18:28 Reassessment: CT notified UPT is negative. stated they will come get the pt in 15-20min.kc6 20:00 Reassessment: No changes from previously documented assessment. Patient and/or family cm10 updated on plan of care and expected duration. Pain level reassessed. Patient is alert, oriented x 3, equal unlabored respirations, skin warm/dry/pink. 20:30 Pain: Pain began suddenly. cm10 Vital Signs: 12:59 BP 165 / 100; Pulse 112; Resp 18; Temp 98.2(TE); Pulse Ox 100% on R/A; Weight 61.23 kg; cm10 Height 5 ft. 2 in. ; 15:10 BP 166 / 91; Pulse 94; Resp 17 S; Pulse Ox 100% on R/A; Pain 8/10; kc6 16:09 BP 159 / 99; Pulse 86; Resp 15 S; Pulse Ox 98% on R/A; kc6 17:19 Pulse 99; Resp 18 S; Pulse Ox 95% on R/A; kc6 18:29 BP 133 / 96; Pulse 93; Resp 20 S; Pulse Ox 100% on R/A; kc6 19:00 BP 144 / 95; Pulse 86; Resp 14; Pulse Ox 100% ; cm10 20:00 BP 162 / 94; Pulse 83; Resp 16; Pulse Ox 100% ; cm10 12:59 Body Mass Index 24.69 (61.23 kg, 157.48 cm) cm10 15:10 Pain Scale: Adult [facility] ED Course: 12:48 Patient arrived in ED. rg4 12:53 Marito Coyle MD is Attending Physician. rt 13:02 Triage completed. cm10 13:02 Arm band placed on Patient placed in waiting room. cm10 13:02 EKG completed in triage. Results shown to MD. cm10 14:45 Basic Metabolic Panel Sent. cm10 14:45 CBC with Diff Sent. cm10 14:45 LFT's Sent. cm10 14:45 Magnesium Sent. cm10 14:45 NT PRO-BNP Sent. cm10 14:45 PT-INR Sent. cm10 14:45 Troponin HS Sent. cm10 14:45 Initial lab(s) drawn, by me, sent to lab. Inserted saline lock: 20 gauge in right cm10 forearm, using aseptic technique. Blood collected. Patient maintains SpO2 saturation greater than 95% on room air. 14:57 Buffy Ibarra, RN is Primary Nurse. kc6 15:10 Patient has correct armband on for positive identification. Bed in low position. Call [facility] light in reach. Side rails up X 1. Client placed on continuous cardiac and pulse oximetry monitoring. NIBP monitoring applied. child protection specialist on. 17:18 Radiology exam delayed due to test not completed at this time. nj 17:57 Radiology exam delayed due to test not completed at this time. nj 19:00 Angio Aorta For Dissection In Process Unspecified. EDMS 19:58 Richie London MD is Referral Physician. rt 20:29 Provided Education on: N/A. cm10 20:29 No provider procedures requiring assistance completed. IV discontinued, intact, cm10 bleeding controlled, No redness/swelling at site. Pressure dressing applied. Administered Medications: 14:45 Drug: Cyclobenzaprine PO 10 mg Route: PO; cm10 15:51 Follow up: Response: No adverse reaction kc6 18:01 Drug: Ondansetron IVP 4 mg Route: IVP; Site: right forearm; kc6 18:45 Follow up: Response: No adverse reaction; Nausea is decreased kc6 Medication: 20:30 VIS not applicable for this client. cm10 Outcome: 19:59 Discharge ordered by MD. rt 20:30 Discharged to home ambulatory, with family. cm10 20:30 Condition: good 20:30 Discharge instructions given to patient, Instructed on discharge instructions, follow up and referral plans. medication usage, Demonstrated understanding of instructions, follow-up care, medications, Prescriptions given X 3. 20:30 Patient left the ED. cm10 Signatures: Dispatcher [employer] EDMS Melly Churchill rg4 Neo Mcmahon Kaitlyn, RN RN kc6 Marito Coyle MD MD rt Heidy Vargas RN RN cm10
--- NOTE | 2023-02-02 19:59 | EDPHYS ---
Physician Documentation [facility] Name: Kaur Caruso Age: 42 yrs Sex: Female : 1980 Arrival Date: 02/02/2023 Time: 12:47 Bed 18 Private MD: ED Physician Marito Coyle HPI: 02/02 13:15 This 42 yrs old Female presents to ER via Ambulatory with complaints of Chest rt Pain, Leg Pain, Back Pain, Nausea. 13:15 Patient presents to the ED with chest pain, back pain as well as some nausea starting rt today. Patient has had similar pain for which she was evaluated. States that the symptoms have worsened today. Reports having a burning sensation to both of her legs bilaterally. Denies other acute complaints, symptoms are moderate in severity, no other aggravating or alleviating factors. Historical: - Allergies: 13:02 No Known Allergies; cm10 - PMHx: 13:02 Anxiety; depressive disorder; Diabetes - NIDDM; High Cholesterol; Hypertension; cm10 - PSHx: 13:02 Diabetic Foot Surgery; cm10 - Immunization history:: Adult Immunizations unknown. - Social history:: Smoking status: unknown. - Family history:: not pertinent. ROS: 14:46 Constitutional: Negative for fever, chills, and weight loss, MS/Extremity: Negative for rt injury and deformity, Skin: Negative for injury, rash, and discoloration, Neuro: Negative for headache, weakness, numbness, tingling, and seizure, Psych: Negative for depression, anxiety, suicide ideation, homicidal ideation, and hallucinations. 14:46 Cardiovascular: Positive for chest pain, Negative for edema. 14:46 Abdomen/GI: Positive for abdominal pain, nausea. 14:46 Back: Positive for pain at rest, Negative for injury or acute deformity. Exam: 14:46 Constitutional: This is a well developed, well nourished patient who is awake, alert, rt and in no acute distress. Head/Face: Normocephalic, atraumatic. Neck: Trachea midline, no thyromegaly or masses palpated, and no cervical lymphadenopathy. Supple, full range of motion without nuchal rigidity, or vertebral point tenderness. No Meningismus. Chest/axilla: Normal chest wall appearance and motion. Nontender with no deformity. No lesions are appreciated. Cardiovascular: Regular rate and rhythm with a normal S1 and S2. No gallops, murmurs, or rubs. Normal PMI, no JVD. No pulse deficits. Respiratory: Lungs have equal breath sounds bilaterally, clear to auscultation and percussion. No rales, rhonchi or wheezes noted. No increased work of breathing, no retractions or nasal flaring. Abdomen/GI: Soft, non-tender, with normal bowel sounds. No distension or tympany. No guarding or rebound. No evidence of tenderness throughout. Back: No spinal tenderness. No costovertebral tenderness. Full range of motion. Skin: Warm, dry with normal turgor. Normal color with no rashes, no lesions, and no evidence of cellulitis. MS/ Extremity: Pulses equal, no cyanosis. Neurovascular intact. Full, normal range of motion. Neuro: Awake and alert, GCS 15, oriented to person, place, time, and situation. Cranial nerves II-XII grossly intact. Motor strength 5/5 in all extremities. Sensory grossly intact. Cerebellar exam normal. Normal gait. Psych: Awake, alert, with orientation to person, place and time. Behavior, mood, and affect are within normal limits. 14:46 ECG was reviewed by the Attending Physician. 14:49 ECG was reviewed by the Attending Physician. rt Vital Signs: 12:59 BP 165 / 100; Pulse 112; Resp 18; Temp 98.2(TE); Pulse Ox 100% on R/A; Weight 61.23 kg; cm10 Height 5 ft. 2 in. ; 15:10 BP 166 / 91; Pulse 94; Resp 17 S; Pulse Ox 100% on R/A; Pain 8/10; kc6 16:09 BP 159 / 99; Pulse 86; Resp 15 S; Pulse Ox 98% on R/A; kc6 17:19 Pulse 99; Resp 18 S; Pulse Ox 95% on R/A; kc6 18:29 BP 133 / 96; Pulse 93; Resp 20 S; Pulse Ox 100% on R/A; kc6 19:00 BP 144 / 95; Pulse 86; Resp 14; Pulse Ox 100% ; cm10 20:00 BP 162 / 94; Pulse 83; Resp 16; Pulse Ox 100% ; cm10 12:59 Body Mass Index 24.69 (61.23 kg, 157.48 cm) cm10 15:10 Pain Scale: Adult kc6 MDM: 13:04 Patient medically screened. rt 21:37 Differential diagnosis: Chest wall pain, acute coronary syndrome, NV, pneumonia, rt pneumothorax, aortic dissection. HEART Score: History: Slightly Suspicious (0), ECG: Normal (0), Age: < or = 45 years (0), Risk Factors: 1 or 2 risk factors (1), Troponin: < or = 1 x Normal Limit (0), Total Score = 1. Data reviewed: vital signs, nurses notes, lab test result(s), EKG, radiologic studies. Consideration of Admission/Observation Escalation of care including admission/observation considered. Low heart score, negative troponin, given chronicity of symptoms, 1 set of enzymes is sufficient to rule out an acute coronary syndrome.. I considered the following discharge prescriptions or medication management in the emergency department Medications were administered in the Emergency Department. See MAR. Independent interpretation of the following test(s) in the Emergency Department CT Scan: My interpretation is No dissection seen on interpretation of the CT scan image. Test considered but Not performed: X-ray: CT scan obtained, x-ray redundant. Care significantly affected by the following chronic conditions: Diabetes. Counseling: I had a detailed discussion with the patient and/or guardian regarding the historical points, exam findings, and any diagnostic results supporting the discharge/admit diagnosis, lab results, radiology results, the need for outpatient follow up, to return to the emergency department if symptoms worsen or persist or if there are any questions or concerns that arise at home. Response to treatment: the patient's symptoms have markedly improved after treatment. 02/02 13:05 Order name: Basic Metabolic Panel; Complete Time: 15:48 rt 02/02 13:05 Order name: CBC with Diff; Complete Time: 15:48 rt 02/02 13:05 Order name: LFT's; Complete Time: 15:48 rt 02/02 13:05 Order name: Magnesium; Complete Time: 15:48 rt 02/02 13:05 Order name: NT PRO-BNP; Complete Time: 15:48 rt 02/02 13:05 Order name: PT-INR; Complete Time: 15:48 rt 02/02 13:05 Order name: Troponin HS; Complete Time: 15:48 rt 02/02 17:54 Order name: Test, Urine; Complete Time: 18:27 [facility] 02/02 14:03 Order name: Angio Aorta For Dissection; Complete Time: 19:52 EDMS 02/02 13:05 Order name: EKG; Complete Time: 13:05 rt 02/02 13:05 Order name: Cardiac monitoring; Complete Time: 15:09 rt 02/02 13:05 Order name: EKG - Nurse/Tech; Complete Time: 13:11 rt 02/02 13:05 Order name: IV Saline Lock; Complete Time: 14:45 rt 02/02 13:05 Order name: Labs collected and sent; Complete Time: 14:45 rt 02/02 13:05 Order name: O2 Per Protocol; Complete Time: 14:59 rt 02/02 13:05 Order name: O2 Sat Monitoring; Complete Time: 14:59 rt EC:46 Rate is 104 beats/min. Rhythm is regular, Normal Sinus Rhythm with No ectopy. QRS [place] rt is Normal. FL interval is normal. QRS interval is normal. QT interval is normal. No Q waves. Clinical impression: NSR w/ Non-specific ST/T Changes. Administered Medications: 14:45 Drug: Cyclobenzaprine PO 10 mg Route: PO; cm10 15:51 Follow up: Response: No adverse reaction kc6 18:01 Drug: Ondansetron IVP 4 mg Route: IVP; Site: right forearm; kc6 18:45 Follow up: Response: No adverse reaction; Nausea is decreased kc6 Disposition Summary: 02/02/23 19:59 Discharge Ordered Location: Home rt Problem: new rt Symptoms: have improved rt Condition: Stable rt Diagnosis - Chest pain, unspecified rt - Low back pain rt Followup: rt - With: Richie London MD - When: 2 - 3 days - Reason: Discharge Instructions: - Discharge Summary Sheet rt - Acute Back Pain, Adult rt - Nonspecific Chest Pain, Adult rt Forms: - Medication Reconciliation Form rt - Thank You Letter rt - Antibiotic Education rt - Prescription Opioid Use rt - Patient Portal Instructions rt - Leadership Thank You Letter rt Prescriptions: - gabapentin 100 mg Oral capsule - take 1 capsule by ORAL route every 8 hours; 30 capsule; Refills: 0, Product rt Selection Permitted - Cyclobenzaprine 10 mg Oral Tablet - take 1 tablet by ORAL route every 8 hours As needed; 30 tablet; Refills: 0, rt Product Selection Permitted - Prednisone 20 mg Oral Tablet - take 2 tablets by ORAL route once daily for 5 days; 10 tablet; Refills: 0, rt Product Selection Permitted Signatures: Dispatcher [employer] EDMS Buffy Ibarra RN RN kc6 Marito Coyle MD MD rt Heidy Vargas RN RN cm10 Corrections: (The following items were deleted from the chart) 14:03 13:05 Dissection W/ Wo Con+CT.RAD.BRZ ordered. EDMS EDMS 14:43 13:15 Musculoskeletal/extremity: Chronic well-healed appearing wound to the right heel, rt mild tenderness diffusely, dorsalis pedis pulse is intact. No warmth, edema, erythema. On the left leg, there is a large ulcerative wound to the left medial calf. It is dressed with Xeroform dressing. There is good granulation tissue present, no drainage, surrounding erythema. Pulses intact on the left leg. No warmth, erythema, edema.. rt 14:44 13:15 Patient with history of diabetes, end-stage renal disease presents to the ED with rt worsening of his chronic pain due to wounds. Patient was reported getting a CT scan at [facility] recently when it was pinched on the right foot. He reports a pain to that area since then. The patient also reports that pain to wound to his left medial calf. He is getting wound care for this. He left [facility] 8 days ago. States that the pain is worsening. He did get Tylenol 3 today. Denies other acute complaints at this time, symptoms are moderate severity, aching nature, nonradiating, no other aggravating or alleviating factors. rt 14:47 13:15 Patient with history of diabetes, end-stage renal disease presents to the ED with rt worsening of his chronic pain due to wounds. Patient was reported getting a CT scan at [facility] recently when it was pinched on the right foot. He reports a pain to that area since then. The patient also reports that pain to wound to his left medial calf. He is getting wound care for this. He left [facility] 8 days ago. States that the pain is worsening. He did get Tylenol 3 today. Denies other acute complaints at this time, symptoms are moderate severity, aching nature, nonradiating, no other aggravating or alleviating factors. rt 14:48 13:15 MS/extremity: Positive for pain, Negative for injury or acute deformity, rt rt 14:48 13:15 Skin: Positive for Wound, negative for drainage, rt rt 14:48 13:15 Constitutional: Negative for fever, chills, and weight loss, Cardiovascular: rt Negative for chest pain, palpitations, and edema, Respiratory: Negative for shortness of breath, cough, wheezing, and pleuritic chest pain, Abdomen/GI: Negative for abdominal pain, nausea, vomiting, diarrhea, and constipation, Psych: Negative for depression, anxiety, suicide ideation, homicidal ideation, and hallucinations, rt 14:48 13:15 Constitutional: This is a well developed, well nourished patient who is awake, rt alert, and in no acute distress. Head/Face: Normocephalic, atraumatic. Chest/axilla: Normal chest wall appearance and motion. Nontender with no deformity. No lesions are appreciated. Cardiovascular: Regular rate and rhythm with a normal S1 and S2. No gallops, murmurs, or rubs. Normal PMI, no JVD. No pulse deficits. Respiratory: Lungs have equal breath sounds bilaterally, clear to auscultation and percussion. No rales, rhonchi or wheezes noted. No increased work of breathing, no retractions or nasal flaring. Abdomen/GI: Soft, non-tender, with normal bowel sounds. No distension or tympany. No guarding or rebound. No evidence of tenderness throughout. rt 14:48 13:15 Musculoskeletal/extremity: Chronic well-healed appearing wound to the right heel, rt mild tenderness diffusely, dorsalis pedis pulse is intact. No warmth, edema, erythema. On the left leg, there is a large ulcerative wound to the left medial calf. It is dressed with Xeroform dressing. There is good granulation tissue present, no drainage, surrounding erythema. Pulses intact on the left leg. No warmth, erythema, edema.. rt 14:48 14:25 ECG was reviewed by the Attending Physician. rt rt 14:48 14:25 Rate is 104 beats/min. Rhythm is regular, Sinus tachycardia with No ectopy. QRS rt [place] is Normal. FL interval is normal. QRS interval is normal. QT interval is normal. No Q waves. No ST changes noted. rt 14:49 14:46 Rate is 67 beats/min. Rhythm is regular, Normal Sinus Rhythm with No ectopy. QRS rt [place] is Normal. FL interval is normal. QRS interval is normal. QT interval is normal. No Q waves. Clinical impression: NSR w/ Non-specific ST/T Changes. rt
[2023-02-02 21:15] VITALS: TEMP 98.2
[2023-02-02 21:22] VITALS: O2SAT 100
[2023-02-02 21:25] VITALS: BP 162/94
== END 2023-02-02 20:30 | disposition home or self-care (01) ==
LOC: ER 12:47
DX: R07.9 Chest pain, unspecified (principal); M54.50 Low back pain, unspecified
CPT/HCPCS: 36415; 71275; 74175; 80048; 80076; 81025; 83735; 83880; 84484; 85025; 85610; 93005; J2405; Q9967

== ENCOUNTER 2023-02-10 12:29 | Inpatient (IN) | payer SELFPAY ==
--- OUTSIDE RECORDS SUMMARY | 2023-02-10 12:35 | XMS REPORT | Continuity of Care Document ---
:1980 Author Organization [facility] t Address [address] [place] [address] [place] [address] Care Team Providers Name Role Phone PCP, PATIENT DOES NOT HAVE A Primary Care Physician UnavailMINNIE Trejo Attending Clinician Unavailable Minnie Ledezma MD Attending Clinician Doctor Unassigned, [place] Attending Clinician Unavailable MINNIE LEDEZMA Admitting Clinician Unavailable Payers Payer Name Policy Type Policy Number Effective Date Expiration Date S ource Problems Condition Condition Condition Status Onset Resolution Last Treating Co mments Source Name Details Category Date Date Treatment Clinician Date Type 2 Type 2 Disease Active Univers diabetes diabetes 607 ity of mellitus mellitus 00:00: [place] without without 00 Medical complicati complicati Br anch on, on, without without long-term long-term current current use of use of insulin insulin History of History of Disease Active U nivers abnormal abnormal 6 ity of cervical cervical 00:00: [place] Pap smear Pap smear 00 [facility] Diabetic Diabetic Disease Active Unive rs foot foot 5-02 ity of infection infection 00:00: [address] Allergies, Adverse Reactions, Alerts Allergy Allergy Status Severity Reaction(s) Onset Inactive Treating Comm ents Source Name Type Date Date Clinician NO KNOWN Drug Active Univers ALLERGIE Class ity of S [facility] Social History Social Habit Start Date Stop Date Quantity Comments Source Alcohol intake 2022-11-19 2022-11-19 Current drinker of Un iversity of 00:00:00 00:00:00 alcohol (finding) [facility] Tobacco use and 2018-11-24 2018-11-24 Never used Universit y of exposure 00:00:00 00:00:00 [facility] Alcohol Comment 2018-11-24 2018-11-24 occasional Universit y of 00:00:00 00:00:00 [facility] Sex Assigned At [birth year] Universit y of 00:00:00 00:00:00 [facility] Smoking Status Start Date Stop Date Source Never smoked tobacco [facility] Medications Ordered Filled Start Stop Current Ordering Indication Dosage Frequency Signature Comments Components Source Medication Medication Date Date Medication? Clinician (SIG) Name Name iopamidol 2022- No [id number] 70mL 70 mL, U nivers (ISOVUE 11-19 [...] (0.1 ity of human 13:00: 16:09 Units/kg [place] (HUMULIN R) 00 :00 ?61.2 kg), Ks dical injection Slow IV Branch 6.12 Units [...] No 15mL 15 mL, Uni vers enhydrAMINE 11-1902 Oral, ity of :lidocaine 13:00: 12:59 ONCE, 1 [place] as 2 % viscous 00 :00 dose, On Medi marilee 1:1:1 Tue11/19/22 Branch (FIRST-MOUT at 0800, [facility]) Routine oral suspension 15 mL ondansetron Yes [id number] 4mg Take 1 Univers 4 mg -02 [...] Indication s: acute pain lisinopriL 2022- Yes [id number] 20mg Take 1 Univers 20 mg 11-19-03 tablet by ity of tablet 00:00: 04:59 mouth in [place] 00 :00 the Medical morning Branch for 30 days. insulin 2022- Yes [id number] 20U inject 20 Univers detemir 11-19-03 Units ity of U-100 00:00: 04:59 under the [place] (LEVEMIR 00 :00 skin at [facility] U-100 bedtime Branch INSULIN) for 30 100 unit/mL days. injection simvastatin 2022- Yes [id number] 20mg Take 1 Univers 20 mg 11-19 tablet by ity of tablet 00:00: 04:59 mouth at [place] 00 :00 bedtime Medical for 30 Branch days. famotidine 2022- Yes [id number] 20mg Take 1 Univers (PEPCID) 20 11-1918 tablet by it y of mg tablet 00:00: 04:59 mouth in [place] as 00 :00 the Medical morning Branch and 1 tablet in the evening. Do all this for 30 doses. cephALEXin 2022- Yes [id number] 500mg Take 1 Univers (KEFLEX) 11-19 capsule by ity of 500 mg 00:00: 04:59 mouth 4 [place] capsule 00 :00 (four) Medical times [place] daily for 10 days. INJECT 1 ML No INTRAMUSCUL 12-10 CHRISTIAN ONCE 00:00: EVERY 3 00 MONTHS. Depo-Hat Brim Curler No 1mg/mL a 150 mg/mL 12-10 intramuscul [...] Paxil 20 mg 2021-0 No 1mg tablet 7- 00:00: 00 hydroxyzine 2021-0 No 1mg HCl 25 mg 7-06 tablet 00:00: 00 Paxil 20 mg 2021-0 No 1mg tablet 7- 00:00: 00 hydroxyzine 2021-0 No 1mg HCl [...] 00:00: 00 No known No Univers medications it of [facility] Immunizations Ordered Filled Immunization Date Status Comments [facility] e Immunization Name Name Td 2015-10-20 Completed [facility] 00:00:00 [facility] TD, NOS 2015-10-20 Completed [facility] 00:00:00 [facility] Vital Signs Vital Name Observation Time Observation Value Comments Source Systolic blood 2022-11-19 18:00:00 115 mm[Hg] Univer sity of pressure [facility] Diastolic blood 2022-11-19 18:00:00 82 mm[Hg] [facility] Heart rate 2022-11-19 18:00:00 82 /min [facility] Body temperature 2022-11-19 18:00:00 36.89 [facility] Respiratory rate 2022-11-19 18:00:00 16 /min [facility] Oxygen saturation in 2022-11-19 18:00:00 95 /min [facility] blood by [facility] Pulse oximetry [place] Body height 2022-11-19 12:14:00 157.5 cm [facility] Body weight 2022-11-19 12:14:00 61.236 kg [facility] BMI 2022-11-19 12:14:00 24.69 kg/m2 [facility] BP Systolic 2022-03-10 16:36:00 136 mm[Hg] BP [...] Procedure Date / Time Performed Performing Clinician [facility] e EKG-12 LEAD 2022-11-19 18:12:08 Minnie Ledezma [facility] URINALYSIS 2022-11-19 16:58:00 Minnie Ledezma [facility] CT ABDOMEN PELVIS W 2022-11-19 15:41:15 Minnie Ledezma [facility] CONTRAST [facility] POCT GLUCOSE 2022-11-19 15:39:00 Minnie Ledezma [facility] (AUTOMATED) [facility] POCT GLUCOSE 2022-11-19 14:31:00 Minnie Ledezma [facility] (AUTOMATED) [facility] XR ABDOMEN ACUTE 2022-11-19 13:45:23 Minnie Ledezma [facility] SERIES [facility] US GALL BLADDER 2022-11-19 13:10:56 Minnie Ledezma [facility] POCT GLUCOSE 2022-11-19 12:33:00 Doctor Unassigned, No [facility] Name Medical Branch LIPASE 2022-11-19 12:28:00 Minnie Ledezma [facility] TEST, SERUM 2022-11-19 12:28:00 Minnie Ledezma [facility] TROPONIN I 2022-11-19 12:28:00 Minnie Ledezma [facility] COMP. METABOLIC PANEL 2022-11-19 12:28:00 Minnie Ledezma [facility] ([id number]) [facility] CBC WITH DIFF 2022-11-19 12:28:00 Minnie Ledezma [facility] CONSENT/REFUSAL FOR 2022-11-19 12:07:05 Doctor Unassigned, No [facility] DIAGNOSIS AND Name Medical [place] TREATMENT REFERRAL- 2020-11-07 05:01:00 Doctor Unassigned, No [facility] REQUEST/RESPONSE Name Medical Branch Plan of Care Planned Activity Planned Date Details Comments Source Goal Plan of Care Note [code = 81197-3] Goal Plan of Care Note [code = 45604-3] Goal Plan of Care Note [code = 91640-3] Goal Plan of Care Note [code = 39391-2] Goal Plan of Care Note [code = 26705-4] Goal Plan of Care Note [code = 14025-6] Goal Plan of Care Note [code = 94956-6] Goal Plan of Care Note [code = 49912-7] Goal Plan of Care Note [code = 34594-6] Goal Plan of Care Note [code = 91622-5] Goal Plan of Care Note [code = 21626-5] Goal Plan of Care Note [code = 81886-5] Goal Plan of Care Note [code = 93174-7] Goal Plan of Care Note [code = 37636-5] Goal Plan of Care Note [code = 84642-9] Goal Plan of Care Note [code = 35119-8] Goal Plan of Care Note [code = 40022-4] Goal Plan of Care Note [code = 67063-3] Goal Plan of Care Note [code = 19092-6] Goal Plan of Care Note [code = 90262-3] Goal Plan of Care Note [code = 94236-7] Goal Plan of Care Note [code = 58757-8] Goal Plan of Care Note [code = 98592-2] Goal Plan of Care Note [code = 04133-2] Goal Plan of Care Note [code = 59681-7] Goal Plan of Care Note [code = 62372-2] Goal Plan of Care Note [code = 02178-4] Goal Plan of Care Note [code = 20036-2] Goal Plan of Care Note [code = 78378-7] Goal Plan of Care Note [code = 77345-0] Goal Plan of Care Note [code = 77163-0] Goal Plan of Care Note [code = 91263-2] Goal Plan of Care Note [code = 40395-5] Goal Plan of Care Note [code = 56625-8] Goal Plan of Care Note [code = 14254-7] Goal Plan of Care Note [code = 60533-8] Goal Plan of Care Note [code = 90306-0] Goal Plan of Care Note [code = 56139-4] Encounters Start End Encounter Admission Attending Care Care Encounter Source Date/Time Date/Time Type Type Clinicians Facility Department ID 2023-02-02 2023-02-[address] [facility] [id number] Garry 14:45:48 14:45:48 0816 F [place] 2023-01-04 2023-01-[address] [facility] [id number] Garry 15:53:07 15:53:07 0718 [facility] 2023-01-03 2023-01-[address] [facility] [id number] Garry 16:08:35 16:08:35 0717 F [place] 2022-11-29 2022-11-[address] [facility] [id number] Garry 14:24:54 14:24:54 0612 [facility] 2022-11-19 2022-11-19 Emergency X BIBIANA [facility] ERT [id number] Univers 07:15:00 13:21:[address] [facility] 2022-11-19 2022-11-19 [facility] [id number] [facility] 07:15:00 13:21:00 Minnie KEMP 350.1.13.10 i ty of [place] 4.2.7.2.686 [facility] [id number] [address] 2022-09-10 2022-09-[address] [facility] [id number] Garry 16:03:05 16:03:05 0324 [facility] 2022-08-30 2022-08-[address] [facility] [id number] Garry 14:47:20 14:47:20 0313 [facility] 2022-05-31 2022-05-[address] [facility] [id number] Garry 15:30:31 15:30:31 1212 [facility] 2022-03-10 2022-03-10 Outpatient [id number] 00:00:00 00:00:00 Visit 5f3j-618x p9h-746t-n -v9nj-j11 5ce-b46f30 [id number] 2022-03-08 2022-03-08 Outpatient [id number] 4se050-1 00:00:00 00:00:00 Visit 2y5b-616g b7o-475z-p -x27i-v5q 00d-e4f39d 32otri4t8 bff1c0 2020-11-07 2020-11-07 Orders Doctor CIARRA [id number] 00:00:00 00:00:00 Only Unassigned, HORACE 350.1.13.10 [place] [facility] 4.2.7.2.686 [id number] 2020-11-07 2020-11-07 Orders Doctor CIARRA [id number] [id number] Univers 00:00:00 00:00:00 Only Unassigned, HORACE 350.1.13.10 ity of [place] [facility] 4.2.7.2.686 [place]uf as [id number] [address] Results Test Description Test Time Test Comments Results Result Comments Source POCT GLUCOSE (AUTOMATED) 2022-11-19 15:40:56 Test Item Value Reference Range Interpretation Comme nts POCT GLU (test code = 3030432908) 258 mg/dL 70-110 H Lab Interpretation (test code = 62748-9) Abnormal [facility] [id number] 14:42:07 Test Item Value Reference Range Interpretation Comments TROPONIN I (test code = <=0.034 6691126723) JOSEFINA (test code = JOSEFINA) Reference (Normal) [...] biotin. Lab Interpretation Normal (test code = 17927-4) [facility] [place] [facility])2022-11-19 14:33:33 Test Item Value Reference Range Interpretation Comments POCT GLU (test code = 0414640455) 264 mg/dL 70-110 H Lab Interpretation (test code = Abnormal 90969-0) [facility], [id number] 13:15:04 Test Item Value Reference Range Interpretation Comments PREG SERUM (test code Negative = 5130733269) JOSEFINA (test code = JOSEFINA) Less than 10 IU/L. ?If low titer or ectopic is suspected, resubmit specimen in 48-72 hours. [facility] Metabolic Panel (87762)2022-11-19 13:06:14 Test Item Value Reference Range Interpretation Comments NA (test code = 133 mmol/L 135-145 L 3905259506) K (test code = 3.8 mmol/L 3.5-5.0 6563720142) CL (test code = 101 mmol/L 98-108 0294471745) CO2 TOTAL (test code = 22 mmol/L 23-31 L 3761467647) AGAP (test code = 10 2-16 3019449767) BUN (test code = 10 mg/dL 7-23 1355671433) GLUCOSE (test code = 303 mg/dL 70-110 H 6386338313) CREATININE (test code = 0.43 mg/dL 0.50-1.04 L 4287846589) TOTAL BILI (test code = 0.8 mg/dL 0.1-1.2 1364140729) CALCIUM (test code = 8.4 mg/dL 8.6-10.6 L 1021463541) T PROTEIN (test code = 7.4 g/dL 6.3-8.2 0220860899) ALBUMIN (test code = 4.0 g/dL 3.5-5.0 5520428551) ALK PHOS (test code = 91 U/L 34-122 7178778369) ALTv (test code = 24 U/L 5-35 1742-6) AST(SGOT) (test code = 24 U/L 13-40 0584789911) eGFR (test code = 159.5 mL/min/1.73m2 6375390273) JOSEFINA (test code = JOSEFINA) Association of [...] tests). Lab Interpretation Abnormal (test code = 37969-6) [facility] [id number] 13:05:54 Test Item Value Reference Range Interpretation Comments LIPASE (test code = 1118471185) 94 U/L 0-220 Lab Interpretation (test code = Normal 19297-0) [facility] with [id number] 13:04:52 Test Item Value Reference Range Interpretation Comments WBC (test code = 6.22 See_Comment [Automated 3921-2) message] The sy stem which generated this result transmitted reference range : 4.30 - 11.10 10*3/?L. The reference range was not used to interpret this result as normal/abnormal . RBC (test code = 4.45 See_Comment [Automated 552-1) message] The sy stem which generated this [...] (test code = 37.6 fL 39.0-49.9 L 32061-8) RDW-CV (test code = 13.3 % 12.0-15.5 788-0) PLT (test code = 181 See_Comment [Automated 777-3) message] The sy stem which generated this result transmitted reference range : 166 - 358 10*3/ ?L. The reference r tia was not used to interpret this result as normal/abnormal . MPV (test code = 12.0 fL 9.5-12.9 18546-9) NRBC/100 WBC (test 0.0 See_Comment [Automat ed code = 3174998177) message] The system which generated this result transmitted reference range : 0.0 - 10.0 /100 WBCs. The refer ence range was not u sed to interpret th is result as normal/abnormal . NRBC x10^3 (test code See_Comment [Auto mated = 9382514076) message] The s ystem which generated this result transmitted reference range : 10*3/?L. The reference range was not used to interpret this result as normal/abnormal . GRAN MAT (NEUT) % 62.1 % (test code = 770-8) IMM GRAN % (test code 0.80 % = 1021809728) LYMPH % (test code = 29.6 % 736-9) MONO % (test code = 4.7 % 5905-5) EOS % (test code = 2.3 % 713-8) BASO % (test code = 0.5 % 706-2) GRAN MAT x10^3(ANC) 3.87 10*3/uL 1.88-7.09 (test code = 1200878429) IMM GRAN x10^3 (test 0.05 10*3/uL 0.00-0.06 code = 4493421821) LYMPH x10^3 (test code 1.84 10*3/uL 1.32-3.29 = 731-0) MONO x10^3 (test code 0.29 10*3/uL 0.33-0.92 L = 742-7) EOS x10^3 (test code = 0.14 10*3/uL 0.03-0.39 711-2) BASO x10^3 (test code 0.03 10*3/uL 0.01-0.07 = 704-7) Lab Interpretation Abnormal (test code = 38988-6) [facility])2022-11-19 12:35:03 Test Item Value Reference Range Interpretation Comments POCT GLU (test code = 6732922031) 305 mg/dL 70-110 H Lab Interpretation (test code = Abnormal 46851-2) [facility] [place] [facility]ALBUMIN/CREATININE RATIO, URINE, RANDOM 2022-03-09 04:55:11 Test Item Value Reference Range Interpretation Comments CREATININE, URINE, 135.5 MG/DL NOT ESTAB CONC. (test code = 2072) ALBUMIN, URINE, 3.2 MG/DL NOT ESTAB RANDOM (test code = 18591) CALC 24 MG/G <30 Note: ALBUMIN/CREAT, RND Albumin/C reatinine ratio (test code = reference inter skinny 53409) reflects ADA an d NKF guidelines. UNL ESS OTHERWISE INDIC ATED, ALL TESTING PERFORM ED ATCLINICAL PATH [facility]LOGY LABORATORIES, [place] [address] [place] [address] LABORATORY DIRE CTOR: SIRISHA THOMPSON M.D. CLIA NUMBER [id number] [facility] [place]. [id number] LIPID [id number] 03:42:46 Test Item Value Reference Range Interpretation [...] MOREINFORMATION , SEE CLIENT ANNOUNCE MENT AT [email or web address] CalcLDL-C RISK RATIO LDL/HDL (NOTE) RATIO <3.22 UNABLE T O CALCULATE (test code = 2237) COMPREHENSIVE METABOLIC [id number] 03:42:46 Test Item Value Reference Range Interpretation Comments GLUCOSE (test code = 315 MG/DL 70-99 H 2216) BUN (test code = 11 MG/DL 6-20 2207) CREATININE (test 0.61 MG/DL 0.60-1.30 code = 2214) eGFR (2020 CKD-EPI) 114 >60 (test code = 82914) ML/MIN/1.73 CALC BUN/CREAT (test 18 RATIO 6-28 code = 2235) SODIUM (test code = 139 MEQ/L 658-987 2635) POTASSIUM (test code 4.1 MEQ/L 3.5-5.4 = [...] message] (test code = 2207) The syste [employer] which generated this result transmit cristiane reference range : <=1.2. The refe rence range was not u sed to interpret th is result as normal/abnormal . ALKALINE PHOSPHATASE 79 U/L 40-113 (test code = 2204) AST (test code = 10 U/L 40 2217) ALT (test code = 7 U/L -40 2218) HEMOGLOBIN [id number] 02:41:50 Test Item Value Reference Range Interpretation Comments HEMOGLOBIN A1c (test 9.2 % 4.2-5.6 H [employer] AN DIABETES code = 39638) ASSOCIATION IDE[employer] FOR HGB A1C: PREDIABETES/INC REASED [...] TESTING OR LABORATORY C ONSULTATION. COMPREHENSIVE METABOLIC [id number] 00:00:00 Test Item Value Reference Range Interpretation Comments GLUCOSE (test code = 2217) 315 MG/DL BUN (test code = 2208) 11 MG/DL CREATININE (test code = 2214) 0.61 MG/DL eGFR (2020 CKD-EPI) (test 114 ML/MIN/1.73 code = 93061) CALC BUN/CREAT (test code = 18 RATIO [...] = 2219) 7 U/L ALBUMIN/CREATININE RATIO, RANDOM [id number] 00:00:00 Test Item Value Reference Range Interpretation Comments CREATININE, URINE, CONC. (test 135.5 MG/DL code = 2072) ALBUMIN, URINE, RANDOM (test code 3.2 MG/DL = 33207) CALC ALBUMIN/CREAT, RND (test 24 MG/G code = 16457) ALBUMIN/CREATININE RATIO, RANDOM [id number] 00:00:00 Test Item Value Reference Range Interpretation Comments CREATININE, URINE, CONC. (test 135.5 MG/DL code = 2072) ALBUMIN, URINE, RANDOM (test code 3.2 MG/DL = 43986) CALC ALBUMIN/CREAT, RND (test 24 MG/G code = 43855) HEMOGLOBIN [id number] 00:00:00 Test Item Value Reference Range Interpretation Comments HEMOGLOBIN A1c (test code = 65343) 9.2 % HEMOGLOBIN [id number] 00:00:00 Test Item Value Reference Range Interpretation Comments HEMOGLOBIN A1c (test code = 66183) 9.2 % HEMOGLOBIN [id number] 00:00:00 Test Item Value Reference Range Interpretation Comments HEMOGLOBIN A1c (test code = 09465) 9.2 % LIPID [id number] 00:00:00 Test Item Value Reference Range Interpretation Comments CHOLESTEROL (test code = 2210) 243 MG/DL TRIGLYCERIDES (test code = 2232) 788 MG/DL HDL CHOLESTEROL (test code = 22 MG/DL 2220) CALC LDL CHOL (test code = 2237) (NOTE) MG/DL RISK RATIO LDL/HDL (test code = (NOTE) RATIO 2238) LIPID [id number] 00:00:00 Test Item Value Reference Range Interpretation Comments CHOLESTEROL (test code = 2210) 243 MG/DL TRIGLYCERIDES (test code = 2232) 788 MG/DL HDL CHOLESTEROL (test code = 22 MG/DL 2220) CALC LDL CHOL (test code = 2237) (NOTE) MG/DL RISK RATIO LDL/HDL (test code = (NOTE) RATIO 2238) COMPREHENSIVE METABOLIC [id number] 00:00:00 Test Item Value Reference Range Interpretation Comments GLUCOSE (test code = 2217) 315 MG/DL BUN (test code = 2208) 11 MG/DL CREATININE (test code = 2214) 0.61 MG/DL eGFR (2020 CKD-EPI) (test 114 ML/MIN/1.73 code = 16314) CALC BUN/CREAT (test code = 18 RATIO [...] code = 2219) 7 U/L COMPREHENSIVE METABOLIC [id number] 00:00:00 Test Item Value Reference Range Interpretation Comments GLUCOSE (test code = 2217) 315 MG/DL BUN (test code = 2208) 11 MG/DL CREATININE (test code = 2214) 0.61 MG/DL eGFR (2020 CKD-EPI) (test 114 ML/MIN/1.73 code = 51945) CALC BUN/CREAT (test code = 18 RATIO [...] = 2219) 7 U/L ALBUMIN/CREATININE RATIO, RANDOM [id number] 00:00:00 Test Item Value Reference Range Interpretation Comments CREATININE, URINE, CONC. (test 135.5 MG/DL code = 207) ALBUMIN, URINE, RANDOM (test code 3.2 MG/DL = 78447) CALC ALBUMIN/CREAT, RND (test 24 MG/G code = 65222) ALBUMIN/CREATININE RATIO, RANDOM [id number] 00:00:00 Test Item Value Reference Range Interpretation Comments CREATININE, URINE, CONC. (test 135.5 MG/DL code = 2072) ALBUMIN, URINE, RANDOM (test code 3.2 MG/DL = 08297) CALC ALBUMIN/CREAT, RND (test 24 MG/G code = 31615) HEMOGLOBIN [id number] 00:00:00 Test Item Value Reference Range Interpretation Comments HEMOGLOBIN A1c (test code = 38176) 9.2 % HEMOGLOBIN [id number] 00:00:00 Test Item Value Reference Range Interpretation Comments HEMOGLOBIN A1c (test code = 52196) 9.2 % HEMOGLOBIN [id number] 00:00:00 Test Item Value Reference Range Interpretation Comments HEMOGLOBIN A1c (test code = 66604) 9.2 % LIPID [id number] 00:00:00 Test Item Value Reference Range Interpretation Comments CHOLESTEROL (test code = 2210) 243 MG/DL TRIGLYCERIDES (test code = 2232) 788 MG/DL HDL CHOLESTEROL (test code = 22 MG/DL 2220) CALC LDL CHOL (test code = 2237) (NOTE) MG/DL RISK RATIO LDL/HDL (test code = (NOTE) RATIO 2238) LIPID [id number] 00:00:00 Test Item Value Reference Range Interpretation Comments CHOLESTEROL (test code = 2210) 243 MG/DL TRIGLYCERIDES (test code = 2232) 788 MG/DL HDL CHOLESTEROL (test code = 22 MG/DL 2220) CALC LDL CHOL (test code = 2237) (NOTE) MG/DL RISK RATIO LDL/HDL (test code = (NOTE) RATIO 2238) COMPREHENSIVE METABOLIC [id number] 00:00:00 Test Item Value Reference Range Interpretation Comments GLUCOSE (test code = 2217) 315 MG/DL BUN (test code = 2208) 11 MG/DL CREATININE (test code = 2214) 0.61 MG/DL eGFR (2020 CKD-EPI) (test 114 ML/MIN/1.73 code = 73254) CALC BUN/CREAT (test code = 18 RATIO [...] (test code = 2219) 7 U/L VITAMIN [id number] 00:00:00 Test Item Value Reference Range Interpretation Comments VITAMIN B-12 (test code = 2840) 444 PG/ML VITAMIN [id number] 00:00:00 Test Item Value Reference Range Interpretation Comments VITAMIN B-12 (test code = 2840) 444 PG/ML VITAMIN [id number] 00:00:00 Test Item Value Reference Range Interpretation Comments VITAMIN B-12 (test code = 2840) 444 PG/ML [id number] 00:00:00 Test Item Value Reference Range Interpretation Comments TSH, THIRD GENERATION (test code 0.552 UIU/ML = 2821) [id number] 00:00:00 Test Item Value Reference Range Interpretation Comments TSH, THIRD GENERATION (test code 0.552 UIU/ML = 2821) [id number] 00:00:00 Test Item Value Reference Range Interpretation Comments TSH, THIRD GENERATION (test code 0.552 UIU/ML = 2821) VITAMIN D, 25 [id number] 00:00:00 Test Item Value Reference Range Interpretation Comments VITAMIN D, 25 OH (test code = 4958) 19 NG/ML VITAMIN D, 25 [id number] 00:00:00 Test Item Value Reference Range Interpretation Comments VITAMIN D, 25 OH (test code = 4958) 19 NG/ML VITAMIN [id number] 00:00:00 Test Item Value Reference Range Interpretation Comments VITAMIN B-12 (test code = 2840) 444 PG/ML VITAMIN [id number] 00:00:00 Test Item Value Reference Range Interpretation Comments VITAMIN B-12 (test code = 2840) 444 PG/ML VITAMIN [id number] 00:00:00 Test Item Value Reference Range Interpretation Comments VITAMIN B-12 (test code = 2840) 444 PG/ML [id number] 00:00:00 Test Item Value Reference Range Interpretation Comments TSH, THIRD GENERATION (test code 0.552 UIU/ML = 2821) [id number] 00:00:00 Test Item Value Reference Range Interpretation Comments TSH, THIRD GENERATION (test code 0.552 UIU/ML = 2821) [id number] 00:00:00 Test Item Value Reference Range Interpretation Comments TSH, THIRD GENERATION (test code 0.552 UIU/ML = 2821) VITAMIN D, 25 [id number] 00:00:00 Test Item Value Reference Range Interpretation Comments VITAMIN D, 25 OH (test code = 4958) 19 NG/ML VITAMIN D, 25 [id number] 00:00:00 Test Item Value Reference Range Interpretation Comments VITAMIN D, 25 OH (test code = 4958) 19 NG/ML HEMOGLOBIN [id number] 00:00:00 Test Item Value Reference Range Interpretation Comments HEMOGLOBIN A1c (test code = 53701) 6.7 % HEMOGLOBIN [id number] 00:00:00 Test Item Value Reference Range Interpretation Comments HEMOGLOBIN A1c (test code = 98470) 6.7 % HEMOGLOBIN [id number] 00:00:00 Test Item Value Reference Range Interpretation Comments HEMOGLOBIN A1c (test code = 35172) 6.7 % HEMOGLOBIN [id number] 00:00:00 Test Item Value Reference Range Interpretation Comments HEMOGLOBIN A1c (test code = 56323) 6.7 % HEMOGLOBIN [id number] 00:00:00 Test Item Value Reference Range Interpretation Comments HEMOGLOBIN A1c (test code = 16229) 6.7 % HEMOGLOBIN [id number] 00:00:00 Test Item Value Reference Range Interpretation Comments HEMOGLOBIN A1c (test code = 53866) 6.7 % MICROALBUMIN/CREATININE, RANDOM AND [id number] 00:00:00 Test Item Value Reference Range Interpretation Comments CREATININE, URINE, CONC. (test 22.0 MG/DL code = 2072) ALBUMIN, URINE, RANDOM (test code 0.2 MG/DL = 35965) CALC ALBUMIN/CREAT, RND (test code 9 MG/G = 81974) MICROALBUMIN/CREATININE, RANDOM AND [id number] 00:00:00 Test Item Value Reference Range Interpretation Comments CREATININE, URINE, CONC. (test 22.0 MG/DL code = 2072) ALBUMIN, URINE, RANDOM (test code 0.2 MG/DL = 16966) CALC ALBUMIN/CREAT, RND (test code 9 MG/G = 79582) COMPREHENSIVE METABOLIC [id number] 00:00:00 Test Item Value Reference Range Interpretation Comments GLUCOSE (test code = 2217) 158 MG/DL BUN (test code = 2208) 12 MG/DL CREATININE (test code = 2214) 0.63 MG/DL eGFR AMER. (test code 129 ML/MIN/1.73 = 15673) eGFR NON- AMER. (test 111 ML/MIN/1.73 code = 94857) CALC BUN/CREAT (test code = 19 RATIO [...] code = 2219) 34 U/L COMPREHENSIVE METABOLIC [id number] 00:00:00 Test Item Value Reference Range Interpretation Comments GLUCOSE (test code = 2217) 158 MG/DL BUN (test code = 2208) 12 MG/DL CREATININE (test code = 2214) 0.63 MG/DL eGFR AMER. (test code 129 ML/MIN/1.73 = 80397) eGFR NON- AMER. (test 111 ML/MIN/1.73 code = 26695) CALC BUN/CREAT (test code = 19 RATIO [...] (test code = 2219) 34 U/L LIPID [id number] 00:00:00 Test Item Value Reference Range Interpretation Comments CHOLESTEROL (test code = 2210) 173 MG/DL TRIGLYCERIDES (test code = 2232) 341 MG/DL HDL CHOLESTEROL (test code = 2220) 28 MG/DL CALC LDL CHOL (test code = 2237) 100 MG/DL RISK RATIO LDL/HDL (test code = 3.57 RATIO 2238) LIPID [id number] 00:00:00 Test Item Value Reference Range Interpretation Comments CHOLESTEROL (test code = 2210) 173 MG/DL TRIGLYCERIDES (test code = 2232) 341 MG/DL HDL CHOLESTEROL (test code = 2220) 28 MG/DL CALC LDL CHOL (test code = 2237) 100 MG/DL RISK RATIO LDL/HDL (test code = 3.57 RATIO 2238) MICROALBUMIN/CREATININE, RANDOM AND [id number] 00:00:00 Test Item Value Reference Range Interpretation Comments CREATININE, URINE, CONC. (test 22.0 MG/DL code = 2072) ALBUMIN, URINE, RANDOM (test code 0.2 MG/DL = 04033) CALC ALBUMIN/CREAT, RND (test code 9 MG/G = 74335) MICROALBUMIN/CREATININE, RANDOM AND [id number] 00:00:00 Test Item Value Reference Range Interpretation Comments CREATININE, URINE, CONC. (test 22.0 MG/DL code = 2072) ALBUMIN, URINE, RANDOM (test code 0.2 MG/DL = 18727) CALC ALBUMIN/CREAT, RND (test code 9 MG/G = 39680) COMPREHENSIVE METABOLIC [id number] 00:00:00 Test Item Value Reference Range Interpretation Comments GLUCOSE (test code = 2217) 158 MG/DL BUN (test code = 2208) 12 MG/DL CREATININE (test code = 2214) 0.63 MG/DL eGFR AMER. (test code 129 ML/MIN/1.73 = 49514) eGFR NON- AMER. (test 111 ML/MIN/1.73 code = 57208) CALC BUN/CREAT (test code = 19 RATIO [...] code = 2219) 34 U/L COMPREHENSIVE METABOLIC [id number] 00:00:00 Test Item Value Reference Range Interpretation Comments GLUCOSE (test code = 2217) 158 MG/DL BUN (test code = 2208) 12 MG/DL CREATININE (test code = 2214) 0.63 MG/DL eGFR AMER. (test code 129 ML/MIN/1.73 = 40491) eGFR NON- AMER. (test 111 ML/MIN/1.73 code = 53992) CALC BUN/CREAT (test code = 19 RATIO [...] (test code = 2219) 34 U/L LIPID [id number] 00:00:00 Test Item Value Reference Range Interpretation Comments CHOLESTEROL (test code = 2210) 173 MG/DL TRIGLYCERIDES (test code = 2232) 341 MG/DL HDL CHOLESTEROL (test code = 2220) 28 MG/DL CALC LDL CHOL (test code = 2237) 100 MG/DL RISK RATIO LDL/HDL (test code = 3.57 RATIO 2238) LIPID [id number] 00:00:00 Test Item Value Reference Range Interpretation Comments CHOLESTEROL (test code = 2210) 173 MG/DL TRIGLYCERIDES (test code = 2232) 341 MG/DL HDL CHOLESTEROL (test code = 2220) 28 MG/DL CALC LDL CHOL (test code = 2237) 100 MG/DL RISK RATIO LDL/HDL (test code = 3.57 RATIO 2238) HEMOGLOBIN [id number] 00:00:00 Test Item Value Reference Range Interpretation Comments HEMOGLOBIN A1c (test code = 69956) 7.0 % HEMOGLOBIN [id number] 00:00:00 Test Item Value Reference Range Interpretation Comments HEMOGLOBIN A1c (test code = 85655) 7.0 % MICROALBUMIN/CREATININE, RANDOM AND [id number] 00:00:00 Test Item Value Reference Range Interpretation Comments CREATININE, URINE, CONC. (test 92.4 MG/DL code = 2072) ALBUMIN, URINE, RANDOM (test code 0.7 MG/DL = 83671) CALC ALBUMIN/CREAT, RND (test code 8 MG/G = 05609) MICROALBUMIN/CREATININE, RANDOM AND [id number] 00:00:00 Test Item Value Reference Range Interpretation Comments CREATININE, URINE, CONC. (test 92.4 MG/DL code = 2072) ALBUMIN, URINE, RANDOM (test code 0.7 MG/DL = 02687) CALC ALBUMIN/CREAT, RND (test code 8 MG/G = 75583) HIV 1/2 4TH GEN, RFLX CONF [ADDED]2019-03-22 [...] Interpretation Comments GONORRHEA, TMA (test code = 01078) NEGATIVE CHLAMYDIA, TMA (test code = 62099) NEGATIVE CT/NG, TMA, URINE [ADDED]2019-03-22 00:00:00 Test Item Value Reference Range Interpretation Comments GONORRHEA, TMA (test code = 36357) NEGATIVE CHLAMYDIA, TMA (test code = 31691) NEGATIVE COMPREHENSIVE METABOLIC [id number] 00:00:00 Test Item Value Reference Range Interpretation Comments GLUCOSE (test code = 2217) 238 MG/DL BUN (test code = 2208) 15 MG/DL CREATININE (test code = 2214) 0.71 MG/DL eGFR AMER. (test code 123 ML/MIN/1.73 = 61889) eGFR NON- AMER. (test 107 ML/MIN/1.73 code = 57765) CALC BUN/CREAT (test code = 21 RATIO [...] code = 2219) 12 U/L COMPREHENSIVE METABOLIC [id number] 00:00:00 Test Item Value Reference Range Interpretation Comments GLUCOSE (test code = 2217) 238 MG/DL BUN (test code = 2208) 15 MG/DL CREATININE (test code = 2214) 0.71 MG/DL eGFR AMER. (test code 123 ML/MIN/1.73 = 46217) eGFR NON- AMER. (test 107 ML/MIN/1.73 code = 75336) CALC BUN/CREAT (test code = 21 RATIO [...] (test code = 2219) 12 U/L LIPID [id number] 00:00:00 Test Item Value Reference Range Interpretation Comments CHOLESTEROL (test code = 2210) 178 MG/DL TRIGLYCERIDES (test code = 2232) 939 MG/DL HDL CHOLESTEROL (test code = 21 MG/DL 2220) CALC LDL CHOL (test code = 2237) NOTE MG/DL RISK RATIO LDL/HDL (test code = (NOTE) RATIO 2238) LIPID [id number] 00:00:00 Test Item Value Reference Range Interpretation Comments CHOLESTEROL (test code = 2210) 178 MG/DL TRIGLYCERIDES (test code = 2232) 939 MG/DL HDL CHOLESTEROL (test code = 21 MG/DL 2220) CALC LDL CHOL (test code = 2237) NOTE MG/DL RISK RATIO LDL/HDL (test code = (NOTE) RATIO 2238) HEMOGLOBIN [id number] 00:00:00 Test Item Value Reference Range Interpretation Comments HEMOGLOBIN A1c (test code = 68618) 7.0 % HEMOGLOBIN [id number] 00:00:00 Test Item Value Reference Range Interpretation Comments HEMOGLOBIN A1c (test code = 09818) 7.0 % HEMOGLOBIN [id number] 00:00:00 Test Item Value Reference Range Interpretation Comments HEMOGLOBIN A1c (test code = 51735) 7.0 % MICROALBUMIN/CREATININE, RANDOM AND [id number] 00:00:00 Test Item Value Reference Range Interpretation Comments CREATININE, URINE, CONC. (test 92.4 MG/DL code = 2072) ALBUMIN, URINE, RANDOM (test code 0.7 MG/DL = 30047) CALC ALBUMIN/CREAT, RND (test code 8 MG/G = 79054) MICROALBUMIN/CREATININE, RANDOM AND [id number] 00:00:00 Test Item Value Reference Range Interpretation Comments CREATININE, URINE, CONC. (test 92.4 MG/DL code = 2072) ALBUMIN, URINE, RANDOM (test code 0.7 MG/DL = 66198) CALC ALBUMIN/CREAT, RND (test code 8 MG/G = 50497) HIV 1/2 4TH GEN, RFLX CONF [ADDED]2019-03-22 [...] Interpretation Comments GONORRHEA, TMA (test code = 10414) NEGATIVE CHLAMYDIA, TMA (test code = 46120) NEGATIVE CT/NG, TMA, URINE [ADDED]2019-03-22 00:00:00 Test Item Value Reference Range Interpretation Comments GONORRHEA, TMA (test code = 19541) NEGATIVE CHLAMYDIA, TMA (test code = 83259) NEGATIVE COMPREHENSIVE METABOLIC [id number] 00:00:00 Test Item Value Reference Range Interpretation Comments GLUCOSE (test code = 2217) 238 MG/DL BUN (test code = 2208) 15 MG/DL CREATININE (test code = 2214) 0.71 MG/DL eGFR AMER. (test code 123 ML/MIN/1.73 = 05630) eGFR NON- AMER. (test 107 ML/MIN/1.73 code = 08673) CALC BUN/CREAT (test code = 21 RATIO [...] code = 2219) 12 U/L COMPREHENSIVE METABOLIC [id number] 00:00:00 Test Item Value Reference Range Interpretation Comments GLUCOSE (test code = 2217) 238 MG/DL BUN (test code = 2208) 15 MG/DL CREATININE (test code = 2214) 0.71 MG/DL eGFR AMER. (test code 123 ML/MIN/1.73 = 01288) eGFR NON- AMER. (test 107 ML/MIN/1.73 code = 72995) CALC BUN/CREAT (test code = 21 RATIO [...] (test code = 2219) 12 U/L LIPID [id number] 00:00:00 Test Item Value Reference Range Interpretation Comments CHOLESTEROL (test code = 2210) 178 MG/DL TRIGLYCERIDES (test code = 2232) 939 MG/DL HDL CHOLESTEROL (test code = 21 MG/DL 2220) CALC LDL CHOL (test code = 2237) NOTE MG/DL RISK RATIO LDL/HDL (test code = (NOTE) RATIO 2238) LIPID [id number] 00:00:00 Test Item Value Reference Range Interpretation Comments CHOLESTEROL (test code = 2210) 178 MG/DL TRIGLYCERIDES (test code = 2232) 939 MG/DL HDL CHOLESTEROL (test code = 21 MG/DL 2220) CALC LDL CHOL (test code = 2237) NOTE MG/DL RISK RATIO LDL/HDL (test code = (NOTE) RATIO 2238) HEMOGLOBIN [id number] 00:00:00 Test Item Value Reference Range Interpretation Comments HEMOGLOBIN A1c (test code = 87748) 7.0 %"
[2023-02-10] MEDS ORDERED: ASPIRIN 81 MG CHEWABLE TABLET ONE (13:18)
[2023-02-10 13:27] LABS: Specific Gravity 1.021 (1.005-1.030)
[2023-02-10 13:29] LABS: Specific Gravity 1.021 (1.005-1.030); Urine Bacteria <20 /HPF (<20); Urine Bilirubin NEGATIVE (Negative); Urine Blood 3+ (OVER) (Negative); Urine Clarity Clear (Clear); Urine Color Light-Yellow (Yellow); Urine Glucose 4+ (Over) (Negative); Urine Mucus Slight /HPF (None Seen); Urine Protein NEGATIVE (Negative); Urine RBC >50 /HPF (None Seen); Urine Urobilinogen Normal (Normal)
--- NOTE | 2023-02-10 13:34 | RAD REPORT ---
EXAM DESCRIPTION: Rey Single View02/10/2023 1:18 pm CLINICAL HISTORY: Chest pain COMPARISON: December 2022 FINDINGS: The lungs appear clear of acute infiltrate. The heart is normal size IMPRESSION: No acute abnormalities displayed
[2023-02-10 13:46] LABS: Absolute Lymphocytes (CBC) 2.4 K/uL (0.7-4.9); Hematocrit 36.7 % (36.0-45.0); Lymphocytes % 37.5 % (15.3-44.8); MCV 79.2 fL (80-100); MPV 9.8 fL (7.6-11.3); Platelets 221 thou/uL (152-406); RBC Red Blood Cell Count 4.64 M/uL (3.86-4.86)
[2023-02-10 14:14] LABS: SARS-CoV-2 Antigen Rapid Res Negative (Negative)
--- NOTE | 2023-02-10 14:56 | RAD REPORT ---
EXAM DESCRIPTION: CT - Chest For Pe Angio - 02/10/2023 2:23 pm CLINICAL HISTORY: Chest pain COMPARISON: 2021 TECHNIQUE: Dynamically enhanced axial 3 mm thick images of the chest were obtained during administra tion of 100 mL Isovue 370 IV contrast. Coronal and oblique reconstruction images were generated and r eviewed. Exam utilizes a protocol for optimal evaluation of pulmonary arterial tree. Maximum intensity projections 3D imaging was utilized All CT scans are performed using dose optimization technique as appropriate and may include automated exposure control or mA/KV adjustment according to patient size. FINDINGS: A pulmonary embolus is not seen. A thoracic aortic aneurysm is not noted. A pleural effusion is not seen. A pericardial effusion is not seen. A lung consolidation is not present. Suspected pseudocysts within the left abdomen is incompletely included in the field of view IMPRESSION: Negative for a pulmonary embolism.
[2023-02-10 15:49] LABS: ALT/SGPT 16 U/L (13-56); Alkaline Phosphatase 60 U/L (45-117); BUN Blood Urea Nitrogen 11 mg/dL (7-18); Bicarbonate 19 mEq/L (21-32); Bilirubin Total 0.8 mg/dL (0.2-1.0); Glomerular Filtration Rate 111 ml/min (=/>90); Glucose Level 293 mg/dL (74-106); Lipase 38 U/L (13-75); NT PRO-BNP 16 pg/mL (<125); Protein, Total 7.4 g/dL (6.4-8.2); Sodium Level 126 mEq/L (136-145)
[2023-02-10 15:50] LABS: AST/SGOT 47 U/L (15-37); Bilirubin Direct < 0.1 mg/dL (0-0.2); Bilirubin Indirect, Calculated ND mg/dL (0.2-0.8); Magnesium 2.1 mg/dL (1.6-2.4); Potassium 4.5 mEq/L (3.5-5.1); Troponin High Sensitivity < 3.0 pg/mL (<58.9)
[2023-02-10] MEDS ORDERED: NA CHLORIDE 0.9% 1,000 ML ONE ×2 (16:36→21:47)
[2023-02-10] MEDS ORDERED: HYDROCODONE/APAP 7.5/325 MG TAB ONE (17:50)
[2023-02-10 18:14] LABS: BUN Blood Urea Nitrogen 9 mg/dL (7-18); Bicarbonate 25 mEq/L (21-32); Glomerular Filtration Rate 113 ml/min (=/>90); Glucose Level 253 mg/dL (74-106); HDL Cholesterol 23 mg/dL (40-60)
[2023-02-10 18:15] LABS: Potassium 4.4 mEq/L (3.5-5.1); Troponin High Sensitivity < 3.0 pg/mL (<58.9)
[2023-02-10 18:18] LABS: Sodium Level 133 mEq/L (136-145)
[2023-02-10 18:29] LABS: LDL, Direct 36 mg/dL (100-129)
--- NOTE | 2023-02-10 18:29 | ER ---
Nurse's Notes [facility] Name: Kaur Caruso Age: 42 yrs Sex: Female : 1980 Arrival Date: 02/10/2023 Time: 12:29 Bed 15 Private MD: Diagnosis: Hypertriglyceridemia;Chest pain, unspecified Presentation: 02/10 12:42 Chief complaint: Left sided chest pain that radiates to left axilla since 0100, left hb flank pain since 1000 today. Recently seen in ED for same s/s, has not yet filled prescriptions. Coronavirus screen: At this time, the client does not indicate any symptoms associated with coronavirus-19. Ebola Screen: No symptoms or risks identified at this time. Initial Sepsis Screen: Does the patient meet any 2 criteria? No. Patient's initial sepsis screen is negative. Does the patient have a suspected source of infection? No. Patient's initial sepsis screen is negative. Risk Assessment: Do you want to hurt yourself or someone else? Patient reports no desire to harm self or others. Onset of symptoms was February 10, 2023. 12:42 Method Of Arrival: Ambulatory hb 12:42 Acuity: DESTINY 3 hb Triage Assessment: 19:25 General: Appears in no apparent distress. db Historical: - Allergies: 12:44 No Known Allergies; hb - PMHx: 12:44 Anxiety; depressive disorder; Diabetes - NIDDM; High Cholesterol; Hypertension; hb - PSHx: 12:44 Diabetic Foot Surgery; hb - Immunization history:: Adult Immunizations up to date. - Social history:: Smoking status: Patient denies any tobacco usage or history of. Screenin:16 [facility] ED Fall Risk Assessment (Adult) History of falling in the last 3 months, db including since admission No falls in past 3 months (0 pts) Confusion or Disorientation No (0 pts) Intoxicated or Sedated No (0 pts) Impaired Gait No (0 pts) Mobility Assist Device Used No (0 pt) Altered Elimination No (0 pt) Score/Fall Risk Level 0 - 2 = Low Risk Oriented to surroundings, Maintained a safe environment. Abuse screen: Denies threats or abuse. Denies injuries from another. Nutritional screening: No deficits noted. Tuberculosis screening: No symptoms or risk factors identified. Assessment: 12:45 Reassessment: Patient appears in no apparent distress at this time. Patient and/or db family updated on plan of care and expected duration. Pain level reassessed. Patient is alert, oriented x 3, equal unlabored respirations, skin warm/dry/pink. General: Appears in no apparent distress. uncomfortable, Behavior is cooperative, anxious. Pain: Complains of pain in chest Pain radiates to left axilla Pain began 1 day ago. Cardiovascular: Reports chest pain, shortness of breath. Respiratory: Airway is patent Respiratory effort is even, unlabored, Respiratory pattern is regular, symmetrical, Breath sounds are clear bilaterally. 14:35 Reassessment: Patient appears in no apparent distress at this time. CALLED LAB FOR db RECOLLECT. 15:10 Reassessment: Patient appears in no apparent distress at this time. Patient and/or db family updated on plan of care and expected duration. Pain level reassessed. Patient is alert, oriented x 3, equal unlabored respirations, skin warm/dry/pink. PHLEBOTOMY AT PATIENT BEDSIDE. 16:30 Reassessment: Patient appears in no apparent distress at this time. Patient and/or db family updated on plan of care and expected duration. Pain level reassessed. Patient is alert, oriented x 3, equal unlabored respirations, skin warm/dry/pink. 17:30 Reassessment: Patient appears in no apparent distress at this time. Patient and/or db family updated on plan of care and expected duration. Pain level reassessed. Patient is alert, oriented x 3, equal unlabored respirations, skin warm/dry/pink. 18:30 Reassessment: Patient appears in no apparent distress at this time. Patient and/or db family updated on plan of care and expected duration. Pain level reassessed. Patient is alert, oriented x 3, equal unlabored respirations, skin warm/dry/pink. 19:45 General: Appears comfortable, Behavior is calm, cooperative. Pain: Denies pain. Neuro: ha1 Level of Consciousness is awake, alert, obeys commands, Oriented to person, place, time, situation. Cardiovascular: Heart tones S1 S2 present Capillary refill < 3 seconds Patient's skin is warm and dry. Rhythm is sinus rhythm. Cardiovascular: Rhythm is sinus tachycardia. Respiratory: Airway is patent Respiratory effort is even, unlabored, Respiratory pattern is regular, symmetrical. 23:05 Reassessment: Report Given to HINA Guerrero. ha1 Vital Signs: 12:42 BP 146 / 100; Pulse 114; Resp 14; Temp 98.2(O); Pulse Ox 98% on R/A; Weight 61.23 kg; hb Height 5 ft. 2 in. ; Pain 8/10; 13:30 BP 124 / 96; Pulse 99; Resp 16; Pulse Ox 100% ; db 14:38 BP 124 / 107; Pulse 92; Resp 16; Pulse Ox 100% ; db 15:30 BP 142 / 88; Pulse 103; Resp 18 S; Pulse Ox 100% ; db 16:30 BP 130 / 87; Pulse 104; Resp 16; Pulse Ox 100% on R/A; db 17:30 BP 136 / 88; Pulse 90; Resp 16; Pulse Ox 100% on R/A; db 18:30 BP 136 / 88; Pulse 103; Resp 16; Pulse Ox 99% on R/A; db 19:45 BP 132 / 94; Pulse 103; Resp 18 S; Pulse Ox 100% on R/A; ha1 23:10 BP 128 / 95; Pulse 103; Resp 18 S; Pulse Ox 99% on R/A; ha1 12:42 Body Mass Index 24.69 (61.23 kg, 157.48 cm) hb 12:42 Pain Scale: Adult hb ED Course: 12:29 Patient arrived in ED. im 12:31 Marilu Cancino PA-C is PHCP. sb4 12:31 Oswaldo Rodriguez MD is Attending Physician. sb4 12:35 Nenita Minor, RN is Primary Nurse. db 12:44 Triage completed. hb 12:45 Arm band placed on. hb 12:46 EKG done, by ED staff, reviewed by Marilu Cancino PA-C. db 12:58 Inserted saline lock: 22 gauge in right antecubital area, using aseptic technique. db Blood collected. 13:16 Patient has correct armband on for positive identification. Bed in low position. Call db light in reach. Side rails up X 1. Client placed on continuous cardiac and pulse oximetry monitoring. NIBP monitoring applied. 13:16 Patient maintains SpO2 saturation greater than 95% on room air. db 13:20 XRAY Chest (1 view) In Process Unspecified. EDMS 13:26 Flu Sent. me1 13:26 SARS RAPID Sent. me1 14:25 Chest For PE Angio CT In Process Unspecified. EDMS 18:28 Rolando Washington MD is Hospitalizing Provider. sb4 23:21 No provider procedures requiring assistance completed. Patient admitted, IV remains in ha1 place. 23:40 Provided Education on: need for admit. ha1 Administered Medications: 13:10 Drug: Aspirin PO Chewable Tablet 324 mg Route: PO; db 16:30 Drug: NS 0.9% IV 1000 ml Route: IV; Rate: 1 bolus; Site: right antecubital; db 17:42 Drug: Hydrocodone-Acetaminophen PO (7.5 mg-325 mg) 1 tabs Route: PO; db Medication: 23:40 VIS not applicable for this client. ha1 Outcome: 18:29 Decision to Hospitalize by Provider. sb4 23:40 Admitted to Med/surg accompanied by nurse, via wheelchair, room 209, with chart, Report ha1 called to Yolanda 23:40 Condition: stable 23:40 Condition: stable ha1 23:40 Discharge instructions given to patient, Instructed on the need for admit, Demonstrated understanding of instructions. 23:40 Patient left the ED. ha1 Signatures: Dispatcher [employer] EDKY Kacey Broussard RN RN Soniya Infante RN RN ha1 Nenita Minor RN RN Marilu Kumari, PA-C PA-C sb4 Erlinda Godwin Michelle, RN RN me1 Corrections: (The following items were deleted from the chart) 23:51 23:51 VIS not applicable for this client. ha1 ha1 23:55 23:54 Patient left the ED. ha1 ha1
--- NOTE | 2023-02-10 18:29 | EDPHYS ---
Physician Documentation [facility] Name: Kaur Caruso Age: 42 yrs Sex: Female : 1980 Arrival Date: 02/10/2023 Time: 12:29 Bed 15 Private MD: ED Physician Oswaldo Rodriguez HPI: 02/10 12:53 This 42 yrs old Female presents to ER via Ambulatory with complaints of Chest sb4 Pain, Back Pain, Abdominal Pain. 12:53 Onset: The symptoms/episode began/occurred this morning. Associated signs and symptoms: sb4 Pertinent positives: abdominal pain, chest pain. Modifying factors: The patient symptoms are alleviated by nothing, the patient symptoms are aggravated by nothing. The patient has experienced similar episodes in the past, a few times. The patient has been recently seen at the [facility] Emergency Department, last week. patient states she started experiencing left sided chest pain this morning at 1am that radiates into her left axilla, back, and left flank. she additionally endorses shortness of breath. she was seen here for similar symptoms 1 week ago and had a negative cardiac workup and did not fill the medications she was prescribed. she states that she has a history of hypertension, hyperlipidemia, and diabetes but does not take any medications except for anxiolytics. Historical: - Allergies: 12:44 No Known Allergies; hb - PMHx: 12:44 Anxiety; depressive disorder; Diabetes - NIDDM; High Cholesterol; Hypertension; hb - PSHx: 12:44 Diabetic Foot Surgery; hb - Immunization history:: Adult Immunizations up to date. - Social history:: Smoking status: Patient denies any tobacco usage or history of. ROS: 12:53 Constitutional: Negative for fever, chills, and weight loss. sb4 12:53 Cardiovascular: Positive for chest pain. 12:53 Respiratory: Positive for shortness of breath. 12:53 Abdomen/GI: Positive for nausea. 12:53 Back: Positive for pain at rest, flank pain, on the left. 12:53 All other systems are negative. Exam: 12:53 Constitutional: This is a well developed, well nourished patient who is awake, alert, sb4 and in no acute distress. Head/Face: Normocephalic, atraumatic. Eyes: Extra-ocular motions intact. Periorbital areas with no swelling, redness, or edema. ENT: Mucous membranes moist. Respiratory: Lungs have equal breath sounds bilaterally, clear to auscultation and percussion. No rales, rhonchi or wheezes noted. No increased work of breathing, no retractions or nasal flaring. Abdomen/GI: Soft, non-tender, no distension. Back: No spinal tenderness. No costovertebral tenderness. Full range of motion. Skin: Warm, dry with normal turgor. Normal color with no rashes, no lesions, and no evidence of cellulitis. MS/ Extremity: Pulses equal, no cyanosis. Neurovascular intact. Full, normal range of motion. Neuro: Awake and alert, GCS 15, oriented to person, place, time, and situation. Cranial nerves II-XII grossly intact. Motor strength 5/5 in all extremities. Sensory grossly intact. Cerebellar exam normal. Normal gait. 12:53 Cardiovascular: Rate: tachycardic, Rhythm: regular, Pulses: no pulse deficits are appreciated. Vital Signs: 12:42 BP 146 / 100; Pulse 114; Resp 14; Temp 98.2(O); Pulse Ox 98% on R/A; Weight 61.23 kg; hb Height 5 ft. 2 in. ; Pain 8/10; 13:30 BP 124 / 96; Pulse 99; Resp 16; Pulse Ox 100% ; db 14:38 BP 124 / 107; Pulse 92; Resp 16; Pulse Ox 100% ; db 15:30 BP 142 / 88; Pulse 103; Resp 18 S; Pulse Ox 100% ; db 16:30 BP 130 / 87; Pulse 104; Resp 16; Pulse Ox 100% on R/A; db 17:30 BP 136 / 88; Pulse 90; Resp 16; Pulse Ox 100% on R/A; db 18:30 BP 136 / 88; Pulse 103; Resp 16; Pulse Ox 99% on R/A; db 19:45 BP 132 / 94; Pulse 103; Resp 18 S; Pulse Ox 100% on R/A; ha1 23:10 BP 128 / 95; Pulse 103; Resp 18 S; Pulse Ox 99% on R/A; ha1 12:42 Body Mass Index 24.69 (61.23 kg, 157.48 cm) hb 12:42 Pain Scale: Adult hb MDM: 12:34 Patient medically screened. sb4 12:57 Differential diagnosis: ACS, PE, pancreatitis, angina, bronchitis, pneumonia, covid. sb4 18:27 Data reviewed: vital signs, nurses notes, lab test result(s), EKG, radiologic studies, sb4 and as a result, I will admit patient. Consideration of Admission/Observation Patient was admitted/placed on observation. Management of patient was discussed with the following: Hospitalist: EVANGELISTA Arriaga. Care significantly affected by the following chronic conditions: Diabetes, Hypertension. Care significantly affected by the following Social Determinants of Health: Poor access to healthcare and/or lack of insurance. Scoring Tools HEART Score: History: ECG: Age: Risk Factors: > or = 3 Risk factors for atherosclerotic disease (2), Troponin: Total Score = 2. Counseling: I had a detailed discussion with the patient and/or guardian regarding the historical points, exam findings, and any diagnostic results supporting the discharge/admit diagnosis, the presence of at least one elevated blood pressure reading (>120/80) during this emergency department visit, lab results, radiology results, the need for further work-up and treatment in the hospital. 02/10 12:48 Order name: Basic Metabolic Panel; Complete Time: 15:52 sb4 02/10 12:48 Order name: CBC with Diff; Complete Time: 13:53 sb4 02/10 12:48 Order name: D-Dimer; Complete Time: 13:53 sb4 02/10 12:48 Order name: LFT's; Complete Time: 15:52 sb4 02/10 12:48 Order name: Magnesium; Complete Time: 15:52 sb4 02/10 12:48 Order name: NT PRO-BNP; Complete Time: 15:52 sb4 02/10 12:48 Order name: PT-INR; Complete Time: 13:53 sb4 02/10 12:48 Order name: Troponin HS; Complete Time: 15:52 sb4 02/10 12:48 Order name: Lipase; Complete Time: 15:52 sb4 02/10 12:48 Order name: Test, Urine; Complete Time: 13:30 sb4 02/10 12:48 Order name: Urinalysis w/ reflexes; Complete Time: 13:30 sb4 02/10 12:58 Order name: SARS RAPID; Complete Time: 14:20 sb4 02/10 12:58 Order name: Flu; Complete Time: 14:24 sb4 02/10 16:52 Order name: Troponin High Sensitivity; Complete Time: 18:30 sb4 02/10 16:52 Order name: BMP; Complete Time: 18:30 sb4 02/10 16:52 Order name: Lipid Profile; Complete Time: 18:30 sb4 02/10 18:20 Order name: LDL, Direct; Complete Time: 18:30 EDMS 02/10 19:11 Order name: Urinalysis w/ reflexes EDMS 02/10 19:11 Order name: CBC with Automated Diff EDMS 02/10 19:11 Order name: CBC with Automated Diff EDMS 02/10 19:11 Order name: CBC with Automated Diff EDMS 02/10 19:11 Order name: CBC with Automated Diff EDMS 02/10 19:11 Order name: Comprehensive Metabolic Panel EDMS 02/10 19:11 Order name: Comprehensive Metabolic Panel EDMS 02/10 19:11 Order name: Comprehensive Metabolic Panel EDMS 02/10 19:11 Order name: Comprehensive Metabolic Panel EDMS 02/10 19:11 Order name: Lipid Profile EDMS 02/10 19:11 Order name: Lipid Profile EDMS 02/10 19:11 Order name: Lipid Profile EDMS 02/10 19:11 Order name: Lipid Profile EDMS 02/10 19:11 Order name: Magnesium EDMS 02/10 19:11 Order name: Magnesium EDMS 02/10 19:11 Order name: Magnesium EDMS 02/10 19:11 Order name: Magnesium EDMS 02/10 19:11 Order name: Troponin High Sensitivity EDMS 02/10 19:11 Order name: Troponin High Sensitivity EDMS 02/10 19:11 Order name: Troponin High Sensitivity EDMS 02/10 19:11 Order name: Troponin High Sensitivity EDMS 02/10 19:13 Order name: Hemoglobin A1c EDMS 02/10 21:30 Order name: Glucose, Ancillary Testing EDMS 02/10 12:48 Order name: XRAY Chest (1 view); Complete Time: 13:35 sb4 02/10 13:54 Order name: Chest For PE Angio CT; Complete Time: 14:58 sb4 02/10 12:48 Order name: EKG; Complete Time: 12:49 sb4 02/10 19:11 Order name: 45g Consistent Carbohydrate (ADA 1200/1500) EDMS 02/10 19:11 Order name: NPO EDMS 02/10 19:11 Order name: Regular EDMS 02/10 12:48 Order name: Cardiac monitoring; Complete Time: 13:14 sb4 02/10 12:48 Order name: EKG - Nurse/Tech; Complete Time: 12:52 sb4 02/10 12:48 Order name: IV Saline Lock; Complete Time: 13:14 sb4 02/10 12:48 Order name: Labs collected and sent; Complete Time: 13:14 sb4 02/10 12:48 Order name: O2 Per Protocol; Complete Time: 13:14 sb4 02/10 12:48 Order name: O2 Sat Monitoring; Complete Time: 13:14 sb4 02/10 13:22 Order name: Labs - recollect needed: all labs. ; Complete Time: 13:54 bc6 02/10 14:07 Order name: Labs - recollect needed: light. green; Complete Time: 15:19 bc6 EC:51 Rate is 109 beats/min. Rhythm is regular, Sinus tachycardia. [place] interval is normal at sb4 152 msec. QRS interval is normal at 78 msec. QT interval is normal at 352 msec. No Q waves. T waves are Normal. No ST changes noted. Clinical impression: No change from prior ECG. Interpreted by me. Reviewed by me. Administered Medications: 13:10 Drug: Aspirin PO Chewable Tablet 324 mg Route: PO; db 16:30 Drug: NS 0.9% IV 1000 ml Route: IV; Rate: 1 bolus; Site: right antecubital; db 17:42 Drug: Hydrocodone-Acetaminophen PO (7.5 mg-325 mg) 1 tabs Route: PO; db Disposition Summary: 02/10/23 18:29 Hospitalization Ordered Hospitalization Status: Inpatient Admission sb4 Provider: Rolando Washington sb4 Condition: Fair sb4 Problem: an ongoing problem sb4 Symptoms: are unchanged sb4 Bed/Room Type: Standard sb4 Location: Telemetry/MedSurg (Inpatient)(02/10/23 22:22) mw Room Assignment: 209(02/10/23 22:22) mw Diagnosis - Hypertriglyceridemia sb4 - Chest pain, unspecified sb4 Forms: - Medication Reconciliation Form sb4 - SBAR form sb4 - Leadership Thank You Letter sb4 Signatures: Dispatcher [employer] Zara Taylor RN Peyton Stock RN Kacey tSephen RN RN Nenita Minor, RN RN Marilu Kumari PA-C PA-C [facility] Charleen Duong 6 Corrections: (The following items were deleted from the chart) 20:29 18:29 Intensive Care Unit sb4 kl 20:29 18:29 sb kl 20:53 20:29 Telemetry/MedSurg (Inpatient) kl mw 20:53 20:29 kl mw 22:22 20:53 [facility] ER HOLD mw mw 22:22 20:53 ERHOLD- mw mw
--- NOTE | 2023-02-10 18:54 | P.HP ---
Certification for Inpatient Patient admitted to: Inpatient With expected LOS: <2 Midnights Patient will require the following post-hospital care: None Practitioner: I am a practitioner with admitting privileges, knowledge of patient current condition, hospital course, and medical plan of care. Services: Services provided to patient in accordance with Admission requirements found in Title 42 Section 412.3 of the Code of Federal Regulations Patient History Date of Service: 02/10/23 Reason for admission: Chest Pain History of Present Illness: 42-year-old female with a past medical history of depression, anxiety, hypertension, hyperlipidemia, diabetes presents to the emergency room with chest pain and abdominal pain. She reports chest pain is left chest radiates under her rib cage, to her back that is constant. She reports originally chest pain was 7 out of 10 with medications in the ER pain is currently a 2 out of 10. She denies nausea vomiting, shortness of breath, edema diaphoresis, no reported neck radiation. She reports hypertension, cholesterol, diabetes is uncontrolled, she cannot afford her medications. She reports she does not check her blood sugars at home. Plan to admit for chest pain rule out OR, hypertriglycerides, ER evaluation BP 146 / 100; Pulse 114; Resp 14; Temp 98.2(O); Pulse Ox 98% on R/A; Weight 61.23 kg; hb Height 5 ft. 2 in. ; Pain 8/10; EKGRate is 109 beats/min. Rhythm is regular, Sinus tachycardia. LA interval is normal at sb4 152 msec. QRS interval is normal at 78 msec. QT interval is normal at 352 msec. No Q waves. T waves are Normal. No ST changes noted. Clinical impression: No change from prior ECG. Laboratory evaluation CBC unremarkable D-dimer elevated at 30 714, sodium 126, repeated 133, blood glucose 290 3 repeat 253 transaminitis AST 47 triglycerides 3033, cholesterol 427, LDL 36, HDL 23, lipase normal at 38, U UA 4+ glucose urea 3+ blood Allergies No Known Allergies Allergy (Verified 02/16/20 12:34) Home Medications: NK [No Home Meds] 02/16/20 - Past Medical/Surgical History Diabetic: Yes -: DM-NIDDM uncontrolled -: Uncontrolled hypertension -: Hyperlipidemia uncontrolled -: Depression -: Anxiety -: L Foot SX I&D - Family History Father -: Hypertension Notes: hepatitis C - Social History Smoking Status: Never smoker Alcohol use: Yes CD- Drugs: Yes Caffeine use: No Review of Systems 10-point ROS is otherwise unremarkable Physical Examination - Physical Exam General: Alert, In no apparent distress, Oriented x3 HEENT: Atraumatic, Normocephalic, PERRLA Neck: Supple, 2+ carotid pulse no bruit, JVD not distended Respiratory: Clear to auscultation bilaterally, Normal air movement Cardiovascular: No edema, Normal pulses, Regular rate/rhythm, Normal S1 S2, Other (Chest pain 2 out of 10 left substernal constant) Capillary refill: <2 Seconds Gastrointestinal: Normal bowel sounds, Soft and benign Musculoskeletal: No clubbing, No swelling Integumentary: No rashes, No breakdown Neurological: Normal speech, Normal strength at 5/5 x4 extr, Sensation intact - Studies Laboratory Data (last 24 hrs) 02/10/23 02/10/23 02/10/23 17:37 15:04 13:30 WBC Hgb Hct Plt Count PT 11.0 INR 1.00 Sodium 133 L D 126 L Potassium 4.4 4.5 BUN 9 11 Creatinine 0.62 0.65 Glucose 253 H 293 H Magnesium 2.1 Total Bilirubin 0.8 AST 47 H ALT 16 Alkaline Phosphatase 60 Triglycerides 3033 H Cholesterol 427 H LDL Cholesterol Direct 36 L HDL Cholesterol 23 L Cholesterol/HDL Ratio 18.57 Lipase 38 02/10/23 13:30 WBC 6.40 Hgb 14.1 Hct 36.7 Plt Count 221 PT INR Sodium Potassium BUN Creatinine Glucose Magnesium Total Bilirubin AST ALT Alkaline Phosphatase Triglycerides Cholesterol LDL Cholesterol Direct HDL Cholesterol Cholesterol/HDL Ratio Lipase Microbiology Data (last 24 hrs): 02/10/23 13:05 Nasopharnyx Influenza Type A Antigen Screen - Final 02/10/23 13:05 Nasopharnyx Influenza Type B Antigen Screen - Final Assessment and Plan - Plan Assessment plan Chest pain rule out OR Hypertriglycerides Hyponatremia Elevated D-dimer Transaminitis depression, anxiety hypertension uncontrolled hyperlipidemia uncontrolled diabetes [id number] uncontrolled Assessment plan Chest pain rule out OR Cardiology consult, trend troponins As needed analgesics, telemetry Hypertriglycerides Normal saline antilipid medication lipase normal at 38, Triglycerides 3033, cholesterol 427, LDL 36 HDL 23, repeat lipid panel in the a.m. Elevated D-dimer D-dimer 3714 CT of the chest negative for PE Hyponatremia 126 repeat 133 IV fluids Transaminitis AST 47 ALT 16 depression, anxiety Resume appropriate home meds, as needed antianxiety meds hypertension uncontrolled BP 146 / 100; Pulse 114; Resp 14; Temp 98.2(O); Pulse Ox 98% on R/A; Weight 61.23 kg; hb Height 5 ft. 2 in. ; Pain 8/10; EKGRate is 109 beats/min. Rhythm is regular, Sinus tachycardia. LA interval is normal 152 msec. QRS interval is normal at 78 msec. QT interval is normal at 352 msec. No Q waves. T waves are Normal. No ST changes noted. Clinical impression: No change from prior ECG. hyperlipidemia uncontrolled Start antilipid, education on medication, dietary compliance diabetes ayo-ptypdps-bthihecff uncontrolled UA glucose urea, hematuria, A1c in the a.m. Glucose 293, 251, Lantus 10 units at bedtime Dietitian management for diabetic diet Diet diabetic Full code DVT Lovenox Discharge Plan: Home Plan to discharge in: 24 Hours - Advance Directives Does patient have a Living Will: No Does patient have a Durable POA for Healthcare: No - Code Status/Comfort Care Code Status: Full Code Physician Review: Patient Assessed, Agree with Above Assessment and Plan Critical Care: No Time Spent Managing Pts Care (In Minutes): 488
[2023-02-10] MEDS: NA CHLORIDE 0.9% 1,000 ML IV SCH (19:09)
[2023-02-10] MEDS: INSULIN -REGULAR HUMAN 50 UNIT/0.5 ML ML SQ SCH (21:40)
[2023-02-10] MEDS ORDERED: ONDANSETRON 4 MG/2 ML VIAL ONE (21:46)
[2023-02-10] MEDS ORDERED: INSULIN -REGULAR HUMAN 50 UNIT/0.5 ML ML ONE (21:46)
[2023-02-10] MEDS: DOCOSAHEXANOIC AC/EPA 1000 MG PO SCH (22:00)
[2023-02-10] MEDS: gemfibroziL 600 MG TAB PO SCH (22:00)
[2023-02-11 00:42] VITALS: BMI 23.7
[2023-02-11] MEDS: NA CHLORIDE 0.9% 1,000 ML IV SCH ×3 (00:51→23:56)
[2023-02-11] MEDS ORDERED: MORPHINE 4 MG/ML SYR IV ONE (03:47)
[2023-02-11] MEDS: ONDANSETRON 4 MG/2 ML VIAL IV PRN ×3 (05:06→20:39)
[2023-02-11 05:20] LABS: Absolute Lymphocytes (CBC) 3.5 K/uL (0.7-4.9); Hematocrit 35.8 % (36.0-45.0); Lymphocytes % 43.5 % (15.3-44.8); MCV 79.1 fL (80-100); MPV 8.8 fL (7.6-11.3); Platelets 205 thou/uL (152-406); RBC Red Blood Cell Count 4.53 M/uL (3.86-4.86)
[2023-02-11 05:42] LABS: ALT/SGPT 23 U/L (13-56); Albumin 3.2 g/dL (3.4-5.0); Alkaline Phosphatase 56 U/L (45-117); BUN Blood Urea Nitrogen 7 mg/dL (7-18); Bicarbonate 22 mEq/L (21-32); Bilirubin Total 0.5 mg/dL (0.2-1.0); Glomerular Filtration Rate 114 ml/min (=/>90); Glucose Level 195 mg/dL (74-106); HDL Cholesterol 27 mg/dL (40-60); Protein, Total 6.8 g/dL (6.4-8.2); Sodium Level 133 mEq/L (136-145)
[2023-02-11 05:58] LABS: AST/SGOT < 3 U/L (15-37); Magnesium 2.1 mg/dL (1.6-2.4); Potassium 3.9 mEq/L (3.5-5.1)
[2023-02-11 06:09] LABS: LDL, Direct 71 mg/dL (100-129)
[2023-02-11] MEDS: INSULIN -REGULAR HUMAN 50 UNIT/0.5 ML ML SQ SCH ×4 (08:41→20:39)
[2023-02-11] MEDS: ENOXAPARIN 40 MG/0.4 ML SQ SCH (08:41)
[2023-02-11] MEDS: gemfibroziL 600 MG TAB PO SCH ×2 (08:42→20:34)
[2023-02-11] MEDS: DOCOSAHEXANOIC AC/EPA 1000 MG PO SCH ×2 (08:42→20:34)
[2023-02-11 13:35] LABS: Troponin High Sensitivity 3.7 pg/mL (<58.9)
--- NOTE | 2023-02-11 15:23 | EKG ---
Test Date: 2023-02-10 Test Time: 12:46:56 Histological Illustrator: BETZY MEASUREMENT RESULTS: Intervals: Rate: 109 CA: 152 QRSD: 78 QT: 352 QTc: 474 [place]: P: 64 CA: 152 QRS: 36 T: 49 INTERPRETIVE STATEMENTS: Sinus tachycardia Possible Left atrial enlargement Possible Anterior infarct, age undetermined Abnormal ECG Compared to ECG 02/02/2023 12:57:45 No significant changes Electronically Signed On 02-11-23 15:21:25 CDT by Richie London
--- NOTE | 2023-02-11 15:49 | CON ---
Date of Consultation: 02/11/2023 Reason For Consultation: Chest pain. History Of Present Illness: A 42-year-old female with history of anxiety, hypertension, diabetes, dy slipidemia, presented with chest pain, right below her left breast, and certain movements increases t he pain and if she pushes on it, the pain gets better. No exertional chest pain. No nausea, vomitin g, or diaphoresis. Past Medical History: As outlined above in the HPI. Medications: Refer consult sheet for detailed list. Allergies: NO KNOWN DRUG ALLERGIES. Family History: No premature coronary artery disease or cancer. Social History: She does not smoke or use any drugs. Review of Systems: All systems reviewed are negative except as mentioned in HPI. Physical Examination: Vital Signs: Reviewed. Head and Neck: Pupils are equal, reactive to light. Intact eye movements. No JVD. No cervical lym phadenopathy. Neck is supple. Thyroid is not enlarged. Lungs: Clear to auscultation bilaterally. No rhonchi, wheezing, or crackles. No accessory muscle u se. Heart: Regular rate and rhythm. No extra sounds. Abdomen: Soft. Bowel sounds positive. No organomegaly. No masses or hernia. No rigidity or rebou nd. She has tenderness in the epigastric area. Neurologic: Alert, awake, oriented x3. No acute focal deficits appreciated. Investigations: Triglycerides 1792. BUN is 7, creatinine 0.58. Cardiac enzymes are negative. Assessment/plan: Chest pain. This is likely noncardiac. Cardiac enzymes are negative. Likely she has pancreatitis. She has severe hypertriglyceridemia, likely due to uncontrolled diabetes. I recom mend to start her on baby aspirin. She will need a stress test, which can be done as an outpatient j ust because of her risk factors and agree with the gemfibrozil and Fish Oil and also she needs a bett er control of her diabetes. SR/MODL Voice ID: [id number] Report ID: [id number]
[2023-02-11] MEDS: ACETAMINOPHEN 500 MG TAB PO PRN (20:39)
[2023-02-12] MEDS: ZOLPIDEM TARTRATE 5 MG TABLET PO PRN (01:19)
[2023-02-12 03:53] LABS: Absolute Lymphocytes (CBC) 2.1 K/uL (0.7-4.9); Hematocrit 34.6 % (36.0-45.0); Lymphocytes % 41.4 % (15.3-44.8); MPV 9.3 fL (7.6-11.3); Platelets 174 thou/uL (152-406); RBC Red Blood Cell Count 4.33 M/uL (3.86-4.86)
[2023-02-12 04:43] LABS: ALT/SGPT 21 U/L (13-56); AST/SGOT 12 U/L (15-37); Albumin 3.1 g/dL (3.4-5.0); Alkaline Phosphatase 51 U/L (45-117); BUN Blood Urea Nitrogen 6 mg/dL (7-18); Bicarbonate 23 mEq/L (21-32); Bilirubin Total 0.6 mg/dL (0.2-1.0); Glomerular Filtration Rate 117 ml/min (=/>90); Glucose Level 122 mg/dL (74-106); HDL Cholesterol 28 mg/dL (40-60); Magnesium 1.9 mg/dL (1.6-2.4); Potassium 3.4 mEq/L (3.5-5.1); Protein, Total 6.6 g/dL (6.4-8.2); Sodium Level 135 mEq/L (136-145)
[2023-02-12 05:27] LABS: LDL, Direct 97 mg/dL (100-129)
[2023-02-12] MEDS: INSULIN -REGULAR HUMAN 50 UNIT/0.5 ML ML SQ SCH ×4 (07:30→20:53)
[2023-02-12] MEDS: ACETAMINOPHEN 500 MG TAB PO PRN (08:51)
[2023-02-12] MEDS ORDERED: POTASSIUM 25 MEQ EFFERV TAB PO ONE (09:00)
--- NOTE | 2023-02-12 11:07 | RAD REPORT ---
EXAM DESCRIPTION: CTAbdomen Pelvis W Contrast - 02/12/2023 10:45 am CLINICAL HISTORY: epigastric pain COMPARISON: Abdomen Pelvis W Contrast dated 02/05/2016; Abdomen Pelvis W Contrast dated 02/01/2016 ; Angio Aorta For Dissection dated 02/02/2023; Chest For Pe Angio dated 02/10/2023 TECHNIQUE: CT of the abdomen and pelvis was performed. All CT scans are performed using dose optimization technique as appropriate and may include automated exposure control or mA/KV adjustment according to patient size. FINDINGS: Lower chest: No acute abnormality. Liver: No acute abnormality or suspicious lesions. Biliary: No biliary ductal dilatation. Stomach: No significant focal abnormality. Duodenum: No significant focal abnormality. Pancreas: 8.2 cm cystic mass at the tail of the pancreas consistent with a pseudocyst is unchanged. Spleen: No significant abnormality. Adrenal: No suspicious lesions. Kidney/ureter: No hydronephrosis. No renal calculi. Too small to characterize and/or benign appearing renal lesions are noted. Retroperitoneum: No retroperitoneal adenopathy. Vascular: No aneurysm. Bowel: No significant focal abnormality. Normal appendix. Peritoneum: No ascites or free air. Bladder: Grossly unremarkable. Reproductive: No adnexal masses. Bones: No acute fracture. Other: n/a IMPRESSION: No acute intra-abdominal or pelvic finding. Cystic structure at the tail the pancreas is unchanged and likely represents a pseudocyst. No evidenc e of acute pancreatitis.
[2023-02-12] MEDS: DOCOSAHEXANOIC AC/EPA 1000 MG PO SCH ×2 (11:12→20:53)
[2023-02-12] MEDS: ENOXAPARIN 40 MG/0.4 ML SQ SCH (11:13)
[2023-02-12] MEDS: gemfibroziL 600 MG TAB PO SCH ×2 (11:13→20:53)
[2023-02-12] MEDS ORDERED: MORPHINE 2 MG/ML SYR IV ONE (11:22)
[2023-02-12] MEDS: ONDANSETRON 4 MG/2 ML VIAL IV PRN (11:32)
[2023-02-12] MEDS: NA CHLORIDE 0.9% 1,000 ML IV SCH ×2 (11:33→20:55)
--- NOTE | 2023-02-12 13:32 | P.PN ---
Date of Service: 02/11/23 Subjective Patient is feeling a little bit better today. We will go ahead and advance diet. I will get a CT scan of the abdomen and pelvis as well in the morning. Physical Examination -Vitals Reviewed -Physical Exam General: Alert, In no apparent distress, Oriented x3 Respiratory: Clear to auscultation bilaterally, Normal air movement Cardiovascular: No edema, Normal pulses, Regular rate/rhythm, Normal S1 S2, Other (Chest pain 2 out of 10 left substernal constant) Gastrointestinal: Normal bowel sounds, Soft and benign Musculoskeletal: No clubbing, No swelling Neurological: No focal deficits Assessment and Plan -Assessment Assessment Chest pain rule out [place] Hypertriglycerides Hyponatremia Elevated D-dimer Transaminitis depression, anxiety hypertension uncontrolled hyperlipidemia uncontrolled diabetes [id number] uncontrolled -Plan Plan Chest pain rule out [place] /epigastric tenderness Patient was ruled out for acute coronary syndrome. Cardiology recommends ou tpatient follow-up. CT imaging of the abdomen and pelvis pending Hypertriglycerides Triglycerides are trending downward. Continue with Lopid and fish oil capsules. Continue with pain control. Elevated D-dimer D-dimer 3714 CT of the chest negative for PE Hyponatremia 126 repeat 133 Continue IV hydration Depression/anxiety Resume appropriate home meds, as needed antianxiety meds Hypertension uncontrolled Strict blood pressure control Diabetes icp-wmiadht-eszuvlytl uncontrolled Lantus 10 units at bedtime Accu-Cheks before every meal and nightly Diet diabetic Full code DVT Lovenox Discharge Plan: Home Plan to discharge in: 24 Hours -
--- NOTE | 2023-02-12 13:34 | P.DS ---
Discharge Date: 02/12/23 Disposition: ROUTINE DISCHARGE Discharge Condition: GOOD Reason for Admission: Chest Pain Consultations: [employer] Brief History of Present Illness: Patient is a 42-year-old female with a past medical history of depression, anxiety, hypertension, hyperlipidemia, diabetes presents to the emergency room with chest pain and abdominal pain. She reports chest pain is left chest radiates under her rib cage, to her back that is constant. She reports originally chest pain was 7 out of 10 with medications in the ER pain is currently a 2 out of 10. She denies nausea vomiting, shortness of breath, edema diaphoresis, no reported neck radiation. She reports hypertension, cholesterol, diabetes is uncontrolled, she cannot afford her medications. She reports she does not check her blood sugars at home. Plan to admit for chest pain rule out PA and hypertriglyceridemia, Hospital Course: Patient is clinically doing well. Patient had a CT imaging of the abdomen and p heidy that was unremarkable. We went ahead and advance diet. Patient is clinically doing well and at this time patient is stable for discharge home with outpatient follow-up. Vital Signs/Physical Exam: Temp Pulse Resp BP Pulse Ox 98.6 F 98 H 16 170/80 H 100 02/12/23 12:00 02/12/23 12:00 02/12/23 12:00 02/12/23 12:00 02/12/23 12:00 General: Alert, In no apparent distress, Oriented x3 Laboratory Data at Discharge: WBC 5.10 thou/uL (4.3-10.9) 02/12/23 03:06 Hgb 12.0 g/dL (12.0-15.0) 02/12/23 03:06 Hct 34.6 % (36.0-45.0) L 02/12/23 03:06 Plt Count 174 thou/uL (152-406) 02/12/23 03:06 PT 11.0 SECONDS (9.5-12.5) 02/10/23 13:30 INR 1.00 02/10/23 13:30 Sodium 135 mEq/L (136-145) L 02/12/23 03:06 Potassium Cancelled 02/12/23 14:00 BUN 6 mg/dL (7-18) L 02/12/23 03:06 Creatinine 0.52 mg/dL (0.55-1.02) L 02/12/23 03:06 Glucose 122 mg/dL (74-106) H 02/12/23 03:06 Magnesium 1.9 mg/dL (1.6-2.4) 02/12/23 03:06 Total Bilirubin 0.6 mg/dL (0.2-1.0) 02/12/23 03:06 AST 12 U/L (15-37) L 02/12/23 03:06 ALT 21 U/L (13-56) 02/12/23 03:06 Alkaline Phosphatase 51 U/L (45-117) 02/12/23 03:06 Triglycerides 1144 mg/dL (<150) H 02/12/23 03:06 Triglycerides 1183 mg/dL (<150) H 02/12/23 03:06 Cholesterol 319 mg/dL (<200) H 02/12/23 03:06 LDL Cholesterol Direct 97 mg/dL (100-129) L 02/12/23 03:06 HDL Cholesterol 28 mg/dL (40-60) L 02/12/23 03:06 Cholesterol/HDL Ratio 11.39 02/12/23 03:06 Lipase 28 U/L (13-75) 02/12/23 03:06 Home Medications: Buspirone HCl [Buspar*] 25 mg PO TID 02/11/23 Insulin Detemir [Levemir] See Protocol SQ PRN 02/11/23 Lisinopril [Zestril] 20 mg PO DAILY 02/11/23 hydrOXYzine HCL [Atarax*] 25 mg PO TID 02/11/23 Cyclobenzaprine HCl [Flexeril] 5 mg PO BID PRN #20 tab 02/12/23 Hydrocodone 10/APAP 325 [[place] 10/325] 1 tab PO Q8H PRN #20 tab 02/12/23 [place]-3 Fatty Acids/Fish Oil [Fish Oil 1,000 mg Softgel] 2 each PO BID #120 cap 02/12/23 gemfibroziL [Lopid*] 1,200 mg PO BID #120 tab 02/12/23 predniSONE [Deltasone] 20 mg PO DAILY #5 tab 02/12/23 New Medications: [place]-3 Fatty Acids/Fish Oil [Fish Oil 1,000 mg Softgel] 2 each PO BID #120 cap Cyclobenzaprine HCl [Flexeril] 5 mg PO BID PRN #20 tab PRN Reason: Muscle Spasms gemfibroziL [Lopid*] 1,200 mg PO BID #120 tab Hydrocodone 10/APAP 325 [[place] 10/325] 1 tab PO Q8H PRN #20 tab PRN Reason: Pain predniSONE [Deltasone] 20 mg PO DAILY #5 tab Physician Discharge Instructions: -DC IV and DC home -Follow-up with PCP in 1 to 2 weeks -Follow-up with Cardiology in 1 to 2 weeks -Please call Dr. Washington at [phone] if any questions regarding hospital stay -Please call nursing station at [phone] if any nursing or medication questions -Return to the emergency room if symptoms worsen Diet: Low-fat Activity: Fall precautions Followup: STACI SMALL [Primary Care Provider] - Time spent managing pt's care (in minutes): 35
[2023-02-13] MEDS ORDERED: METOPROLOL TARTRATE 5 MG/5 ML INJ IV PRN ×2 (00:30→00:33)
[2023-02-13] MEDS: HYDROCODONE/APAP 5/325 MG TAB PO PRN ×2 (00:43→08:40)
[2023-02-13] MEDS: ONDANSETRON 4 MG/2 ML VIAL IV PRN ×2 (00:45→08:41)
[2023-02-13] MEDS: ZOLPIDEM TARTRATE 5 MG TABLET PO PRN (00:52)
[2023-02-13 01:19] VITALS: O2SAT 98
[2023-02-13 03:28] LABS: Absolute Lymphocytes (CBC) 1.7 K/uL (0.7-4.9); Hematocrit 34.1 % (36.0-45.0); Lymphocytes % 38.5 % (15.3-44.8); MCV 80.5 fL (80-100); MPV 8.8 fL (7.6-11.3); Platelets 164 thou/uL (152-406); RBC Red Blood Cell Count 4.24 M/uL (3.86-4.86)
[2023-02-13 03:58] LABS: ALT/SGPT 23 U/L (13-56); Albumin 3.2 g/dL (3.4-5.0); Alkaline Phosphatase 51 U/L (45-117); BUN Blood Urea Nitrogen 9 mg/dL (7-18); Bicarbonate 26 mEq/L (21-32); Bilirubin Total 0.5 mg/dL (0.2-1.0); Glomerular Filtration Rate 93 ml/min (=/>90); Glucose Level 234 mg/dL (74-106); HDL Cholesterol 27 mg/dL (40-60); Phosphorus 3.6 mg/dL (2.5-4.9); Protein, Total 6.8 g/dL (6.4-8.2); Sodium Level 134 mEq/L (136-145)
[2023-02-13 04:33] LABS: AST/SGOT 15 U/L (15-37); Potassium 3.8 mEq/L (3.5-5.1)
[2023-02-13 04:45] LABS: LDL, Direct 126 mg/dL (100-129)
[2023-02-13] MEDS: NA CHLORIDE 0.9% 1,000 ML IV SCH (06:41)
[2023-02-13] MEDS: AMYLASE/LIPASE/PROTEASE CAP PO SCH ×2 (08:24→12:13)
[2023-02-13] MEDS: DOCOSAHEXANOIC AC/EPA 1000 MG PO SCH (08:25)
[2023-02-13] MEDS: ENOXAPARIN 40 MG/0.4 ML SQ SCH (08:25)
[2023-02-13] MEDS: INSULIN -REGULAR HUMAN 50 UNIT/0.5 ML ML SQ SCH ×3 (08:25→16:05)
[2023-02-13] MEDS: gemfibroziL 600 MG TAB PO SCH (08:25)
[2023-02-13] MEDS ORDERED: POTASSIUM CL SA 10 MEQ TAB PO ONE (09:00)
[2023-02-13 16:16] VITALS: BP 121/68; TEMP 98.2
== END 2023-02-13 18:52 | disposition home or self-care (01) | DRG 642 ==
LOC: ER 12:29 → ERHOLD 18:54 → 2ND 22:58
PROVIDERS: ADMIT Hospitalist; ATTEND Hospitalist
DX: E78.1 Pure hyperglyceridemia (principal); E87.1 Hypo-osmolality and hyponatremia; I10 Essential (primary) hypertension; E11.9 Type 2 diabetes mellitus without complications; F41.9 Anxiety disorder, unspecified; F32.A Depression, unspecified; E78.00 Pure hypercholesterolemia, unspecified; R07.9 Chest pain, unspecified; R74.01 Elevation of levels of liver transaminase levels; Z79.52 Long term (current) use of systemic steroids; Z79.4 Long term (current) use of insulin; Z79.899 Other long term (current) drug therapy; Z20.822 Contact with and (suspected) exposure to COVID-19
CPT/HCPCS: 36415; 71045; 71275; 74177; 80048; 80053; 80061; 80076; 81001; 81025; 82947; 83036; 83690; 83735; 83880; 84100; 84132; 84478; 84484; 85025; 85379; 85610; 87804; 87811; 93005; 99285; J1650; J1815; J2270; J2405; J7030; Q9967

== ENCOUNTER 2023-03-05 15:11 | Emergency (ER) | payer OTHER, SELFPAY ==
--- OUTSIDE RECORDS SUMMARY | 2023-03-05 15:15 | XMS REPORT | Continuity of Care Document ---
:1980 Author Organization [facility] t Address [address] [place] [address] [place] [address] Care Team Providers Name Role Phone PCP, PATIENT DOES NOT HAVE A Primary Care Physician UnavailMINNIE Trejo Attending Clinician Unavailable Minnie Ledezma MD Attending Clinician Doctor Unassigned, [place] Attending Clinician Unavailable MINNIE LEDEZMA Admitting Clinician [...] abnormal 6 ity of cervical cervical 00:00: [place] Pap smear Pap smear 00 [facility] Diabetic Diabetic Disease Active Unive rs foot foot 5-02 ity of infection infection 00:00: [address] Allergies, Adverse Reactions, Alerts Allergy Allergy Status Severity Reaction(s) Onset Inactive Treating Comm ents Source Name Type Date Date Clinician NO KNOWN Drug Active Univers ALLERGIE Class ity of S [facility] Social History Social Habit Start Date Stop Date Quantity Comments Source Alcohol intake 2022-11-19 2022-11-19 Current drinker of Un iversity of 00:00:00 00:00:00 alcohol (finding) [facility] Tobacco use and 2018-11-24 2018-11-24 Never used Universit y of exposure 00:00:00 00:00:00 [facility] Alcohol Comment 2018-11-24 2018-11-24 occasional Universit y of 00:00:00 00:00:00 [facility] Sex Assigned At [birth year] Universit y of 00:00:00 00:00:00 [facility] Smoking Status Start Date Stop Date Source Never smoked tobacco [facility] Medications Ordered Filled Start Stop Current Ordering Indication Dosage Frequency Signature Comments Components Source Medication Medication Date Date Medication? Clinician (SIG) Name Name iopamidol 2022- No [id number] 70mL 70 mL, U nivers (ISOVUE 11-19 [...] (0.1 ity of human 13:00: 16:09 Units/kg [place] (HUMULIN R) 00 :00 ?61.2 kg), Mt dical injection Slow IV Branch 6.12 Units [...] dose, On Tue11/19/22 at 0800, STAT maalox:diph No 15mL 15 mL, Uni vers enhydrAMINE 11-1902 Oral, ity of :lidocaine 13:00: 12:59 ONCE, 1 [place] 2 % viscous 00 :00 dose, On Medi marilee 1:1:1 Tue11/19/22 Branch (FIRST-MOUT at 0800, [facility]) Routine oral suspension 15 mL ondansetron Yes [id number] 4mg Take 1 Univers 4 mg -02 [...] doses. Indication s: acute pain lisinopriL 2022- No [id number] 20mg Take 1 Univers 20 mg 11-19-03 tablet by ity of tablet 00:00: 04:59 mouth in [place] 00 :00 the Medical morning Branch for 30 days. insulin 2022- No [id number] 20U inject 20 Univers detemir 11-19-03 Units ity of U-100 00:00: 04:59 under the [place] (LEVEMIR 00 :00 skin at [facility] U-100 bedtime Branch INSULIN) for 30 100 unit/mL days. injection simvastatin 2022- No [id number] 20mg Take 1 Univers 20 mg 11-19 tablet by ity of tablet 00:00: 04:59 mouth at [place] 00 :00 bedtime Medical for 30 Branch days. famotidine 2022- No [id number] 20mg Take 1 Univers (PEPCID) 20 11-1918 tablet by it y of mg tablet 00:00: 04:59 mouth in [place] as 00 :00 the Medical morning Branch and 1 tablet in the evening. Do all this for 30 doses. cephALEXin 2022- No [id number] 500mg Take 1 Univers (KEFLEX) 11-19 capsule by ity of 500 mg 00:00: 04:59 mouth 4 [place] capsule 00 :00 (four) Medical times [place] daily for 10 days. INJECT 1 ML 0 No INTRAMUSCUL 12-10 CHRISTIAN ONCE 00:00: EVERY 3 00 MONTHS. [employer] No 1mg/mL a 150 mg/mL 12-10 intramuscul [...] 2022-0 No Unknown 3-31 00:00: 00 Dose 2-0 [...] No known No Univers medications it of [facility] Immunizations Ordered Filled Immunization Date Status Comments [facility] e Immunization Name Name Td 2015-10-20 Completed [facility] 00:00:00 [facility] TD, NOS 2015-10-20 Completed [facility] 00:00:00 [facility] Vital Signs Vital Name Observation Time Observation Value Comments Source Systolic blood 2022-11-19 18:00:00 115 mm[Hg] Univer sity of pressure [facility] Diastolic blood 2022-11-19 18:00:00 82 mm[Hg] Unive rsity of [facility] Heart rate 2022-11-19 18:00:00 82 /min [facility] Body temperature 2022-11-19 18:00:00 36.89 Maryanne [facility] Respiratory rate 2022-11-19 18:00:00 16 /min [facility] Oxygen saturation in 2022-11-19 18:00:00 95 /min [facility] blood [facility] Pulse oximetry [place] Body height 2022-11-19 12:14:00 157.5 cm [facility] Body weight 2022-11-19 12:14:00 61.236 kg [facility] BMI 2022-11-19 12:14:00 24.69 kg/m2 [facility] BP Systolic 2022-03-10 16:36:00 136 mm[Hg] [...] Date / Time Performed Performing Clinician [facility] e EKG-12 LEAD 2022-11-19 18:12:08 Minnie Ledezma [facility] URINALYSIS 2022-11-19 16:58:00 Minnie Ledezma [facility] CT ABDOMEN PELVIS W 2022-11-19 15:41:15 Minnie Ledezma [facility] CONTRAST [facility] POCT GLUCOSE 2022-11-19 15:39:00 Minnie Ledezma [facility] (AUTOMATED) [facility] POCT GLUCOSE 2022-11-19 14:31:00 Minnie Ledezma [facility] (AUTOMATED) [facility] XR ABDOMEN ACUTE 2022-11-19 13:45:23 Minnie Ledezma [facility] SERIES [facility] US GALL BLADDER 2022-11-19 13:10:56 Minnie Ledezma [facility] POCT GLUCOSE 2022-11-19 12:33:00 Doctor Unassigned, No [facility] Name Medical Branch LIPASE 2022-11-19 12:28:00 Minnie Ledezma [facility] TEST, SERUM 2022-11-19 12:28:00 Minnie Ledezma [facility] TROPONIN I 2022-11-19 12:28:00 Minnie Ledezma [facility] COMP. METABOLIC PANEL 2022-11-19 12:28:00 Minnie Ledezma [facility] ([id number]) [facility] CBC WITH DIFF 2022-11-19 12:28:00 Minnie Ledezma [facility] CONSENT/REFUSAL FOR 2022-11-19 12:07:05 Doctor Unassigned, No [facility] DIAGNOSIS AND Name Medical [place] TREATMENT REFERRAL- 2020-11-07 05:01:00 Doctor Unassigned, No [facility] REQUEST/RESPONSE Name Medical Branch Plan of Care Planned Activity Planned Date Details Comments Source Goal Plan of Care Note [code = 52164-7] Goal Plan of Care Note [code = 17502-7] Goal Plan of Care Note [code = 50126-3] Goal Plan of Care Note [code = 13688-2] Goal Plan of Care Note [code = 22521-2] Goal Plan of Care Note [code = 75813-5] Goal Plan of Care Note [code = 39495-8] Goal Plan of Care Note [code = 00759-5] Goal Plan of Care Note [code = 79367-1] Goal Plan of Care Note [code = 54028-6] Goal Plan of Care Note [code = 31508-6] Goal Plan of Care Note [code = 27982-5] Goal Plan of Care Note [code = 26771-5] Goal Plan of Care Note [code = 06485-4] Goal Plan of Care Note [code = 10736-3] Goal Plan of Care Note [code = 82037-2] Goal Plan of Care Note [code = 74849-7] Goal Plan of Care Note [code = 81670-2] Goal Plan of Care Note [code = 72714-8] Goal Plan of Care Note [code = 31641-0] Goal Plan of Care Note [code = 05571-7] Goal Plan of Care Note [code = 82286-3] Goal Plan of Care Note [code = 98367-5] Goal Plan of Care Note [code = 16885-8] Goal Plan of Care Note [code = 25594-3] Goal Plan of Care Note [code = 36543-9] Goal Plan of Care Note [code = 97708-6] Goal Plan of Care Note [code = 66387-4] Goal Plan of Care Note [code = 22405-1] Goal Plan of Care Note [code = 21105-1] Goal Plan of Care Note [code = 29356-4] Goal Plan of Care Note [code = 70141-6] Goal Plan of Care Note [code = 08462-3] Goal Plan of Care Note [code = 15592-6] Goal Plan of Care Note [code = 80859-5] Goal Plan of Care Note [code = 01349-7] Goal Plan of Care Note [code = 61663-1] Goal Plan of Care Note [code = 21255-0] Encounters Start End Encounter Admission Attending Care Care Encounter Source Date/Time Date/Time Type Type Clinicians Facility Department ID 2023-02-28 2023-02-28 Outpatient [facility] [id number] Garry 14:38:31 14:38:31 0911 [facility] 2023-02-02 2023-02-02 Outpatient [facility] [id number] Garry 14:45:48 14:45:48 0816 [facility] [place] 2023-01-04 2023-01-04 Outpatient [facility] [id number] Garry 15:53:07 15:53:07 0718 [place] 2023-01-03 2023-01-03 Outpatient [facility] [id number] Garry 16:08:35 16:08:35 0717 [facility] 2022-11-29 2022-11-29 Outpatient [facility] [id number] Garry 14:24:54 14:24:54 0612 [facility] 2022-11-19 2022-11-19 [facility] [id number] Univers 07:15:00 13:21:00 MINNIE blum of [facility] 2022-11-19 2022-11-19 [id number] Univers 07:15:00 13:21:00 Minnie KEMP 350.1.13.10 i ty of [place] 4.2.7.2.686 [facility] [id number] [address] 2022-09-10 2022-09-10 Outpatient [facility] [id number] Garry 16:03:05 16:03:05 0324 [facility] 2022-08-30 2022-08-30 Outpatient [facility] [id number] Garry 14:47:20 14:47:20 0313 [facility] 2022-05-31 2022-05-31 Outpatient [facility] [id number] Garry 15:30:31 15:30:31 1212 [facility] 2022-03-10 2022-03-10 Outpatient [id number] 00:00:00 00:00:00 Visit 1k2j-975i a3u-484u-h -f6sx-n74 [id number] [id number] 2022-03-08 2022-03-08 Outpatient [id number] 00:00:00 00:00:00 Visit 8h2m-978o o7v-586z-h -n67e-x6u 00d-e4f39d 74vpjr3y4 bff1c0 2020-11-07 2020-11-07 Orders Doctor CIARRA [id number] 00:00:00 00:00:00 Only Unassigned, HORACE 350.1.13.10 [facility] 4.2.7.2.686 [id number] 2020-11-07 2020-11-07 Orders Doctor CIARRA [id number] [id number] Univers 00:00:00 00:00:00 Only Unassigned, HORACE 350.1.13.10 ity of [facility] 4.2.7.2.686 [place] as [id number] [address] Results Test Description Test Time Test Comments Results Result Comments Source POCT GLUCOSE (AUTOMATED) 2022-11-19 15:40:56 Test Item Value Reference Range Interpretation Comme nts POCT GLU (test code = 8318381870) 258 mg/dL 70-110 H Lab Interpretation (test code = 74599-2) Abnormal [facility] [id number] 14:42:07 Test Item Value Reference Range Interpretation Comments TROPONIN I (test code = <=0.034 2695269804) JOSEFINA (test code = JOSEFINA) Reference (Normal) [...] biotin. Lab Interpretation Normal (test code = 45767-6) [facility]2022-11-19 14:33:33 Test Item Value Reference Range Interpretation Comments POCT GLU (test code = 7302862734) 264 mg/dL 70-110 H Lab Interpretation (test code = Abnormal 60234-2) [facility], [id number] 13:15:04 Test Item Value Reference Range Interpretation Comments PREG SERUM (test code Negative = 5640915134) JOSEFINA (test code = JOSEFINA) Less than 10 IU/L. ?If low titer or ectopic is suspected, resubmit specimen in 48-72 hours. [facility] (80260)2022-11-19 13:06:14 Test Item Value Reference Range Interpretation Comments NA (test code = 133 mmol/L 135-145 L 5384781408) K (test code = 3.8 mmol/L 3.5-5.0 5296716254) CL (test code = 101 mmol/L 98-108 7301059057) CO2 TOTAL (test code = 22 mmol/L 23-31 L 8596476538) AGAP (test code = 10 2-16 5237919907) BUN (test code = 10 mg/dL 7-23 3938155674) GLUCOSE (test code = 303 mg/dL 70-110 H 3371691574) CREATININE (test code = 0.43 mg/dL 0.50-1.04 L 1100029822) TOTAL BILI (test code = 0.8 mg/dL 0.1-1.2 8908062395) CALCIUM (test code = 8.4 mg/dL 8.6-10.6 L 5735725031) T PROTEIN (test code = 7.4 g/dL 6.3-8.2 1598187619) ALBUMIN (test code = 4.0 g/dL 3.5-5.0 7120202397) ALK PHOS (test code = 91 U/L 34-122 4114777466) ALTv (test code = 24 U/L 5-35 1742-6) AST(SGOT) (test code = 24 U/L 13-40 0397496481) eGFR (test code = 159.5 mL/min/1.73m2 6376832896) JOSEFINA (test code = JOSEFINA) Association of [...] tests). Lab Interpretation Abnormal (test code = 67179-5) [facility] America[facility] [id number] 13:05:54 Test Item Value Reference Range Interpretation Comments LIPASE (test code = 2260431660) 94 U/L 0-220 Lab Interpretation (test code = Normal 35855-1) [facility] with [id number] 13:04:52 Test Item Value Reference Range Interpretation Comments WBC (test code = 6.22 See_Comment [Automated 8862-2) message] The sy stem which generated this result transmitted reference range : 4.30 - 11.10 10*3/?L. The reference range was not used to interpret this result as normal/abnormal . RBC (test code = 4.45 See_Comment [Automated 195-8) message] The sy stem which generated this [...] (test code = 37.6 fL 39.0-49.9 L 33075-0) RDW-CV (test code = 13.3 % 12.0-15.5 788-0) PLT (test code = 181 See_Comment [Automated 777-3) message] The sy stem which generated this result transmitted reference range : 166 - 358 10*3/ ?L. The reference r tia was not used to interpret this result as normal/abnormal . MPV (test code = 12.0 fL 9.5-12.9 64420-1) NRBC/100 WBC (test 0.0 See_Comment [Automat ed code = 4341519467) message] The system which generated this result transmitted reference range : 0.0 - 10.0 /100 WBCs. The refer ence range was not u sed to interpret th is result as normal/abnormal . NRBC x10^3 (test code See_Comment [Auto mated = 9442056936) message] The s ystem which generated this result transmitted reference range : 10*3/?L. The reference range was not used to interpret this result as normal/abnormal . GRAN MAT (NEUT) % 62.1 % (test code = 770-8) IMM GRAN % (test code 0.80 % = 5895938157) LYMPH % (test code = 29.6 % 736-9) MONO % (test code = 4.7 % 5905-5) EOS % (test code = 2.3 % 713-8) BASO % (test code = 0.5 % 706-2) GRAN MAT x10^3(ANC) 3.87 10*3/uL 1.88-7.09 (test code = 5350139468) IMM GRAN x10^3 (test 0.05 10*3/uL 0.00-0.06 code = 5029585288) LYMPH x10^3 (test code 1.84 10*3/uL 1.32-3.29 = 731-0) MONO x10^3 (test code 0.29 10*3/uL 0.33-0.92 L = 742-7) EOS x10^3 (test code = 0.14 10*3/uL 0.03-0.39 711-2) BASO x10^3 (test code 0.03 10*3/uL 0.01-0.07 = 704-7) Lab Interpretation Abnormal (test code = 30453-4) [facility]AUT[facility])2022-11-19 12:35:03 Test Item Value Reference Range Interpretation Comments POCT GLU (test code = 4887770075) 305 mg/dL 70-110 H Lab Interpretation (test code = Abnormal 71937-4) [facility] America[facility]BUMIN/CREATININE RATIO, URINE, RANDOM 2022-03-09 04:55:11 Test Item Value Reference Range Interpretation Comments CREATININE, URINE, 135.5 MG/DL NOT ESTAB CONC. (test code = 2072) ALBUMIN, URINE, 3.2 MG/DL NOT ESTAB RANDOM (test code = 72098) CALC 24 MG/G <30 Note: ALBUMIN/CREAT, RND Albumin/C reatinine ratio (test code = reference inter skinny 11612) reflects ADA an d NKF guidelines. UNL ESS OTHERWISE INDIC ATED, ALL TESTING PERFORM ED ATCLINICAL PATH [facility], I PA. [address] [place] [address] LABORATORY DIRE CTOR: SIRISHA [place] M.D. CLIA NUMBER [id number] [place] [id number] COMPREHENSIVE METABOLIC [id number] 03:42:46 Test Item Value Reference Range Interpretation Comments GLUCOSE (test code = 315 MG/DL 70-99 H 2216) BUN (test code = 11 MG/DL 12-07) CREATININE (test 0.61 MG/DL 0.60-1.30 code = 2213) eGFR (2020 CKD-EPI) 114 >60 (test code = 93035) ML/MIN/1.73 CALC BUN/CREAT (test 18 RATIO 6-28 code = 2235) SODIUM (test code = 139 MEQ/L 821-724 5554) POTASSIUM (test code 4.1 MEQ/L 3.5-5.4 = 2227) CHLORIDE (test code 105 MEQ/L 95-107 = 221) CARBON DIOXIDE (test 21 MEQ/L 19-31 code = 220) CALCIUM (test code = 9.4 MG/DL 8.5-10.5 2208) PROTEIN, TOTAL (test 7.5 G/DL 6.1-8.3 code = 222) ALBUMIN (test code = 4.6 G/DL 3.5-5.2 2200) CALC GLOBULIN (test 2.9 G/DL 1.9-3.7 code = 224) CALC A/G RATIO (test 1.6 RATIO 1.0-2.6 code = 223) BILIRUBIN, TOTAL 0.4 MG/DL See_Comment [Automated message] (test code = 2206) The syste [employer] which generated this result transmit cristiane reference range : <=1.2. The refe rence range was not u sed to interpret th is result as normal/abnormal . ALKALINE PHOSPHATASE 79 U/L 40-113 (test code = 2203) AST (test code = 10 U/L 9-40 2217) ALT (test code = 7 U/L 5-40 2218) LIPID [id number] 03:42:46 Test Item Value Reference Range Interpretation [...] MOREINFORMATION , SEE CLIENT ANNOUNCE MENT AT [email or web address] CalcLDL-C RISK RATIO LDL/HDL (NOTE) RATIO <3.22 UNABLE T O CALCULATE (test code = 2238) HEMOGLOBIN [id number] 02:41:50 Test Item Value Reference Range Interpretation Comments HEMOGLOBIN A1c (test 9.2 % 4.2-5.6 H [employer] AN DIABETES code = 04331) ASSOCIATION IDELIN[employer] FOR HGB A1C: PREDIABETES/INC REASED [...] TESTING OR LABORATORY C ONSULTATION. COMPREHENSIVE METABOLIC [id number] 00:00:00 Test Item Value Reference Range Interpretation Comments GLUCOSE (test code = 2217) 315 MG/DL BUN (test code = 2208) 11 MG/DL CREATININE (test code = 2214) 0.61 MG/DL eGFR (2020 CKD-EPI) (test 114 ML/MIN/1.73 code = 34167) CALC BUN/CREAT (test code = 18 RATIO [...] = 2219) 7 U/L ALBUMIN/CREATININE RATIO, RANDOM [id number] 00:00:00 Test Item Value Reference Range Interpretation Comments CREATININE, URINE, CONC. (test 135.5 MG/DL code = 2072) ALBUMIN, URINE, RANDOM (test code 3.2 MG/DL = 93054) CALC ALBUMIN/CREAT, RND (test 24 MG/G code = 34994) ALBUMIN/CREATININE RATIO, RANDOM [id number] 00:00:00 Test Item Value Reference Range Interpretation Comments CREATININE, URINE, CONC. (test 135.5 MG/DL code = 2072) ALBUMIN, URINE, RANDOM (test code 3.2 MG/DL = 59023) CALC ALBUMIN/CREAT, RND (test 24 MG/G code = 83957) HEMOGLOBIN [id number] 00:00:00 Test Item Value Reference Range Interpretation Comments HEMOGLOBIN A1c (test code = 14956) 9.2 % HEMOGLOBIN [id number] 00:00:00 Test Item Value Reference Range Interpretation Comments HEMOGLOBIN A1c (test code = 02214) 9.2 % HEMOGLOBIN [id number] 00:00:00 Test Item Value Reference Range Interpretation Comments HEMOGLOBIN A1c (test code = 41684) 9.2 % LIPID [id number] 00:00:00 Test Item Value Reference Range Interpretation Comments CHOLESTEROL (test code = 2210) 243 MG/DL TRIGLYCERIDES (test code = 2232) 788 MG/DL HDL CHOLESTEROL (test code = 22 MG/DL 2220) CALC LDL CHOL (test code = 2237) (NOTE) MG/DL RISK RATIO LDL/HDL (test code = (NOTE) RATIO 2238) LIPID [id number] 00:00:00 Test Item Value Reference Range Interpretation Comments CHOLESTEROL (test code = 2210) 243 MG/DL TRIGLYCERIDES (test code = 2232) 788 MG/DL HDL CHOLESTEROL (test code = 22 MG/DL 2220) CALC LDL CHOL (test code = 2237) (NOTE) MG/DL RISK RATIO LDL/HDL (test code = (NOTE) RATIO 2238) COMPREHENSIVE METABOLIC [id number] 00:00:00 Test Item Value Reference Range Interpretation Comments GLUCOSE (test code = 2217) 315 MG/DL BUN (test code = 2208) 11 MG/DL CREATININE (test code = 2214) 0.61 MG/DL eGFR (2020 CKD-EPI) (test 114 ML/MIN/1.73 code = 18690) CALC BUN/CREAT (test code = 18 RATIO 2235) SODIUM (test code = 2231) 139 MEQ/L POTASSIUM (test code = 2228) 4.1 MEQ/L CHLORIDE (test code = 2215) 105 MEQ/L CARBON DIOXIDE (test code = 21 MEQ/L 2206) CALCIUM (test code = 2209) 9.4 MG/DL PROTEIN, TOTAL (test code = 7.5 G/DL 222) ALBUMIN (test code = 2201) 4.6 G/DL CALC GLOBULIN (test code = 2.9 G/DL 2240) CALC A/G RATIO (test code = 1.6 RATIO 2234) BILIRUBIN, TOTAL (test code = 0.4 MG/DL 2206) ALKALINE PHOSPHATASE (test 79 U/L code = 2204) AST (test code = 2218) 10 U/L ALT (test code = 2219) 7 U/L COMPREHENSIVE METABOLIC [id number] 00:00:00 Test Item Value Reference Range Interpretation Comments GLUCOSE (test code = 2217) 315 MG/DL BUN (test code = 2208) 11 MG/DL CREATININE (test code = 2214) 0.61 MG/DL eGFR (2020 CKD-EPI) (test 114 ML/MIN/1.73 code = 96903) CALC BUN/CREAT (test code = 18 RATIO 2235) SODIUM (test code = 2231) 139 MEQ/L POTASSIUM (test code = 2228) 4.1 MEQ/L CHLORIDE (test code = 2215) 105 MEQ/L CARBON DIOXIDE (test code = 21 MEQ/L 2206) CALCIUM (test code = 2209) 9.4 MG/DL PROTEIN, TOTAL (test code = 7.5 G/DL 2229) ALBUMIN (test code = 2201) 4.6 G/DL CALC GLOBULIN (test code = 2.9 G/DL 2240) CALC A/G RATIO (test code = 1.6 RATIO 2234) BILIRUBIN, TOTAL (test code = 0.4 MG/DL 2206) ALKALINE PHOSPHATASE (test 79 U/L code = 2204) AST (test code = 2218) 10 U/L ALT (test code = 2219) 7 U/L ALBUMIN/CREATININE RATIO, RANDOM [id number] 00:00:00 Test Item Value Reference Range Interpretation Comments CREATININE, URINE, CONC. (test 135.5 MG/DL code = 2072) ALBUMIN, URINE, RANDOM (test code 3.2 MG/DL = 01182) CALC ALBUMIN/CREAT, RND (test 24 MG/G code = 91572) ALBUMIN/CREATININE RATIO, RANDOM [id number] 00:00:00 Test Item Value Reference Range Interpretation Comments CREATININE, URINE, CONC. (test 135.5 MG/DL code = 2072) ALBUMIN, URINE, RANDOM (test code 3.2 MG/DL = 92746) CALC ALBUMIN/CREAT, RND (test 24 MG/G code = 80603) HEMOGLOBIN [id number] 00:00:00 Test Item Value Reference Range Interpretation Comments HEMOGLOBIN A1c (test code = 77416) 9.2 % HEMOGLOBIN [id number] 00:00:00 Test Item Value Reference Range Interpretation Comments HEMOGLOBIN A1c (test code = 94737) 9.2 % HEMOGLOBIN [id number] 00:00:00 Test Item Value Reference Range Interpretation Comments HEMOGLOBIN A1c (test code = 88045) 9.2 % LIPID [id number] 00:00:00 Test Item Value Reference Range Interpretation Comments CHOLESTEROL (test code = 2210) 243 MG/DL TRIGLYCERIDES (test code = 2232) 788 MG/DL HDL CHOLESTEROL (test code = 22 MG/DL 2220) CALC LDL CHOL (test code = 2237) (NOTE) MG/DL RISK RATIO LDL/HDL (test code = (NOTE) RATIO 2238) LIPID [id number] 00:00:00 Test Item Value Reference Range Interpretation Comments CHOLESTEROL (test code = 2210) 243 MG/DL TRIGLYCERIDES (test code = 2232) 788 MG/DL HDL CHOLESTEROL (test code = 22 MG/DL 2220) CALC LDL CHOL (test code = 2237) (NOTE) MG/DL RISK RATIO LDL/HDL (test code = (NOTE) RATIO 2238) COMPREHENSIVE METABOLIC [id number] 00:00:00 Test Item Value Reference Range Interpretation Comments GLUCOSE (test code = 2217) 315 MG/DL BUN (test code = 2208) 11 MG/DL CREATININE (test code = 2214) 0.61 MG/DL eGFR (2020 CKD-EPI) (test 114 ML/MIN/1.73 code = 72627) CALC BUN/CREAT (test code = 18 RATIO 2234) SODIUM (test code = 2231) 139 MEQ/L POTASSIUM (test code = 2228) 4.1 MEQ/L CHLORIDE (test code = 2215) 105 MEQ/L CARBON DIOXIDE (test code = 21 MEQ/L 2205) CALCIUM (test code = 2209) 9.4 MG/DL PROTEIN, TOTAL (test code = 7.5 G/DL 2228) ALBUMIN (test code = 220) 4.6 G/DL CALC GLOBULIN (test code = 2.9 G/DL 2239) CALC A/G RATIO (test code = 1.6 RATIO 2233) BILIRUBIN, TOTAL (test code = 0.4 MG/DL 2206) ALKALINE PHOSPHATASE (test 79 U/L code = 220) AST (test code = 2218) 10 U/L ALT (test code = 2219) 7 U/L VITAMIN [id number] 00:00:00 Test Item Value Reference Range Interpretation Comments VITAMIN B-12 (test code = 2840) 444 PG/ML VITAMIN [id number] 00:00:00 Test Item Value Reference Range Interpretation Comments VITAMIN B-12 (test code = 2840) 444 PG/ML VITAMIN [id number] 00:00:00 Test Item Value Reference Range Interpretation Comments VITAMIN B-12 (test code = 2840) 444 PG/ML [id number] 00:00:00 Test Item Value Reference Range Interpretation Comments TSH, THIRD GENERATION (test code 0.552 UIU/ML = 2821) [id number] 00:00:00 Test Item Value Reference Range Interpretation Comments TSH, THIRD GENERATION (test code 0.552 UIU/ML = 2821) [id number] 00:00:00 Test Item Value Reference Range Interpretation Comments TSH, THIRD GENERATION (test code 0.552 UIU/ML = 2821) VITAMIN D, 25 [id number] 00:00:00 Test Item Value Reference Range Interpretation Comments VITAMIN D, 25 OH (test code = 4958) 19 NG/ML VITAMIN D, 25 [id number] 00:00:00 Test Item Value Reference Range Interpretation Comments VITAMIN D, 25 OH (test code = 4958) 19 NG/ML VITAMIN [id number] 00:00:00 Test Item Value Reference Range Interpretation Comments VITAMIN B-12 (test code = 2840) 444 PG/ML VITAMIN [id number] 00:00:00 Test Item Value Reference Range Interpretation Comments VITAMIN B-12 (test code = 2840) 444 PG/ML VITAMIN [id number] 00:00:00 Test Item Value Reference Range Interpretation Comments VITAMIN B-12 (test code = 2840) 444 PG/ML [id number] 00:00:00 Test Item Value Reference Range Interpretation Comments TSH, THIRD GENERATION (test code 0.552 UIU/ML = 2821) [id number] 00:00:00 Test Item Value Reference Range Interpretation Comments TSH, THIRD GENERATION (test code 0.552 UIU/ML = 2821) [id number] 00:00:00 Test Item Value Reference Range Interpretation Comments TSH, THIRD GENERATION (test code 0.552 UIU/ML = 2821) VITAMIN D, 25 [id number] 00:00:00 Test Item Value Reference Range Interpretation Comments VITAMIN D, 25 OH (test code = 4958) 19 NG/ML VITAMIN D, 25 [id number] 00:00:00 Test Item Value Reference Range Interpretation Comments VITAMIN D, 25 OH (test code = 4958) 19 NG/ML HEMOGLOBIN [id number] 00:00:00 Test Item Value Reference Range Interpretation Comments HEMOGLOBIN A1c (test code = 92241) 6.7 % HEMOGLOBIN [id number] 00:00:00 Test Item Value Reference Range Interpretation Comments HEMOGLOBIN A1c (test code = 14452) 6.7 % HEMOGLOBIN [id number] 00:00:00 Test Item Value Reference Range Interpretation Comments HEMOGLOBIN A1c (test code = 57233) 6.7 % HEMOGLOBIN [id number] 00:00:00 Test Item Value Reference Range Interpretation Comments HEMOGLOBIN A1c (test code = 53627) 6.7 % HEMOGLOBIN [id number] 00:00:00 Test Item Value Reference Range Interpretation Comments HEMOGLOBIN A1c (test code = 76895) 6.7 % HEMOGLOBIN [id number] 00:00:00 Test Item Value Reference Range Interpretation Comments HEMOGLOBIN A1c (test code = 02391) 6.7 % MICROALBUMIN/CREATININE, RANDOM AND [id number] 00:00:00 Test Item Value Reference Range Interpretation Comments CREATININE, URINE, CONC. (test 22.0 MG/DL code = 2072) ALBUMIN, URINE, RANDOM (test code 0.2 MG/DL = 88661) CALC ALBUMIN/CREAT, RND (test code 9 MG/G = 03776) MICROALBUMIN/CREATININE, RANDOM AND [id number] 00:00:00 Test Item Value Reference Range Interpretation Comments CREATININE, URINE, CONC. (test 22.0 MG/DL code = 2072) ALBUMIN, URINE, RANDOM (test code 0.2 MG/DL = 60591) CALC ALBUMIN/CREAT, RND (test code 9 MG/G = 03026) COMPREHENSIVE METABOLIC [id number] 00:00:00 Test Item Value Reference Range Interpretation Comments GLUCOSE (test code = 2217) 158 MG/DL BUN (test code = 2208) 12 MG/DL CREATININE (test code = 2214) 0.63 MG/DL eGFR AMER. (test code 129 ML/MIN/1.73 = 76511) eGFR NON- AMER. (test 111 ML/MIN/1.73 code = 12834) CALC BUN/CREAT (test code = 19 RATIO [...] code = 2219) 34 U/L COMPREHENSIVE METABOLIC [id number] 00:00:00 Test Item Value Reference Range Interpretation Comments GLUCOSE (test code = 2217) 158 MG/DL BUN (test code = 2208) 12 MG/DL CREATININE (test code = 2214) 0.63 MG/DL eGFR AMER. (test code 129 ML/MIN/1.73 = 09394) eGFR NON- AMER. (test 111 ML/MIN/1.73 code = 64510) CALC BUN/CREAT (test code = 19 RATIO [...] (test code = 2219) 34 U/L LIPID [id number] 00:00:00 Test Item Value Reference Range Interpretation Comments CHOLESTEROL (test code = 2210) 173 MG/DL TRIGLYCERIDES (test code = 2232) 341 MG/DL HDL CHOLESTEROL (test code = 2220) 28 MG/DL CALC LDL CHOL (test code = 2237) 100 MG/DL RISK RATIO LDL/HDL (test code = 3.57 RATIO 2238) LIPID [id number] 00:00:00 Test Item Value Reference Range Interpretation Comments CHOLESTEROL (test code = 2210) 173 MG/DL TRIGLYCERIDES (test code = 2232) 341 MG/DL HDL CHOLESTEROL (test code = 2220) 28 MG/DL CALC LDL CHOL (test code = 2237) 100 MG/DL RISK RATIO LDL/HDL (test code = 3.57 RATIO 2238) MICROALBUMIN/CREATININE, RANDOM AND [id number] 00:00:00 Test Item Value Reference Range Interpretation Comments CREATININE, URINE, CONC. (test 22.0 MG/DL code = 2072) ALBUMIN, URINE, RANDOM (test code 0.2 MG/DL = 28991) CALC ALBUMIN/CREAT, RND (test code 9 MG/G = 11768) MICROALBUMIN/CREATININE, RANDOM AND [id number] 00:00:00 Test Item Value Reference Range Interpretation Comments CREATININE, URINE, CONC. (test 22.0 MG/DL code = 2072) ALBUMIN, URINE, RANDOM (test code 0.2 MG/DL = 03927) CALC ALBUMIN/CREAT, RND (test code 9 MG/G = 75797) COMPREHENSIVE METABOLIC [id number] 00:00:00 Test Item Value Reference Range Interpretation Comments GLUCOSE (test code = 2217) 158 MG/DL BUN (test code = 2208) 12 MG/DL CREATININE (test code = 2214) 0.63 MG/DL eGFR AMER. (test code 129 ML/MIN/1.73 = 00745) eGFR NON- AMER. (test 111 ML/MIN/1.73 code = 53861) CALC BUN/CREAT (test code = 19 RATIO 2235) SODIUM (test code = 2231) 140 MEQ/L POTASSIUM (test code = 2228) 4.3 MEQ/L CHLORIDE (test code = 2215) 103 MEQ/L CARBON DIOXIDE (test code = 28 MEQ/L 2205) CALCIUM (test code = 2209) 9.6 MG/DL PROTEIN, TOTAL (test code = 7.2 G/DL 222) ALBUMIN (test code = 2201) 4.4 G/DL CALC GLOBULIN (test code = 2.8 G/DL 2240) CALC A/G RATIO (test code = 1.6 RATIO 2234) BILIRUBIN, TOTAL (test code = 0.4 MG/DL 220) ALKALINE PHOSPHATASE (test 69 U/L code = 2204) AST (test code = 2218) 28 U/L ALT (test code = 2219) 34 U/L COMPREHENSIVE METABOLIC [id number] 00:00:00 Test Item Value Reference Range Interpretation Comments GLUCOSE (test code = 2217) 158 MG/DL BUN (test code = 2208) 12 MG/DL CREATININE (test code = 2214) 0.63 MG/DL eGFR AMER. (test code 129 ML/MIN/1.73 = 41910) eGFR NON- AMER. (test 111 ML/MIN/1.73 code = 63167) CALC BUN/CREAT (test code = 19 RATIO [...] (test code = 2219) 34 U/L LIPID [id number] 00:00:00 Test Item Value Reference Range Interpretation Comments CHOLESTEROL (test code = 2210) 173 MG/DL TRIGLYCERIDES (test code = 2232) 341 MG/DL HDL CHOLESTEROL (test code = 2220) 28 MG/DL CALC LDL CHOL (test code = 2237) 100 MG/DL RISK RATIO LDL/HDL (test code = 3.57 RATIO 2238) LIPID [id number] 00:00:00 Test Item Value Reference Range Interpretation Comments CHOLESTEROL (test code = 2210) 173 MG/DL TRIGLYCERIDES (test code = 2232) 341 MG/DL HDL CHOLESTEROL (test code = 2220) 28 MG/DL CALC LDL CHOL (test code = 2237) 100 MG/DL RISK RATIO LDL/HDL (test code = 3.57 RATIO 2238) HEMOGLOBIN [id number] 00:00:00 Test Item Value Reference Range Interpretation Comments HEMOGLOBIN A1c (test code = 93120) 7.0 % HEMOGLOBIN [id number] 00:00:00 Test Item Value Reference Range Interpretation Comments HEMOGLOBIN A1c (test code = 84529) 7.0 % MICROALBUMIN/CREATININE, RANDOM AND [id number] 00:00:00 Test Item Value Reference Range Interpretation Comments CREATININE, URINE, CONC. (test 92.4 MG/DL code = 207) ALBUMIN, URINE, RANDOM (test code 0.7 MG/DL = 12458) CALC ALBUMIN/CREAT, RND (test code 8 MG/G = 09304) MICROALBUMIN/CREATININE, RANDOM AND [id number] 00:00:00 Test Item Value Reference Range Interpretation Comments CREATININE, URINE, CONC. (test 92.4 MG/DL code = 2072) ALBUMIN, URINE, RANDOM (test code 0.7 MG/DL = 42144) CALC ALBUMIN/CREAT, RND (test code 8 MG/G = 86282) HIV 1/2 4TH GEN, RFLX CONF [ADDED]2019-03-22 [...] Interpretation Comments GONORRHEA, TMA (test code = 12500) NEGATIVE CHLAMYDIA, TMA (test code = 96687) NEGATIVE CT/NG, TMA, URINE [ADDED]2019-03-22 00:00:00 Test Item Value Reference Range Interpretation Comments GONORRHEA, TMA (test code = 59935) NEGATIVE CHLAMYDIA, TMA (test code = 54060) NEGATIVE COMPREHENSIVE METABOLIC [id number] 00:00:00 Test Item Value Reference Range Interpretation Comments GLUCOSE (test code = 2217) 238 MG/DL BUN (test code = 2208) 15 MG/DL CREATININE (test code = 2214) 0.71 MG/DL eGFR AMER. (test code 123 ML/MIN/1.73 = 71754) eGFR NON- AMER. (test 107 ML/MIN/1.73 code = 58342) CALC BUN/CREAT (test code = 21 RATIO [...] code = 2219) 12 U/L COMPREHENSIVE METABOLIC [id number] 00:00:00 Test Item Value Reference Range Interpretation Comments GLUCOSE (test code = 2217) 238 MG/DL BUN (test code = 2208) 15 MG/DL CREATININE (test code = 2214) 0.71 MG/DL eGFR AMER. (test code 123 ML/MIN/1.73 = 56277) eGFR NON- AMER. (test 107 ML/MIN/1.73 code = 61528) CALC BUN/CREAT (test code = 21 RATIO [...] (test code = 2219) 12 U/L LIPID [id number] 00:00:00 Test Item Value Reference Range Interpretation Comments CHOLESTEROL (test code = 2210) 178 MG/DL TRIGLYCERIDES (test code = 2232) 939 MG/DL HDL CHOLESTEROL (test code = 21 MG/DL 2220) CALC LDL CHOL (test code = 2237) NOTE MG/DL RISK RATIO LDL/HDL (test code = (NOTE) RATIO 2238) LIPID [id number] 00:00:00 Test Item Value Reference Range Interpretation Comments CHOLESTEROL (test code = 2210) 178 MG/DL TRIGLYCERIDES (test code = 2232) 939 MG/DL HDL CHOLESTEROL (test code = 21 MG/DL 2220) CALC LDL CHOL (test code = 2237) NOTE MG/DL RISK RATIO LDL/HDL (test code = (NOTE) RATIO 2238) HEMOGLOBIN [id number] 00:00:00 Test Item Value Reference Range Interpretation Comments HEMOGLOBIN A1c (test code = 58406) 7.0 % HEMOGLOBIN [id number] 00:00:00 Test Item Value Reference Range Interpretation Comments HEMOGLOBIN A1c (test code = 20410) 7.0 % HEMOGLOBIN [id number] 00:00:00 Test Item Value Reference Range Interpretation Comments HEMOGLOBIN A1c (test code = 72301) 7.0 % MICROALBUMIN/CREATININE, RANDOM AND [id number] 00:00:00 Test Item Value Reference Range Interpretation Comments CREATININE, URINE, CONC. (test 92.4 MG/DL code = 2072) ALBUMIN, URINE, RANDOM (test code 0.7 MG/DL = 78651) CALC ALBUMIN/CREAT, RND (test code 8 MG/G = 03737) MICROALBUMIN/CREATININE, RANDOM AND [id number] 00:00:00 Test Item Value Reference Range Interpretation Comments CREATININE, URINE, CONC. (test 92.4 MG/DL code = 2072) ALBUMIN, URINE, RANDOM (test code 0.7 MG/DL = 98659) CALC ALBUMIN/CREAT, RND (test code 8 MG/G = 38969) HIV 1/2 4TH GEN, RFLX CONF [ADDED]2019-03-22 [...] Interpretation Comments GONORRHEA, TMA (test code = 93654) NEGATIVE CHLAMYDIA, TMA (test code = 22738) NEGATIVE CT/NG, TMA, URINE [ADDED]2019-03-22 00:00:00 Test Item Value Reference Range Interpretation Comments GONORRHEA, TMA (test code = 97095) NEGATIVE CHLAMYDIA, TMA (test code = 79144) NEGATIVE COMPREHENSIVE METABOLIC [id number] 00:00:00 Test Item Value Reference Range Interpretation Comments GLUCOSE (test code = 2217) 238 MG/DL BUN (test code = 2208) 15 MG/DL CREATININE (test code = 2214) 0.71 MG/DL eGFR AMER. (test code 123 ML/MIN/1.73 = 81307) eGFR NON- AMER. (test 107 ML/MIN/1.73 code = 55441) CALC BUN/CREAT (test code = 21 RATIO [...] code = 2219) 12 U/L COMPREHENSIVE METABOLIC [id number] 00:00:00 Test Item Value Reference Range Interpretation Comments GLUCOSE (test code = 2217) 238 MG/DL BUN (test code = 2208) 15 MG/DL CREATININE (test code = 2214) 0.71 MG/DL eGFR AMER. (test code 123 ML/MIN/1.73 = 57330) eGFR NON- AMER. (test 107 ML/MIN/1.73 code = 37542) CALC BUN/CREAT (test code = 21 RATIO [...] (test code = 2219) 12 U/L LIPID [id number] 00:00:00 Test Item Value Reference Range Interpretation Comments CHOLESTEROL (test code = 2210) 178 MG/DL TRIGLYCERIDES (test code = 2232) 939 MG/DL HDL CHOLESTEROL (test code = 21 MG/DL 2220) CALC LDL CHOL (test code = 2237) NOTE MG/DL RISK RATIO LDL/HDL (test code = (NOTE) RATIO 2238) LIPID [id number] 00:00:00 Test Item Value Reference Range Interpretation Comments CHOLESTEROL (test code = 2210) 178 MG/DL TRIGLYCERIDES (test code = 2232) 939 MG/DL HDL CHOLESTEROL (test code = 21 MG/DL 2220) CALC LDL CHOL (test code = 2237) NOTE MG/DL RISK RATIO LDL/HDL (test code = (NOTE) RATIO 2238) HEMOGLOBIN [id number] 00:00:00 Test Item Value Reference Range Interpretation Comments HEMOGLOBIN A1c (test code = 09347) 7.0 %"
[2023-03-05] MEDS ORDERED: NA CHLORIDE 0.9% 1,000 ML ONE (15:48)
[2023-03-05] MEDS ORDERED: ASPIRIN 81 MG CHEWABLE TABLET ONE (15:48)
[2023-03-05] MEDS ORDERED: MORPHINE 2 MG/ML SYR ONE ×2 (15:48→18:46)
[2023-03-05 15:53] LABS: Absolute Lymphocytes (CBC) 1.7 K/uL (0.7-4.9); Hematocrit 37.9 % (36.0-45.0); Lymphocytes % 29.2 % (15.3-44.8); MCV 78.9 fL (80-100); MPV 8.8 fL (7.6-11.3); Platelets 203 thou/uL (152-406)
[2023-03-05 15:54] LABS: Specific Gravity 1.015 (1.005-1.030)
[2023-03-05] MEDS ORDERED: ONDANSETRON 4 MG/2 ML VIAL ONE (16:00)
[2023-03-05 16:05] LABS: Barbiturates NEGATIVE (NEGATIVE); Benzodiazepines NEGATIVE (NEGATIVE); Cocaine NEGATIVE (NEGATIVE); METHAMPHETAM NEGATIVE (NEGATIVE); Methadone NEGATIVE (NEGATIVE); Opiates NEGATIVE (NEGATIVE); Phencyclidine NEGATIVE (NEGATIVE); THC Cannibis NEGATIVE (NEGATIVE)
[2023-03-05 16:09] LABS: Specific Gravity 1.015 (1.005-1.030); Urine Bacteria >50 /HPF (<20); Urine Bilirubin NEGATIVE (Negative); Urine Blood 1+ (Negative); Urine Clarity Extremely Turbid (Clear); Urine Color Light-Yellow (Yellow); Urine Glucose 3+ (Negative); Urine Mucus Slight /HPF (None Seen); Urine Protein NEGATIVE (Negative); Urine RBC <5 /HPF (None Seen); Urine Urobilinogen Normal (Normal)
[2023-03-05 16:14] LABS: Potassium 3.8 mEq/L (3.5-5.1); Troponin High Sensitivity 3.1 pg/mL (<58.9)
[2023-03-05 16:15] LABS: Creatine Phosphokinase 28 U/L (26-192); Lipase 41 U/L (13-75); NT PRO-BNP 34 pg/mL (<125)
[2023-03-05] MEDS ORDERED: METOPROLOL TAR 25 MG TAB ONE (16:29)
[2023-03-05] MEDS ORDERED: KETOROLAC 30 MG/ML INJ ONE (16:44)
--- NOTE | 2023-03-05 17:00 | RAD REPORT ---
EXAM DESCRIPTION: Rey Single View03/05/2023 3:43 pm CLINICAL HISTORY: Chest pain COMPARISON: January 2023 FINDINGS: The lungs appear clear of acute infiltrate. The heart is normal size IMPRESSION: No acute abnormalities displayed
--- NOTE | 2023-03-05 17:00 | RAD REPORT ---
EXAM DESCRIPTION: CT - Angio Aorta For Dissection - 03/05/2023 4:47 pm CLINICAL HISTORY: . Chest and abd pain. Pain COMPARISON: January 2004 TECHNIQUE: Computed tomography angiography of the chest, abdomen pelvis were obtained. 100 cc Isovue 370 was administered intravenously. Coronal and sagittal reconstruction were performed. MIP 3D reconstruction was performed All CT scans are performed using dose optimization technique as appropriate and may include automated exposure control or mA/KV adjustment according to patient size. FINDINGS: An aortic dissection is not seen. An aortic aneurysm is not displayed. The celiac, SMA and MAGO are patent . A lung consolidation is not present. A pericardial effusion is not seen. A pleural effusion is not no cristiane. Mild fatty liver. Varices within the upper abdomen Spleen, adrenals and kidneys are unremarkable. 8.2 centimeter lobulated pseudocyst between the stomach and pancreas unchanged There no evidence diverticulitis. IMPRESSION: Negative for an aortic dissection.
--- NOTE | 2023-03-05 19:58 | EDPHYS ---
Physician Documentation [facility] Name: Kaur Caruso Age: 42 yrs Sex: Female : 1980 Arrival Date: 03/05/2023 Time: 15:11 Bed 19 Private MD: ED Physician Oswaldo Rodriguez HPI: 03/05 15:30 This 42 yrs old Female presents to ER via Ambulatory with complaints of Chest cp Pain, Back Pain. 15:30 The patient or guardian reports chest pain that is located primarily in the substernal. cp Onset: 2 day(s) ago. 15:30 The pain radiates to left back. Associated signs and symptoms: Pertinent positives: cp abdominal pain, shortness of breath, Pertinent negatives: dizziness, lower extremity pain, lower extremity swelling, syncope, vomiting. The chest pain is described as sharp. Duration: The patient or guardian reports a single episode, that is still ongoing, and worsening. Modifying factors: the symptoms are aggravated by deep breath, movement. Historical: - Allergies: 15:20 No Known Allergies; ld1 - PMHx: 15:20 Anxiety; depressive disorder; Diabetes - NIDDM; High Cholesterol; Hypertension; ld1 - PSHx: 15:20 Diabetic Foot Surgery; ld1 - Immunization history:: Adult Immunizations up to date. - Social history:: Smoking status: Patient denies any tobacco usage or history of. Patient/guardian denies using alcohol. ROS: 15:38 Constitutional: Negative for body aches, chills, fever, poor PO intake. cp 15:38 Cardiovascular: Positive for chest pain, of the substernal, Negative for edema, palpitations. 15:38 Respiratory: Negative for cough, shortness of breath, wheezing. 15:38 Abdomen/GI: Positive for abdominal pain, nausea, of the epigastric area, Negative for vomiting, diarrhea, constipation. 15:38 Eyes: Negative for injury, pain, redness, and discharge. cp 15:38 ENT: Negative for drainage from ear(s), ear pain, sore throat, difficulty swallowing, difficulty handling secretions. 15:38 Back: Positive for radiated pain. 15:38 Neuro: Negative for altered mental status, numbness, tingling, weakness. 15:38 All other systems are negative. cp Exam: 15:40 Constitutional: The patient appears in no acute distress, alert, awake, cp non-diaphoretic, non-toxic, well developed, well nourished, uncomfortable. 15:40 Head/Face: Normocephalic, atraumatic. cp 15:40 Eyes: Periorbital structures: appear normal, Conjunctiva: normal, no exudate, no cp injection, Sclera: no appreciated abnormality, Lids and lashes: appear normal, bilaterally. 15:40 ENT: External ear(s): are unremarkable, Nose: is normal, Mouth: Lips: moist, Oral mucosa: pink and intact, moist, Posterior pharynx: is normal, airway is patent, no erythema, no exudate. 15:40 Neck: ROM/movement: is normal, is supple, without pain, no range of motions limitations, no nuchal rigidity. 15:40 Chest/axilla: Inspection: normal. 15:40 Cardiovascular: Rate: tachycardic, Rhythm: regular, Heart sounds: murmur, not appreciated, Edema: is not appreciated, JVD: is not appreciated. 15:40 Respiratory: the patient does not display signs of respiratory distress, Respirations: shallow respirations, that is mild, Breath sounds: are clear throughout, no decreased breath sounds, no stridor, no wheezing. 15:40 Abdomen/GI: Inspection: abdomen appears normal, Bowel sounds: active, all quadrants, Palpation: soft, in all quadrants, mild abdominal tenderness, in the epigastric area, rebound tenderness, is not appreciated, involuntary guarding, is not appreciated. 15:40 Back: pain, that is moderate, of the left scapular area and left subscapular area, CVA tenderness, is absent. 15:40 Skin: no rash present. Vital Signs: 15:19 BP 145 / 108; ld1 15:19 Pulse 112; Resp 18; Temp 97.9(O); Pulse Ox 100% on R/A; Weight 59.42 kg; Height 5 ft. 2 ld1 in. ; Pain 9/10; 16:19 BP 159 / 93; Pulse 97; Resp 18; Pulse Ox 100% on R/A; Pain 7/10; ld1 16:37 BP 145 / 91; Pulse 91; Resp 18; Pulse Ox 100% on R/A; ld1 17:20 BP 155 / 88; Pulse 91; Resp 17; Pulse Ox 100% on R/A; ld1 18:28 BP 121 / 92; Pulse 109; Resp 18; Pulse Ox 100% on R/A; me1 19:30 BP 133 / 89; Pulse 85; Resp 17; Pulse Ox 100% on R/A; me1 19:30 BP 118 / 82; Pulse 89; Resp 17; Pulse Ox 100% on R/A; me1 15:19 Body Mass Index 23.96 (59.42 kg, 157.48 cm) ld1 15:19 Pain Scale: Adult ld1 16:19 Pain Scale: Adult ld1 MDM: 15:22 Patient medically screened. 17:29 Data reviewed: vital signs, nurses notes, lab test result(s), EKG, radiologic studies, cp CT scan, plain films. I considered the following discharge prescriptions or medication management in the emergency department Medications were administered in the Emergency Department. See MAR. Counseling: I had a detailed discussion with the patient and/or guardian regarding the historical points, exam findings, and any diagnostic results supporting the discharge/admit diagnosis, lab results, radiology results. Response to treatment: the patient's symptoms have markedly improved after treatment. 03/05 15:19 Order name: Basic Metabolic Panel; Complete Time: 16:18 [facility] 03/05 16:18 Interpretation: Normal except: NA 133; GLUC 246. 03/05 15:19 Order name: CBC with Diff; Complete Time: 16:12 [facility] 03/05 15:19 Order name: Troponin HS; Complete Time: 16:18 [facility] 03/05 16:18 Interpretation: Reviewed. 03/05 15:30 Order name: BNP; Complete Time: 16:18 03/05 15:30 Order name: Lipase; Complete Time: 16:18 03/05 15:30 Order name: CK; Complete Time: 16:18 03/05 15:30 Order name: UDS; Complete Time: 16:12 03/05 15:30 Order name: PREGU; Complete Time: 16:12 03/05 15:30 Order name: Urinalysis W/Microscopic; Complete Time: 16:12 03/05 16:13 Interpretation: Normal except: [facility] Extremely Turbid; UGLUC 3+; UKET TRACE; UBLD 1+; cp UESTR 250; UBACT >50. 03/05 18:29 Order name: Troponin High Sensitivity; Complete Time: 19:10 cp 03/05 19:10 Interpretation: Reviewed. cp 03/05 15:19 Order name: XRAY Chest (1 view); Complete Time: 17:04 ld1 03/05 17:04 Interpretation: Report review. cp 03/05 15:30 Order name: CT Aorta for Dissection; Complete Time: 17:04 cp 03/05 17:04 Interpretation: Report reviewed. cp 03/05 15:19 Order name: EKG; Complete Time: 15:19 ld1 03/05 15:19 Order name: Cardiac monitoring; Complete Time: 15:19 ld1 03/05 15:19 Order name: EKG - Nurse/Tech; Complete Time: 15:19 ld1 03/05 15:19 Order name: IV Saline Lock; Complete Time: 15:32 ld1 03/05 15:19 Order name: Labs collected and sent; Complete Time: 15:32 ld1 03/05 15:19 Order name: O2 Per Protocol; Complete Time: 15:19 ld1 03/05 15:19 Order name: O2 Sat Monitoring; Complete Time: 15:19 ld1 03/05 18:29 Order name: EKG - Nurse/Tech; Complete Time: 18:46 cp Administered Medications: 15:50 Drug: Aspirin PO Chewable Tablet 324 mg Route: PO; ld1 17:28 Follow up: Response: No adverse reaction me1 15:51 Drug: NS 0.9% IV 1000 ml Route: IV; Rate: 500 ml/hr; Site: right antecubital; ld1 17:27 Follow up: IV Status: Completed infusion; IV Intake: 1000ml me1 15:51 Drug: morphine IVP or IV 2 mg Route: IVP; Infused Over: 4 mins; Site: right antecubital;ld1 17:27 Follow up: Response: No adverse reaction; Pain is decreased me1 15:51 Drug: Ondansetron IVP 4 mg Route: IVP; Site: right antecubital; ld1 17:27 Follow up: Response: No adverse reaction me1 16:18 Drug: Metoprolol PO 25 mg Route: PO; ld1 17:27 Follow up: Response: No adverse reaction me1 16:34 Drug: Ketorolac IVP 15 mg Route: IVP; Site: right antecubital; ld1 17:27 Follow up: Response: No adverse reaction; Pain is decreased me1 18:39 Drug: morphine IVP or IV 2 mg Route: IVP; Infused Over: 4 mins; Site: right antecubital;me1 20:40 Follow up: Response: No adverse reaction; Pain is decreased me1 Disposition Summary: 03/05/23 19:57 Discharge Ordered Location: Home cp Problem: new cp Symptoms: have improved cp Condition: Stable cp Diagnosis - Chest pain, unspecified cp - Dorsalgia, unspecified cp - Diabetes mellitus due to underlying condition with hyperglycemia cp - Hypertensive heart disease without heart failure cp Followup: cp - With: Richie London MD - When: 2 - 3 days - Reason: chest pain Discharge Instructions: - Discharge Summary Sheet cp - Acute Back Pain, Adult cp - Nonspecific Chest Pain, Adult cp - Hyperglycemia cp - Hypertension, Adult cp - Daily Diabetes Mellitus Record cp - Blood Glucose Monitoring, Adult cp - Diabetes Mellitus and Nutrition, Adult cp - Aspirin and Your Heart cp - How to Take Your Blood Pressure cp Forms: - Medication Reconciliation Form cp - Thank You Letter cp - Antibiotic Education cp - Prescription Opioid Use cp - Patient Portal Instructions cp - Leadership Thank You Letter cp Prescriptions: - Ibuprofen 800 mg Oral Tablet - take 1 tablet by ORAL route every 8 hours As needed take with food; 30 tablet; cp Refills: 0, Product Selection Permitted - Metformin 500 mg Oral Tablet - take 1 tablet by ORAL route every 12 hours; 60 tablet; Refills: 0, Product cp Selection Permitted - Cyclobenzaprine 10 mg Oral Tablet - take 1 tablet by ORAL route every 8 hours As needed; 30 tablet; Refills: 0, cp Product Selection Permitted Signatures: Dispatcher [employer] Oswaldo Segovia PA PA cp Ml Mims RN RN ld1 Alexa Land RN RN me1
--- NOTE | 2023-03-05 19:58 | ER ---
Nurse's Notes [facility] Name: Kaur Caruso Age: 42 yrs Sex: Female : 1980 Arrival Date: 03/05/2023 Time: 15:11 Bed 19 Private MD: Diagnosis: Chest pain, unspecified;Dorsalgia, unspecified;Diabetes mellitus due to underlying condition with hyperglycemia;Hypertensive heart disease without heart failure Presentation: 03/05 15:19 Chief complaint: Patient states: chest pain X 2-3 days. Chronic back pain - left upper ld1 back. Coronavirus screen: At this time, the client does not indicate any symptoms associated with coronavirus-19. Ebola Screen: No symptoms or risks identified at this time. Initial Sepsis Screen: Does the patient meet any 2 criteria? No. Patient's initial sepsis screen is negative. Does the patient have a suspected source of infection? No. Patient's initial sepsis screen is negative. Risk Assessment: Do you want to hurt yourself or someone else? Patient reports no desire to harm self or others. Onset of symptoms was March 05, 2023. 15:19 Method Of Arrival: Ambulatory ld1 15:19 Acuity: DESTINY 3 ld1 Triage Assessment: 15:20 General: Appears in no apparent distress. comfortable, Behavior is calm, cooperative, ld1 appropriate for age. Pain: Complains of pain in back and chest Pain does not radiate. Pain currently is 9 out of 10 on a pain scale. Quality of pain is described as throbbing. EENT: No signs and/or symptoms were reported regarding the EENT system. Neuro: Level of Consciousness is awake, alert, obeys commands, Oriented to person, place, time, situation, Appropriate for age. Cardiovascular: Capillary refill < 3 seconds Patient's skin is warm and dry. Respiratory: Airway is patent Respiratory effort is even, unlabored. GI: Abdomen is flat, non-distended. : No signs and/or symptoms were reported regarding the genitourinary system. Derm: No signs and/or symptoms reported regarding the dermatologic system. Musculoskeletal: No signs and/or symptoms reported regarding the musculoskeletal system. Historical: - Allergies: 15:20 No Known Allergies; ld1 - PMHx: 15:20 Anxiety; depressive disorder; Diabetes - NIDDM; High Cholesterol; Hypertension; ld1 - PSHx: 15:20 Diabetic Foot Surgery; ld1 - Immunization history:: Adult Immunizations up to date. - Social history:: Smoking status: Patient denies any tobacco usage or history of. Patient/guardian denies using alcohol. Screenin:21 [facility] ED Fall Risk Assessment (Adult) History of falling in the last 3 months, ld1 including since admission No falls in past 3 months (0 pts). Abuse screen: Denies threats or abuse. Denies injuries from another. Nutritional screening: No deficits noted. Tuberculosis screening: No symptoms or risk factors identified. Assessment: 15:21 Reassessment: See triage assessment. ld1 15:21 Pain: Complains of pain in back and chest. ld1 Vital Signs: 15:19 BP 145 / 108; ld1 15:19 Pulse 112; Resp 18; Temp 97.9(O); Pulse Ox 100% on R/A; Weight 59.42 kg; Height 5 ft. 2 ld1 in. ; Pain 9/10; 16:19 BP 159 / 93; Pulse 97; Resp 18; Pulse Ox 100% on R/A; Pain 7/10; ld1 16:37 BP 145 / 91; Pulse 91; Resp 18; Pulse Ox 100% on R/A; ld1 17:20 BP 155 / 88; Pulse 91; Resp 17; Pulse Ox 100% on R/A; ld1 18:28 BP 121 / 92; Pulse 109; Resp 18; Pulse Ox 100% on R/A; me1 19:30 BP 133 / 89; Pulse 85; Resp 17; Pulse Ox 100% on R/A; me1 19:30 BP 118 / 82; Pulse 89; Resp 17; Pulse Ox 100% on R/A; me1 15:19 Body Mass Index 23.96 (59.42 kg, 157.48 cm) ld1 15:19 Pain Scale: Adult ld1 16:19 Pain Scale: Adult ld1 ED Course: 15:13 Patient arrived in ED. im 15:20 Triage completed. ld1 15:20 Arm band placed on right wrist. ld1 15:21 Patient has correct armband on for positive identification. Placed in gown. Bed in low ld1 position. Call light in reach. Side rails up X2. ekg monitor tech on. Pulse ox on. NIBP on. Door closed. Noise minimized. Warm blanket given. 15:21 No provider procedures requiring assistance completed. Patient maintains SpO2 ld1 saturation greater than 95% on room air. 15:22 [facility] cp 15:22 Oswaldo Rodriguez MD is Attending Physician. cp 15:31 Ml Mims, HINA is Primary Nurse. ld1 15:32 CBC with Diff Sent. ld1 15:32 Basic Metabolic Panel Sent. ld1 15:32 Troponin HS Sent. ld1 15:34 Inserted saline lock: 22 gauge in right antecubital area, using aseptic technique. ld1 15:45 XRAY Chest (1 view) In Process Unspecified. EDMS 15:50 BNP Sent. ld1 15:50 Lipase Sent. ld1 15:50 CK Sent. ld1 15:51 CT Aorta for Dissection Sent. ld1 15:51 UDS Sent. ld1 15:51 PREGU Sent. ld1 15:51 Urinalysis W/Microscopic Sent. ld1 16:49 CT Aorta for Dissection In Process Unspecified. EDMS 18:39 Troponin High Sensitivity Sent. me1 19:56 Richie London MD is Referral Physician. cp 20:37 IV discontinued, intact, bleeding controlled, No redness/swelling at site. Pressure pf1 dressing applied. 20:39 Provided Education on: medication administration education. pf1 Administered Medications: 15:50 Drug: Aspirin PO Chewable Tablet 324 mg Route: PO; ld1 17:28 Follow up: Response: No adverse reaction me1 15:51 Drug: NS 0.9% IV 1000 ml Route: IV; Rate: 500 ml/hr; Site: right antecubital; ld1 17:27 Follow up: IV Status: Completed infusion; IV Intake: 1000ml me1 15:51 Drug: morphine IVP or IV 2 mg Route: IVP; Infused Over: 4 mins; Site: right antecubital;ld1 17:27 Follow up: Response: No adverse reaction; Pain is decreased me1 15:51 Drug: Ondansetron IVP 4 mg Route: IVP; Site: right antecubital; ld1 17:27 Follow up: Response: No adverse reaction me1 16:18 Drug: Metoprolol PO 25 mg Route: PO; ld1 17:27 Follow up: Response: No adverse reaction me1 16:34 Drug: Ketorolac IVP 15 mg Route: IVP; Site: right antecubital; ld1 17:27 Follow up: Response: No adverse reaction; Pain is decreased me1 18:39 Drug: morphine IVP or IV 2 mg Route: IVP; Infused Over: 4 mins; Site: right antecubital;me1 20:40 Follow up: Response: No adverse reaction; Pain is decreased me1 Medication: 20:39 VIS not applicable for this client. pf1 Intake: 17:27 IV: 1000ml; Total: 1000ml. me1 Outcome: 19:57 Discharge ordered by MD. cp 20:39 Discharged to home ambulatory, with family. pf1 20:39 Condition: improved 20:39 Discharge instructions given to patient, Instructed on discharge instructions, follow up and referral plans. Demonstrated understanding of instructions, follow-up care, medications, Prescriptions given X 3. 20:40 Patient left the ED. pf1 Signatures: Dispatcher [employer] EDMS Oswaldo Marrero PA PA cp Sims, Lauren, RN RN ld1 Irma Son RN RN pf1 Erlinda Godwin Michelle RN RN me1
[2023-03-05 21:30] VITALS: O2SAT 100
[2023-03-05 21:32] VITALS: TEMP 97.9
[2023-03-05 21:39] VITALS: BP 118/82
--- NOTE | 2023-03-07 19:07 | EKG ---
Test Date: 2023-03-05 Test Time: 18:43:26 Senior Research Associate: MEASUREMENT RESULTS: Intervals: Rate: 98 MI: 150 QRSD: 78 QT: 356 QTc: 454 [place]: P: 62 MI: 150 QRS: 60 T: 55 INTERPRETIVE STATEMENTS: Normal sinus rhythm Normal ECG Compared to ECG 03/05/2023 15:20:07 Sinus tachycardia no longer present Atrial abnormality no longer present Electronically Signed On 03-07-23 19:05:12 CDT by Richie London
== END 2023-03-05 20:40 | disposition home or self-care (01) ==
LOC: ER 15:11
DX: R07.89 Other chest pain (principal); M54.9 Dorsalgia, unspecified; E11.65 Type 2 diabetes mellitus with hyperglycemia; I11.9 Hypertensive heart disease without heart failure; I10 Essential (primary) hypertension
CPT/HCPCS: 96361; 93005; 85025; 81001; 80048; 36415; 82550; 81025; 84484 ×2; 83690; 83880; 80307; 71275; 74175; 71045; 96375; 96374; 99285; Q9967; J2270 ×2; J2405; J7030

== ENCOUNTER → 2023-06-29 | Emergency (ER) | payer OTHER ==
[~2023-06-29] MED LIST: HYDROCODONE/APAP 10/325 TAB ONE; ONDANSETRON 4 MG (ODT) TAB ONE; SMZ./TMP. 800/160 MG TABLET ONE
--- OUTSIDE RECORDS SUMMARY | 2023-06-29 19:30 | XMS REPORT | Continuity of Care Document ---
Author Name Unknown Address [address] [facility] [place] [address] [facility] thconnect Address [address] [place] [address] Care Team Providers Care Imaging Science Professor Name Role Phone PCP, PATIENT DOES NOT HAVE A Primary Care Physic MINNIE Courtney Attending Clinician Unavail Minnie Omer MD Attending Clinician Doctor Unassigned, [place] Attending Clinician U MINNIE Littlejohn Admitting Clinician Unavail able Payers Payer Name Policy Type Policy Number Effective Date Expirati on Date Source Problems Condition Name Condition Details Condition Category Status Onset Date Resolution Date Last Treatment Date Treating Clinician Comments Source Type 2 diabetes mellitus without complicati on, without long-term current use of insulin Type 2 diabetes mellitus without complicati on, without long-term current use of insulin Disease Active 11-24 00:00: 00 [facility] History of abnormal cervical Pap smear History of abnormal cervical Pap smear Disease Active 11-24 00:00: 00 [facility] Diabetic foot infection Diabetic foot infection Disease Active 10-19 00:00: 00 [facility] Allergies, Adverse Reactions, Alerts Allergy Name Allergy Type Status Severity Reaction(s) Onset Date Inactive Date Treating Clinician Comments Source NO KNOWN ALLERGIE S Drug Class Active [facility] Social History Social Habit Start Date Stop Date Quantity Comments Source Alcohol intake 2022-11-19 00:00:00 2022-11-19 00:00:00 Current drinker of alcohol (finding) [facility] Tobacco use and exposure 2018-11-24 00:00:00 2018-11-24 00:00:00 Never used [facility] Alcohol Comment 2018-11-24 00:00:00 2018-11-24 00:00:00 occasional [facility] Sex Assigned At 1980 00:00:00 1980 00:00:00 [facility] Smoking Status Start Date Stop Date Source Never smoked tobacco [facility] Medications Ordered Medication Name Filled Medication Name Start Date Stop Date Current Medication? Ordering Clinician Indication Dosage Frequency Signature (SIG) Comments Components Source iopamidol (ISOVUE 370-500 mL) injection 70 mL 11-19 16:30: 00 11-19 16:30 :00 No [id number] 70mL 70 mL, Intravenou s, ONCE, 1 dose, On Tue11/19/22 at 1130, Routine [facility] morpHINE (4 mg/mL) injection 4 mg 11-19 15:15: 00 11-19 15:39 :00 No 4mg 4 mg, Slow IV Push, ONCE, 1 dose, On Tue11/19/22 at 1015, STAT [facility] FENTanyl PF (SUBLIMAZE (PF)) injection 50 mcg 11-19 15:15: 00 11-19 14:28 :00 No 50ug 50 mcg, Slow IV Push, ONCE, 1 dose, On Tue11/19/22 at 1015, Routine [facility] ondansetron (ZOFRAN (PF)) injection 4 mg 11-19 13:00: 00 11-19 12:57 :00 No 4mg 4 mg, Slow IV Push, ONCE, 1 dose, On Tue11/19/22 at 0800, MARIA LUZ [facility] insulin regular human (HUMULIN R) injection 6.12 Units 11-19 13:00: 00 11-19 16:09 :00 No .1U/kg 6.12 Units (0.1 Units/kg ?61.2 kg), Slow IV Push, ONCE, 1 dose, On Tue11/19/22 at 0800, STAT
In dication for insulin: Hyperglyce rico [facility] NaCl 0.9% (NS) bolus infusion 1,836 mL 11-19 13:00: 11-19 16:00 :00 No 30mL/kg at 999 mL/hr, 1,836 mL (30 mL/kg ?61.2 kg), IV Infusion, ONCE, 1 dose, On Tue11/19/22 at 0800, STAT [facility] maalox:diph enhydrAMINE :lidocaine 2 % viscous 1:1:1 (FIRST-MOUT HWASH BLM) oral suspension 15 mL 11-19 13:00: 11-19 12:59 :00 No 15mL 15 mL, Oral, ONCE, 1 dose, On Tue11/19/22 at 0800, Routine [facility] ondansetron 4 mg disintegrat ing tablet 11-19 00:00: 00 Yes [id number] 4mg Take 1 tablet by mouth every 8 (eight) hours as needed for Nausea and Vomiting (N/V) for up to 10 doses. [facility] traMADoL (ULTRAM) 50 mg tablet 11-19 00:00: 00 Yes [id number] 50mg Take 1 tablet by mouth every 8 (eight) hours as needed for Pain (scale 4-6) for up to 15 doses. Indication s: acute pain [facility] lisinopriL 20 mg tablet 11-19 00:00: 00 12-20 04:59 :00 No [id number] 20mg Take 1 tablet by mouth in the morning for 30 days. [facility] insulin detemir U-100 (LEVEMIR U-100 INSULIN) 100 unit/mL injection 11-19 00:00: 00 12-20 04:59 :00 No [id number] 20U inject 20 Units under the skin at bedtime for 30 days. [facility] simvastatin 20 mg tablet 11-19 00:00: 00 12-20 04:59 :00 No [id number] 20mg Take 1 tablet by mouth at bedtime for 30 days. [facility] famotidine (PEPCID) 20 mg tablet 11-19 00:00: 00 12-05 04:59 :00 No [id number] 20mg Take 1 tablet by mouth in the morning and 1 tablet in the evening. Do all this for 30 doses. [facility] cephALEXin (KEFLEX) 500 mg capsule 11-19 00:00: 00 11-30 04:59 :00 No [id number] 500mg Take 1 capsule by mouth 4 (four) times daily for 10 days. [facility] INJECT 1 ML INTRAMUSCUL CHRISTIAN ONCE EVERY 3 MONTHS. 12-10 00:00: 00 No Depo-[employer] Cook a 150 mg/mL intramuscul ar syringe 0 12-10 00:00: 00 No 1mg/mL Dose Unknown 2021-0 3 00:00: 00 No Dose Unknown 2022-0 3 00:00: 00 No Dose Unknown 2022-0 3 00:00: 00 No Dose Unknown 2022-0 3 00:00: 00 No Dose Unknown 2022-0 3- 00:00: 00 No Dose Unknown 2022-0 331 00:00: 00 No Dose Unknown 2022-0 331 00:00: 00 No Dose Unknown 2022-0 3 00:00: 00 No Dose Unknown 2022-0 3- 00:00: 00 No Dose Unknown 2022-0 3- 00:00: 00 No Dose Unknown 2022-0 3-31 00:00: 00 No Dose Unknown 2022-0 3-31 00:00: 00 No Dose Unknown 2022-0 3-31 00:00: 00 No Dose Unknown 2022-0 3-31 00:00: 00 No Dose Unknown 2022-0 3-31 00:00: 00 No Dose Unknown 2022-0 3-31 00:00: 00 No Dose Unknown 2022-0 3-31 00:00: 00 No Dose Unknown 2022-0 3-31 00:00: 00 No Dose Unknown 2022-0 3- 00:00: 00 No Dose Unknown 2022-0 3-31 00:00: 00 No Dose Unknown 2022-0 3-31 00:00: 00 No Dose Unknown 2022-0 3-31 00:00: 00 No Dose Unknown 2022-0 3-31 00:00: 00 No Dose Unknown 2022-0 3-31 00:00: 00 No Dose Unknown 2022-0 3-31 00:00: 00 No Dose Unknown 2022-0 3-31 00:00: 00 No Dose Unknown 2022-0 3-31 00:00: 00 No Dose Unknown 2022-0 3-31 00:00: 00 No Dose Unknown 2022-0 3-31 00:00: 00 No Dose Unknown 2022-0 3-31 00:00: 00 No Dose Unknown 2022-0 3-31 00:00: 00 No Dose Unknown 2022-0 3-31 00:00: 00 No Dose Unknown 2022-0 3-31 00:00: 00 No Dose Unknown 2022-0 3-31 00:00: 00 No Dose Unknown 2022-0 3-31 00:00: 00 No Dose Unknown 2022-0 3-31 00:00: 00 No Dose Unknown 2022-0 3-31 00:00: 00 No Dose Unknown 2022-0 3-31 00:00: 00 No Dose Unknown 2022-0 3-31 00:00: 00 No Dose Unknown 2022-0 3-31 00:00: 00 No Dose Unknown 2022-0 3-31 00:00: 00 No Dose Unknown 2022-0 3-31 00:00: 00 No Dose Unknown 2022-0 3-31 00:00: 00 No Dose Unknown 2022-0 3-31 00:00: 00 No Dose Unknown 2022-0 3-31 00:00: 00 No Dose Unknown 2022-0 3-31 00:00: 00 No Dose Unknown 2022-0 3-31 00:00: 00 No Dose Unknown 2022-0 3-31 00:00: 00 No Dose Unknown 2022-0 3-31 00:00: 00 No Dose Unknown 2022-0 3-31 00:00: 00 No Dose Unknown 2022-0 3-31 00:00: 00 No Dose Unknown 2022-0 3-31 00:00: 00 No Dose Unknown 2022-0 3-31 00:00: 00 No Dose Unknown 2022-0 3-31 00:00: 00 No Dose Unknown 2022-0 3-31 00:00: 00 No Dose Unknown 2022-0 3-31 00:00: 00 No Dose Unknown 2022-0 3-31 00:00: 00 No Dose Unknown 2022-0 3-31 00:00: 00 No Dose Unknown 2022-0 3-31 00:00: 00 No Dose Unknown 2022-0 3-31 00:00: 00 No Dose Unknown 2022-0 3-31 00:00: 00 No Dose Unknown 2022-0 3-31 00:00: 00 No Dose Unknown 2022-0 3-31 00:00: 00 No Dose Unknown 2022-0 3-31 00:00: 00 No Dose Unknown 2022-0 3-31 00:00: 00 No Dose Unknown 2022-0 3-31 00:00: 00 No Dose Unknown 2022-0 3-31 00:00: 00 No Dose Unknown 2022-0 3-31 00:00: 00 No Dose Unknown 2022-0 3-31 00:00: 00 No Dose Unknown 2022-0 3-31 00:00: 00 No Dose Unknown 2022-0 3-31 00:00: 00 No Dose Unknown 2022-0 3-31 00:00: 00 No Dose Unknown 2022-0 3-31 00:00: 00 No Dose Unknown 2022-0 3-31 00:00: 00 No Dose Unknown 2022-0 3-31 00:00: 00 No Dose Unknown 2022-0 3-31 00:00: 00 No Dose Unknown 2022-0 3-31 00:00: 00 No Dose Unknown 2022-0 3-31 00:00: 00 No Paxil 20 mg tablet 2020-06-28 00:00: 00 No 1mg Dose Unknown 2020-1 06-28 00:00: 00 No Dose Unknown 1 06-28 00:00: 00 No Paxil 20 mg tablet 2020- 1 00:00: 00 No 1mg Dose Unknown 1 1 00:00: 00 No Dose Unknown 2020-06 1 00:00: 00 No Dose Unknown 1 0 00:00: 00 No hydroxyzine HCl 50 mg tablet 2020-06 0-13 00:00: 00 No 1mg trazodone 50 mg tablet 2020-06 0-13 00:00: 00 No 2mg Dose Unknown 2020-06 0- 00:00: 00 No hydroxyzine HCl 50 mg tablet 2020-06 0- 00:00: 00 No 1mg trazodone 50 mg tablet 2020-06 0- 00:00: 00 No 2mg lisinopril 20 mg tablet 2020-06 0-07 00:00: 00 No 1mg atorvastati n 40 mg tablet 2020-06 0-07 00:00: 00 No 1mg lisinopril 20 mg tablet 2020-06 0- 00:00: 00 No 1mg atorvastati n 40 mg tablet 2020-06 0- 00:00: 00 No 1mg Dose Unknown 0 8- 00:00: 00 No Dose Unknown 0 8- 00:00: 00 No trazodone 50 mg tablet 0 8- 00:00: 00 No 2mg Dose Unknown 0 8 00:00: 00 No Dose Unknown 0 8 00:00: 00 No trazodone 50 mg tablet 0 8- 00:00: 00 No 2mg Dose Unknown 0 8- 00:00: 00 No Dose Unknown 0 8 00:00: 00 No trazodone 50 mg tablet 0 8- 00:00: 00 No 2mg Dose Unknown 0 8- 00:00: 00 No Dose Unknown 0 8- 00:00: 00 No trazodone 50 mg tablet 0 8- 00:00: 00 No 2mg Paxil 20 mg tablet 0 7- 00:00: 00 No 1mg hydroxyzine HCl 25 mg tablet 0 7- 00:00: 00 No 1mg Paxil 20 mg tablet 0 7- 00:00: 00 No 1mg hydroxyzine HCl 25 mg tablet 0 7- 00:00: 00 No 1mg trazodone 50 mg tablet 0 7- 00:00: 00 No 2mg trazodone 50 mg tablet 2020-0 - 00:00: 00 No 2mg Dose Unknown 0 6- 00:00: 00 No Dose Unknown 0 6- 00:00: 00 No Paxil 20 mg tablet 0 6- 00:00: 00 No 1mg hydroxyzine HCl 25 mg tablet 0 6- 00:00: 00 No 1mg trazodone 50 mg tablet 0 6- 00:00: 00 No 2mg Paxil 20 mg tablet 0 6 00:00: 00 No 1mg hydroxyzine HCl 25 mg tablet 0 6 00:00: 00 No 1mg trazodone 50 mg tablet 0 6- 00:00: 00 No 2mg Dose Unknown 0 5- 00:00: 00 No Dose Unknown 0 5- 00:00: 00 No Dose Unknown 0 5- 00:00: 00 No Dose Unknown 0 5- 00:00: 00 No Dose Unknown 0 5- 00:00: 00 No Dose Unknown 0 5- 00:00: 00 No Dose Unknown 2020-0 5-12 00:00: 00 No hydroxyzine HCl 25 mg tablet 2020-0 5-12 00:00: 00 No 1mg Dose Unknown 0 5-12 00:00: 00 No hydroxyzine HCl 25 mg tablet 2020-0 5-12 00:00: 00 No 1mg hydroxyzine HCl 25 mg tablet 2020-0 4-28 00:00: 00 No 1mg hydroxyzine HCl 25 mg tablet 2020-0 4-28 00:00: 00 No 1mg lisinopril 20 mg tablet 2020-0 3-19 00:00: 00 No 1mg atorvastati n 40 mg tablet 0 -19 00:00: 00 No 1mg Levemir FlexTouch U-100 Insulin 100 unit/mL (3 mL) subcutaneou s pen 2020-0 3-19 00:00: 00 No 5(3 mL) lisinopril 20 mg tablet 2020-0 3-19 00:00: 00 No 1mg atorvastati n 40 mg tablet 09-05 00:00: 00 No 1mg Levemir FlexTouch U-100 Insulin 100 unit/mL (3 mL) subcutaneou s pen 09-05 00:00: 00 No 5(3 mL) lisinopril 20 mg tablet 2019-06 2- 00:00: 00 No 1mg lisinopril 20 mg tablet 2019-06 2 00:00: 00 No 1mg lisinopril 20 mg tablet 02-18 00:00: 00 No 1mg lisinopril 20 mg tablet 02-18 00:00: 00 No 1mg Levemir FlexTouch U-100 Insulin 100 unit/mL (3 mL) subcutaneou s pen 08-23 00:00: 00 No 5(3 mL) atorvastati n 40 mg tablet 08-23 00:00: 00 No 1mg Levemir FlexTouch U-100 Insulin 100 unit/mL (3 mL) subcutaneou s pen 08-23 00:00: 00 No 5(3 mL) atorvastati n 40 mg tablet 08-23 00:00: 00 No 1mg Levemir FlexTouch U-100 Insulin 100 unit/mL (3 mL) subcutaneou s pen 2018-06 00:00: 00 No 5(3 mL) atorvastati n 40 mg tablet 2018-06 00:00: 00 No 1mg Levemir FlexTouch U-100 Insulin 100 unit/mL (3 mL) subcutaneou s pen 2018-06- 00:00: 00 No 5(3 mL) atorvastati n 40 mg tablet 2018-06 00:00: 00 No 1mg No known medications No Un jatinder [facility] Vital Signs Vital Name Observation Time Observation Value Comments S ource Systolic blood pressure 2022-11-19 18:00:00 115 mm[Hg] [facility] Diastolic blood pressure 2022-11-19 18:00:00 82 mm[Hg] [facility] Heart rate 2022-11-19 18:00:00 82 /min [facility] Body temperature 2022-11-19 18:00:00 36.89 Maryanne [facility] Respiratory rate 2022-11-19 18:00:00 16 /min [facility] Oxygen saturation in Arterial blood by Pulse oximetry 2022-11-19 18:00:00 95 /min [place] [facility] Body height 2022-11-19 12:14:00 157.5 cm [facility] Body weight 2022-11-19 12:14:00 61.236 kg [facility] BMI 2022-11-19 12:14:00 24.69 kg/m2 [facility] BP Systolic 2022-03-10 16:36:00 136 mm[Hg] [...] Procedures Procedure Date / Time Performed Performing Clinicia n Source EKG-12 LEAD 2022-11-19 18:12:08 Minnie Ledezma [facility] URINALYSIS 2022-11-19 16:58:00 Minnie Ledezma [facility] CT ABDOMEN PELVIS W CONTRAST 2022-11-19 15:41:15 Minnie Ledezma [facility] POCT GLUCOSE (AUTOMATED) 2022-11-19 15:39:00 Minnie Ledezma [facility] POCT GLUCOSE (AUTOMATED) 2022-11-19 14:31:00 Minnie Ledezma [facility] XR ABDOMEN ACUTE SERIES 2022-11-19 13:45:23 Minnie Ledezma [facility] US GALL BLADDER 2022-11-19 13:10:56 Minnie Ledezma as [facility] POCT GLUCOSE (AUTOMATED) 2022-11-19 12:33:00 Doctor Unassigned, [place] [facility] LIPASE 2022-11-19 12:28:00 Minnie Ledezma [facility] TEST, SERUM 2022-11-19 12:28:00 Prince Ledezma [facility] TROPONIN I 2022-11-19 12:28:00 Minnie Ledezma [facility] COMP. METABOLIC PANEL (42126) 2022-11-19 12:28:00 Minnie Ledezma [facility] CBC WITH DIFF 2022-11-19 12:28:00 Minnie Ledezma [facility] CONSENT/REFUSAL FOR DIAGNOSIS AND TREATMENT 2022-11-19 12:07:05 Doctor Unassigned, [place] [facility] REFERRAL- REQUEST/RESPONSE 2020-11-07 05:01:00 Doctor Unassigned, [place] [facility] Plan of Care Planned Activity Planned Date Details Comments Source Goal Plan of Care Note [code = 38822-7] Goal Plan of Care Note [code = 11508-5] Goal Plan of Care Note [code = 35221-7] Goal Plan of Care Note [code = 65413-4] Goal Plan of Care Note [code = 56749-0] Goal Plan of Care Note [code = 78469-3] Goal Plan of Care Note [code = 47933-6] Goal Plan of Care Note [code = 18324-4] Goal Plan of Care Note [code = 18828-0] Goal Plan of Care Note [code = 96931-2] Goal Plan of Care Note [code = 58418-9] Goal Plan of Care Note [code = 22591-3] Goal Plan of Care Note [code = 38043-9] Goal Plan of Care Note [code = 57148-4] Goal Plan of Care Note [code = 57942-6] Goal Plan of Care Note [code = 27049-7] Goal Plan of Care Note [code = 07668-0] Goal Plan of Care Note [code = 45126-1] Goal Plan of Care Note [code = 86757-3] Goal Plan of Care Note [code = 53534-0] Goal Plan of Care Note [code = 60614-6] Goal Plan of Care Note [code = 29345-1] Goal Plan of Care Note [code = 24234-2] Goal Plan of Care Note [code = 40010-3] Goal Plan of Care Note [code = 83315-5] Goal Plan of Care Note [code = 36068-3] Goal Plan of Care Note [code = 93017-2] Goal Plan of Care Note [code = 12180-3] Goal Plan of Care Note [code = 44947-2] Goal Plan of Care Note [code = 30037-6] Goal Plan of Care Note [code = 81726-0] Goal Plan of Care Note [code = 16039-7] Goal Plan of Care Note [code = 53518-1] Goal Plan of Care Note [code = 35108-6] Goal Plan of Care Note [code = 87234-5] Goal Plan of Care Note [code = 72487-6] Goal Plan of Care Note [code = 51287-0] Goal Plan of Care Note [code = 61647-5] Encounters Start Date/Time End Date/Time Encounter Type Admission Type Attending Clinicians Care Facility Care Department Encounter ID Source 2023-06-23 13:07:37 2023-06-23 13:07:37 Outpatient [facility] [id number] Garry Lyons 2023-04-26 14:22:39 2023-04-26 14:22:39 Outpatient [facility] [id number] Garry Lyons 2023-04-12 13:25:48 2023-04-12 13:25:48 Outpatient [facility] [id number] Grary Lyons 2023-03-31 11:49:53 2023-03-31 11:49:53 Outpatient [facility] [id number] Garry Lyons 2023-03-25 13:36:42 2023-03-25 13:36:42 Outpatient [facility] [id number] Garry Lyons 2023-02-28 14:38:31 2023-02-28 14:38:31 Outpatient [facility] [id number] Garry Lyons 2023-02-02 14:45:48 2023-02-02 14:45:48 Outpatient [facility] [id number] Garry Lyons 2023-01-04 15:53:07 2023-01-04 15:53:07 Outpatient [facility] [id number] Garry Lyons 2023-01-03 16:08:35 2023-01-03 16:08:35 Outpatient [facility] [id number] Garry Lyons 2022-11-29 14:24:54 2022-11-29 14:24:54 Outpatient [facility] [id number] Garry Palacio Eloy 2022-11-19 07:15:00 2022-11-19 13:21:00 Emergency X MINNIE LEDEZMA [facility] ERT [id number] [facility] 2022-11-19 07:15:00 2022-11-19 13:21:00 Emergency Minnie Ledezma [facility] [id number] [facility] 2022-09-10 16:03:05 2022-09-10 16:03:05 Outpatient [facility] [id number] Garry Lyons 2022-08-30 14:47:20 2022-08-30 14:47:20 Outpatient [facility] [id number] Garry Lyons 2022-05-31 15:30:31 2022-05-31 15:30:31 Outpatient [facility] [id number] Garry Lyons 2022-03-10 00:00:00 2022-03-10 00:00:00 Outpatient Visit [id number] 2022-03-08 00:00:00 2022-03-08 00:00:00 Outpatient Visit [id number] 2020-11-07 00:00:00 2020-11-07 00:00:00 Orders Only Doctor Unassigned, [place] [facility] [id number] 2020-11-07 00:00:00 2020-11-07 00:00:00 Orders Only Doctor Unassigned, [place] [facility] [id number] [id number] [id number] [facility] Results Test Description Test Time Test Comments Results Result Co mments Source ALBUMIN/CREATININE RATIO, URINE, [id number] 04:52:24* Test Item Value Reference Range Interpretation Comme nts CREATININE, URINE, CONC. (test code = 2072) 97.5 MG/DL NOT ESTAB ALBUMIN, URINE, RANDOM (test code = 12012) 14.1 MG/DL NOT ESTAB CALC ALBUMIN/CREAT, RND (test code = 47329) 145 MG/G <30 H Note: Albumin/Cr eatinine ratio reference interval reflects ADA and NKF guidelines. UNLESS OTHERWISE INDICATED, ALL TESTING PERFORMED AT [facility] [address] [place] [address] [employer] ATTORNEY: MADELINE MAY M.D. CLIA NUMBER [id number] [facility] [place]. [id number] LIPID [id number] 03:51:44* Test Item Value Reference Range Interpretation Comme nts CHOLESTEROL (test code = 2210) 252 MG/DL <200 H TRIGLYCERIDES (test code = 2232) 1095 MG/DL <150 H [facility] HDL CHOLESTEROL (test code = 2220) 19 MG/DL >39 L CALC LDL CHOL (test code = 2237) (NOTE) MG/DL <100 UNABLE TO CALCUL ATE A VALID LDL CHOLESTEROL WHEN THE TRIGLYCERIDEVALUE IS GREATER THAN 400 MG/DL.UNABLE TO CALCULATE A VALID LDL CHOLESTEROL WHEN THE TRIGLYCERIDEVALUE IS GREATER THAN 400 MG/DL. NOTE: CALCULATED LDL IS BASED ON PANCHO-PARMAR METHOD WHICHINCLUDES ADJUSTABLE TRIGLYCERIDE:VLDL CHOLESTEROL RATIO.THIS FACTOR VARIES BY MEASURED TRIGLYCERIDE AND NON-HDLCHOLESTEROL CONCENTRATIONS WITH INCREASED CALCULATED LDL SEENIN HIGHER TRIGLYCERIDE OR LOWER NON-HDL SPECIMENS. FOR MOREINFORMATION, SEE CLIENT ANNOUNCEMENT AT [email or web address] CalcLDL-C RISK RATIO LDL/HDL (test code = 2238) (NOTE) RATIO <3.22 UNABLE TO NIKKI CULATE COMPREHENSIVE METABOLIC [id number] 03:51:44* Test Item Value Reference Range Interpretation Comme nts GLUCOSE (test code = 2217) 352 MG/DL 70-99 H BUN (test code = 2208) 14 MG/DL 6-20 CREATININE (test code = 2214) 0.58 MG/DL 0.60-1.30 L eGFR (2020 CKD-EPI) (test code = 95365) 114 ML/MIN/1.73 >60 CALC BUN/CREAT (test code = 2235) 24 RATIO 6-28 SODIUM (test code = 223) 133 MEQ/L 133-146 POTASSIUM (test code = 2228) 4.0 MEQ/L 3.5-5.4 CHLORIDE (test code = 2215) 99 MEQ/L 95-107 CARBON DIOXIDE (test code = 2206) 22 MEQ/L 19-31 CALCIUM (test code = 2209) 9.5 MG/DL 8.5-10.5 PROTEIN, TOTAL (test code = 222) 7.7 G/DL 6.1-8.3 ALBUMIN (test code = 220) 4.9 G/DL 3.5-5.2 CALC GLOBULIN (test code = 2240) 2.8 G/DL 1.9-3.7 CALC A/G RATIO (test code = 2234) 1.8 RATIO 1.0-2.6 BILIRUBIN, TOTAL (test code = 2207) 0.5 MG/DL <=1.2 ALKALINE PHOSPHATASE (test code = 2204) 74 U/L 40-115 AST (test code = 2218) 11 U/L 9-40 ALT (test code = 2219) 13 U/L 5-40 HEMOGLOBIN [id number] 02:49:24* Test Item Value Reference Range Interpretation Comme [facility] HEMOGLOBIN A1c (test code = 42608) 9.7 % 4.2-5.6 H [employer] GUIDELINES FOR HGB A1C: PREDIABETES/INCREASED RISK . . . . . . . 5.7-6.4% DIAGNOSIS OF DIABETES . . . . . . . . . >=6.5% WITH CONFIRMATION OR APPROPRIATE SYMPTOMS NOTE: ASSAY MAY BE AFFECTED BY HEMOGLOBINOPATHIES (SICKLE CELL ANEMIA, S-C DISEASE, OTHERS) OR ARTIFICIALLY LOWERED BY DECREASED RED CELL SURVIVAL (HEMOLYTIC ANEMIAS, BLOOD LOSS, ETC.). CONSIDER ALTERNATE TESTING OR LABORATORY CONSULTATION. POCT GLUCOSE (AUTOMATED)2022-11-19 15:40:56* Test Item Value Reference Range Interpretation Comme [facility] POCT GLU (test code = 2663284030) 258 mg/dL 70-110 H Lab Interpretation (test cod e = 99379-8) [facility]normal [id number] 14:42:07* Test Item Value Reference Range Interpretation Comme [facility] TROPONIN I (test code = 4950560398) <=0.034 JOSEFINA (test code = JOSEFINA) Reference (Normal) [...] to patient's use of biotin. Lab Interpretation (test code = 18706-5) Normal [facility] 14:33:33* Test Item Value Reference Range Interpretation Comme nts POCT GLU (test code = 0394373662) 264 mg/dL 70-110 H Lab Interpretation (test cod e = 15805-6) Abnormal [facility], [id number] 13:15:04* Test Item Value Reference Range Interpretation Comme nts PREG SERUM (test code = 1134672512) Negative JOSEFINA (test code = JOSEFINA) Less than 10 IU/L. ?If low titer or ectopic is suspected, resubmit specimen in 48-72 hours. [facility] Metabolic Panel ([id number])2022-11-19 13:06:14* Test Item Value Reference Range Interpretation Comme nts NA (test code = 7877366130) 133 mmol/L 135-145 L K (test code = 0939230597) 3.8 mmol/L 3.5-5.0 CL (test code = 2931819810) 101 mmol/L 98-108 CO2 TOTAL (test code = 8587967308) 22 mmol/L 23-31 L AGAP (test code = 3674710220) 10 2-16 BUN (test code = 8325894820) 10 mg/dL 7-23 GLUCOSE (test code = 9331116557) 303 mg/dL 70-110 H CREATININE (test code = 0817324142) 0.43 mg/dL 0.50-1.04 L TOTAL BILI (test code = 5482265875) 0.8 mg/dL 0.1-1.1 CALCIUM (test code = 2990114554) 8.4 mg/dL 8.6-10.6 L T PROTEIN (test code = 3807102661) 7.4 g/dL 6.3-8.2 ALBUMIN (test code = 8029840860) 4.0 g/dL 3.5-5.0 ALK PHOS (test code = 2838497528) 91 U/L 34-122 ALTv (test code = 1742-6) 24 U/L 5-35 AST(SGOT) (test code = 7771912576) 24 U/L 13-40 eGFR (test code = 3693073417) 159.5 mL/min/1.73m2 JOSEFINA (test code = JOSEFINA) Association of [...] or abnormalities in imaging tests). Lab Interpretation (test code = 53907-7) [id number] 13:05:54* Test Item Value Reference Range Interpretation Comme nts LIPASE (test code = 1863677562) 94 U/L 0-220 Lab Interpretation (test cod e = 10720-5) Normal [facility] with [id number] 13:04:52* Test Item Value Reference Range Interpretation Comme nts WBC (test code = 6690-2) 6.22 See_Comment [Automated HBCS] The system which generated this result transmitted reference range: 4.30 - 11.10 10*3/?L. The reference range was not used to interpret this result as normal/abnormal. RBC (test code = 789-8) 4.45 See_Comment [Automated messa ge] The system which generated this result transmitted reference range: 3.93 - 5.25 10*6/?L. The reference range was not used to interpret this result as normal/abnormal. HGB (test code = 718-7) 12.9 g/dL 11.6-15.0 HCT (test code = 4544-3) 34.8 % 35.7-45.2 L MCV (test code = 787-2) 78.2 fL 80.6-95.5 L MCH (test code = 785-6) 29.0 pg 25.9-32.8 MCHC (test code = 786-4) 37.1 g/dL 31.6-35.1 H RDW-SD (test code = 69312-4) 37.6 fL 39.0-49.9 L RDW-CV (test code = 788-0) 13.3 % 12.0-15.5 PLT (test code = 777-3) 181 See_Comment [Automated [employer]] The system which generated this result transmitted reference range: 166 - 358 10*3/?L. The reference range was not used to interpret this result as normal/abnormal. MPV (test code = 90608-9) 12.0 fL 9.5-12.9 NRBC/100 WBC (test code = 2603512258) 0.0 See_Comment [Automated [employer] ssage] The system which generated this result transmitted reference range: 0.0 - 10.0 /100 WBCs. The reference range was not used to interpret this result as normal/abnormal. NRBC x10^3 (test code = 8439994684) See_Comment [Automated [employer]] The system which generated this result transmitted reference range: 10*3/?L. The reference range was not used to interpret this result as normal/abnormal. GRAN MAT (NEUT) % (test code = 770-8) 62.1 % IMM GRAN % (test code = 6149228309) 0.80 % LYMPH % (test code = 736-9) 29.6 % MONO % (test code = 5905-5) 4.7 % EOS % (test code = 713-8) 2.3 % BASO % (test code = 706-2) 0.5 % GRAN MAT x10^3(ANC) (test code = 9597467037) 3.87 10*3/uL 1.88-7.09 IMM GRAN x10^3 (test code = 0619157214) 0.05 10*3/uL 0.00-0.06 LYMPH x10^3 (test code = 731-0) 1.84 10*3/uL 1.32-3.29 MONO x10^3 (test code = 742-7) 0.29 10*3/uL 0.33-0.92 L EOS x10^3 (test code = 711-2) 0.14 10*3/uL 0.03-0.39 BASO x10^3 (test code = 704-7) 0.03 10*3/uL 0.01-0.07 Lab Interpretation (test code = 52361-9) [facility] 12:35:03* Test Item Value Reference Range Interpretation Comme nts POCT GLU (test code = 6919921673) 305 mg/dL 70-110 H Lab Interpretation (test cod e = 08540-6) [facility] RATIO, URINE, RANDOM 2022-03-09 04:55:11* Test Item Value Reference Range Interpretation Comme nts CREATININE, URINE, CONC. (test code = 2072) 135.5 MG/DL NOT ESTAB ALBUMIN, URINE, RANDOM (test code = 47918) 3.2 MG/DL NOT ESTAB CALC ALBUMIN/CREAT, RND (test code = 99119) 24 MG/G <30 Note: Albumin/Cr eatinine ratio reference interval reflects ADA and NKF guidelines. UNLESS OTHERWISE INDICATED, ALL TESTING PERFORMED ATCLINICAL PATHOLOGY [employer] [address] [place] [id number] [employer] MARK ATTORNEY: SIRISHA SERRATO M.D. CLIA NUMBER [id number] [place]. [id number] LIPID [id number] 03:42:46* Test Item Value Reference Range Interpretation Comme nts CHOLESTEROL (test code = 2210) 243 MG/DL <200 H TRIGLYCERIDES (test code = 2232) 788 MG/DL <150 H HDL CHOLESTEROL (test code = 2220) 22 MG/DL >39 L CALC LDL CHOL (test code = 2237) (NOTE) MG/DL <100 UNABLE TO CALCUL ATE A VALID LDL CHOLESTEROL WHEN THE TRIGLYCERIDEVALUE IS GREATER THAN 400 MG/DL.UNABLE TO CALCULATE A VALID LDL CHOLESTEROL WHEN THE TRIGLYCERIDEVALUE IS GREATER THAN 400 MG/DL. NOTE: CALCULATED LDL IS BASED ON PANCHO-PARMAR METHOD WHICHINCLUDES ADJUSTABLE TRIGLYCERIDE:VLDL CHOLESTEROL RATIO.THIS FACTOR VARIES BY MEASURED TRIGLYCERIDE AND NON-HDLCHOLESTEROL CONCENTRATIONS WITH INCREASED CALCULATED LDL SEENIN HIGHER TRIGLYCERIDE OR LOWER NON-HDL SPECIMENS. FOR MOREINFORMATION, SEE CLIENT ANNOUNCEMENT AT [email or web address] CalcLDL-C RISK RATIO LDL/HDL (test code = 2238) (NOTE) RATIO <3.22 UNABLE TO NIKKI CULATE COMPREHENSIVE METABOLIC [id number] 03:42:46* Test Item Value Reference Range Interpretation Comme nts GLUCOSE (test code = 2217) 315 MG/DL 70-99 H BUN (test code = 2208) 11 MG/DL 6-20 CREATININE (test code = 2214) 0.61 MG/DL 0.60-1.30 eGFR (2020 CKD-EPI) (test code = 53335) 114 ML/MIN/1.73 >60 CALC BUN/CREAT (test code = 2235) 18 RATIO 6-28 SODIUM (test code = 2231) 139 MEQ/L 133-146 POTASSIUM (test code = 2228) 4.1 MEQ/L 3.5-5.4 CHLORIDE (test code = 2215) 105 MEQ/L 95-107 CARBON DIOXIDE (test code = 2206) 21 MEQ/L 19-31 CALCIUM (test code = 2209) 9.4 MG/DL 8.5-10.5 PROTEIN, TOTAL (test code = 2229) 7.5 G/DL 6.1-8.3 ALBUMIN (test code = 2201) 4.6 G/DL 3.5-5.2 CALC GLOBULIN (test code = 2240) 2.9 G/DL 1.9-3.7 CALC A/G RATIO (test code = 2234) 1.6 RATIO 1.0-2.6 BILIRUBIN, TOTAL (test code = 2207) 0.4 MG/DL See_Comment [Automated me ssage] The system which generated this result transmitted reference range: <=1.2. The reference range was not used to interpret this result as normal/abnormal. ALKALINE PHOSPHATASE (test code = 2204) 79 U/L 40-113 AST (test code = 2218) 10 U/L 9-40 ALT (test code = 2219) 7 U/L 5-40 HEMOGLOBIN [id number] 02:41:50* Test Item Value Reference Range Interpretation Comme nts HEMOGLOBIN A1c (test code = 49217) 9.2 % 4.2-5.6 H [employer] GUIDELINES FOR HGB A1C: PREDIABETES/INCREASED RISK . . . . . . . 5.7-6.4% DIAGNOSIS OF DIABETES . . . . . . . . . >=6.5% WITH CONFIRMATION OR APPROPRIATE SYMPTOMS NOTE: ASSAY MAY BE AFFECTED BY HEMOGLOBINOPATHIES (SICKLE CELL ANEMIA, S-C DISEASE, OTHERS) OR ARTIFICIALLY LOWERED BY DECREASED RED CELL SURVIVAL (HEMOLYTIC ANEMIAS, BLOOD LOSS, ETC.). CONSIDER ALTERNATE TESTING OR LABORATORY CONSULTATION. COMPREHENSIVE METABOLIC [id number] 00:00:00* Test Item Value Reference Range Interpretation Comme nts GLUCOSE (test code = 7) 315 MG/DL BUN (test code = 2208) 11 MG/DL CREATININE (test code = 2214) 0.61 MG/DL eGFR (2020 CKD-EPI) (test code = 93945) 114 ML/MIN/1.73 CALC BUN/CREAT (test code = 2235) 18 RATIO SODIUM (test code = 2231) 139 MEQ/L POTASSIUM (test code = 2228) 4.1 MEQ/L CHLORIDE (test code = 2215) 105 MEQ/L CARBON DIOXIDE (test code = 2206) 21 MEQ/L CALCIUM (test code = 2209) 9.4 MG/DL PROTEIN, TOTAL (test code = 2229) 7.5 G/DL ALBUMIN (test code = 2201) 4.6 G/DL CALC GLOBULIN (test code = 2240) 2.9 G/DL CALC A/G RATIO (test code = 2234) 1.6 RATIO BILIRUBIN, TOTAL (test code = 2207) 0.4 MG/DL ALKALINE PHOSPHATASE (test code = 2204) 79 U/L AST (test code = 2218) 10 U/L ALT (test code = 2219) 7 U/L ALBUMIN/CREATININE RATIO, RANDOM [id number] 00:00:00* Test Item Value Reference Range Interpretation Comme nts CREATININE, URINE, CONC. (te st code = 2071) 135.5 MG/DL ALBUMIN, URINE, RANDOM (test code = 08976) 3.2 MG/DL CALC ALBUMIN/CREAT, RND (qiana t code = 05603) 24 MG/G ALBUMIN/CREATININE RATIO, RANDOM [id number] 00:00:00* Test Item Value Reference Range Interpretation Comme nts CREATININE, URINE, CONC. (te st code = 2071) 135.5 MG/DL ALBUMIN, URINE, RANDOM (test code = 78881) 3.2 MG/DL CALC ALBUMIN/CREAT, RND (qiana t code = 95898) 24 MG/G HEMOGLOBIN [id number] 00:00:00* Test Item Value Reference Range Interpretation Comme nts HEMOGLOBIN A1c (test code = 53759) 9.2 % HEMOGLOBIN [id number] 00:00:00* Test Item Value Reference Range Interpretation Comme nts HEMOGLOBIN A1c (test code = 67733) 9.2 % HEMOGLOBIN [id number] 00:00:00* Test Item Value Reference Range Interpretation Comme nts HEMOGLOBIN A1c (test code = 91016) 9.2 % LIPID [id number] 00:00:00* Test Item Value Reference Range Interpretation Comme nts CHOLESTEROL (test code = 2210) 243 MG/DL TRIGLYCERIDES (test code = 2232) 788 MG/DL HDL CHOLESTEROL (test code = 2220) 22 MG/DL CALC LDL CHOL (test code = 2237) (NOTE) MG/DL RISK RATIO LDL/HDL (test cod e = 2238) (NOTE) RATIO LIPID [id number] 00:00:00* Test Item Value Reference Range Interpretation Comme nts CHOLESTEROL (test code = 2210) 243 MG/DL TRIGLYCERIDES (test code = 2232) 788 MG/DL HDL CHOLESTEROL (test code = 2220) 22 MG/DL CALC LDL CHOL (test code = 2237) (NOTE) MG/DL RISK RATIO LDL/HDL (test cod e = 2238) (NOTE) RATIO COMPREHENSIVE METABOLIC [id number] 00:00:00* Test Item Value Reference Range Interpretation Comme nts GLUCOSE (test code = 2217) 315 MG/DL BUN (test code = 2208) 11 MG/DL CREATININE (test code = 2214) 0.61 MG/DL eGFR (2020 CKD-EPI) (test code = 48188) 114 ML/MIN/1.73 CALC BUN/CREAT (test code = 2235) 18 RATIO SODIUM (test code = 2231) 139 MEQ/L POTASSIUM (test code = 2228) 4.1 MEQ/L CHLORIDE (test code = 2215) 105 MEQ/L CARBON DIOXIDE (test code = 2206) 21 MEQ/L CALCIUM (test code = 2209) 9.4 MG/DL PROTEIN, TOTAL (test code = 2229) 7.5 G/DL ALBUMIN (test code = 2201) 4.6 G/DL CALC GLOBULIN (test code = 2240) 2.9 G/DL CALC A/G RATIO (test code = 2234) 1.6 RATIO BILIRUBIN, TOTAL (test code = 2207) 0.4 MG/DL ALKALINE PHOSPHATASE (test code = 2204) 79 U/L AST (test code = 2218) 10 U/L ALT (test code = 2219) 7 U/L COMPREHENSIVE METABOLIC [id number] 00:00:00* Test Item Value Reference Range Interpretation Comme nts GLUCOSE (test code = 2217) 315 MG/DL BUN (test code = 2208) 11 MG/DL CREATININE (test code = 2214) 0.61 MG/DL eGFR (2020 CKD-EPI) (test code = 71944) 114 ML/MIN/1.73 CALC BUN/CREAT (test code = 2235) 18 RATIO SODIUM (test code = 2231) 139 MEQ/L POTASSIUM (test code = 2228) 4.1 MEQ/L CHLORIDE (test code = 2215) 105 MEQ/L CARBON DIOXIDE (test code = 2206) 21 MEQ/L CALCIUM (test code = 2209) 9.4 MG/DL PROTEIN, TOTAL (test code = 2229) 7.5 G/DL ALBUMIN (test code = 2201) 4.6 G/DL CALC GLOBULIN (test code = 2240) 2.9 G/DL CALC A/G RATIO (test code = 2234) 1.6 RATIO BILIRUBIN, TOTAL (test code = 2207) 0.4 MG/DL ALKALINE PHOSPHATASE (test code = 2204) 79 U/L AST (test code = 2218) 10 U/L ALT (test code = 2219) 7 U/L ALBUMIN/CREATININE RATIO, RANDOM [id number] 00:00:00* Test Item Value Reference Range Interpretation Comme nts CREATININE, URINE, CONC. (te st code = 2071) 135.5 MG/DL ALBUMIN, URINE, RANDOM (test code = 47252) 3.2 MG/DL CALC ALBUMIN/CREAT, RND (qiana t code = 02744) 24 MG/G ALBUMIN/CREATININE RATIO, RANDOM [id number] 00:00:00* Test Item Value Reference Range Interpretation Comme nts CREATININE, URINE, CONC. (te st code = 2071) 135.5 MG/DL ALBUMIN, URINE, RANDOM (test code = 92327) 3.2 MG/DL CALC ALBUMIN/CREAT, RND (qiana t code = 20669) 24 MG/G HEMOGLOBIN [id number] 00:00:00* Test Item Value Reference Range Interpretation Comme nts HEMOGLOBIN A1c (test code = 60978) 9.2 % HEMOGLOBIN [id number] 00:00:00* Test Item Value Reference Range Interpretation Comme nts HEMOGLOBIN A1c (test code = 11242) 9.2 % HEMOGLOBIN [id number] 00:00:00* Test Item Value Reference Range Interpretation Comme nts HEMOGLOBIN A1c (test code = 89235) 9.2 % LIPID [id number] 00:00:00* Test Item Value Reference Range Interpretation Comme nts CHOLESTEROL (test code = 2210) 243 MG/DL TRIGLYCERIDES (test code = 2232) 788 MG/DL HDL CHOLESTEROL (test code = 2220) 22 MG/DL CALC LDL CHOL (test code = 2237) (NOTE) MG/DL RISK RATIO LDL/HDL (test cod e = 2238) (NOTE) RATIO LIPID [id number] 00:00:00* Test Item Value Reference Range Interpretation Comme nts CHOLESTEROL (test code = 2210) 243 MG/DL TRIGLYCERIDES (test code = 2232) 788 MG/DL HDL CHOLESTEROL (test code = 2220) 22 MG/DL CALC LDL CHOL (test code = 2237) (NOTE) MG/DL RISK RATIO LDL/HDL (test cod e = 2238) (NOTE) RATIO COMPREHENSIVE METABOLIC [id number] 00:00:00* Test Item Value Reference Range Interpretation Comme nts GLUCOSE (test code = 2217) 315 MG/DL BUN (test code = 2208) 11 MG/DL CREATININE (test code = 2214) 0.61 MG/DL eGFR (2020 CKD-EPI) (test code = 45067) 114 ML/MIN/1.73 CALC BUN/CREAT (test code = 2235) 18 RATIO SODIUM (test code = 2231) 139 MEQ/L POTASSIUM (test code = 2228) 4.1 MEQ/L CHLORIDE (test code = 2215) 105 MEQ/L CARBON DIOXIDE (test code = 2206) 21 MEQ/L CALCIUM (test code = 2209) 9.4 MG/DL PROTEIN, TOTAL (test code = 222) 7.5 G/DL ALBUMIN (test code = 2201) 4.6 G/DL CALC GLOBULIN (test code = 2240) 2.9 G/DL CALC A/G RATIO (test code = 2234) 1.6 RATIO BILIRUBIN, TOTAL (test code = 2206) 0.4 MG/DL ALKALINE PHOSPHATASE (test code = 2203) 79 U/L AST (test code = 2218) 10 U/L ALT (test code = 2219) 7 U/L VITAMIN [id number] 00:00:00* Test Item Value Reference Range Interpretation Comme nts VITAMIN B-12 (test code = 2840) 444 PG/ML VITAMIN [id number] 00:00:00* Test Item Value Reference Range Interpretation Comme nts VITAMIN B-12 (test code = 2840) 444 PG/ML VITAMIN [id number] 00:00:00* Test Item Value Reference Range Interpretation Comme nts VITAMIN B-12 (test code = 2840) 444 PG/ML [id number] 00:00:00* Test Item Value Reference Range Interpretation Comme nts TSH, THIRD GENERATION (test code = 2821) 0.552 UIU/ML [id number] 00:00:00* Test Item Value Reference Range Interpretation Comme nts TSH, THIRD GENERATION (test code = 2821) 0.552 UIU/ML [id number] 00:00:00* Test Item Value Reference Range Interpretation Comme nts TSH, THIRD GENERATION (test code = 2821) 0.552 UIU/ML VITAMIN D, 25 [id number] 00:00:00* Test Item Value Reference Range Interpretation Comme nts VITAMIN D, 25 OH (test code = 4958) 19 NG/ML VITAMIN D, 25 [id number] 00:00:00* Test Item Value Reference Range Interpretation Comme nts VITAMIN D, 25 OH (test code = 4958) 19 NG/ML VITAMIN [id number] 00:00:00* Test Item Value Reference Range Interpretation Comme nts VITAMIN B-12 (test code = 2840) 444 PG/ML VITAMIN [id number] 00:00:00* Test Item Value Reference Range Interpretation Comme nts VITAMIN B-12 (test code = 2840) 444 PG/ML VITAMIN [id number] 00:00:00* Test Item Value Reference Range Interpretation Comme nts VITAMIN B-12 (test code = 2840) 444 PG/ML [id number] 00:00:00* Test Item Value Reference Range Interpretation Comme nts TSH, THIRD GENERATION (test code = 2821) 0.552 UIU/ML [id number] 00:00:00* Test Item Value Reference Range Interpretation Comme nts TSH, THIRD GENERATION (test code = 2821) 0.552 UIU/ML [id number] 00:00:00* Test Item Value Reference Range Interpretation Comme nts TSH, THIRD GENERATION (test code = 2821) 0.552 UIU/ML VITAMIN D, 25 [id number] 00:00:00* Test Item Value Reference Range Interpretation Comme nts VITAMIN D, 25 OH (test code = 4958) 19 NG/ML VITAMIN D, 25 [id number] 00:00:00* Test Item Value Reference Range Interpretation Comme nts VITAMIN D, 25 OH (test code = 4958) 19 NG/ML HEMOGLOBIN [id number] 00:00:00* Test Item Value Reference Range Interpretation Comme nts HEMOGLOBIN A1c (test code = 24894) 6.7 % HEMOGLOBIN [id number] 00:00:00* Test Item Value Reference Range Interpretation Comme nts HEMOGLOBIN A1c (test code = 41947) 6.7 % HEMOGLOBIN [id number] 00:00:00* Test Item Value Reference Range Interpretation Comme nts HEMOGLOBIN A1c (test code = 90836) 6.7 % HEMOGLOBIN [id number] 00:00:00* Test Item Value Reference Range Interpretation Comme nts HEMOGLOBIN A1c (test code = 54933) 6.7 % HEMOGLOBIN [id number] 00:00:00* Test Item Value Reference Range Interpretation Comme nts HEMOGLOBIN A1c (test code = 04867) 6.7 % HEMOGLOBIN [id number] 00:00:00* Test Item Value Reference Range Interpretation Comme nts HEMOGLOBIN A1c (test code = 80719) 6.7 % MICROALBUMIN/CREATININE, RANDOM AND [id number] 00:00:00* Test Item Value Reference Range Interpretation Comme nts CREATININE, URINE, CONC. (te st code = 207) 22.0 MG/DL ALBUMIN, URINE, RANDOM (test code = 93434) 0.2 MG/DL CALC ALBUMIN/CREAT, RND (qiana t code = 47100) 9 MG/G MICROALBUMIN/CREATININE, RANDOM AND [id number] 00:00:00* Test Item Value Reference Range Interpretation Comme nts CREATININE, URINE, CONC. (te st code = 2072) 22.0 MG/DL ALBUMIN, URINE, RANDOM (test code = 40295) 0.2 MG/DL CALC ALBUMIN/CREAT, RND (qiana t code = 22965) 9 MG/G COMPREHENSIVE METABOLIC [id number] 00:00:00* Test Item Value Reference Range Interpretation Comme nts GLUCOSE (test code = 2217) 158 MG/DL BUN (test code = 2208) 12 MG/DL CREATININE (test code = 2214) 0.63 MG/DL eGFR AMER. (test cod e = 51569) 129 ML/MIN/1.73 eGFR NON- AMER. (test code = 61660) 111 ML/MIN/1.73 CALC BUN/CREAT (test code = 2235) 19 RATIO SODIUM (test code = 2231) 140 MEQ/L POTASSIUM (test code = 2228) 4.3 MEQ/L CHLORIDE (test code = 2215) 103 MEQ/L CARBON DIOXIDE (test code = 2206) 28 MEQ/L CALCIUM (test code = 2209) 9.6 MG/DL PROTEIN, TOTAL (test code = 2229) 7.2 G/DL ALBUMIN (test code = 2201) 4.4 G/DL CALC GLOBULIN (test code = 2240) 2.8 G/DL CALC A/G RATIO (test code = 2234) 1.6 RATIO BILIRUBIN, TOTAL (test code = 2207) 0.4 MG/DL ALKALINE PHOSPHATASE (test code = 2204) 69 U/L AST (test code = 2218) 28 U/L ALT (test code = 2219) 34 U/L COMPREHENSIVE METABOLIC [id number] 00:00:00* Test Item Value Reference Range Interpretation Comme nts GLUCOSE (test code = 2217) 158 MG/DL BUN (test code = 2208) 12 MG/DL CREATININE (test code = 2214) 0.63 MG/DL eGFR AMER. (test cod e = 23053) 129 ML/MIN/1.73 eGFR NON- AMER. (test code = 35119) 111 ML/MIN/1.73 CALC BUN/CREAT (test code = 2235) 19 RATIO SODIUM (test code = 2231) 140 MEQ/L POTASSIUM (test code = 2228) 4.3 MEQ/L CHLORIDE (test code = 2215) 103 MEQ/L CARBON DIOXIDE (test code = 2206) 28 MEQ/L CALCIUM (test code = 2209) 9.6 MG/DL PROTEIN, TOTAL (test code = 2229) 7.2 G/DL ALBUMIN (test code = 2201) 4.4 G/DL CALC GLOBULIN (test code = 2240) 2.8 G/DL CALC A/G RATIO (test code = 2234) 1.6 RATIO BILIRUBIN, TOTAL (test code = 2207) 0.4 MG/DL ALKALINE PHOSPHATASE (test code = 2204) 69 U/L AST (test code = 2218) 28 U/L ALT (test code = 2219) 34 U/L LIPID [id number] 00:00:00* Test Item Value Reference Range Interpretation Comme nts CHOLESTEROL (test code = 2210) 173 MG/DL TRIGLYCERIDES (test code = 2232) 341 MG/DL HDL CHOLESTEROL (test code = 2220) 28 MG/DL CALC LDL CHOL (test code = 2237) 100 MG/DL RISK RATIO LDL/HDL (test cod e = 2238) 3.57 RATIO LIPID [id number] 00:00:00* Test Item Value Reference Range Interpretation Comme nts CHOLESTEROL (test code = 2210) 173 MG/DL TRIGLYCERIDES (test code = 2232) 341 MG/DL HDL CHOLESTEROL (test code = 2220) 28 MG/DL CALC LDL CHOL (test code = 2237) 100 MG/DL RISK RATIO LDL/HDL (test cod e = 2238) 3.57 RATIO MICROALBUMIN/CREATININE, RANDOM AND [id number] 00:00:00* Test Item Value Reference Range Interpretation Comme nts CREATININE, URINE, CONC. (te st code = 207) 22.0 MG/DL ALBUMIN, URINE, RANDOM (test code = 77361) 0.2 MG/DL CALC ALBUMIN/CREAT, RND (qiana t code = 65108) 9 MG/G MICROALBUMIN/CREATININE, RANDOM AND [id number] 00:00:00* Test Item Value Reference Range Interpretation Comme nts CREATININE, URINE, CONC. (te st code = 207) 22.0 MG/DL ALBUMIN, URINE, RANDOM (test code = 44843) 0.2 MG/DL CALC ALBUMIN/CREAT, RND (qiana t code = 45498) 9 MG/G COMPREHENSIVE METABOLIC [id number] 00:00:00* Test Item Value Reference Range Interpretation Comme nts GLUCOSE (test code = 2217) 158 MG/DL BUN (test code = 2208) 12 MG/DL CREATININE (test code = 2214) 0.63 MG/DL eGFR AMER. (test cod e = 37962) 129 ML/MIN/1.73 eGFR NON- AMER. (test code = 37772) 111 ML/MIN/1.73 CALC BUN/CREAT (test code = 2235) 19 RATIO SODIUM (test code = 2231) 140 MEQ/L POTASSIUM (test code = 2228) 4.3 MEQ/L CHLORIDE (test code = 2215) 103 MEQ/L CARBON DIOXIDE (test code = 2206) 28 MEQ/L CALCIUM (test code = 2209) 9.6 MG/DL PROTEIN, TOTAL (test code = 2229) 7.2 G/DL ALBUMIN (test code = 2201) 4.4 G/DL CALC GLOBULIN (test code = 2240) 2.8 G/DL CALC A/G RATIO (test code = 2234) 1.6 RATIO BILIRUBIN, TOTAL (test code = 2207) 0.4 MG/DL ALKALINE PHOSPHATASE (test code = 2204) 69 U/L AST (test code = 2218) 28 U/L ALT (test code = 2219) 34 U/L COMPREHENSIVE METABOLIC [id number] 00:00:00* Test Item Value Reference Range Interpretation Comme nts GLUCOSE (test code = 2217) 158 MG/DL BUN (test code = 2208) 12 MG/DL CREATININE (test code = 2214) 0.63 MG/DL eGFR AMER. (test cod e = 30169) 129 ML/MIN/1.73 eGFR NON- AMER. (test code = 10453) 111 ML/MIN/1.73 CALC BUN/CREAT (test code = 2235) 19 RATIO SODIUM (test code = 2231) 140 MEQ/L POTASSIUM (test code = 2228) 4.3 MEQ/L CHLORIDE (test code = 2215) 103 MEQ/L CARBON DIOXIDE (test code = 2206) 28 MEQ/L CALCIUM (test code = 2209) 9.6 MG/DL PROTEIN, TOTAL (test code = 2229) 7.2 G/DL ALBUMIN (test code = 2201) 4.4 G/DL CALC GLOBULIN (test code = 2240) 2.8 G/DL CALC A/G RATIO (test code = 2234) 1.6 RATIO BILIRUBIN, TOTAL (test code = 2207) 0.4 MG/DL ALKALINE PHOSPHATASE (test code = 2204) 69 U/L AST (test code = 2218) 28 U/L ALT (test code = 2219) 34 U/L LIPID [id number] 00:00:00* Test Item Value Reference Range Interpretation Comme nts CHOLESTEROL (test code = 2210) 173 MG/DL TRIGLYCERIDES (test code = 2232) 341 MG/DL HDL CHOLESTEROL (test code = 2220) 28 MG/DL CALC LDL CHOL (test code = 2237) 100 MG/DL RISK RATIO LDL/HDL (test cod e = 2238) 3.57 RATIO LIPID [id number] 00:00:00* Test Item Value Reference Range Interpretation Comme nts CHOLESTEROL (test code = 2210) 173 MG/DL TRIGLYCERIDES (test code = 2232) 341 MG/DL HDL CHOLESTEROL (test code = 2220) 28 MG/DL CALC LDL CHOL (test code = 2237) 100 MG/DL RISK RATIO LDL/HDL (test cod e = 2238) 3.57 RATIO HEMOGLOBIN [id number] 00:00:00* Test Item Value Reference Range Interpretation Comme nts HEMOGLOBIN A1c (test code = 55260) 7.0 % HEMOGLOBIN [id number] 00:00:00* Test Item Value Reference Range Interpretation Comme nts HEMOGLOBIN A1c (test code = 62775) 7.0 % MICROALBUMIN/CREATININE, RANDOM AND [id number] 00:00:00* Test Item Value Reference Range Interpretation Comme nts CREATININE, URINE, CONC. (te st code = 2072) 92.4 MG/DL ALBUMIN, URINE, RANDOM (test code = 40090) 0.7 MG/DL CALC ALBUMIN/CREAT, RND (qiana t code = 65284) 8 MG/G MICROALBUMIN/CREATININE, RANDOM AND [id number] 00:00:00* Test Item Value Reference Range Interpretation Comme nts CREATININE, URINE, CONC. (te st code = 2072) 92.4 MG/DL ALBUMIN, URINE, RANDOM (test code = 63226) 0.7 MG/DL CALC ALBUMIN/CREAT, RND (qiana t code = 13146) 8 MG/G HIV 1/2 4TH GEN, RFLX CONF [ADDED]2019-03-22 00:00:00* Test Item Value Reference Range Interpretation Comme nts HIV 1/2 4TH GEN, RFLX CONF ( test code = 3514) NON-REACTIVE HIV 1/2 4TH GEN, RFLX CONF [ADDED]2019-03-22 00:00:00* Test Item Value Reference Range Interpretation Comme nts HIV 1/2 4TH GEN, RFLX CONF ( test code = 3514) NON-REACTIVE RPR [ADDED]2019-03-22 00:00:00* Test Item Value Reference Range Interpretation Comme nts RPR RESULT (test code = 3501) NON-REACTIVE RPR TITER (test code = 3500) NOT INDIC. TITER RPR [ADDED]2019-03-22 00:00:00* Test Item Value Reference Range Interpretation Comme nts RPR RESULT (test code = 3501) NON-REACTIVE RPR TITER (test code = 3500) NOT INDIC. TITER RPR [ADDED]2019-03-22 00:00:00* Test Item Value Reference Range Interpretation Comme nts RPR RESULT (test code = 3501) NON-REACTIVE RPR TITER (test code = 3500) NOT INDIC. TITER CT/NG, TMA, URINE [ADDED]2019-03-22 00:00:00* Test Item Value Reference Range Interpretation Comme nts GONORRHEA, TMA (test code = 23417) NEGATIVE CHLAMYDIA, TMA (test code = 45648) NEGATIVE CT/NG, TMA, URINE [ADDED]2019-03-22 00:00:00* Test Item Value Reference Range Interpretation Comme nts GONORRHEA, TMA (test code = 44440) NEGATIVE CHLAMYDIA, TMA (test code = 78207) NEGATIVE COMPREHENSIVE METABOLIC [id number] 00:00:00* Test Item Value Reference Range Interpretation Comme nts GLUCOSE (test code = 2217) 238 MG/DL BUN (test code = 2208) 15 MG/DL CREATININE (test code = 2214) 0.71 MG/DL eGFR AMER. (test cod e = 60904) 123 ML/MIN/1.73 eGFR NON- AMER. (test code = 91912) 107 ML/MIN/1.73 CALC BUN/CREAT (test code = 2235) 21 RATIO SODIUM (test code = 2231) 139 MEQ/L POTASSIUM (test code = 2228) 4.0 MEQ/L CHLORIDE (test code = 2215) 104 MEQ/L CARBON DIOXIDE (test code = 2206) 24 MEQ/L CALCIUM (test code = 2209) 9.5 MG/DL PROTEIN, TOTAL (test code = 2229) 7.3 G/DL ALBUMIN (test code = 2201) 4.3 G/DL CALC GLOBULIN (test code = 2240) 3.0 G/DL CALC A/G RATIO (test code = 2234) 1.4 RATIO BILIRUBIN, TOTAL (test code = 2207) 0.4 MG/DL ALKALINE PHOSPHATASE (test code = 2204) 76 U/L AST (test code = 2218) 10 U/L ALT (test code = 2219) 12 U/L COMPREHENSIVE METABOLIC [id number] 00:00:00* Test Item Value Reference Range Interpretation Comme nts GLUCOSE (test code = 2217) 238 MG/DL BUN (test code = 2208) 15 MG/DL CREATININE (test code = 2214) 0.71 MG/DL eGFR AMER. (test cod e = 37225) 123 ML/MIN/1.73 eGFR NON- AMER. (test code = 31199) 107 ML/MIN/1.73 CALC BUN/CREAT (test code = 2235) 21 RATIO SODIUM (test code = 2231) 139 MEQ/L POTASSIUM (test code = 2228) 4.0 MEQ/L CHLORIDE (test code = 2215) 104 MEQ/L CARBON DIOXIDE (test code = 2206) 24 MEQ/L CALCIUM (test code = 2209) 9.5 MG/DL PROTEIN, TOTAL (test code = 2229) 7.3 G/DL ALBUMIN (test code = 2201) 4.3 G/DL CALC GLOBULIN (test code = 2240) 3.0 G/DL CALC A/G RATIO (test code = 2234) 1.4 RATIO BILIRUBIN, TOTAL (test code = 2207) 0.4 MG/DL ALKALINE PHOSPHATASE (test code = 2204) 76 U/L AST (test code = 2218) 10 U/L ALT (test code = 2219) 12 U/L LIPID [id number] 00:00:00* Test Item Value Reference Range Interpretation Comme nts CHOLESTEROL (test code = 2210) 178 MG/DL TRIGLYCERIDES (test code = 2232) 939 MG/DL HDL CHOLESTEROL (test code = 2220) 21 MG/DL CALC LDL CHOL (test code = 2237) NOTE MG/DL RISK RATIO LDL/HDL (test cod e = 2238) (NOTE) RATIO LIPID [id number] 00:00:00* Test Item Value Reference Range Interpretation Comme nts CHOLESTEROL (test code = 2210) 178 MG/DL TRIGLYCERIDES (test code = 2232) 939 MG/DL HDL CHOLESTEROL (test code = 2220) 21 MG/DL CALC LDL CHOL (test code = 2237) NOTE MG/DL RISK RATIO LDL/HDL (test cod e = 2238) (NOTE) RATIO HEMOGLOBIN [id number] 00:00:00* Test Item Value Reference Range Interpretation Comme nts HEMOGLOBIN A1c (test code = 40569) 7.0 % HEMOGLOBIN [id number] 00:00:00* Test Item Value Reference Range Interpretation Comme nts HEMOGLOBIN A1c (test code = 48991) 7.0 % HEMOGLOBIN [id number] 00:00:00* Test Item Value Reference Range Interpretation Comme nts HEMOGLOBIN A1c (test code = 52266) 7.0 % MICROALBUMIN/CREATININE, RANDOM AND [id number] 00:00:00* Test Item Value Reference Range Interpretation Comme nts CREATININE, URINE, CONC. (te st code = 207) 92.4 MG/DL ALBUMIN, URINE, RANDOM (test code = 10447) 0.7 MG/DL CALC ALBUMIN/CREAT, RND (qiana t code = 28900) 8 MG/G MICROALBUMIN/CREATININE, RANDOM AND [id number] 00:00:00* Test Item Value Reference Range Interpretation Comme nts CREATININE, URINE, CONC. (te st code = 207) 92.4 MG/DL ALBUMIN, URINE, RANDOM (test code = 83112) 0.7 MG/DL CALC ALBUMIN/CREAT, RND (qiana t code = 51084) 8 MG/G HIV 1/2 4TH GEN, RFLX CONF [ADDED]2019-03-22 00:00:00* Test Item Value Reference Range Interpretation Comme nts HIV 1/2 4TH GEN, RFLX CONF ( test code = 3514) NON-REACTIVE HIV 1/2 4TH GEN, RFLX CONF [ADDED]2019-03-22 00:00:00* Test Item Value Reference Range Interpretation Comme nts HIV 1/2 4TH GEN, RFLX CONF ( test code = 3514) NON-REACTIVE RPR [ADDED]2019-03-22 00:00:00* Test Item Value Reference Range Interpretation Comme nts RPR RESULT (test code = 3501) NON-REACTIVE RPR TITER (test code = 3500) NOT INDIC. TITER RPR [ADDED]2019-03-22 00:00:00* Test Item Value Reference Range Interpretation Comme nts RPR RESULT (test code = 3501) NON-REACTIVE RPR TITER (test code = 3500) NOT INDIC. TITER RPR [ADDED]2019-03-22 00:00:00* Test Item Value Reference Range Interpretation Comme nts RPR RESULT (test code = 3501) NON-REACTIVE RPR TITER (test code = 3500) NOT INDIC. TITER CT/NG, TMA, URINE [ADDED]2019-03-22 00:00:00* Test Item Value Reference Range Interpretation Comme nts GONORRHEA, TMA (test code = 04706) NEGATIVE CHLAMYDIA, TMA (test code = 76504) NEGATIVE CT/NG, TMA, URINE [ADDED]2019-03-22 00:00:00* Test Item Value Reference Range Interpretation Comme nts GONORRHEA, TMA (test code = 52799) NEGATIVE CHLAMYDIA, TMA (test code = 12493) NEGATIVE COMPREHENSIVE METABOLIC [id number] 00:00:00* Test Item Value Reference Range Interpretation Comme nts GLUCOSE (test code = 2217) 238 MG/DL BUN (test code = 2208) 15 MG/DL CREATININE (test code = 2214) 0.71 MG/DL eGFR AMER. (test cod e = 17985) 123 ML/MIN/1.73 eGFR NON- AMER. (test code = 51845) 107 ML/MIN/1.73 CALC BUN/CREAT (test code = 2235) 21 RATIO SODIUM (test code = 2231) 139 MEQ/L POTASSIUM (test code = 2228) 4.0 MEQ/L CHLORIDE (test code = 2215) 104 MEQ/L CARBON DIOXIDE (test code = 2206) 24 MEQ/L CALCIUM (test code = 2209) 9.5 MG/DL PROTEIN, TOTAL (test code = 2229) 7.3 G/DL ALBUMIN (test code = 2201) 4.3 G/DL CALC GLOBULIN (test code = 2240) 3.0 G/DL CALC A/G RATIO (test code = 2234) 1.4 RATIO BILIRUBIN, TOTAL (test code = 2207) 0.4 MG/DL ALKALINE PHOSPHATASE (test code = 2204) 76 U/L AST (test code = 2218) 10 U/L ALT (test code = 2219) 12 U/L COMPREHENSIVE METABOLIC [id number] 00:00:00* Test Item Value Reference Range Interpretation Comme nts GLUCOSE (test code = 2217) 238 MG/DL BUN (test code = 2208) 15 MG/DL CREATININE (test code = 2214) 0.71 MG/DL eGFR AMER. (test cod e = 07205) 123 ML/MIN/1.73 eGFR NON- AMER. (test code = 31420) 107 ML/MIN/1.73 CALC BUN/CREAT (test code = 2235) 21 RATIO SODIUM (test code = 2231) 139 MEQ/L POTASSIUM (test code = 2228) 4.0 MEQ/L CHLORIDE (test code = 2215) 104 MEQ/L CARBON DIOXIDE (test code = 2206) 24 MEQ/L CALCIUM (test code = 2209) 9.5 MG/DL PROTEIN, TOTAL (test code = 2229) 7.3 G/DL ALBUMIN (test code = 2201) 4.3 G/DL CALC GLOBULIN (test code = 2240) 3.0 G/DL CALC A/G RATIO (test code = 2234) 1.4 RATIO BILIRUBIN, TOTAL (test code = 2207) 0.4 MG/DL ALKALINE PHOSPHATASE (test code = 2204) 76 U/L AST (test code = 2218) 10 U/L ALT (test code = 2219) 12 U/L LIPID [id number] 00:00:00* Test Item Value Reference Range Interpretation Comme nts CHOLESTEROL (test code = 2210) 178 MG/DL TRIGLYCERIDES (test code = 2232) 939 MG/DL HDL CHOLESTEROL (test code = 2220) 21 MG/DL CALC LDL CHOL (test code = 2237) NOTE MG/DL RISK RATIO LDL/HDL (test cod e = 2238) (NOTE) RATIO LIPID [id number] 00:00:00* Test Item Value Reference Range Interpretation Comme nts CHOLESTEROL (test code = 2210) 178 MG/DL TRIGLYCERIDES (test code = 2232) 939 MG/DL HDL CHOLESTEROL (test code = 2220) 21 MG/DL CALC LDL CHOL (test code = 2237) NOTE MG/DL RISK RATIO LDL/HDL (test cod e = 2238) (NOTE) RATIO HEMOGLOBIN [id number] 00:00:00* Test Item Value Reference Range Interpretation Comme nts HEMOGLOBIN A1c (test code = 50064) 7.0 %"
--- NOTE | 2023-06-29 19:57 | EDPHYS ---
Physician Documentation [facility] Name: Kaur Caruso Age: 42 yrs Sex: Female : 1980 Arrival Date: 06/29/2023 Time: 19:27 Bed IW1 Private MD: LENIN TSANG ED Physician Shayna Wall HPI: 06/29 20:00 This 42 yrs old Female presents to ER via Ambulatory with complaints of Boil, kb under lt arm. 20:00 Pt is a 42 year old female with multiple abscess under bilateral axillas with one under kb left axilla that is painful and draining. Denies fever. . Historical: - Allergies: 19:46 No Known Allergies; cm10 - PMHx: 19:46 Anxiety; depressive disorder; Diabetes - NIDDM; High Cholesterol; Hypertension; cm10 - PSHx: 19:46 Diabetic Foot Surgery; cm10 - Immunization history:: Adult Immunizations up to date. - Social history:: Smoking status: Patient denies any tobacco usage or history of. ROS: 19:59 Constitutional: Negative for fever, chills, and weight loss, kb 19:59 Skin: Positive for abscess, of the right axilla and left axilla, 19:59 All other systems are negative, Exam: 19:59 Constitutional: This is a well developed, well nourished patient who is awake, alert, kb and in no acute distress. Head/Face: Normocephalic, atraumatic. ENT: Moist Mucous membranes Cardiovascular: Regular rate Respiratory: Respirations even and unlabored. No increased work of breathing. Talking in full sentences MS/ Extremity: Pulses equal, no cyanosis. Neurovascular intact. Full, normal range of motion. Neuro: Awake and alert, GCS 15, oriented to person, place, time, and situation. Moves all extremities. Normal gait. 19:59 Skin: abscess, multiple small abscesses to right axilla, few small abscesses to left axilla with one that is fluctuant and draining. Was able to express moderate amount of purulent fluid., Vital Signs: 19:46 BP 128 / 108; Pulse 121; Resp 18; Temp 98.7; Pulse Ox 98% on R/A; Weight 59.87 kg; cm10 Height 5 ft. 4 in. ; Pain 10/10; 19:46 Body Mass Index 22.66 (59.87 kg, 162.56 cm) cm10 19:46 Pain Scale: Adult cm10 MDM: 19:34 Patient medically screened. kb 20:00 Data reviewed: vital signs, nurses notes. kb 20:00 Differential diagnosis: abscess, allergic reaction, cellulitis, insect bite. kb Counseling: I had a detailed discussion with the patient and/or guardian regarding the historical points, exam findings, and any diagnostic results supporting the discharge/admit diagnosis, the need for outpatient follow up, a general surgeon, to return to the emergency department if symptoms worsen or persist or if there are any questions or concerns that arise at home. Administered Medications: 19:55 Drug: [place] PO 10 mg-325 mg 1 tabs PO once Route: PO; cm10 20:37 Follow up: Response: No adverse reaction as6 19:55 Drug: Trimethoprim-Sulfamethoxazole PO (160 mg-800 mg (DS) 1 tablet PO once Route: PO; cm10 20:37 Follow up: Response: No adverse reaction as6 19:55 Drug: Ondansetron Oral Disintegrating Tablet Oral Disintegrating Tablet 4 mg PO once cm10 Route: PO; 20:37 Follow up: Response: No adverse reaction as6 Disposition Summary: 06/29/23 19:57 Discharge Ordered Notes: Location: Home kb Condition: Stable kb Diagnosis - Cutaneous abscess of right axilla kb - Cutaneous abscess of left axilla kb Followup: kb - With: Emergency Department - When: As needed - Reason: Worsening of condition Followup: kb - With: Private Physician - When: 2 - 3 days - Reason: Recheck today's complaints, Continuance of care, Re-evaluation by your physician Discharge Instructions: - Discharge Summary Sheet kb - Skin Abscess, [id number] kb Forms: - Medication Reconciliation Form kb - Thank You Letter kb - Antibiotic Education kb - Prescription Opioid Use kb - Patient Portal Instructions kb - Leadership Thank You Letter kb Prescriptions: - Bactrim DS 800-160 mg Oral Tablet - take 1 tablet ORAL route every 12 hours for 10 days; 20 tablet; Refills: 0, kb Product Selection Permitted Signatures: Precious Martinez FNP-C FNP-Ckb Martinez, Clarissa, RN RN cm10 Don Kee RN as6
--- NOTE | 2023-06-29 19:57 | ER ---
Nurse's Notes [facility] Name: Kaur Caruso Age: 42 yrs Sex: Female : 1980 Arrival Date: 06/29/2023 Time: 19:27 Bed IW1 Private MD: LENIN TSANG Diagnosis: Cutaneous abscess of right axilla;Cutaneous abscess of left axilla Presentation: 06/29 19:46 Chief complaint: Patient states: multiple boils under bilateral arms. Pt has one under cm10 left under arm that is currently draining. Coronavirus screen: Vaccine status: Patient reports being unvaccinated. Client denies travel out of the [place] in the last 14 days. Ebola Screen: Patient denies travel to an Ebola-affected area in the 21 days before illness onset. No symptoms or risks identified at this time. Initial Sepsis Screen: Does the patient meet any 2 criteria? No. Patient's initial sepsis screen is negative. Does the patient have a suspected source of infection? No. Patient's initial sepsis screen is negative. Risk Assessment: Do you want to hurt yourself or someone else? Patient reports no desire to harm self or others. Onset of symptoms was June 29, 2023. 19:46 Method Of Arrival: Ambulatory cm10 19:46 Acuity: DESTINY 4 cm10 Triage Assessment: 19:56 General: Appears in no apparent distress. uncomfortable, Behavior is cooperative, cm10 crying. Pain: Complains of pain in right axilla and left axilla. EENT: No deficits noted. No signs and/or symptoms were reported regarding the EENT system. Neuro: No deficits noted. Level of Consciousness is awake, alert, obeys commands, Oriented to person, place, time, situation. Cardiovascular: No deficits noted. Denies chest pain, lightheadedness, shortness of breath, Patient's skin is warm and dry. Respiratory: No deficits noted. Airway is patent Respiratory effort is even, unlabored, Respiratory pattern is regular, symmetrical. GI: No deficits noted. No signs and/or symptoms were reported involving the gastrointestinal system. : No deficits noted. No signs and/or symptoms were reported regarding the genitourinary system. Derm: Skin is intact, Skin is pink, warm \T\ dry. Abscess located on right axilla and left axilla. Musculoskeletal: No deficits noted. Range of motion: intact in all extremities. Historical: - Allergies: 19:46 No Known Allergies; cm10 - PMHx: 19:46 Anxiety; depressive disorder; Diabetes - NIDDM; High Cholesterol; Hypertension; cm10 - PSHx: 19:46 Diabetic Foot Surgery; cm10 - Immunization history:: Adult Immunizations up to date. - Social history:: Smoking status: Patient denies any tobacco usage or history of. Screenin:57 [facility] ED Fall Risk Assessment (Adult) History of falling in the last 3 months, cm10 including since admission No falls in past 3 months (0 pts) Confusion or Disorientation No (0 pts) Intoxicated or Sedated No (0 pts) Impaired Gait No (0 pts) Mobility Assist Device Used No (0 pt) Altered Elimination No (0 pt) Score/Fall Risk Level 0 - 2 = Low Risk Oriented to surroundings, Maintained a safe environment, Hourly rounding (assess needs \T\ fall precautionary measures) done. Abuse screen: Denies threats or abuse. Denies injuries from another. Nutritional screening: No deficits noted. Tuberculosis screening: No symptoms or risk factors identified. Vital Signs: 19:46 BP 128 / 108; Pulse 121; Resp 18; Temp 98.7; Pulse Ox 98% on R/A; Weight 59.87 kg; cm10 Height 5 ft. 4 in. ; Pain 10/10; 19:46 Body Mass Index 22.66 (59.87 kg, 162.56 cm) cm10 19:46 Pain Scale: Adult cm10 ED Course: 19:32 Patient arrived in ED. es 19:34 Precious Martinez FNP-C [facility]. kb 19:34 Shayna Wall MD is Attending Physician. kb 19:34 LENIN TSANG is Private Physician. es 19:47 Triage completed. cm10 19:47 Arm band placed on Patient placed in waiting room. cm10 19:57 Patient has correct armband on for positive identification. Provided Education on: ER cm10 process and procedures. . 20:37 No provider procedures requiring assistance completed. Patient did not have IV access as6 during this emergency room visit. Administered Medications: 19:55 Drug: [place] PO 10 mg-325 mg 1 tabs PO once Route: PO; cm10 20:37 Follow up: Response: No adverse reaction as6 19:55 Drug: Trimethoprim-Sulfamethoxazole PO (160 mg-800 mg (DS) 1 tablet PO once Route: PO; cm10 20:37 Follow up: Response: No adverse reaction as6 19:55 Drug: Ondansetron Oral Disintegrating Tablet Oral Disintegrating Tablet 4 mg PO once cm10 Route: PO; 20:37 Follow up: Response: No adverse reaction as6 Medication: 19:58 VIS not applicable for this client. cm10 Outcome: 19:57 Discharge ordered by MD. loera 20:37 Discharged to home ambulatory, with family, as6 20:37 Condition: stable 20:37 Discharge instructions given to patient, Instructed on discharge instructions, follow up and referral plans. medication usage, Demonstrated understanding of instructions, follow-up care, medications, Prescriptions given X 1, 20:37 Patient left the ED. as6 Signatures: Precious Martinez, WIND DEVELOPMENT DIRECTOR-C HIMANSHU-Gracy Law Ashby, RN RN as6 Heidy Vargas RN RN cm10
[2023-06-30 00:39] VITALS: BP 128/108; TEMP 98.7; O2SAT 98
== END ==
LOC: ER 19:27
DX: L02.412 Cutaneous abscess of left axilla (principal); L02.411 Cutaneous abscess of right axilla
CPT/HCPCS: 99283; Q0162

== ENCOUNTER → 2023-06-30 | Emergency (ER) | payer OTHER ==
[~2023-06-30] MED LIST changes: +BUPIVACAINE 0.5% PF 10 ML VIAL ONE; +CLINDAMYCIN 900MG/D5W 900 MG/50 ML IVPB IV ONE; -HYDROCODONE/APAP 10/325 TAB ONE; +INSULIN REGULAR (HUMAN) 100 UNIT/ML ONE; +LIDOCAINE 1% 20 ML MDV ONE; +MORPHINE 4 MG/ML SYR ONE; +NA CHLORIDE 0.9% 1,000 ML ONE; -ONDANSETRON 4 MG (ODT) TAB ONE; +ONDANSETRON 4 MG/2 ML VIAL ONE
--- OUTSIDE RECORDS SUMMARY | 2023-06-30 12:22 | XMS REPORT | Continuity of Care Document ---
Author Name Unknown Address [address] [facility] [place] [address] [facility] thconnect Address [address] [facility] [place] [address] Care Team Providers Care Criminal Investigator Customs Name Role Phone PCP, PATIENT DOES NOT HAVE A Primary Care Physic MINNIE Courtney Attending Clinician Unavail Minnie Omer MD Attending Clinician Doctor Unassigned, [place] Attending Clinician U MINNIE Littlejohn Admitting [...] of insulin Disease Active 11-24 00:00: 00 [facility] History of abnormal cervical Pap smear History of abnormal cervical Pap smear Disease Active 11-24 00:00: 00 [facility] Diabetic foot infection Diabetic foot infection Disease Active 10-19 00:00: 00 [facility] Allergies, Adverse Reactions, Alerts Allergy Name Allergy Type Status Severity Reaction(s) Onset Date Inactive Date Treating Clinician Comments Source NO KNOWN ALLERGIE S Drug Class Active [facility] Social History Social Habit Start Date Stop Date Quantity Comments Source Alcohol intake 2022-11-19 00:00:00 2022-11-19 00:00:00 Current drinker of alcohol (finding) [facility] Tobacco use and exposure 2018-11-24 00:00:00 2018-11-24 00:00:00 Never used [facility] Alcohol Comment 2018-11-24 00:00:00 2018-11-24 00:00:00 occasional [facility] Sex Assigned At 1980 00:00:00 1980 00:00:00 [facility] Smoking Status Start Date Stop Date Source Never smoked tobacco [facility] Medications Ordered Medication Name Filled Medication Name Start Date Stop Date Current Medication? Ordering Clinician Indication Dosage Frequency Signature (SIG) Comments Components Source iopamidol (ISOVUE 370-500 mL) injection 70 mL 11-19 16:30: 00 11-19 16:30 :00 No [id number] 70mL 70 mL, Intravenou s, ONCE, 1 dose, On Tue11/19/22 at 1130, Routine [facility] morpHINE (4 mg/mL) injection 4 mg 11-19 15:15: 00 11-19 15:39 :00 No 4mg 4 mg, Slow IV Push, ONCE, 1 dose, On Tue11/19/22 at 1015, STAT [facility] FENTanyl PF (SUBLIMAZE (PF)) injection 50 mcg 11-19 15:15: 00 11-19 14:28 :00 No 50ug 50 mcg, Slow IV Push, ONCE, 1 dose, On Tue11/19/22 at 1015, Routine [facility] ondansetron (ZOFRAN (PF)) injection 4 mg 11-19 13:00: 00 11-19 12:57 :00 No 4mg 4 mg, Slow IV Push, ONCE, 1 dose, On Tue11/19/22 at 0800, MARIA LUZ [facility] insulin regular human (HUMULIN R) injection 6.12 Units 11-19 13:00: 00 11-19 16:09 :00 No .1U/kg 6.12 Units (0.1 Units/kg ?61.2 kg), Slow IV Push, ONCE, 1 dose, On Tue11/19/22 at 0800, STAT
In dication for insulin: Hyperglyce rico [facility] NaCl 0.9% (NS) bolus infusion 1,836 mL 11-19 13:00: 11-19 16:00 :00 No 30mL/kg at 999 mL/hr, 1,836 mL (30 mL/kg ?61.2 kg), IV Infusion, ONCE, 1 dose, On Tue11/19/22 at 0800, STAT [facility] maalox:diph enhydrAMINE :lidocaine 2 % viscous 1:1:1 (FIRST-MOUT HWASH BLM) oral suspension 15 mL 11-19 13:00: 11-19 12:59 :00 No 15mL 15 mL, Oral, ONCE, 1 dose, On Tue11/19/22 at 0800, Routine [facility] ondansetron 4 mg disintegrat ing tablet 11-19 00:00: 00 Yes [id number] 4mg Take 1 tablet by mouth every 8 (eight) hours as needed for Nausea and Vomiting (N/V) for up to 10 doses. [facility] traMADoL (ULTRAM) 50 mg tablet 11-19 00:00: 00 Yes [id number] 50mg Take 1 tablet by mouth every 8 (eight) hours as needed for Pain (scale 4-6) for up to 15 doses. Indication s: acute pain [facility] lisinopriL 20 mg tablet 11-19 00:00: 00 12-20 04:59 :00 No [id number] 20mg Take 1 tablet by mouth in the morning for 30 days. [facility] insulin detemir U-100 (LEVEMIR U-100 INSULIN) 100 unit/mL injection 11-19 00:00: 00 12-20 04:59 :00 No [id number] 20U inject 20 Units under the skin at bedtime for 30 days. [facility] simvastatin 20 mg tablet 11-19 00:00: 00 12-20 04:59 :00 No [id number] 20mg Take 1 tablet by mouth at bedtime for 30 days. [facility] famotidine (PEPCID) 20 mg tablet 11-19 00:00: 00 12-05 04:59 :00 No [id number] 20mg Take 1 tablet by mouth in the morning and 1 tablet in the evening. Do all this for 30 doses. [facility] cephALEXin (KEFLEX) 500 mg capsule 11-19 00:00: 00 11-30 04:59 :00 No [id number] 500mg Take 1 capsule by mouth 4 (four) times daily for 10 days. [facility] INJECT 1 ML INTRAMUSCUL CHRISTIAN ONCE EVERY 3 MONTHS. 12-10 00:00: 00 No Depo-Hull Drafter a 150 mg/mL intramuscul ar syringe 0 [...] 1mg No known medications No Un jatinder [facility] Vital Signs Vital Name Observation Time Observation Value Comments S ource Systolic blood pressure 2022-11-19 18:00:00 115 mm[Hg] [facility] Diastolic blood pressure 2022-11-19 18:00:00 82 mm[Hg] [facility] Heart rate 2022-11-19 18:00:00 82 /min [facility] Body temperature 2022-11-19 18:00:00 36.89 Maryanne [facility] Respiratory rate 2022-11-19 18:00:00 16 /min [facility] Oxygen saturation in Arterial blood by Pulse oximetry 2022-11-19 18:00:00 95 /min [place] [facility] Body height 2022-11-19 12:14:00 157.5 cm [facility] Body weight 2022-11-19 12:14:00 61.236 kg [facility] BMI 2022-11-19 12:14:00 24.69 kg/m2 [facility] BP Systolic 2022-03-10 16:36:00 136 mm[Hg] [...] Source EKG-12 LEAD 2022-11-19 18:12:08 Minnie Ledezma [facility] URINALYSIS 2022-11-19 16:58:00 Minnie Ledezma [facility] CT ABDOMEN PELVIS W CONTRAST 2022-11-19 15:41:15 Minnie Ledezma [facility] POCT GLUCOSE (AUTOMATED) 2022-11-19 15:39:00 Minnie Ledezma [facility] POCT GLUCOSE (AUTOMATED) 2022-11-19 14:31:00 Minnie Ledezma [facility] XR ABDOMEN ACUTE SERIES 2022-11-19 13:45:23 Minnie Ledezma [facility] US GALL BLADDER 2022-11-19 13:10:56 Minnie Ledezma as [facility] POCT GLUCOSE (AUTOMATED) 2022-11-19 12:33:00 Doctor Unassigned, [place] [facility] LIPASE 2022-11-19 12:28:00 Minnie Ledezma [facility] TEST, SERUM 2022-11-19 12:28:00 Prince Ledezma [facility] TROPONIN I 2022-11-19 12:28:00 Minnie Ledezma [facility] COMP. METABOLIC PANEL ([id number]) 2022-11-19 12:28:00 Minnie Ledezma [facility] CBC WITH DIFF 2022-11-19 12:28:00 Minnie Ledezma [facility] CONSENT/REFUSAL FOR DIAGNOSIS AND TREATMENT 2022-11-19 12:07:05 Doctor Unassigned, [place] [facility] REFERRAL- REQUEST/RESPONSE 2020-11-07 05:01:00 Doctor Unassigned, [place] [facility] Plan of Care Planned Activity Planned Date Details Comments Source Goal Plan of Care Note [code = 64524-4] Goal Plan of Care Note [code = 47011-0] Goal Plan of Care Note [code = 06793-6] Goal Plan of Care Note [code = 14758-8] Goal Plan of Care Note [code = 03438-8] Goal Plan of Care Note [code = 79960-1] Goal Plan of Care Note [code = 30727-2] Goal Plan of Care Note [code = 14890-0] Goal Plan of Care Note [code = 99370-3] Goal Plan of Care Note [code = 57557-0] Goal Plan of Care Note [code = 65731-5] Goal Plan of Care Note [code = 78160-7] Goal Plan of Care Note [code = 28232-5] Goal Plan of Care Note [code = 81738-8] Goal Plan of Care Note [code = 35963-6] Goal Plan of Care Note [code = 58159-7] Goal Plan of Care Note [code = 17995-3] Goal Plan of Care Note [code = 50868-7] Goal Plan of Care Note [code = 66871-9] Goal Plan of Care Note [code = 00755-1] Goal Plan of Care Note [code = 47604-8] Goal Plan of Care Note [code = 43544-8] Goal Plan of Care Note [code = 55875-4] Goal Plan of Care Note [code = 17972-1] Goal Plan of Care Note [code = 61392-5] Goal Plan of Care Note [code = 74552-2] Goal Plan of Care Note [code = 98286-1] Goal Plan of Care Note [code = 95971-9] Goal Plan of Care Note [code = 80547-9] Goal Plan of Care Note [code = 51777-8] Goal Plan of Care Note [code = 99041-1] Goal Plan of Care Note [code = 80324-9] Goal Plan of Care Note [code = 37856-5] Goal Plan of Care Note [code = 57951-1] Goal Plan of Care Note [code = 70548-5] Goal Plan of Care Note [code = 81843-4] Goal Plan of Care Note [code = 36797-0] Goal Plan of Care Note [code = 58279-9] Encounters Start Date/Time End Date/Time Encounter Type Admission Type Attending Clinicians Care Facility Care Department Encounter ID Source 2023-06-23 13:07:37 2023-06-23 13:07:37 Outpatient [facility] [id number] Garry Lyons 2023-04-26 14:22:39 2023-04-26 14:22:39 Outpatient [facility] [id number] Garry Lyons 2023-04-12 13:25:48 2023-04-12 13:25:48 Outpatient [facility] [id number] Garry Lyons 2023-03-31 11:49:53 2023-03-31 11:49:53 Outpatient [facility] [...] 07:15:00 2022-11-19 13:21:00 Emergency X MINNIE LEDEZMA RUST ERT [id number] [facility] 2022-11-19 07:15:00 2022-11-19 13:21:[address] [facility] [id number] [id number] [facility] 2022-09-10 16:03:05 2022-09-10 16:03:05 Outpatient [facility] [id number] Garry Lyons 2022-08-30 14:47:20 2022-08-30 14:47:20 Outpatient [facility] [id number] Garry Lyons 2022-05-31 15:30:31 2022-05-31 15:30:31 Outpatient [facility] [id number] Garry Lyons 2022-03-10 00:00:00 2022-03-10 00:00:00 Outpatient Visit [id number] 2022-03-08 00:00:00 2022-03-08 00:00:00 Outpatient Visit [id number] 2020-11-07 00:00:00 2020-11-07 00:00:00 Orders Only Doctor Unassigned, [place] [facility] [id number] [id number] 2020-11-07 00:00:00 2020-11-07 00:00:00 Orders Only Doctor Unassigned, [place] [facility] 1.2.840.114 [id number] [id number] [id number] [facility] Results Test Description Test Time Test Comments Results Result Co mments Source ALBUMIN/CREATININE RATIO, URINE, [id number] 04:52:24* Test Item Value Reference Range Interpretation Comme nts CREATININE, URINE, CONC. (test code = 2072) 97.5 MG/DL NOT ESTAB ALBUMIN, URINE, RANDOM (test code = 46955) 14.1 MG/DL NOT ESTAB CALC ALBUMIN/CREAT, RND (test code = 49677) 145 MG/G <30 H Note: Albumin/Cr eatinine ratio reference interval reflects ADA and NKF guidelines. UNLESS OTHERWISE INDICATED, ALL TESTING PERFORMED AT [facility] [address] [place] [address] [employer] LAPEL PADDER: MADELINE MAY M.D. CLIA NUMBER [id number] [facility] [place]. [id number] LIPID [id number] 03:51:44* Test Item Value Reference Range Interpretation Comme nts CHOLESTEROL (test code = 2210) 252 MG/DL <200 H TRIGLYCERIDES (test code = 2232) 1095 MG/DL <150 H SPECIMEN LI [facility] RES[facility] RECHECKED AND VERIFIED HDL CHOLESTEROL (test [...] SPECIMENS. FOR MOREINFORMATION, SEE CLIENT ANNOUNCEMENT AT [email or web address] CalcLDL-C RISK RATIO LDL/HDL (test code = 2238) (NOTE) RATIO <3.22 UNABLE TO NIKKI CULATE COMPREHENSIVE METABOLIC [id number] 03:51:44* Test Item Value Reference Range Interpretation Comme nts GLUCOSE (test code = 2217) 352 MG/DL 70-99 H BUN (test code = 2208) 14 MG/DL 6-20 CREATININE (test code = 2214) 0.58 MG/DL 0.60-1.30 L eGFR (2020 CKD-EPI) (test code = 29232) 114 ML/MIN/1.73 >60 CALC BUN/CREAT (test code [...] code = 2219) 13 U/L 5-40 HEMOGLOBIN [id number] 02:49:24* Test Item Value Reference Range Interpretation Comme [facility] HEMOGLOBIN A1c (test code = 70970) 9.7 % 4.2-5.6 H [employer] GUIDELINES FOR HGB A1C: [...] Test Item Value Reference Range Interpretation Comme [facility] POCT GLU (test code = 7778288294) 258 mg/dL 70-110 H Lab Interpretation (test cod e = 13352-4) Abnormal [facility] [id number] 14:42:07* Test Item Value Reference Range Interpretation Comme [facility] TROPONIN I (test code = 2633441362) <=0.034 JOSEFINA (test code = JOSEFINA) Reference [...] of biotin. Lab Interpretation (test code = 10712-3) Normal [facility]2022-11-19 14:33:33* Test Item Value Reference Range Interpretation Comme nts POCT GLU (test code = 4821703823) 264 mg/dL 70-110 H Lab Interpretation (test cod e = 03601-2) Abnormal [facility], [id number] 13:15:04* Test Item Value Reference Range Interpretation Comme nts PREG SERUM (test code = 0610690503) Negative JOSEFINA (test code = JOSEFINA) Less than 10 IU/L. ?If low titer or ectopic is suspected, resubmit specimen in 48-72 hours. [facility] Metabolic Panel ([id number])2022-11-19 13:06:14* Test Item Value Reference Range Interpretation Comme nts NA (test code = 2389334254) 133 mmol/L 135-145 L K (test code = 5316032088) 3.8 mmol/L 3.5-5.0 CL (test code = 2571092521) 101 mmol/L 98-108 CO2 TOTAL (test code = 6818955266) 22 mmol/L 23-31 L AGAP (test code = 7204691847) 10 2-16 BUN (test code = 2342063531) 10 mg/dL 7-23 GLUCOSE (test code = 8867524736) 303 mg/dL 70-110 H CREATININE (test code = 3719711364) 0.43 mg/dL 0.50-1.04 L TOTAL BILI (test code = 9527254215) 0.8 mg/dL 0.1-1.1 CALCIUM (test code = 1111349011) 8.4 mg/dL 8.6-10.6 L T PROTEIN (test code = 7839618816) 7.4 g/dL 6.3-8.2 ALBUMIN (test code = 7036372501) 4.0 g/dL 3.5-5.0 ALK PHOS (test code = 5388539383) 91 U/L 34-122 ALTv (test code = 1742-6) 24 U/L 5-35 AST(SGOT) (test code = 3781326078) 24 U/L 13-40 eGFR (test code = 7477573319) 159.5 mL/min/1.73m2 JOSEFINA (test code = JOSEFINA) [...] imaging tests). Lab Interpretation (test code = 81789-3) Abnormal [facility] [id number] 13:05:54* Test Item Value Reference Range Interpretation Comme nts LIPASE (test code = 8919427008) 94 U/L 0-220 Lab Interpretation (test cod e = 26617-3) Normal [facility] with [id number] 13:04:52* Test Item Value Reference Range Interpretation Comme nts WBC (test code = 6690-2) 6.22 See_Comment [Automated Programmr] The system which generated this result transmitted [...] g/dL 31.6-35.1 H RDW-SD (test code = 86189-6) 37.6 fL 39.0-49.9 L RDW-CV (test code = 788-0) 13.3 % 12.0-15.5 PLT (test code = 777-3) 181 See_Comment [Automated [employer]] The system which generated this result transmitted reference range: 166 - 358 10*3/?L. The reference range was not used to interpret this result as normal/abnormal. MPV (test code = 92627-2) 12.0 fL 9.5-12.9 NRBC/100 WBC (test code = 1977708664) 0.0 See_Comment [Automated [employer] ssage] The system which generated this result transmitted reference range: 0.0 - 10.0 /100 WBCs. The reference range was not used to interpret this result as normal/abnormal. NRBC x10^3 (test code = 5177516257) See_Comment [Automated [employer]] The system which generated this result transmitted reference range: 10*3/?L. The reference range was not used to interpret this result as normal/abnormal. GRAN MAT (NEUT) % (test code = 770-8) 62.1 % IMM GRAN % (test code = 4378739246) 0.80 % LYMPH % (test code = 736-9) 29.6 % MONO % (test code = 5905-5) 4.7 % EOS % (test code = 713-8) 2.3 % BASO % (test code = 706-2) 0.5 % GRAN MAT x10^3(ANC) (test code = 1797559966) 3.87 10*3/uL 1.88-7.09 IMM GRAN x10^3 (test code = 5331444239) 0.05 10*3/uL 0.00-0.06 LYMPH x10^3 (test code = 731-0) 1.84 10*3/uL 1.32-3.29 MONO x10^3 (test code = 742-7) 0.29 10*3/uL 0.33-0.92 L EOS x10^3 (test code = 711-2) 0.14 10*3/uL 0.03-0.39 BASO x10^3 (test code = 704-7) 0.03 10*3/uL 0.01-0.07 Lab Interpretation (test code = 26369-4) Abnormal [facility]2022-11-19 12:35:03* Test Item Value Reference Range Interpretation Comme nts POCT GLU (test code = 1749454614) 305 mg/dL 70-110 H Lab Interpretation (test cod e = 44688-8) Abnormal [facility]ALBUM[facility]/CREATININE RATIO, URINE, RANDOM 2022-03-09 04:55:11* Test Item Value Reference Range Interpretation Comme nts CREATININE, URINE, CONC. (test code = 2072) 135.5 MG/DL NOT ESTAB ALBUMIN, URINE, RANDOM (test code = 46747) 3.2 MG/DL NOT ESTAB CALC ALBUMIN/CREAT, RND (test code = 20583) 24 MG/G <30 Note: Albumin/Cr eatinine ratio reference interval reflects ADA and NKF guidelines. UNLESS OTHERWISE INDICATED, ALL TESTING PERFORMED [facility] [address] [place] [address] [employer] LAP[employer] PADDER: SIRISHA SERRATO M.D. CLIA NUMBER [id number] [place]. [id number] LIPID [id number] 03:42:46* Test Item Value Reference Range Interpretation [...] SPECIMENS. FOR MOREINFORMATION, SEE CLIENT ANNOUNCEMENT AT [email or web address] CalcLDL-C RISK RATIO LDL/HDL (test code = 2238) (NOTE) RATIO <3.22 UNABLE TO NIKKI CULATE COMPREHENSIVE METABOLIC [id number] 03:42:46* Test Item Value Reference Range Interpretation Comme nts GLUCOSE (test code = 2217) 315 MG/DL 70-99 H BUN (test code = 2208) 11 MG/DL 6-20 CREATININE (test code = 2214) 0.61 MG/DL 0.60-1.30 eGFR (2020 CKD-EPI) (test code = 95449) 114 ML/MIN/1.73 >60 CALC BUN/CREAT (test code [...] code = 2219) 7 U/L 5-40 HEMOGLOBIN [id number] 02:41:50* Test Item Value Reference Range Interpretation Comme nts HEMOGLOBIN A1c (test code = 73569) 9.2 % 4.2-5.6 H [employer] GUIDELINES FOR HGB A1C: [...] ALTERNATE TESTING OR LABORATORY CONSULTATION. COMPREHENSIVE METABOLIC [id number] 00:00:00* Test Item Value Reference Range Interpretation Comme nts GLUCOSE (test code = 7) 315 MG/DL BUN (test code = 2208) 11 MG/DL CREATININE (test code = 2214) 0.61 MG/DL eGFR (2020 CKD-EPI) (test code = 28859) 114 ML/MIN/1.73 CALC BUN/CREAT (test code = [...] = 2219) 7 U/L ALBUMIN/CREATININE RATIO, RANDOM [id number] 00:00:00* Test Item Value Reference Range Interpretation Comme nts CREATININE, URINE, CONC. (te st code = 2071) 135.5 MG/DL ALBUMIN, URINE, RANDOM (test code = 79899) 3.2 MG/DL CALC ALBUMIN/CREAT, RND (qiana t code = 23710) 24 MG/G ALBUMIN/CREATININE RATIO, RANDOM [id number] 00:00:00* Test Item Value Reference Range Interpretation Comme nts CREATININE, URINE, CONC. (te st code = 2071) 135.5 MG/DL ALBUMIN, URINE, RANDOM (test code = 64665) 3.2 MG/DL CALC ALBUMIN/CREAT, RND (qiana t code = 69819) 24 MG/G HEMOGLOBIN [id number] 00:00:00* Test Item Value Reference Range Interpretation Comme nts HEMOGLOBIN A1c (test code = 98151) 9.2 % HEMOGLOBIN [id number] 00:00:00* Test Item Value Reference Range Interpretation Comme nts HEMOGLOBIN A1c (test code = 40206) 9.2 % HEMOGLOBIN [id number] 00:00:00* Test Item Value Reference Range Interpretation Comme nts HEMOGLOBIN A1c (test code = 46980) 9.2 % LIPID [id number] 00:00:00* Test Item Value Reference Range Interpretation Comme nts CHOLESTEROL (test code = 2210) 243 MG/DL TRIGLYCERIDES (test code = 2232) 788 MG/DL HDL CHOLESTEROL (test code = 2220) 22 MG/DL CALC LDL CHOL (test code = 2237) (NOTE) MG/DL RISK RATIO LDL/HDL (test cod e = 2238) (NOTE) RATIO LIPID [id number] 00:00:00* Test Item Value Reference Range Interpretation Comme nts CHOLESTEROL (test code = 2210) 243 MG/DL TRIGLYCERIDES (test code = 2232) 788 MG/DL HDL CHOLESTEROL (test code = 2220) 22 MG/DL CALC LDL CHOL (test code = 2237) (NOTE) MG/DL RISK RATIO LDL/HDL (test cod e = 2238) (NOTE) RATIO COMPREHENSIVE METABOLIC [id number] 00:00:00* Test Item Value Reference Range Interpretation Comme nts GLUCOSE (test code = 2217) 315 MG/DL BUN (test code = 2208) 11 MG/DL CREATININE (test code = 2214) 0.61 MG/DL eGFR (2020 CKD-EPI) (test code = 70625) 114 ML/MIN/1.73 CALC BUN/CREAT (test code = [...] code = 2219) 7 U/L COMPREHENSIVE METABOLIC [id number] 00:00:00* Test Item Value Reference Range Interpretation Comme nts GLUCOSE (test code = 2217) 315 MG/DL BUN (test code = 2208) 11 MG/DL CREATININE (test code = 2214) 0.61 MG/DL eGFR (2020 CKD-EPI) (test code = 17288) 114 ML/MIN/1.73 CALC BUN/CREAT (test code = [...] = 2219) 7 U/L ALBUMIN/CREATININE RATIO, RANDOM [id number] 00:00:00* Test Item Value Reference Range Interpretation Comme nts CREATININE, URINE, CONC. (te st code = 2071) 135.5 MG/DL ALBUMIN, URINE, RANDOM (test code = 56813) 3.2 MG/DL CALC ALBUMIN/CREAT, RND (qiana t code = 75127) 24 MG/G ALBUMIN/CREATININE RATIO, RANDOM [id number] 00:00:00* Test Item Value Reference Range Interpretation Comme nts CREATININE, URINE, CONC. (te st code = 2071) 135.5 MG/DL ALBUMIN, URINE, RANDOM (test code = 31051) 3.2 MG/DL CALC ALBUMIN/CREAT, RND (qiana t code = 26099) 24 MG/G HEMOGLOBIN [id number] 00:00:00* Test Item Value Reference Range Interpretation Comme nts HEMOGLOBIN A1c (test code = 58663) 9.2 % HEMOGLOBIN [id number] 00:00:00* Test Item Value Reference Range Interpretation Comme nts HEMOGLOBIN A1c (test code = 29520) 9.2 % HEMOGLOBIN [id number] 00:00:00* Test Item Value Reference Range Interpretation Comme nts HEMOGLOBIN A1c (test code = 46655) 9.2 % LIPID [id number] 00:00:00* Test Item Value Reference Range Interpretation Comme nts CHOLESTEROL (test code = 2210) 243 MG/DL TRIGLYCERIDES (test code = 2232) 788 MG/DL HDL CHOLESTEROL (test code = 2220) 22 MG/DL CALC LDL CHOL (test code = 2237) (NOTE) MG/DL RISK RATIO LDL/HDL (test cod e = 2238) (NOTE) RATIO LIPID [id number] 00:00:00* Test Item Value Reference Range Interpretation Comme nts CHOLESTEROL (test code = 2210) 243 MG/DL TRIGLYCERIDES (test code = 2232) 788 MG/DL HDL CHOLESTEROL (test code = 2220) 22 MG/DL CALC LDL CHOL (test code = 2237) (NOTE) MG/DL RISK RATIO LDL/HDL (test cod e = 2238) (NOTE) RATIO COMPREHENSIVE METABOLIC [id number] 00:00:00* Test Item Value Reference Range Interpretation Comme nts GLUCOSE (test code = 2217) 315 MG/DL BUN (test code = 2208) 11 MG/DL CREATININE (test code = 2214) 0.61 MG/DL eGFR (2020 CKD-EPI) (test code = 18536) 114 ML/MIN/1.73 CALC BUN/CREAT (test code = [...] (test code = 2219) 7 U/L VITAMIN [id number] 00:00:00* Test Item Value Reference Range Interpretation Comme nts VITAMIN B-12 (test code = 2840) 444 PG/ML VITAMIN [id number] 00:00:00* Test Item Value Reference Range Interpretation Comme nts VITAMIN B-12 (test code = 2840) 444 PG/ML VITAMIN [id number] 00:00:00* Test Item Value Reference Range Interpretation Comme nts VITAMIN B-12 (test code = 2840) 444 PG/ML [id number] 00:00:00* Test Item Value Reference Range Interpretation Comme nts TSH, THIRD GENERATION (test code = 2821) 0.552 UIU/ML [id number] 00:00:00* Test Item Value Reference Range Interpretation Comme nts TSH, THIRD GENERATION (test code = 2821) 0.552 UIU/ML [id number] 00:00:00* Test Item Value Reference Range Interpretation Comme nts TSH, THIRD GENERATION (test code = 2821) 0.552 UIU/ML VITAMIN D, 25 [id number] 00:00:00* Test Item Value Reference Range Interpretation Comme nts VITAMIN D, 25 OH (test code = 4958) 19 NG/ML VITAMIN D, 25 [id number] 00:00:00* Test Item Value Reference Range Interpretation Comme nts VITAMIN D, 25 OH (test code = 4958) 19 NG/ML VITAMIN [id number] 00:00:00* Test Item Value Reference Range Interpretation Comme nts VITAMIN B-12 (test code = 2840) 444 PG/ML VITAMIN [id number] 00:00:00* Test Item Value Reference Range Interpretation Comme nts VITAMIN B-12 (test code = 2840) 444 PG/ML VITAMIN [id number] 00:00:00* Test Item Value Reference Range Interpretation Comme nts VITAMIN B-12 (test code = 2840) 444 PG/ML [id number] 00:00:00* Test Item Value Reference Range Interpretation Comme nts TSH, THIRD GENERATION (test code = 2821) 0.552 UIU/ML [id number] 00:00:00* Test Item Value Reference Range Interpretation Comme nts TSH, THIRD GENERATION (test code = 2821) 0.552 UIU/ML [id number] 00:00:00* Test Item Value Reference Range Interpretation Comme nts TSH, THIRD GENERATION (test code = 2821) 0.552 UIU/ML VITAMIN D, 25 [id number] 00:00:00* Test Item Value Reference Range Interpretation Comme nts VITAMIN D, 25 OH (test code = 4958) 19 NG/ML VITAMIN D, 25 [id number] 00:00:00* Test Item Value Reference Range Interpretation Comme nts VITAMIN D, 25 OH (test code = 4958) 19 NG/ML HEMOGLOBIN [id number] 00:00:00* Test Item Value Reference Range Interpretation Comme nts HEMOGLOBIN A1c (test code = 24280) 6.7 % HEMOGLOBIN [id number] 00:00:00* Test Item Value Reference Range Interpretation Comme nts HEMOGLOBIN A1c (test code = 23937) 6.7 % HEMOGLOBIN [id number] 00:00:00* Test Item Value Reference Range Interpretation Comme nts HEMOGLOBIN A1c (test code = 28157) 6.7 % HEMOGLOBIN [id number] 00:00:00* Test Item Value Reference Range Interpretation Comme nts HEMOGLOBIN A1c (test code = 36752) 6.7 % HEMOGLOBIN [id number] 00:00:00* Test Item Value Reference Range Interpretation Comme nts HEMOGLOBIN A1c (test code = 49877) 6.7 % HEMOGLOBIN [id number] 00:00:00* Test Item Value Reference Range Interpretation Comme nts HEMOGLOBIN A1c (test code = 56247) 6.7 % MICROALBUMIN/CREATININE, RANDOM AND [id number] 00:00:00* Test Item Value Reference Range Interpretation Comme nts CREATININE, URINE, CONC. (te st code = 207) 22.0 MG/DL ALBUMIN, URINE, RANDOM (test code = 74524) 0.2 MG/DL CALC ALBUMIN/CREAT, RND (qiana t code = 12052) 9 MG/G MICROALBUMIN/CREATININE, RANDOM AND [id number] 00:00:00* Test Item Value Reference Range Interpretation Comme nts CREATININE, URINE, CONC. (te st code = 2072) 22.0 MG/DL ALBUMIN, URINE, RANDOM (test code = 39929) 0.2 MG/DL CALC ALBUMIN/CREAT, RND (qiana t code = 62041) 9 MG/G COMPREHENSIVE METABOLIC [id number] 00:00:00* Test Item Value Reference Range Interpretation Comme nts GLUCOSE (test code = 2217) 158 MG/DL BUN (test code = 2208) 12 MG/DL CREATININE (test code = 2214) 0.63 MG/DL eGFR AMER. (test cod e = 01721) 129 ML/MIN/1.73 eGFR NON- AMER. (test code = 08892) 111 ML/MIN/1.73 CALC BUN/CREAT (test code = [...] code = 2219) 34 U/L COMPREHENSIVE METABOLIC [id number] 00:00:00* Test Item Value Reference Range Interpretation Comme nts GLUCOSE (test code = 2217) 158 MG/DL BUN (test code = 2208) 12 MG/DL CREATININE (test code = 2214) 0.63 MG/DL eGFR AMER. (test cod e = 17468) 129 ML/MIN/1.73 eGFR NON- AMER. (test code = 41546) 111 ML/MIN/1.73 CALC BUN/CREAT (test code = [...] (test code = 2219) 34 U/L LIPID [id number] 00:00:00* Test Item Value Reference Range Interpretation Comme nts CHOLESTEROL (test code = 2210) 173 MG/DL TRIGLYCERIDES (test code = 2232) 341 MG/DL HDL CHOLESTEROL (test code = 2220) 28 MG/DL CALC LDL CHOL (test code = 2237) 100 MG/DL RISK RATIO LDL/HDL (test cod e = 2238) 3.57 RATIO LIPID [id number] 00:00:00* Test Item Value Reference Range Interpretation Comme nts CHOLESTEROL (test code = 2210) 173 MG/DL TRIGLYCERIDES (test code = 2232) 341 MG/DL HDL CHOLESTEROL (test code = 2220) 28 MG/DL CALC LDL CHOL (test code = 2237) 100 MG/DL RISK RATIO LDL/HDL (test cod e = 2238) 3.57 RATIO MICROALBUMIN/CREATININE, RANDOM AND [id number] 00:00:00* Test Item Value Reference Range Interpretation Comme nts CREATININE, URINE, CONC. (te st code = 207) 22.0 MG/DL ALBUMIN, URINE, RANDOM (test code = 02278) 0.2 MG/DL CALC ALBUMIN/CREAT, RND (qiana t code = 80464) 9 MG/G MICROALBUMIN/CREATININE, RANDOM AND [id number] 00:00:00* Test Item Value Reference Range Interpretation Comme nts CREATININE, URINE, CONC. (te st code = 207) 22.0 MG/DL ALBUMIN, URINE, RANDOM (test code = 93228) 0.2 MG/DL CALC ALBUMIN/CREAT, RND (qiana t code = 65934) 9 MG/G COMPREHENSIVE METABOLIC [id number] 00:00:00* Test Item Value Reference Range Interpretation Comme nts GLUCOSE (test code = 2217) 158 MG/DL BUN (test code = 2208) 12 MG/DL CREATININE (test code = 2214) 0.63 MG/DL eGFR AMER. (test cod e = 98096) 129 ML/MIN/1.73 eGFR NON- AMER. (test code = 52717) 111 ML/MIN/1.73 CALC BUN/CREAT (test code = [...] code = 2219) 34 U/L COMPREHENSIVE METABOLIC [id number] 00:00:00* Test Item Value Reference Range Interpretation Comme nts GLUCOSE (test code = 2217) 158 MG/DL BUN (test code = 2208) 12 MG/DL CREATININE (test code = 2214) 0.63 MG/DL eGFR AMER. (test cod e = 63247) 129 ML/MIN/1.73 eGFR NON- AMER. (test code = 14780) 111 ML/MIN/1.73 CALC BUN/CREAT (test code = [...] (test code = 2219) 34 U/L LIPID [id number] 00:00:00* Test Item Value Reference Range Interpretation Comme nts CHOLESTEROL (test code = 2210) 173 MG/DL TRIGLYCERIDES (test code = 2232) 341 MG/DL HDL CHOLESTEROL (test code = 2220) 28 MG/DL CALC LDL CHOL (test code = 2237) 100 MG/DL RISK RATIO LDL/HDL (test cod e = 2238) 3.57 RATIO LIPID [id number] 00:00:00* Test Item Value Reference Range Interpretation Comme nts CHOLESTEROL (test code = 2210) 173 MG/DL TRIGLYCERIDES (test code = 2232) 341 MG/DL HDL CHOLESTEROL (test code = 2220) 28 MG/DL CALC LDL CHOL (test code = 2237) 100 MG/DL RISK RATIO LDL/HDL (test cod e = 2238) 3.57 RATIO HEMOGLOBIN [id number] 00:00:00* Test Item Value Reference Range Interpretation Comme nts HEMOGLOBIN A1c (test code = 67181) 7.0 % HEMOGLOBIN [id number] 00:00:00* Test Item Value Reference Range Interpretation Comme nts HEMOGLOBIN A1c (test code = 43236) 7.0 % MICROALBUMIN/CREATININE, RANDOM AND [id number] 00:00:00* Test Item Value Reference Range Interpretation Comme nts CREATININE, URINE, CONC. (te st code = 2072) 92.4 MG/DL ALBUMIN, URINE, RANDOM (test code = 40408) 0.7 MG/DL CALC ALBUMIN/CREAT, RND (qiana t code = 30035) 8 MG/G MICROALBUMIN/CREATININE, RANDOM AND [id number] 00:00:00* Test Item Value Reference Range Interpretation Comme nts CREATININE, URINE, CONC. (te st code = 2072) 92.4 MG/DL ALBUMIN, URINE, RANDOM (test code = 97196) 0.7 MG/DL CALC ALBUMIN/CREAT, RND (qiana t code = 53582) 8 MG/G HIV 1/2 4TH GEN, RFLX [...] Comme nts GONORRHEA, TMA (test code = 72433) NEGATIVE CHLAMYDIA, TMA (test code = 02408) NEGATIVE CT/NG, TMA, URINE [ADDED]2019-03-22 00:00:00* Test Item Value Reference Range Interpretation Comme nts GONORRHEA, TMA (test code = 14146) NEGATIVE CHLAMYDIA, TMA (test code = 98894) NEGATIVE COMPREHENSIVE METABOLIC [id number] 00:00:00* Test Item Value Reference Range Interpretation Comme nts GLUCOSE (test code = 2217) 238 MG/DL BUN (test code = 2208) 15 MG/DL CREATININE (test code = 2214) 0.71 MG/DL eGFR AMER. (test cod e = 25101) 123 ML/MIN/1.73 eGFR NON- AMER. (test code = 86858) 107 ML/MIN/1.73 CALC BUN/CREAT (test code = [...] code = 2219) 12 U/L COMPREHENSIVE METABOLIC [id number] 00:00:00* Test Item Value Reference Range Interpretation Comme nts GLUCOSE (test code = 2217) 238 MG/DL BUN (test code = 2208) 15 MG/DL CREATININE (test code = 2214) 0.71 MG/DL eGFR AMER. (test cod e = 59956) 123 ML/MIN/1.73 eGFR NON- AMER. (test code = 55108) 107 ML/MIN/1.73 CALC BUN/CREAT (test code = [...] (test code = 2219) 12 U/L LIPID [id number] 00:00:00* Test Item Value Reference Range Interpretation Comme nts CHOLESTEROL (test code = 2210) 178 MG/DL TRIGLYCERIDES (test code = 2232) 939 MG/DL HDL CHOLESTEROL (test code = 2220) 21 MG/DL CALC LDL CHOL (test code = 2237) NOTE MG/DL RISK RATIO LDL/HDL (test cod e = 2238) (NOTE) RATIO LIPID [id number] 00:00:00* Test Item Value Reference Range Interpretation Comme nts CHOLESTEROL (test code = 2210) 178 MG/DL TRIGLYCERIDES (test code = 2232) 939 MG/DL HDL CHOLESTEROL (test code = 2220) 21 MG/DL CALC LDL CHOL (test code = 2237) NOTE MG/DL RISK RATIO LDL/HDL (test cod e = 2238) (NOTE) RATIO HEMOGLOBIN [id number] 00:00:00* Test Item Value Reference Range Interpretation Comme nts HEMOGLOBIN A1c (test code = 62019) 7.0 % HEMOGLOBIN [id number] 00:00:00* Test Item Value Reference Range Interpretation Comme nts HEMOGLOBIN A1c (test code = 76038) 7.0 % HEMOGLOBIN [id number] 00:00:00* Test Item Value Reference Range Interpretation Comme nts HEMOGLOBIN A1c (test code = 07076) 7.0 % MICROALBUMIN/CREATININE, RANDOM AND [id number] 00:00:00* Test Item Value Reference Range Interpretation Comme nts CREATININE, URINE, CONC. (te st code = 207) 92.4 MG/DL ALBUMIN, URINE, RANDOM (test code = 62179) 0.7 MG/DL CALC ALBUMIN/CREAT, RND (qiana t code = 15111) 8 MG/G MICROALBUMIN/CREATININE, RANDOM AND [id number] 00:00:00* Test Item Value Reference Range Interpretation Comme nts CREATININE, URINE, CONC. (te st code = 207) 92.4 MG/DL ALBUMIN, URINE, RANDOM (test code = 82663) 0.7 MG/DL CALC ALBUMIN/CREAT, RND (qiana t code = 20057) 8 MG/G HIV 1/2 4TH GEN, RFLX [...] Comme nts GONORRHEA, TMA (test code = 27674) NEGATIVE CHLAMYDIA, TMA (test code = 05915) NEGATIVE CT/NG, TMA, URINE [ADDED]2019-03-22 00:00:00* Test Item Value Reference Range Interpretation Comme nts GONORRHEA, TMA (test code = 46695) NEGATIVE CHLAMYDIA, TMA (test code = 69432) NEGATIVE COMPREHENSIVE METABOLIC [id number] 00:00:00* Test Item Value Reference Range Interpretation Comme nts GLUCOSE (test code = 2217) 238 MG/DL BUN (test code = 2208) 15 MG/DL CREATININE (test code = 2214) 0.71 MG/DL eGFR AMER. (test cod e = 03384) 123 ML/MIN/1.73 eGFR NON- AMER. (test code = 93599) 107 ML/MIN/1.73 CALC BUN/CREAT (test code = [...] code = 2219) 12 U/L COMPREHENSIVE METABOLIC [id number] 00:00:00* Test Item Value Reference Range Interpretation Comme nts GLUCOSE (test code = 2217) 238 MG/DL BUN (test code = 2208) 15 MG/DL CREATININE (test code = 2214) 0.71 MG/DL eGFR AMER. (test cod e = 25008) 123 ML/MIN/1.73 eGFR NON- AMER. (test code = 87477) 107 ML/MIN/1.73 CALC BUN/CREAT (test code = [...] (test code = 2219) 12 U/L LIPID [id number] 00:00:00* Test Item Value Reference Range Interpretation Comme nts CHOLESTEROL (test code = 2210) 178 MG/DL TRIGLYCERIDES (test code = 2232) 939 MG/DL HDL CHOLESTEROL (test code = 2220) 21 MG/DL CALC LDL CHOL (test code = 2237) NOTE MG/DL RISK RATIO LDL/HDL (test cod e = 2238) (NOTE) RATIO LIPID [id number] 00:00:00* Test Item Value Reference Range Interpretation Comme nts CHOLESTEROL (test code = 2210) 178 MG/DL TRIGLYCERIDES (test code = 2232) 939 MG/DL HDL CHOLESTEROL (test code = 2220) 21 MG/DL CALC LDL CHOL (test code = 2237) NOTE MG/DL RISK RATIO LDL/HDL (test cod e = 2238) (NOTE) RATIO HEMOGLOBIN [id number] 00:00:00* Test Item Value Reference Range Interpretation Comme nts HEMOGLOBIN A1c (test code = 21529) 7.0 %"
[2023-06-30 14:24] LABS: Absolute Lymphocytes (CBC) 1.7 K/uL (0.7-4.9); Hematocrit 35.6 % (36.0-45.0); Lymphocytes % 12.3 % (15.3-44.8); MCV 80.2 fL (80-100); MPV 9.4 fL (7.6-11.3); Platelets 221 thou/uL (152-406); RBC Red Blood Cell Count 4.44 M/uL (3.86-4.86)
[2023-06-30 14:44] LABS: BUN Blood Urea Nitrogen 15 mg/dL (7-18); Bicarbonate 21 mEq/L (21-32); Glomerular Filtration Rate 81 ml/min (=/>90); Glucose Level 374 mg/dL (74-106); Magnesium 1.9 mg/dL (1.6-2.4); Potassium 3.9 mEq/L (3.5-5.1); Sodium Level 130 mEq/L (136-145)
[2023-06-30 15:03] LABS: Troponin High Sensitivity < 3.0 pg/mL (<58.9)
--- NOTE | 2023-06-30 15:21 | RAD REPORT ---
[facility] CLINICAL HISTORY: CHEST PAIN COMPARISON: Chest Single View dated 03/05/2023; Chest Single View dated 02/10/2023; Chest Single View dated 01/08/2023; Chest Single View dated 11/17/2022 TECHNIQUE: Portable AP view of the chest. FINDINGS: The lungs are clear. No pneumothorax or effusion. The cardiomediastinal contours are unre markable. IMPRESSION: No acute cardiopulmonary process.
--- NOTE | 2023-06-30 16:32 | ER ---
Nurse's Notes [facility] Name: Kaur Caruso Age: 42 yrs Sex: Female : 1980 Arrival Date: 06/30/2023 Time: 12:16 Bed 12 Private MD: Diagnosis: Cutaneous abscess of right axilla;Cutaneous abscess of left axilla;Cellulitis of right axilla;Cellulitis of left axilla;Diabetes mellitus due to underlying condition with hyperglycemia Presentation: 06/30 12:26 Chief complaint: Patient states: Seen last night for abscess to L axilla, states that ph she was prescribed pain medication and antibiotic but no I\\T\\D, states, " It still hurts so bad. It feel like pressure in my underarm and it's spreading here (L upper chest)". Drainage noted from area. Also reports abscess to R axilla, denies fever .Has not picked up prescribed antibiotics from pharmacy. Coronavirus screen: Vaccine status: Patient reports receiving the 2nd dose of the covid vaccine. Ebola Screen: No symptoms or risks identified at this time. Initial Sepsis Screen: Does the patient meet any 2 criteria? No. Patient's initial sepsis screen is negative. Does the patient have a suspected source of infection? No. Patient's initial sepsis screen is negative. Risk Assessment: Do you want to hurt yourself or someone else? Patient reports no desire to harm self or others. Onset of symptoms was June 30, 2023. 12:26 Method Of Arrival: Ambulatory 12:26 Acuity: DESTINY 3 ph Historical: - Allergies: 12:29 No Known Allergies; ph - PMHx: 12:29 Anxiety; depressive disorder; High Cholesterol; Hypertension; Diabetes - NIDDM; ph - PSHx: 12:29 Diabetic Foot Surgery; ph - Immunization history:: Adult Immunizations unknown. - Social history:: Smoking status: Patient denies any tobacco usage or history of. Screenin:58 [facility] ED Fall Risk Assessment (Adult) History of falling in the last 3 months, cm10 including since admission No falls in past 3 months (0 pts) Confusion or Disorientation No (0 pts) Intoxicated or Sedated No (0 pts) Impaired Gait No (0 pts) Mobility Assist Device Used No (0 pt) Altered Elimination No (0 pt) Score/Fall Risk Level 0 - 2 = Low Risk Oriented to surroundings, Maintained a safe environment, Hourly rounding (assess needs \\T\\ fall precautionary measures) done. Abuse screen: Denies threats or abuse. Denies injuries from another. Nutritional screening: No deficits noted. Tuberculosis screening: No symptoms or risk factors identified. Assessment: 14:46 General: Appears in no apparent distress. comfortable, Behavior is calm, cooperative. cm10 Pain: Complains of pain in chest, right axilla and left axilla Pain does not radiate. Pain currently is 8 out of 10 on a pain scale. Quality of pain is described as pressure, sharp, Pain began 1 day ago. Neuro: No deficits noted. Level of Consciousness is awake, alert, obeys commands, Oriented to person, place, time, situation. Cardiovascular: No deficits noted. Reports chest pain, since This morning Capillary refill < 3 seconds Patient's skin is warm and dry. Respiratory: No deficits noted. Airway is patent Respiratory effort is even, unlabored, Respiratory pattern is regular, symmetrical. GI: No deficits noted. No signs and/or symptoms were reported involving the gastrointestinal system. : No deficits noted. No signs and/or symptoms were reported regarding the genitourinary system. EENT: No deficits noted. No signs and/or symptoms were reported regarding the EENT system. Derm: Abscess located on right axilla and left axilla. Musculoskeletal: No deficits noted. Capillary refill < 3 seconds, Range of motion: intact in all extremities. 17:24 Reassessment: Patient appears in no apparent distress at this time. Patient is cm10 alert/active/playful, equal unlabored respirations, skin warm/dry/pink. Patient states feeling better. Patient states symptoms have improved. Vital Signs: 12:32 BP 132 / 84; Pulse 114; Resp 18; Temp 98; Pulse Ox 98% on R/A; ph 16:37 BP 145 / 89; Pulse 97; Resp 18; Pulse Ox 99% on R/A; cm10 17:24 BP 111 / 78; Pulse 94; Resp 18; Pulse Ox 99% ; cm10 ED Course: 12:21 Patient arrived in ED. im 12:27 Shayna Wall MD is Attending Physician. sp3 12:29 Triage completed. ph 12:30 Arm band placed on Patient placed in waiting room. ph 13:39 Page, Oswaldo, PA is PHCP. cp 14:05 Heidy Vargas, HINA is Primary Nurse. cm10 14:26 Initial lab(s) drawn, by me, sent to lab. Inserted saline lock: 20 gauge in right cm10 antecubital area, using aseptic technique. Blood collected. Patient maintains SpO2 saturation greater than 95% on room air. 14:46 XRAY Chest (1 view) In Process Unspecified. EDMS 14:58 Patient has correct armband on for positive identification. Bed in low position. Call cm10 light in reach. Side rails up X2. Provided Education on: ER process and procedures.. Client placed on continuous cardiac and pulse oximetry monitoring. NIBP monitoring applied. 16:30 Jose Roberto Gutierrez MD is Referral Physician. cp 17:25 No provider procedures requiring assistance completed. IV discontinued, intact, cm10 bleeding controlled, No redness/swelling at site. Pressure dressing applied. Administered Medications: 14:25 Drug: morphine IVP or IV 4 mg IVP once over 4 mins Route: IVP; Infused Over: 4 mins; cm10 Site: right antecubital; 15:22 Follow up: Response: No adverse reaction cm10 14:25 Drug: Ondansetron IVP 4 mg IVP once; over 2 minutes Route: IVP; Site: right antecubital;cm10 15:22 Follow up: Response: No adverse reaction cm10 14:26 Drug: NS 0.9% IV 1000 ml IV at 1000 ml/hr Per protocol; 1000 mL bolus Route: IV; Rate: cm10 1000 ml/hr; Site: right antecubital; 16:30 Follow up: Response: No adverse reaction; IV Status: Completed infusion; IV Intake: cm10 1000ml 15:36 Drug: Lidocaine Infiltration (1 %) 20 ml 20 ml Infiltration once; to bedside {Note: cm10 Given by provider. .} Volume: 20 ml; Route: Infiltration; 15:36 Drug: Bupivacaine Infiltration (0.5 %) 10 ml 10 ml Infiltration once {Note: Given by cm10 provider. .} Volume: 10 ml; Route: Infiltration; 15:36 Drug: morphine IVP or IV 4 mg IVP once over 4 mins Route: IVP; Infused Over: 4 mins; cm10 Site: right antecubital; 17:24 Follow up: Response: No adverse reaction cm10 15:36 Drug: Insulin Regular Human Sub-Q 10 units Sub-Q once {Co-Signature: ph (Promise Lorenz cm10 RN).} {Note: BGL 306.} Route: Sub-Q; Site: abdomen; 17:24 Follow up: Response: No adverse reaction; Blood sugar is lowered cm10 16:32 Drug: Trimethoprim-Sulfamethoxazole PO (160 mg-800 mg (DS) 1 tablet PO once Route: PO; cm10 17:24 Follow up: Response: No adverse reaction cm10 16:32 Drug: Clindamycin IVPB 900 mg IVPB once over 30 mins; (mix in 50 mL) Route: IVPB; cm10 Infused Over: 30 mins; Site: right antecubital; 17:23 Follow up: Response: No adverse reaction; IV Status: Completed infusion; IV Intake: cm10 100ml Medication: 17:25 VIS not applicable for this client. cm10 Point of Care Testing: Blood Glucose: 15:27 Blood Glucose: 306 mg/dL; cm10 Ranges: Intake: 16:30 IV: 1000ml; Total: 1000ml. cm10 17:23 IV: 100ml; Total: 1100ml. cm10 Outcome: 16:32 Discharge ordered by MD. cp 17:25 Discharged to home ambulatory, cm10 17:25 Condition: good 17:25 Discharge instructions given to patient, Instructed on discharge instructions, follow up and referral plans. medication usage, wound care, Demonstrated understanding of instructions, follow-up care, medications, wound care, Prescriptions given X 3, 17:25 Patient left the ED. cm10 Signatures: Dispatcher [employer] EDMS Promise Lorenz, RN RN ph Oswaldo Marrero PA PA cp Patel, Setul, MD MD sp3 Erlinda Godwin Clarissa, RN RN cm10 Promise Lorenz RN ph
--- NOTE | 2023-06-30 16:32 | EDPHYS ---
Physician Documentation [facility] Name: Kaur Caruso Age: 42 yrs Sex: Female : 1980 Arrival Date: 06/30/2023 Time: 12:16 Bed 12 Private MD: ED Physician Shayna Wall HPI: 06/30 14:05 This 42 yrs old Female presents to ER via Ambulatory with complaints of Skin cp Problem - armpits, Chest Pressure. 14:05 The patient presents with an abscess of the right axilla and left axilla, the patient cp presents with a swollen area of the right axilla and left axilla. 14:05 Description: draining, erythematous, swollen. cp 14:05 Onset: The symptoms/episode began/occurred gradually. cp 14:05 Patient is a 42-year-old female with past medical history significant for hypertension, cp [id number] diabetes, anxiety, depression and hyperlipidemia. Patient returns to the emergency department after being seen yesterday and diagnosed with abscess of the left axilla. Patient reports she has had continued drainage increased pain today. She was prescribed an antibiotic that she was unable to worm picker from the pharmacy at this time. Patient now complains of pain and swelling to right axilla. Historical: - Allergies: 12:29 No Known Allergies; ph - PMHx: 12:29 Anxiety; depressive disorder; High Cholesterol; Hypertension; Diabetes - NIDDM; ph - PSHx: 12:29 Diabetic Foot Surgery; ph - Immunization history:: Adult Immunizations unknown. - Social history:: Smoking status: Patient denies any tobacco usage or history of. ROS: 14:10 Eyes: Negative for injury, pain, redness, and discharge, cp 14:10 Constitutional: Negative for body aches, chills, fever, poor PO intake, 14:10 ENT: Negative for drainage from ear(s), ear pain, sore throat, difficulty swallowing, difficulty handling secretions, 14:10 Cardiovascular: Positive for chest pain, 14:10 Respiratory: Negative for cough, shortness of breath, wheezing, 14:10 Abdomen/GI: Negative for abdominal pain, vomiting, diarrhea, constipation, 14:10 Skin: Positive for abscess, of the right axilla and left axilla, 14:10 Neuro: Negative for altered mental status, dizziness, headache, weakness, cp 14:10 All other systems are negative, Exam: 14:15 Constitutional: The patient appears in no acute distress, alert, awake, cp non-diaphoretic, non-toxic, well developed, well nourished, uncomfortable, 14:15 Head/Face: Normocephalic, atraumatic. cp 14:15 Eyes: Periorbital structures: appear normal, Conjunctiva: normal, no exudate, no injection, Sclera: no appreciated abnormality, Lids and lashes: appear normal, bilaterally, 14:15 ENT: External ear(s): are unremarkable, Nose: is normal, Mouth: Lips: moist, Oral mucosa: pink and intact, moist, Posterior pharynx: Airway: no evidence of obstruction, patent, 14:15 Neck: ROM/movement: is normal, is supple, without pain, no range of motions limitations, 14:15 Chest/axilla: Axilla: abscess, that is small, of the right axilla, of the left axilla, with draining, with surrounding erythema, multiple noted bilaterally, marked tenderness with palpation, 14:15 Cardiovascular: Rate: tachycardic, Rhythm: regular, 14:15 Respiratory: the patient does not display signs of respiratory distress, Respirations: normal, no use of accessory muscles, no retractions, labored breathing, is not present, Breath sounds: are clear throughout, no decreased breath sounds, no stridor, no wheezing, 14:15 Abdomen/GI: Inspection: abdomen appears normal, Palpation: abdomen is soft and non-tender, 14:15 Neuro: Orientation: to person, place \T\ time. Mentation: is normal, Motor: is normal, Sensation: is normal, 14:27 ECG was reviewed by the Attending Physician. cp Vital Signs: 12:32 BP 132 / 84; Pulse 114; Resp 18; Temp 98; Pulse Ox 98% on R/A; ph 16:37 BP 145 / 89; Pulse 97; Resp 18; Pulse Ox 99% on R/A; cm10 17:24 BP 111 / 78; Pulse 94; Resp 18; Pulse Ox 99% ; cm10 Procedures: 16:30 I \T\ D: Incision and drainage was performed for an abscess of the bilateral axilla. cp Prepped with Betadine, Anesthetized with 10 ccs of 1% lidocaine w/o epi and 0.5% marcaine. Incised with #11 blade. Drained small amount purulent fluid. bloody fluid. Packed with iodoform gauze, Dressing: sterile 4x4 gauze, the patient tolerated the procedure well. MDM: 13:09 Patient medically screened. sp3 16:31 Data reviewed: vital signs, nurses notes, lab test result(s), EKG. 16:31 I considered the following discharge prescriptions or medication management in the emergency department Medications were administered in the Emergency Department. See MAR. Care significantly affected by the following chronic conditions: Diabetes, Hypertension. Counseling: I had a detailed discussion with the patient and/or guardian regarding the historical points, exam findings, and any diagnostic results supporting the discharge/admit diagnosis, lab results, the need for outpatient follow up, a general surgeon, to return to the emergency department if symptoms worsen or persist or if there are any questions or concerns that arise at home. Response to treatment: the patient's symptoms have mildly improved after treatment, and as a result, I will discharge patient. 06/30 13:55 Order name: Basic Metabolic Panel; Complete Time: 15:06 06/30 15:06 Interpretation: Normal except: NA 130; GLUC 374; GFR 81. 06/30 13:55 Order name: CBC with Diff; Complete Time: 14:49 06/30 14:49 Interpretation: Normal except: WBC 14.20; HCT 35.6; CLAY% 81.4; LYM% 12.3; NEUT A 11.6. 06/30 13:55 Order name: Magnesium; Complete Time: 15:06 06/30 13:55 Order name: Troponin HS; Complete Time: 15:06 06/30 13:55 Order name: Lactate w/ 2H reflex if indic.; Complete Time: 14:49 06/30 14:52 Interpretation: LAC 1.9. 06/30 15:39 Order name: Glucose, Ancillary Testing; Complete Time: 16:47 EDTX 06/30 16:47 Interpretation: Reviewed. 06/30 16:53 Order name: Glucose, Ancillary Testing EDTX 06/30 13:55 Order name: XRAY Chest (1 view); Complete Time: 15:22 06/30 15:22 Interpretation: Report reviewed. 06/30 13:55 Order name: EKG; Complete Time: 13:56 cp 06/30 13:55 Order name: Cardiac monitoring; Complete Time: 14: cp 06/30 13:55 Order name: EKG - Nurse/Tech; Complete Time: 14: cp 06/30 13:55 Order name: IV Saline Lock; Complete Time: 14: 06/30 13:55 Order name: Labs collected and sent; Complete Time: 14: 06/30 13:55 Order name: O2 Per Protocol; Complete Time: 14: 06/30 13:55 Order name: O2 Sat Monitoring; Complete Time: 14: cp 06/30 13:56 Order name: I\T\D Setup; Complete Time: 15:36 cp EC:27 Rate is 110 beats/min. Rhythm is regular. MT interval is normal. QRS interval is cp normal. QT interval is normal. T waves are Inverted in lead aVR. Interpreted by me. Reviewed by me. Administered Medications: 14:25 Drug: morphine IVP or IV 4 mg IVP once over 4 mins Route: IVP; Infused Over: 4 mins; cm10 Site: right antecubital; 15:22 Follow up: Response: No adverse reaction cm10 14:25 Drug: Ondansetron IVP 4 mg IVP once; over 2 minutes Route: IVP; Site: right antecubital;cm10 15:22 Follow up: Response: No adverse reaction cm10 14:26 Drug: NS 0.9% IV 1000 ml IV at 1000 ml/hr Per protocol; 1000 mL bolus Route: IV; Rate: cm10 1000 ml/hr; Site: right antecubital; 16:30 Follow up: Response: No adverse reaction; IV Status: Completed infusion; IV Intake: cm10 1000ml 15:36 Drug: Lidocaine Infiltration (1 %) 20 ml 20 ml Infiltration once; to bedside {Note: cm10 Given by provider. .} Volume: 20 ml; Route: Infiltration; 15:36 Drug: Bupivacaine Infiltration (0.5 %) 10 ml 10 ml Infiltration once {Note: Given by cm10 provider. .} Volume: 10 ml; Route: Infiltration; 15:36 Drug: morphine IVP or IV 4 mg IVP once over 4 mins Route: IVP; Infused Over: 4 mins; cm10 Site: right antecubital; 17:24 Follow up: Response: No adverse reaction cm10 15:36 Drug: Insulin Regular Human Sub-Q 10 units Sub-Q once {Co-Signature: ph (Promise Lorenz cm10 RN).} {Note: BGL 306.} Route: Sub-Q; Site: abdomen; 17:24 Follow up: Response: No adverse reaction; Blood sugar is lowered cm10 16:32 Drug: Trimethoprim-Sulfamethoxazole PO (160 mg-800 mg (DS) 1 tablet PO once Route: PO; cm10 17:24 Follow up: Response: No adverse reaction cm10 16:32 Drug: Clindamycin IVPB 900 mg IVPB once over 30 mins; (mix in 50 mL) Route: IVPB; cm10 Infused Over: 30 mins; Site: right antecubital; 17:23 Follow up: Response: No adverse reaction; IV Status: Completed infusion; IV Intake: cm10 100ml Point of Care Testing: Blood Glucose: 15:27 Blood Glucose: 306 mg/dL; cm10 Ranges: Critical Glucose Levels:Adult <50 mg/dl or >400 mg/dl <40 mg/dl or >180 mg/dl Disposition Summary: 06/30/23 16:32 Discharge Ordered Notes: Location: Home cp Problem: an ongoing problem cp Symptoms: have improved cp Condition: Stable cp Diagnosis - Cutaneous abscess of right axilla cp - Cutaneous abscess of left axilla cp - Cellulitis of right axilla cp - Cellulitis of left axilla cp - Diabetes mellitus due to underlying condition with hyperglycemia cp Followup: cp - With: Jose Roberto Gutierrez MD - When: 1 - 2 days - Reason: Wound Recheck Discharge Instructions: - Discharge Summary Sheet cp - Skin Abscess cp - Cellulitis, Adult cp - Incision and Drainage cp Forms: - Medication Reconciliation Form cp - Thank You Letter cp - Antibiotic Education cp - Prescription Opioid Use cp - Patient Portal Instructions cp - Leadership Thank You Letter cp Prescriptions: - acetaminophen-codeine 300-30 mg Oral tablet - take 2 tablet ORAL route every 8 to 12 hours as needed for pain; 14 tablet; cp Refills: 0, Product Selection Permitted - Clindamycin HCl 300 mg Oral Capsule - take 1 capsule ORAL route every 6 hours for 10 days; 40 capsule; Refills: 0, cp Product Selection Permitted - Ibuprofen 800 mg Oral Tablet - take 1 tablet ORAL route every 8 hours As needed take with food; 30 tablet; cp Refills: 0, Product Selection Permitted Signatures: Dispatcher [employer] Promise Alvarado RN RN ph Oswaldo Marrero PA PA cp Shayna Wall MD MD sp3 Heidy Vargas RN RN cm10 Promise Lorenz RN ph Corrections: (The following items were deleted from the chart) 07/01 15:00 14:59 I \T\ D: Incision and drainage was performed for an abscess of the bilateral cp axilla. Prepped with Betadine, Anesthetized with 10 ccs of 1% lidocaine w/o epi and 0.5% marcaine. Incised with #11 blade. Drained small amount purulent fluid. bloody fluid. Packed with iodoform gauze, Dressing: sterile 4x4 gauze, the patient tolerated the procedure well, cp
[2023-06-30 19:10] VITALS: TEMP 98
[2023-06-30 19:20] VITALS: BP 111/78; O2SAT 99
--- NOTE | 2023-07-01 13:24 | EKG ---
Test Date: 2023-06-30 Test Time: 14:21:04 Child Care Group Leader: ADAM MEASUREMENT RESULTS: Intervals: Rate: 110 OH: 134 QRSD: 80 QT: 342 QTc: 462 [place]: P: 69 OH: 134 QRS: 63 T: 59 INTERPRETIVE STATEMENTS: Sinus tachycardia Otherwise normal ECG Compared to ECG 03/05/2023 18:43:26 Sinus rhythm no longer present Electronically Signed On 07-01-23 13:22:43 GUIDE EXCURSION by Richie London
== END ==
LOC: ER 12:16
DX: L03.112 Cellulitis of left axilla (principal); L03.111 Cellulitis of right axilla; L02.412 Cutaneous abscess of left axilla; L02.411 Cutaneous abscess of right axilla; E11.65 Type 2 diabetes mellitus with hyperglycemia; I10 Essential (primary) hypertension
CPT/HCPCS: 96365; 96361; 93005; 85025; 80048; 36415; 83735; 82947 ×2; 83605; 84484; 71045; 96375; 96372; 99285; J1815; J2001; J2405; J7030